=== PATIENT | male | born 1965 | race Caucasian/White ===

== ENCOUNTER 2022-03-14 23:31 | Emergency (ER) | payer MEDICARE, SELFPAY ==
--- NOTE | ~2022-03-14 | XR_ITS ---
EXAMINATION: XR chest 2V DATE: 03/15/2022 00:21 INDICATION: Shortness of breath. TECHNIQUE: Frontal and lateral views of the chest were obtained. COMPARISON: Chest 2 views 06/09/2016 FINDINGS: There is mild atelectasis at left lung base. No pleural effusion or pneumothorax. The heart size is normal. IMPRESSION: 1. Mild atelectasis at left lung base. Reviewed, dictated and finalized at location A.
[2022-03-14 23:39] VITALS: BP 155/109; PULSE 102; RESP 22; TEMP 36.8; O2SAT 92
[2022-03-15] VITALS (12 sets, daily range): BP systolic 100–162; BP diastolic 66–101; PULSE 84–104; RESP 18–28; O2SAT 91–99
[2022-03-15 00:35] LABS: Basophils Percent Auto 0.6 % (0.2-1.2); Eosinophils Absolute Auto 0.3 K/mm3 (0-0.3); Eosinophils Percent Auto 4.5 % (0-4.4); Hematocrit 46.8 % (42.0-52.0); Hemoglobin 15.7 g/dL (14.0-18.0); Immature Granulocyte Absolute 0.04 K/mm3 (0.00-0.031); Immature Granulocyte Percent A 0.6 % (0-0.5); Lymphocytes Absolute Auto 1.07 K/mm3 (0.9-3.2); Lymphocytes Percent Auto 15.9 % (18.3-44.2); Mean Corpuscular HGB Conc 33.5 g/dl (32-36); Mean Corpuscular Hemoglobin 31.5 pg (26-34); Mean Platelet Volume 8.6 fl (7.4-10.4); Monocytes Absolute Auto 0.6 K/mm3 (0.1-0.6); Monocytes Percent Auto 8.5 % (2.6-8.5); Neutrophils Absolute Auto 4.7 K/mm3 (1.3-6.7); Neutrophils Percent Auto 69.9 % (45.5-73.1); Platelet Count Result 392 k/mm3 (150-375); Red Blood Count 4.98 M/mm3 (4.6-6.20); Red Cell Distribution Width 13.1 % (11.5-14.5); White Blood Count 6.7 K/mm3 (4.5-10.0)
[2022-03-15 00:42] LABS: Alanine Aminotransferase 28 U/L (6-50); Albumin Level 4.6 g/dL (3.5-5.1); Alkaline Phosphatase 106 U/L (38-126); Anion Gap 15 mmol/L (8-16); Aspartate Amino Transferase 41 U/L (17-59); Bilirubin,Total 0.4 mg/dL (0.2-1.3); Blood Urea Nitrogen 18 mg/dL (9-20); Calcium 9.1 mg/dL (8.4-10.2); Carbon Dioxide 26 mmol/L (22-30); Chloride 98 mmol/L (98-107); Estimated CRCL calculation 65 ml/min; Estimated Glomerular Filt Rate > 60; Glucose 116 mg/dL (65-110); Potassium 4.2 mmol/L (3.4-5.0); Sodium 139 mmol/L (137-145)
--- NOTE | 2022-03-15 01:02 | ECG_ITS ---
Measurements Intervals [place] Rate: 89 P: 74 WV: 160 QRS: 50 QRSD: 92 T: 61 QT: 325 QTc: 397 Interpretive Statements SINUS RHYTHM POSSIBLE LEFT ATRIAL ENLARGEMENT BORDERLINE ECG NO PREVIOUS ECG AVAILABLE FOR COMPARISON Electronically Signed On 03-15-2022 8:30:21 CDT by Mariano Munoz D.O.
--- NOTE | 2022-03-15 01:20 | ED.SOB ---
HPI - SOB/Dyspnea General Chief Complaint: Shortness of Breath/Dyspnea <Lake Gong APRN - Last Filed: 03/15/22 01:36> Stated Complaint: chest pressure, SOB x2 months <Lake Gong APRN - Last Filed: 03/15/22 01:36> Time Seen by Provider: 03/15/22 01:05 <Lake Gong APRN - Last Filed: 03/15/22 01:36> History of Present Illness HPI Narrative: 56-year-old male history of throat cancer and asthma presents to the emergency room for multiple complaints. Patient states 2 months ago he was nauseated and threw up multiple times, noticed that he had blood in his vomit. States the hematemesis resolved in 3 days. He believes the blood was present due to throat strictures from the history of chemo and radiation therapy. States for the last 6 weeks he has been experiencing shortness of breath, and that his rescue inhaler helps occasionally. States he attempted to contact his primary care physician but they were unable to see him. Patient also complains of right arm numbness and tingling for the last 2 months that is more noticeable when he raises his arm in the air. Patient also states that he has been constipated. <Lake Gong APRN - Last Filed: 03/15/22 01:36> Related Data Home Medications: Home Medications Medication Instructions Recorded Confirmed albuterol 90 mcg/actuation aerosol mcg inhalation 03/15/22 inhaler levothyroxine 100 mcg tablet mcg 03/15/22 <Lake Gong APRN - Last Filed: 03/15/22 01:36> Allergies/Adverse Reactions: Allergies Allergy/AdvReac Type Severity Reaction Status Date / Time No Known Allergies Allergy Verified 03/15/22 01:13 <Lake Gong APRN - Last Filed: 03/15/22 01:36> Review of Systems Review of Systems: CONSTITUTIONAL: Denies fever, chills, or sweats. EYES: Denies visual changes, redness, or discharge. ENT: Denies rhinorrhea, congestion, sore throat, or otalgia. CARDIOVASCULAR: Denies chest pain, palpitations, or edema. RESPIRATORY: Reports shortness of breath, and wheezing GASTROINTESTINAL: Reports constipation GENITOURINARY: Denies dysuria or hematuria. SKIN: Denies rash or itching. MUSCULOSKELETAL: Denies back pain, joint pain, or myalgia. NEUROLOGIC: Reports paresthesias in right arm PSYCHIATRIC: Denies anxiety or depression. <Lake Gong APRN - Last Filed: 03/15/22 01:36> Exam Narrative: GENERAL: Well-appearing, well-nourished, no physical limitations, and in no acute distress. HEAD: Normocephalic, atraumatic. EYES: Conjunctivae normal, PERRLA and EOMI. ENT: External nose normal, Nares clear, no rhinorrhea or epistaxis. Mucous membranes moist. Oropharynx without tonsillar hypertrophy exudate or other lesions. External ears normal, bilateral TMs normal bilaterally NECK: Supple. No adenopathy or masses. CHEST: Clear to auscultation. No respiratory distress. No wheezes rales or rhonchi. HEART: Regular rate and rhythm. No murmur heard. Normal peripheral pulses. ABDOMEN: Soft, nontender, nondistended, normal active bowel sounds. EXTREMITIES: Normal range of motion. No edema. No clubbing or cyanosis SKIN: Warm, dry, no rash. No noted wounds NEURO: No focal deficits. Alert and oriented x3. MAEW. CN's II-XI intact bilaterally, normal gait PSYCH: Cooperative. Normal mood and affect. <Lake Gong APRN - Last Filed: 03/15/22 01:36> Course Course Emergency Course: Patient is completed neb treatment. Oxygenating well and lungs are clear. Discharge home with supportive therapy. <Parrish Villafuerte MD - Last Filed: 03/15/22 04:25> Vital Signs Vital signs: Vital Signs Temperature 98.3 F 03/14/22 23:39 Pulse Rate 102 H 03/14/22 23:39 Respiratory Rate 22 H 03/14/22 23:39 Blood Pressure 155/109 H 03/14/22 23:39 Pulse Oximetry 92 03/14/22 23:39 Oxygen Delivery Room Air 03/14/22 23:39 Temperature 98.3 F 03/14/22 23:39 Pulse Rate 99 03/15/22 03:49 Respiratory Rate 23 H
[2022-03-15] MEDS: SODIUM CHLORIDE 0.9% IV 1,000 ML 999 ML IV CONT (01:35)
[2022-03-15] MEDS: ALBUTEROL SULFATE NEB 2.5 MG/3 ML INH INHALATION (01:50)
[2022-03-15] MEDS: IPRATROPIUM BR 0.02% INH SOLN 0.5 MG/2.5 ML VIAL INHALATION (01:50)
[2022-03-15 01:58] LABS: Lipase 90 U/L (23-300)
[2022-03-15 02:10] LABS: Troponin I < 0.012 ng/mL (0.000-0.034)
[2022-03-15 02:26] LABS: SARS-CoV-2 RNA PCR Negative
[2022-03-15] MEDS: methylPREDNISolone SOD SUCC 125 MG VIAL IV PUSH (02:29)
[2022-03-15] MEDS: MAGNESIUM SULF 2 GM/WATER 50ML 2 GM/50 ML BAG IVPB (02:42)
--- NOTE | 2022-03-15 02:54 | PC.NURSE ---
Respiratory at bedside
[2022-03-15] MEDS: ALBUTEROL SULFATE NEB 2.5 MG/3 ML INH 10 MG INHALATION (02:56)
--- NOTE | 2022-03-15 04:30 | PC.NURSE ---
Pt able to ambulate with steady gait with EDP Christo
== END 2022-03-15 04:41 | disposition home or self-care (01) ==
PROVIDERS: Emergency Medicine; Emergency Provider Nurse Practitioner Family; PCP Family Medicine
DX: J45.901 Unspecified asthma with (acute) exacerbation (principal); R94.6 Abnormal results of thyroid function studies; Z20.822 Contact with and (suspected) exposure to COVID-19; Z85.818 Personal history of malignant neoplasm of other sites of lip, oral cavity, and pharynx; R94.31 Abnormal electrocardiogram [ECG] [EKG]; Z92.21 Personal history of antineoplastic chemotherapy; Z92.3 Personal history of irradiation
CPT/HCPCS: 36415; 71046; 80053; 83690; 84443; 84484; 85025; 93005; 94640; 96361; 96365; 96375; 99285; C9803; J2930; J3475; J7030; U0003; U0005

== ENCOUNTER 2023-04-21 06:09 | Emergency (ER) | payer MEDICARE, SELFPAY ==
[2023-04-21] VITALS (19 sets, daily range): BP systolic 112–143; BP diastolic 68–95; PULSE 74–82; RESP 13–27; TEMP 37.1; O2SAT 94–99
--- NOTE | ~2023-04-21 | XR_ITS ---
Clinical Indication: Chest pain AP and lateral views of the chest: Comparison: 03/15/2022 Findings: The lungs are clear, without evidence of focal consolidation or pleural effusion. Cardiome diastinal silhouette is within normal limits. Bones and soft tissues are unremarkable. Impression: Normal chest. Reviewed, dictated and finalized at location . Impression: Normal chest.
--- NOTE | ~2023-04-21 | CT_ITS ---
EXAMINATION: CTA chest abdomen pelvis DATE: 04/21/2023 08:41 INDICATION: Chest and epigastric pain TECHNIQUE: Computed tomographic angiography (CTA) of the chest, abdomen, and pelvis was performed wit h 100 mL Omnipque-350 intravenous contrast. Maximum intensity projection 3D-reconstructions of the ao rta and other arteries were constructed by the technologist on a separate workstation. The dose-lengt h product (DLP) was 431.65 mGy-cm. Automated exposure control and iterative reconstruction technique were employed. COMPARISON: 07/10/2009 FINDINGS: CHEST CTA: No aneurysm or dissection of the thoracic aorta. No pathologically enlarged thoracic lymph nodes are identified. The heart size is normal. A 3 mm nodule of the right upper lobe is stable. There is also a stable 5 mm nodule of the right lower lobe. Mild dependent atelectasis is noted. There are changes of left partial pneumonectomy. There is a small amount of mucus plugging in the left lower lobe. No p leural effusion or pneumothorax. There is mild thoracic spondylosis. ABDOMEN AND PELVIS CTA: No aneurysm or dissection of the abdominal aorta. The celiac axis, superior mesenteric artery, and in ferior mesenteric artery are normal at their origins. There are two left and one right renal arteries . Pelvic vasculature is unremarkable. The liver, spleen, pancreas, gallbladder, and adrenal glands ar e normal. The kidneys are unremarkable. No pathologically enlarged abdominal or pelvic lymph nodes ar e identified. No free intraperitoneal gas or evidence of bowel obstruction. There is trace pelvic asc ites of unclear etiology. IMPRESSION: 1. No aneurysm or dissection of the aorta. Reviewed, dictated and finalized at location L.
--- NOTE | 2023-04-21 06:19 | ECG_ITS ---
Measurements Intervals [place] Rate: 80 P: 72 [place]: 172 QRS: 65 QRSD: 102 T: 74 QT: 363 QTc: 419 Interpretive Statements SINUS RHYTHM NORMAL ECG COMPARED TO ECG 03/15/2022 01:02:29 NO SIGNIFICANT CHANGES Electronically Signed On 04-21-2023 9:03:00 CDT by Lake Mayo M.D.
[2023-04-21] MEDS: ASPIRIN 81 MG CHEWABLE TABLET 324 MG PO (06:24)
[2023-04-21 06:33] LABS: Basophils Absolute Auto 0.1 K/mm3 (0.0-0.1); Basophils Percent Auto 0.8 % (0.2-1.2); Eosinophils Absolute Auto 0.4 K/mm3 (0-0.3); Eosinophils Percent Auto 6.6 % (0-4.4); Hematocrit 44.5 % (42.0-52.0); Hemoglobin 15.3 g/dL (14.0-18.0); Immature Granulocyte Absolute 0.01 K/mm3 (0.00-0.031); Immature Granulocyte Percent A 0.2 % (0-0.5); Lymphocytes Absolute Auto 1.49 K/mm3 (0.9-3.2); Lymphocytes Percent Auto 25.2 % (18.3-44.2); Mean Corpuscular HGB Conc 34.4 g/dl (32-36); Mean Corpuscular Hemoglobin 32.3 pg (26-34); Mean Corpuscular Volume 93.9 fl (80-100); Mean Platelet Volume 8.7 fl (7.4-10.4); Monocytes Absolute Auto 0.8 K/mm3 (0.1-0.6); Monocytes Percent Auto 13.9 % (2.6-8.5); Neutrophils Absolute Auto 3.2 K/mm3 (1.3-6.7); Neutrophils Percent Auto 53.3 % (45.5-73.1); Platelet Count Result 300 k/mm3 (150-375); Red Blood Count 4.74 M/mm3 (4.6-6.20); Red Cell Distribution Width 12.6 % (11.5-14.5); White Blood Count 5.9 K/mm3 (4.5-10.0)
[2023-04-21 06:44] LABS: Alanine Aminotransferase 27 U/L (6-50); Albumin Level 4.5 g/dL (3.5-5.1); Alkaline Phosphatase 84 U/L (38-126); Anion Gap 7 mmol/L (8-16); Aspartate Amino Transferase 32 U/L (17-59); Bilirubin,Total 0.6 mg/dL (0.2-1.3); Blood Urea Nitrogen 16 mg/dL (9-20); Calcium 9.6 mg/dL (8.4-10.2); Carbon Dioxide 27 mmol/L (22-30); Chloride 105 mmol/L (98-107); Estimated CRCL calculation 53 ml/min; Estimated Glomerular Filt Rate 57; Glucose 131 mg/dL (65-110); Lipase 252 U/L (23-300); Potassium 4.1 mmol/L (3.4-5.0); Sodium 139 mmol/L (137-145)
[2023-04-21 07:07] LABS: Troponin I < 0.012 ng/mL (0.000-0.034)
[2023-04-21 07:12] LABS: Prothrombin Time 13.4 Seconds (11.1-14.7)
[2023-04-21 07:13] LABS: Partial Thromboplastin Time 35.2 SECONDS (22.3-36.8)
--- NOTE | 2023-04-21 07:24 | ED.CHESTPAIN ---
HPI - Chest Pain General Chief Complaint: Chest Pain Stated Complaint: back pain Time Seen by Provider: 04/21/23 07:14 History of Present Illness HPI narrative: Patient is a 58-year-old male who presents to the emergency department this morning complaining of a chest pain that been present since midnight. Patient states that he sat in the bathtub and the warm water and it seemed to help his pain, however, once he got out the pain persisted and he finally decided to come to the emergency department for further evaluation. Patient admits that the chest pain does radiate to his back both upper and lower. He admits to mild epigastric pain associated with nausea, denies any vomiting. 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 He is currently denying any bowel or bladder incontinence, any difficulty walking, any focal weakness, any fevers or chills. He denies any history of IV drug use. Patient also denies any shortness of breath, dysuria, hematuria, constipation, diarrhea, melena, hematochezia, headaches, dizziness, numbness and or tingling. There are no other modifying, alleviating, or precipitating factors at this time. Related Data Home Medications Medication Instructions Recorded Confirmed albuterol 90 mcg/actuation aerosol mcg inhalation 03/15/22 inhaler levothyroxine 100 mcg tablet mcg 03/15/22 Allergies Allergy/AdvReac Type Severity Reaction Status Date / Time No Known Allergies Allergy Verified 03/15/22 01:13 Review of Systems Review of Systems: All systems are reviewed and are negative unless stated otherwise in the HPI. PMFSH Comments Past medical history significant for squamous cell throat cancer many years ago which is currently in remission, surgical history significant for a lung biopsy, patient denies smoking tobacco or ever smoking, states that he used to smoke marijuana but he quit. Exam Narrative: Constitutional: Alert, awake, afebrile, in no acute distress. Eyes: PERRL, no double vision, no visual changes. HEENT: No ear pain, no rhinorrhea, no post nasal drip, oropharynx clear. Neck: Trachea midline, no meningeal signs, no JVD, no lymphadenopathy. Cardiovascular: Regular rate and rhythm, no murmurs, rubs or gallops, no peripheral edema. Respiratory: Clear to auscultation bilaterally, no tachypnea, no wheezing, no rhonchi, no rubs, no respiratory distress. Abdomen: Soft, nontender, nondistended, no rebound, no guarding, no peritoneal signs. Musculoskeletal: No joint swelling, warmth or weakness, no clubbing or cyanosis, no deformity or swelling, normal muscle tone. Back: No midline TTP over the C, T and L spine, no step-offs or deformities. Skin: No rashes or petechia, good skin turgor, no surrounding erythema, warmth, swelling, or any signs of infection. Psychiatric: Alert and oriented, normal behavior and judgment for situation. Neurological: Alert and oriented to person, place, and time. Follows all commands. Speech is clear and fluent. Cranial nerves II through XII grossly intact. Sensation is intact 5 out of 5 in bilateral upper and lower extremities. Motor strength is intact 5 out of 5 in the bilateral upper and lower extremities. Gait is intact with intact balance, no ataxia, no truncal ataxia. Course Vital Signs Vital signs: Vital Signs Temperature 98.8 F 04/21/23 06:13 Pulse Rate 80 04/21/23 06:13 Respiratory Rate 22 H 04/21/23 06:13 Blood Pressure 140/95 H 04/21/23 06:13 Pulse Oximetry 95 04/21/23 06:13 Oxygen Delivery Room Air 04/21/23 06:13 Temperature 98.8 F 04/21/23 06:13 Pulse Rate 75 04/21/23 09:45 Respiratory Rate 16 04/21/23 09:45 Blood Pressure 143/79 H 04/21/23 09:45 Pulse Oximetry 96 04/21/23 09:45 Oxygen Delivery Room Air 04/21/23 06:20 MDM - Chest Pain MDM Narrative Medical decision making narrative: The patient was evaluated by myself in the emergency department. History is obtai
[2023-04-21 09:57] LABS: Troponin I < 0.012 ng/mL (0.000-0.034)
== END 2023-04-21 09:54 | disposition home or self-care (01) ==
PROVIDERS: Emergency Medicine; Emergency Provider Emergency Medicine; PCP Family Medicine
DX: R07.89 Other chest pain (principal); Z85.818 Personal history of malignant neoplasm of other sites of lip, oral cavity, and pharynx
CPT/HCPCS: 36415; 71046; 71275; 74174; 80053; 83690; 84484; 85025; 85610; 85730; 93005; 99284; A9270; Q9967

== ENCOUNTER 2024-11-05 18:40 | Inpatient (IN) | payer MEDICARE, MEDICAID, SELFPAY ==
--- NOTE | ~2024-11-05 | XR_ITS ---
CHEST RADIOGRAPH, PA AND LATERAL CLINICAL HISTORY: sob . COMPARISON: 04/21/2023 TECHNIQUE: PA and lateral views of the chest. FINDINGS The cardiomediastinal silhouette is unremarkable. Redemonstration of mucous plugging within the left lung base, increased from prior. Increased opacification of the right mid to lower lung field with air bronchograms on lateral (otherw ise nondiagnostic) view, for which an early infiltrate is suspected. The remainder of the lungs are clear. IMPRESSION: Mucus plugging within the left lung base, unchanged. Early infiltrate suspected within the right mid to lower lung field, as detailed above. Reviewed, dictated and finalized at location A. IMPRESSION: Mucus plugging within the left lung base, unchanged. Early infiltrate suspected within the right mid to lower lung field, as detaile d above.
--- NOTE | ~2024-11-05 | CT_ITS ---
EXAMINATION: CTA chest PE protocol DATE: 11/05/2024 20:45 INDICATION: SOB, recent surgery, hemodynamic lability TECHNIQUE: Computed tomography angiography (CTA) of the chest was performed with 100 mL Omnipaque-350 intravenous contrast timed to evaluate the pulmonary arteries. Coronal maximum intensity projection 3D-reconstructions were created by the technologist. The dose-length product (DLP) was 243.26 mGy-cm. Automated exposure control and iterative reconstruction technique were employed. COMPARISON: X-ray chest, same date; CTA chest abdomen pelvis 04/21/2023. FINDINGS: Lung parenchyma and airways: Bilateral lower lobe and lingular tree-in-bud opacities with scattered a reas of centrilobular nodular groundglass and consolidative opacities considerable airway debris in t he left mainstem bronchus, extending into left lower lobe bronchi. Pleura: Unremarkable. Thoracic inlet, axillae and chest wall: Unremarkable. Thoracic aorta: No significant dilation. No dissection. Mediastinum: Enlarged mediastinal and bilateral hilar lymph nodes. Heart and pericardium: Normal. Coronary artery calcifications: Mild. Upper abdomen: No significant finding. Bones: No acute osseous finding. Pulmonary arteries: Study quality: Adequate. No pulmonary emboli detected. IMPRESSION: No CT evidence of acute pulmonary embolus. Pulmonary opacities most likely representing atypical infection. Recommend CT follow-up after the res olution of acute symptoms to ensure the scattered nodular opacities resolve. Left mainstem bronchus and lower lobe bronchial debris may represent mucous plugging or aspiration. Mediastinal and bilateral hilar lymphadenopathy. Reviewed, dictated and finalized at location K. IMPRESSION: No CT evidence of acute pulmonary embolus. Pulmonary opacities most likely representing atypical infection. Recommend CT f ollow-up after the resolution of acute symptoms to ensure the scattered nodular opacities resolve. Left mainstem bronchus and lower lobe bronchial debris may represent mucous plu gging or aspiration. Mediastinal and bilateral hilar lymphadenopathy.
--- NOTE | ~2024-11-05 | XR_ITS ---
MODIFIED ESOPHAGRAM HISTORY: Dysphagia. TECHNIQUE: Modified barium esophagram was performed by speech pathologist under fluoroscopic guidanc e. This was recorded on tape. The exam was reviewed on 11/06/2024 16:26 CDT. The DAP for this proce dure was 0.4 Gycm2. Fluoroscopy time is 0.7 minutes. FINDINGS: Lateral projection of the cervical spine demonstrates multiple surgical clips, consistent with prior intervention. A small caliber wire is also noted. Copious amounts of aspiration and penetration was visualized. IMPRESSION: 1: Copious amounts of penetration and aspiration. 2: Please refer to speech pathologist report for additional detail. Reviewed, dictated and finalized at location A.
[2024-11-05 18:43] VITALS: BP 92/64; PULSE 103; RESP 20; TEMP 36.9; O2SAT 92
--- OUTSIDE RECORDS SUMMARY | 2024-11-05 18:46 | XMS_ITS | Clinical Summary ---
Author Organization [facility] Address [address] [place] [address] Phone Care Team Providers Care Manager Of Pharmacy Name Role Phone Bud Pete MD Primary Care Provider [phone] Allergies No known active allergies Medications levothyroxine (SYNTHROID) 100 MCG Tablet TK 1 T PO Q DAY 3 6 Active Albuterol (PROVENTIL IN) take 90 Inhalers by inhalation 4 times daily. 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 Aspiration into airway 07/20/2016 Left-sided back pain 07/20/2016 Multiple lung nodules 07/20/2016 Resolved Problems Problem Noted Date Diagnosed Date Resolved Date Severe sepsis 05/05/2024 05/31/2024 Upper GI bleeding 07/20/2016 04/24/2024 Family History Medical History Relation Name Comments Cancer Father lung Tuberculosis Father Breast Cancer Sister Cancer Sister Relation Name Status Comments Father Mother Sister Alive Social History Tobacco Use Types Packs/Day Years Used Date Smoking Tobacco: Never Smokeless Tobacco: Never Tobacco Cessation:Counseling Given: Not Answered Alcohol Use Standard Drinks/Week Comments No 0 (1 standard drink = 0.6 oz pur e alcohol) [facility] Utilities Answer Date Recorded In the past 12 months has th e electric, gas, oil, or water company threatened to shut off services in your home? No 05/05/2024 Social Connection and Isolat ion Panel [NHANES] Answer Date Recorded In a typical week, how many times do you talk on the phone with family, friends, or neighbors? More than three times a week 05/05/2024 How often do you get togethe r with friends or relatives? More than three times a week 05/05/2024 How often do you attend chur ch or church services? Never 05/05/2024 Do you belong to any clubs o r organizations such as alevism groups, unions, fraternal or athletic groups, or school groups? No 05/05/2024 How often do you attend meet ings of the clubs or organizations you belong to? Never 05/05/2024 Are you , , di vorced, , never , or living with a partner? 05/05/2024 AUDIT-C Answer Date Recorded Q1: How often do you have a drink containing alcohol? Never 05/05/2024 Q2: How many drinks containi ng alcohol do you have on a typical day when you are drinking? Patient does not drink Q3: How often do you have si x or more drinks on one occasion? Never 05/05/2024 Overall Financial Resource Strain (CARDIA) Answe r Date Recorded How hard is it for you to pa y for the very basics like food, housing, medical care, and heating? Not hard at all 05/05/2024 [facility] [place] [facility] Occupat ional Health - Occupational Stress Questionnaire Answer Date Recorded Do you feel stress - tense, restless, nervous, or anxious, or unable to sleep at night because your mind is troubled all the time - these days? Only a little 05/05/2024 Exercise Vital Sign Answer Date Recorde d On average, how many days pe r week do you engage in moderate to strenuous exercise (like a brisk walk)? 7 days 05/05/2024 On average, how many minutes do you engage in exercise at this level? 30 min 05/05/2024 Hunger Vital Sign Answer Date Recorded Within the past 12 months, y ou worried that your food would run out before you got the money to buy more. Never true 05/05/20 24 Within the past 12 months, t he food you bought just didn't last and you didn't have money to get more. Never true 05/05/2024 PRAPARE - Transportation Answer Date Re corded In the past 12 months, has l ack of transportation kept you from medical appointments or from getting medications? No 04/11 In the past 12 months, has l ack of transportation kept you from meetings, work, or from getting things needed for daily living? No 05/05/2024 Housing Stability Vital Sign Answer Jethro e Recorded In the last 12 months, was t here a time when you were not able to pay the mortgage or rent on time? No 05/05/2024 In the past 12 months, how m any times have you moved where you were living? 0 05/05/2024 At any time in the past 12 m [facility], were you homeless or living in a longterm (including now)? No 05/05/2024 Sex and Gender Information Value Date Recorded Sex Assigned at Male 05/04/2024 11:42 PM CDT Legal Sex Male 7:18 PM CDT Gender Identity Male 05/04/2024 11:42 PM CDT Sexual Orientation Not on file Last Filed Vital Signs Vital Sign Reading Time Taken Comments Blood Pressure 123/88 08/01/2024 1:48 PM ACID ETCH OPERATOR Pulse 92 08/01/2024 1:48 PM ACID ETCH OPERATOR Temperature 36.7 C (98.1 F) 08/01/2024 1:48 PM ACID ETCH OPERATOR Respiratory Rate 16 08/01/2024 1:48 PM ACID ETCH OPERATOR Oxygen Saturation 95% 08/01/2024 1:48 PM ACID ETCH OPERATOR Inhaled Oxygen Concentration - - Weight 70.6 kg (155 lb 11.2 oz) 08/01/2024 1:48 PM ACID ETCH OPERATOR Height 180.3 cm (5' 11) 08/01/2024 1:48 PM ACID ETCH OPERATOR Body Mass Index 21.72 08/01/2024 1:48 PM ACID ETCH OPERATOR Plan of Treatment Health Maintenance Due Date Last Done Comments Hepatitis C Virus (HCV) Screening 1967 TdaP Immunization 1967 SARS-COV-2 Immunization (#1) 1972 Hepatitis B Immunization (1 of 3 - 19+ 3-dose series) 1986 Pneumococcal Immunization (5 0+ years) (1 of 2 - PCV) 1986 Zoster Immunization (1 of 2) 1986 Cologuard 2017 Immunochemical Fecal Occult Blood 2017 PSA Discussion 2022 Colonoscopy 08/08/2022 08/08/2017 Colorectal Cancer Screening 08/08/2022 Influenza Immunization (#1) 2024 Respiratory Syncytial Virus (RSV) Immunization (Adult) (1 - 1-dose 75+ series) 2042 08/08/2017 Meningococcal Immunization (ACWY) Aged Out No longer eligible based on patient's age to complete this topic Rotavirus Immunization Aged Out No lo nger eligible based on patient's age to complete this topic Insurance MEDICAID [place] MEDICARE C [employer] Advance Directives * Full Code (Latest Code Status on File) Date Activated Date Inactivated Comments 05/05/2024 1:16 AM CPR-Full [place] tment: FULL ARREST: Attempt Resuscitation/CPR wit intubation and mechanical ventilation. PRE-ARREST: Use entire range of life support measures to stabilize the patient. Care Teams Manager Of Pharmacy Relationship Specialty Start Date End Date Bud Pete MD [address] [place] [address] [address] [place] [address] PCP - General Family Medicine 07/15/16
--- OUTSIDE RECORDS SUMMARY | 2024-11-05 18:46 | XMS_ITS | Clinical Summary ---
Author Organization [facility] Address [address] [place] [address] Phone Care Team Providers Care Refractory Grinder Operator Name Role Phone Unavailable Primary Care Provider Unavailabl e Allergies No known active allergies Medications oxyCODONE (ROXICODONE) 5 mg/5 mL Oral solution Take 5 mg by mouth every 4 hours as needed. Active Albuterol, Refill, 90 mcg/Actuation Inhalation Aero Take by inhalation. Active ondansetron (ZOFRAN ODT) [address] 1 Tab inside cheek every 6 hours as needed for Nausea. Please take 1/2 tablet every 6 hours as needed for nausea 28 Tab 0 03/18/2011 Active oxyCODONE (ROXICODONE) 5 mg/5 mL Oral solution Take 10 mL by mouth every 3 hours as needed. 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 Gender Identity Not on file Sexual Orientation Not on file Last Filed Vital Signs Vital Sign Reading Time Taken Comments Blood Pressure 121/79 03/18/2011 7:59 AM CDT Pulse 63 03/18/2011 7:59 AM CDT Temperature 36.7 C (98 F) 03/18/2011 7:59 AM CDT Respiratory Rate 12 03/18/2011 7:59 AM CDT Oxygen Saturation 97% 03/18/2011 7:59 AM CDT Inhaled Oxygen Concentration - - Weight 87.5 kg (193 lb) 03/16/2011 5:12 PM CDT Height 180.3 cm (5' 11) 03/16/2011 5:12 PM CDT Body Mass Index 26.92 03/16/2011 5:12 PM CDT Plan of Treatment Health Maintenance Due Date Last Done Comments DTAP/TDAP/TD VACCINES (1 - Tdap) 1986 HEPATITIS B VACCINES (1 of 3 - 19+ 3-dose series) 03/11 COLORECTAL SCREENING 2012 Colorectal Cancer Screening 2012 FIT-DNA Q 3 years 2012 FIT/FOBT Q 1 year 2012 Flex Sig/CT Colonography Q 5 years 2012 ZOSTER VACCINE (1 of 2) 2017 INFLUENZA VACCINE (#1) 2024 Advance Directives For more information, please contact: [phone] * Full Code (Latest Code Status on File) Date Activated Date Inactivated Comments 03/16/2011 5:05 PM 03/18/2011 1:40 PM * Full Code Date Activated Date Inactivated Comments 03/16/2011 1:39 PM 03/16/2011 5:05 PM
--- OUTSIDE RECORDS SUMMARY | 2024-11-05 18:47 | XMS_ITS | Clinical Summary ---
Author Organization [facility] Address [address] [place] [address] Care Team Providers Care Scrap Drop Operator Name Role Phone Bud Pete MD Primary Care Provider [phone] Source Comments [facility],non-owned Affiliates and Associated Physician Practices is amultiple site organization consisting of ambulatory clinics and hospital sitesin [place], [place]. This disclosure is being madepursuant to the Care Everywhere program and may not contain all information available regarding this patient. Last updated 18.[facility] Allergies No known active allergies Medications * Be aware that medications may not be up to date on this document. Alwaysverify current medications with the patient. albuterol HFA (Proventil HFA) 108 (90 Base) MCG/ACT inhaler Inhale 90 Inhalers by mouth 4 times daily Active levothyroxine (Synthroid) 100 MCG tablet Take 1 (one) tablet by mouth once daily Active losartan (Cozaar) 25 MG tablet Take 1 (one) tablet by mouth once daily Active ibuprofen (Motrin) 600 MG tablet Take 1 (one) tablet by mouth every 6 hours as needed for Pain 30 tablet 4 Active Additional Information Patient not taking.Reason: Other, Reported on 10/30/2024 acetaminophen (Tylenol) 325 MG tablet 2 (two) tablets by Enteral Tube route every 6 hours Maximum allowable Acetaminophen amount = 4 Grams (4000 mg) / 24 hours. 30 tablet 4 Active Additional Information Patient not taking.Reason: Other, Reported on 10/30/2024 cyclobenzaprin e (Flexeril) 10 MG tablet 1 (one) tablet by Enteral Tube route 3 times daily 30 tablet 4 Active Additional Information Patient not taking.Reported on 10/30/2024 oxyCODONE, immediate release, (Roxicodone) 5 MG tabletIndicati ons:Hypopharyn geal cancer (HCC) 1 (one) tablet by Enteral Tube route every 4 hours as needed 12 tablet 4 Active Additional Information Patient not taking.Reported on 10/30/2024 polyethylene glycol 3350 (Miralax) 17 g packet 17 (seventeen) g by Enteral Tube route once daily as needed for Constipation 30 packet 4 Active Additional Information Patient not taking.Reported on 10/30/2024 fluconazole (Diflucan) 150 MG tablet Take 1 (one) tablet by mouth once daily 20 tablet 5 Active Additional Information Patient not taking.Reported on 10/30/2024 Active Problems Problem Noted Date Diagnosed Date Hypothyroidism 07/07/2024 Hypertension 07/07/2024 GERD (gastroesophageal reflux disease) 4 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 from 06/05/2024:Stage I(cT1, cN0, cM0) - Signed by Kenji Zapata MD on 06/05/2024 Encounters Date Type Department Care Team Description 10/30/2024 1:45 PM CDT Office Visit [facility] - ENT [address] [place] [phone] Deonte Haney MD Pharyngeal dysphagia (Primary Dx); Hypopharyngeal cancer (HCC); History of oropharyngeal cancer; Dysphagia, unspecified type; Oropharyngeal dysphagia 10/30/2024 Travel 10/02/2024 Telephone [facility] - ENT [address] [place] [phone] Karen Moe, cfo Issue (To start diflucan) 09/28/2024 2:15 PM CDT Office Visit [facility] - ENT [address] [place] [phone] Akin Herbert MD Hypopharyngeal cancer (Primary Dx) 09/28/2024 12:43 PM CDT - 09/28/2024 11:59 PM CDT Hospital Encounter [facility] [address] [place] [address] Akin Herbert MD Discharge Disposition: Home or Self Care 09/28/2024 12:43 PM CDT - 09/28/2024 11:59 PM CDT Hospital Encounter [facility] [address] [place] [address] Akin Herbert MD Discharge Disposition: Home or Self Care 09/28/2024 Travel 08/13/2024 2:30 PM EATING DISORDER SPECIALIST Office Visit [facility] - ENT [address] [place] [phone] Akin Herbert MD Weckbach, Michelle P, PEDIATRIC NURSE History of oropharyngeal cancer (Primary Dx); Hypopharyngeal mass 08/13/2024 2:30 PM EATING DISORDER SPECIALIST - 08/13/2024 11:59 PM EATING DISORDER SPECIALIST Hospital Encounter [facility] [address] [place] [address] Akin Herbert MD Discharge Disposition: Home or Self Care 08/13/2024 Travel 08/07/2024 Telephone [facility] - [facility]NT [address] [place] [phone] Akin Herbert MD Question from Last 3 Months Social History Tobacco Use Types Packs/Day Years Used Date Smoking Tobacco: Never Smokeless Tobacco: Never Tobacco Cessation:Counseling Given: Not Answered Alcohol Use Standard Drinks/Week Comments Not Currently 0 (1 standard drink = 0.6 oz pur e alcohol) AUDIT-C Answer Date Recorded Q1: How often do you have a drink containing alcohol? Never 06/26/2024 Q2: How many drinks containi ng alcohol do you have on a typical day when you are drinking? Patient does not drink Q3: How often do you have si x or more drinks on one occasion? Never 06/26/2024 Overall Financial Resource Strain (CARDIA) Answe r Date Recorded How hard is it for you to pa y for the very basics like food, housing, medical care, and heating? Somewhat hard 06/26/2024 [facility] Occupat ional [facility] - Occupational Stress Questionnaire Answer Date Recorded Do you feel stress - tense, restless, nervous, or anxious, or unable to sleep at night because your mind is troubled all the time - these days? Only a little 06/26/2024 Hunger Vital Sign Answer Date Recorded Within the past 12 months, y ou worried that your food would run out before you got the money to buy more. Never true 06/26/20 24 Within the past 12 months, t he food you bought just didn't last and you didn't have money to get more. Never true 06/26/2024 PRAPARE - Transportation Answer Date Re corded In the past 12 months, has l ack of transportation kept you from medical appointments or from getting medications? No 06/10 In the past 12 months, has l ack of transportation kept you from meetings, work, or from getting things needed for daily living? No 06/26/2024 Housing Stability Vital Sign Answer Jethro e Recorded In the last 12 months, was t here a time when you were not able to pay the mortgage or rent on time? No 06/26/2024 In the past 12 months, how m any times have you moved where you were living? 1 06/26/2024 At any time in the past 12 m onths, were you homeless or living in a nursing home (including now)? No 06/26/2024 Sex and Gender Information Value Date Recorded Sex Assigned at Not on file Legal Sex Male 6:06 AM EATING DISORDER SPECIALIST Gender Identity Not on file Sexual Orientation Not on file Last Filed Vital Signs Vital Sign Reading Time Taken Comments Blood Pressure 126/87 10/30/2024 1:06 PM CDT Pulse 83 10/30/2024 1:06 PM CDT Temperature 36.6 C (97.9 F) 07/10/2024 11:20 AM EATING DISORDER SPECIALIST Respiratory Rate 18 07/10/2024 10:19 AM EATING DISORDER SPECIALIST Oxygen Saturation 92% 07/10/2024 4:20 AM EATING DISORDER SPECIALIST Inhaled Oxygen Concentration 21% 07/09/2024 8 :55 PM EATING DISORDER SPECIALIST Weight 66.2 kg (146 lb) 10/30/2024 1:06 PM CDT Height 180.3 cm (5' 11) 10/30/2024 1:06 PM CDT Body Mass Index 20.36 10/30/2024 1:06 PM CDT Plan of Treatment Upcoming Encounters Date Type Department Care Team (Late st Contact Info) Description 12/10/2024 1:45 PM CDT Office Visit [facility] - ENT [address] [place] [phone] Vannessa Le, PEDIATRIC NURSE [address] [place] [address] [place] [phone] 12/10/2024 2:00 PM CDT Appointment [facility] [address] [place] [address] Deonte Haney MD [address] [place] [address] [place] [address] 12/18/2024 9:30 AM CDT Office Visit [facility] - ENT [address] [place] [phone] Deonte Haney MD [address] [place], [place] [address] [address] 01/04/2025 2:45 PM CDT Office Visit [facility] - ENT [address] [place] [phone] Akin Herbert MD [address] [place] [phone] Health Maintenance Due Date Last Done Comments COLON MONITORING 1967 COLONOSCOPY - COLON CA SCREENING 1967 CT COLONOGRAPHY - COLON CA SCREENING 1967 FIT - COLON CA SCREENING 1967 FLEX SIG - COLON CA SCREENING 1967 LIPID TESTING 1967 HIV SCREENING 1982 HEPATITIS C SCREENING 03/19/1985 DTAP/TDAP/TD VACCINES (1 - Tdap) 1986 HEPATITIS B VACCINE (1 of 3 - 19+ 3-dose series) 1986 PNEUMOCOCCAL VACCINE 50+ (1 of 2 - PCV) 1986 ZOSTER VACCINE (1 of 2) 2017 COVID-19 VACCINE (1 - 2023-2 5 season) 2024 DEPRESSION SCREENING 07/11/2024 MEDICARE AWV CALENDAR YEAR 2024 INFLUENZA VACCINE (Season Ended) 2025 COLOGUARD (AGES 45-75) - COL ON CA SCREENING 10/25/2026 10/26/2023 Colorectal Cancer Screening 10/25/2026 HIB VACCINE Aged Out No longer eligi ble based on patient's age to complete this topic HPV VACCINE Aged Out No longer eligi ble based on patient's age to complete this topic MENINGOCOCCAL (Group B) VACC INE SHARED DECISION-MAKING Aged Out No longer eligibl e based on patient's age to complete this topic MENINGOCOCCAL GROUPS A/C/Y/W VACCINE Aged Out No longer eligible b ased on patient's age to complete this topic Procedures Procedure Name Priority Date/Time Associated Diagnosis Comments VT LARYNGOSCOPY,FLEX FIBER,DIAGNOSTIC Routine 10/30/2024 2:44 PM CDT 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 Pharyngeal dysphagia VT LARYNGOSCOPY,FLEX FIBER,DIAGNOSTIC Routine 09/29/2024 4:35 PM CDT Hypopharyngeal cancer CT NECK SOFT TISSUE W CONT Routine 09/28/2024 1:06 PM CDT Hypopharyngeal cancer CT CHEST W CONTRAST Routine 09/28/2024 1 :05 PM CDT Hypopharyngeal cancer CREATININE - POCT INTERFACED Routine 09/28/2024 12:48 PM CDT from Last 3 Months Results * VT LARYNGOSCOPY,FLEX FIBER,DIAGNOSTIC (10/30/2024 2:44 PM CDT) Kenji Leon MD - 10/30/2024 2:44 PM CDT Kenji Zapata MD 10/30/2024 3:11 PM Procedure Note Endoscopy Type: Laryngoscopy without stroboscopy [address] Endoscope: Flexible 4mm Scope Anesthesia: Lidocaine 2% and Neosynephrine 1/2% (nasal) Procedure Details: The patient was sitting upright in a chair with the head in a slightly anterior sniffing position. The topical anesthesia was administered and then adequate time was allowed for an anesthetic effect. The endoscope was passed thru the nasal cavity with the tongue retracted anteriorly. The tip of the endoscope was positioned in the oropharynx which allowed a complete view of the base of tongue, vallecula, pyriform recesses, epiglottis, bilateral true and false vocal folds, the interarytenoid and post cricoid region, and the immediate subglottis. Findings: Flap well healed in the left hypopharynx. The flap is growing hair and there is significant mucus and debris in the left greater than right piriforms. Vocal cords mobile. The camera was then passed through the right piriform into the esophagus. Condition: Stable. Patient tolerated procedure well. Complications: None EBL: None Dr. Haney was present for the entirety of the procedure. us Deonte Haney MD PROCEDURE/MINOR SURGICAL ORD ERABLES Final Result * VT LARYNGOSCOPY,FLEX FIBER,DIAGNOSTIC (09/29/2024 4:35 PM CDT) Narrative Akin Herbert MD - 09/29/2024 4:35 PM CDT Akin Herbert MD 09/29/2024 4:36 PM Procedure Note Anesthesia: Lidocaine 2% and Josue-Synephrine 1/2% Endoscopy Type: Flexible Qiaje-Rjajdypqtyxbqf-Kfcgvodxpjxy Procedure Details: Informed consent was obtained. The patient was placed in the sitting position. After topical anesthesia and decongestion, the 4 mm laryngoscope was passed. The nasal cavities, nasopharynx, oropharynx, hypopharynx, and larynx were all examined. Vocal cords were examined during respiration and phonation. Findings: -flap well healed in the left hypopharynx. No lesions or masses seen - Vocal cords mobile - At the medial edge of the flap along the partially resected epiglottis there is through where sections drain into the laryngeal inlet without apparent sensation and then aspiration. Disposition: The patient tolerated procedure well. Complications: None EBL: none us Akin Herbert MD PROCEDURE/MINOR SURGICAL ORDERAB LES Final Result * CT Neck Soft Tissue W Cont (09/28/2024 1:06 PM CDT) Anatomical Region Laterality Modality Head Computed Tomogra phy 09/28/2024 8:27 PM CDT Impressions 09/29/2024 3:54 PM CDT IMPRESSION: 1. Extensive postoperative changes of left pharyngectomy with reconstruction, left neck dissection and tracheostomy as detailed above. 2. No cervical lymphadenopathy by size criteria. No enhancing lesions are identified to suggest recurrence. 3. Incompletely imaged tree-in-bud opacities in the superior segment of the right lower lobe of the lung. Please refer to the report of a concurrent CT of the chest for further details. > Interpreting Provider: Trish Rodriguez MD on 09/29/2024 3:54 PM Narrative 09/29/2024 3:54 PM CDT PROCEDURE: CT NECK SOFT TISSUE W CONT, DATE/TIME OF EXAM: 09/28/2024 1:07 PM, LOCATION [facility] INDICATION: C13.9: Hypopharyngeal cancer (HCC) ADDITIONAL CLINICAL INFORMATION: Ordering Provider Reason For Exam: Technologist Note: Additional: TECHNIQUE: CT of the neck was performed following the uneventful administration of intravenous contrast according to standard protocol. Contrast: IOPAMIDOL 76 % IV SOLN:75 mL COMPARISON: CT of the neck soft tissue with contrast dated 05/27/2024 from outside hospital. FINDINGS: There are extensive postoperative changes of left pharyngectomy with reconstruction, left neck dissection and tracheostomy. There is mild asymmetric enlargement of the left vallecula, likely postoperative changes. There is diffuse fat stranding and soft tissue thickening along the left side of the neck, likely postsurgical changes. 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 Multiple surgical clips are present on the left side of the neck. The submandibular glands are atrophic or surgically removed. No enhancing lesions are identified. Multiple small subcentimeter lymph nodes are noted in both sides of the neck with no evidence of cervical lymphadenopathy. The cervical internal carotid arteries and the right internal jugular vein appear normal. Fascial planes are preserved and the deep spaces of the neck appear normal. The nasopharynx, oropharynx, hypopharynx and larynx appear normal. The visualized airway is patent. The visualized portions of the posterior fossa and brain appear normal. The cervical spine appears normal. The visualized orbits and paranasal sinuses appear normal. The thyroid gland is normal. Incompletely imaged tree-in-bud opacities in the superior segment of the right lower lobe of the lung. Please refer to the report of a concurrent chest CT for further details. Procedure Note Trish Rodriguez MD - 09/29/2024 PROCEDURE: CT NECK SOFT TISSUE W CONT, DATE/TIME OF EXAM: :07 PM, LOCATION [facility] INDICATION: C13.9: Hypopharyngeal cancer (HCC) ADDITIONAL CLINICAL INFORMATION: Ordering Provider Reason For Exam: Technologist Note: Additional: TECHNIQUE: CT of the neck was performed following the uneventful administration of intravenous contrast according to standard protocol. Contrast: IOPAMIDOL 76 % IV SOLN:75 mL COMPARISON: CT of the neck soft tissue with contrast dated 05/27/2024from outside hospital. FINDINGS: There are extensive postoperative changes of left pharyngectomy with reconstruction, left neck dissection and tracheostomy. There is mild asymmetric enlargement of the left vallecula, likely postoperativechanges. There is diffuse fat stranding and soft tissue thickening along the left side of the neck, likely postsurgical changes. There is severe stenosisof the left internal jugular vein which is likely related to the neck dissection and thickening of the surrounding soft tissue. Multiplesurgical clips are present on the left side of the neck. The submandibular glands are atrophic or surgically removed. No enhancing lesions are identified. Multiple small subcentimeter lymph nodes are noted in both sides of the neck with no evidence of cervical lymphadenopathy. The cervicalinternal carotid arteries and the right internal jugular vein appear normal.Fascial planes are preserved and the deep spaces of the neck appear normal. The nasopharynx, oropharynx, hypopharynx and larynx appear normal. The visualized airway is patent. The visualized portions of the posterior fossa and brain appear normal.The cervical spine appears normal. The visualized orbits and paranasalsinuses appear normal. The thyroid gland is normal. Incompletely imaged tree-in-bud opacities in the superior segment of the right lower lobe of the lung. Please refer to the report of a concurrent chest CT for further details. IMPRESSION: 1. Extensive postoperative changes of left pharyngectomy with reconstruction, left neck dissection and tracheostomy as detailed above. 2. No cervical lymphadenopathy by size criteria. No enhancing lesionsare identified to suggest recurrence. 3. Incompletely imaged tree-in-bud opacities in the superior segment ofthe right lower lobe of the lung. Please refer to the report of a concurrentCT of the chest for further details. > Interpreting Provider: Trish Rodriguez MD on 09/29/2024 3:54 PM us Akin Herbert MD CT ORDERABLES Final Result * CT Chest W Contrast (09/28/2024 1:05 PM CDT) Anatomical Region Laterality Modality Chest Computed Tomogra phy 09/28/2024 2:13 PM CDT Impressions 09/28/2024 2:24 PM CDT IMPRESSION: 1. Progressive left lower lobe tree-in-bud nodularity and right lower lobe patchy groundglass with debris in the left lower lobe bronchial tree, favoring ongoing aspiration. Given the history of head and neck malignancy, continued imaging follow-up recommended. 2. Unchanged 5 mm right lower lobe pulmonary nodule. > Interpreting Provider: Marck Perez MD on 09/28/2024 2:24 PM Narrative 09/28/2024 2:24 PM CDT PROCEDURE: CT CHEST W CONTRAST DATE/TIME OF EXAM: 09/28/2024 1:06 PM CLINICAL INFORMATION: None relevant/not provided if blank. Indication: C13.9: Hypopharyngeal cancer (HCC) Additional History: COMPARISON: 05/17/2024. TECHNIQUE: CT of the chest was performed following intravenous contrast utilizing standard protocol. CT dose reduction technique was used, including Automated Exposure Control. CONTRAST: IOPAMIDOL 76 % IV SOLN:75 mL FINDINGS: Central tracheobronchial tree: There is mucus plugging and debris in the left lower lobe bronchial tree.. Lungs: There is progressive patchy groundglass in the right lower lobe for reference seen on series 4 image 44. Unchanged slightly worsened tree-in-bud nodularity in the left lower lobe likely aspiration. Unchanged 5 mm right lower lobe nodule on series 4 image 99. There are changes of left lower lobe wedge resection. Pleura: No significant pleural effusion. No pneumothorax. Heart: Heart is not enlarged. No significant pericardial effusion. There are coronary artery calcifications. Thoracic aorta is normal in caliber with calcifications. Shannon/mediastinum: No abnormally enlarged hilar or mediastinal lymph node. Bones: No significant osseous changes. Upper abdomen: Gastrostomy tube is present in the stomach. Procedure Note Marck Perez MD - 09/28/2024 PROCEDURE: CT CHEST W CONTRAST DATE/TIME OF EXAM: 09/28/2024 1:06 PM CLINICAL INFORMATION: None relevant/not provided if blank. Indication: C13.9: Hypopharyngeal cancer (HCC) Additional History: COMPARISON: 05/17/2024. TECHNIQUE: CT of the chest was performed following intravenous contrast utilizing standard protocol. CT dose reduction technique was used, including Automated ExposureControl. CONTRAST: IOPAMIDOL 76 % IV SOLN:75 mL FINDINGS: Central tracheobronchial tree: There is mucus plugging and debris in the left lower lobe bronchial tree.. Lungs: There is progressive patchy groundglass in the right lower lobe for reference seen on series 4 image 44. Unchanged slightly worsened tree-in-bud nodularity in the left lowerlobe likely aspiration. Unchanged 5 mm right lower lobe nodule on series 4 image 99. There are changes of left lower lobe wedge resection. Pleura: No significant pleural effusion. No pneumothorax. Heart: Heart is not enlarged. No significant pericardial effusion. There are coronary artery calcifications. Thoracic aorta is normal in caliber with calcifications. Shannon/mediastinum: No abnormally enlarged hilar or mediastinal lymphnode. Bones: No significant osseous changes. Upper abdomen: Gastrostomy tube is present in the stomach. IMPRESSION: 1. Progressive left lower lobe tree-in-bud nodularity and right lowerlobe patchy groundglass with debris in the left lower lobe bronchial tree, favoring ongoing aspiration. Given the history of head and neckmalignancy, continued imaging follow-up recommended. 2. Unchanged 5 mm right lower lobe pulmonary nodule. > Interpreting Provider: Marck Perez MD on 09/28/2024 2:24 PM Akin Herbert MD CT ORDERABLES Final Result * (ABNORMAL) CREATININE - POCT INTERFACED (09/28/2024 12:48 PM CDT) Creatinine POCT 1.00 0.30 - 1.30 mg/dL 09/28/2024 12:53 PM CDT [facility] eGFR 88(L) >=90 mL/min/1.7 3 m2 09/28/2024 12:53 PM CDT [facility] Blood BLOOD SPECIMEN / Unknown 09/28/2024 12:48 PM CDT 09/28/2024 12:53 PM CDT us Akin Herbert MD LAB - POINT OF CARE ORDERABLES F inal Result [facility] [address] [place] [address], [facility] [phone] from Last [address] [facility] MEDICAID - [place] Advance Directives * Full Code (Latest Code Status on File) Date Activated Date Inactivated Comments 06/26/2024 5:01 PM 07/10/2024 5:41 PM * Full Code Date Activated Date Inactivated Comments 06/26/2024 5:00 PM 06/26/2024 5:01 PM Care Teams Scrap Drop Operator Relationship Specialty Start Date End Date Bud Pete MD [address] [place], [place] [phone] PCP - General Family Medicine 04/24/24
--- OUTSIDE RECORDS SUMMARY | 2024-11-05 18:47 | XMS_ITS ---
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 Past Treatment and Therapy Plans No past plan information found. Lifetime Dose Tracking * Chemical Lifetime Dose Automatic Entry Manual Entr y Dose Length Product 354.8 mGy-cm 354.8 mGy-cm 0 mGy-cm
--- OUTSIDE RECORDS SUMMARY | 2024-11-05 18:47 | XMS_ITS | Data Portability ---
Author Organization [facility] Address [address] [place] [address] Care Team Providers Care Senior Staff Accountant Name Role Phone BUD SERRANO Primary Care Provider Assessment Encounter Date Assessment Date Assessment LastModified by Organization Details LastModified Time 10/13/2023 10/13/2023 Pt is stable. [email or web address] Not available 10/18/2023 10:47:30 04/10/2024 04/10/2024 Workup will proceed as delineated below. Pt states that his present symptoms are the same as when his CA was first diagnosed in 2009. [email or web address] Not available 04/11/2024 13:28:23 05/28/2024 05/28/2024 Pt is stable and improved since recent hospitalizatio n. He has an upcoming bx at [facility] on May 31. [email or web address] Not available 05/29/2024 07:37:49 07/24/2024 07/24/2024 Pt was instructed to stop losartan for the present given his wt loss and now hypotensive readings. [email or web address] Not available 07/27/2024 07:30:02 10/23/2024 10/23/2024 Pt is stable and has no acute issues. [email or web address] Not available 10/24/2024 10:03:11 Plan of Treatment Reminders Order Date Submit Date Provider Last Modified By Organization Details Last Modified Time Details Appointments ANY 15 2024 09:30A Jim Serrano MD Not available Not available Not available Lab noninvas boaz colorect al cancer DNA + occult blood screenin g, QL, stool 2023 024 [facility] (Cologuard Orders Only), [address], [address], [place], [address], 11/02/2023 19:47:[address] referral 2023 024 NAKIA Tolliver, [address], [place], [address], 04/24/2024 13:18:43 Procedures None recorded . Surgeries None recorded . Imaging CT, head + neck, w/wo contrast 2023 024 [email or web address] [facility]) Scheduling, [address] [place], [address], 04/19/2024 18:13:07 Medication Orders levothyr oxine 100 mcg tablet 2024 025 [facility][id number], [address], [place], [id number], 10/23/2024 11:55:04 benzonat ate 200 mg capsule 2023 024 [id number], [address], [place], [id number], 05/28/2024 11:53:26 codeine 10 mg-guaif enesin 100 mg/5 mL oral liquid 2023 [facility]24 [facility], [address], [place], [id number], 05/28/2024 11:53:25 benzonat ate 100 mg capsule 2023 024 [id number], [address], [place], [id number], 04/10/2024 15:47:49 codeine 10 mg-guaif enesin 100 mg/5 mL oral liquid 2023 024 [facility] #[id number], [address], [place], [id number], 05/28/2024 11:52:32 Medrol (Arsenio) 4 mg tablets in a dose pack 2023 024 [facility] #76156, [address], [place], [id number], 05/28/2024 11:52:37 albutero l sulfate HFA 90 mcg/actu ation aerosol inhaler 2023 024 [facility] #58954, [address], [place], [id number], 10/23/2024 11:19:31 Patient TargetsNo targets recorded. Patient Instructions Encounter Date Encounter Id Patient Instructions Last Modified By Organization Details Last Modified Time 10/13/2023 [id number] shortness of breath: care instructions [email or web address] Not available 10/13/2023 14:22:37 advance care planning: care instructions [email or web address] Not available 10/13/2023 14:05:23 preventing falls : care instructions [email or web address] Not available 10/13/2023 14:05:23 Quitting Tobacco : Care Instructions [email or web address] Not available 10/13/2023 14:05:23 Medicare [facility] s Preventive Checklist [email or web address] Not available 10/13/2023 14:05:23 eating healthy foods: care instructions [email or web address] Not available 10/13/2023 14:05:23 04/10/2024 [id number] learning about swallowing problems [email or web address] Not available 04/10/2024 16:26:03 cough: care instructions [email or web address] Not available 04/10/2024 16:27:22 05/28/2024 [id number] high blood pressure: care instructions [email or web address] Not available 05/28/2024 12:43:55 learning about high blood pressure [email or web address] Not available 05/28/2024 12:43:55 Reason for Referral Referring Physician: Bud cole, Family Medicine, Encounter Date: 04/10/2024 Results Created Date Observation Date Name Description Value Unit Range Abnormal Flag Note LastModifiedBy Organization Detail LastModifiedTime 10/26/19 24 10/26/2023 COLOG UARD cologuard result reportable Negati ve negati ve normal NEGAT BOAZ TEST RESUL T. A negat boaz Colog uard resul t indic ates a low likel ihood that a color ectal cance r (CRC) or advan carmen adeno ma (tyra omato us polyp s with more advan carmen pre-m align ant featu res) is prese nt. The chanc e that a perso n with a negat boaz Colog uard test has a color ectal cance r is less than 1 in 1500 (nega tive predi ctive value >99.9 %) or has an advan carmen adeno ma is less than 5.3% (nega tive predi ctive value 94.7% ). These data are based on a prosp ectiv e cross -sect ional study of ,00 0 [place]ual [place] risk for color ectal cance r who were scree bryson with both Colog uard and colon oscop y. (Johnnie Curry et al, N Engl J Med 2014; 370(1 4):12 86-12 97) The junie l value (refe rence range ) for this assay is negat boaz. COLOG UARD RE-SC REENI NG RECOM MENDA TION: Perio dic color ectal cance r scree michelle is an impor tant part of preve ntive healt hcare for asymp tomat ic indiv [place]ual s [place] risk for color ectal cance r. Follo wing a negat boaz Colog uard resul t, the Ameri can Cance r Socie ty and U.S. Multi -Soci ety Task Force scree michelle guide lines recom mend a Colog uard re-sc reeni ng inter alcira of 3 years . Refer ences : Ameri can Cance r Socie ty Guide line for Color ectal Cance r Scree michelle: https ://dane w.can cer.o rg/ca ncer/ colon -rect al-ca ncer/ detec tion- diagn osis- stagi ng/ac s-rec ommen datio ns.ht ml.; Grayson HAY, Danya SOTO, Cristiano WilsonK, Color ectal Cance r Scree michelle: Recom menda tions for Physi cians and Patie nts from the U.S. Multi -Soci ety Task Force on Color ectal Cance r Scree Whitley martinez y 2017; 112:1 016-1 030. TEST DESCR IPTIO N: [place] site algor ithmi c amari sis of stool DNA-b iomar kers with hemog lobin immun oassa y. Quant itati ve value s of indiv idual bioma rkers are not repor table and are not assoc iated with indiv idual bioma rker resul t refer ence range s. Colog uard is inten ded for color ectal cance r scree michelle of adult s of eithe r sex, 45 years or older , who are at [facility] for color ectal cance r (CRC) . Colog uard has been appro rain for use by the U.S. FDA. The perfo rmanc e of Colog uard was estab lishe d in a cross secti onal study of [facility] adult s aged 50-84 . Colog uard perfo rmanc e in patie nts ages 45 to 49 years was estim ated by sub-g roup amari sis of near- age group s. Colon oscop ies perfo rmed for a posit boaz resul t may find as the most clini christi signi ficcleo t lesio n: color ectal cance r [4.0% ], advan carmen adeno ma (incl uding sessi le fozia delaney polyp s great er than or equal to 1cm diame ter) [20%] or non- advan carmen adeno ma [31%] ; or no color ectal neopl charmaine [45%] . These estim ates are deriv ed from a prosp ectiv e cross -sect ional scree michelle study of 10,00 0 indiv idual s at [facility] risk for color ectal cance r who were scree bryson with both Colog uard and colon oscop y. (Johnnie Caldera. et al, N Engl J Med 2014; 370(1 4):12 86-12 97.) Colog uard may produ ce a false negat boaz or false posit boaz resul t (no color ectal cance r or preca ncero us polyp prese nt at colon oscop y follo w up). A negat boaz Colog uard test resul t does not guara ntee the absen ce of CRC or advan carmen adeno ma (pre- cance r). The curre nt Colog uard scree michelle inter alcira is every 3 years . (Amer ican Cance r Socie ty and U.S. Multi -Soci ety Task Force ). Colog uard perfo rmanc e data in a 10,00 0 patie nt pivot al study using colon oscop y as the refer ence metho d can [facility]es [facility] locat ion: www.e xactl abs.c om/re sulvalentin . Addit ional descr iptio n of the Colog uard test proce ss, warni ngs and preca ution s can be found at www.c keshawn orantesd.c om. Not Available [employer] (Cologuard Orders Only) [address], [place], [address], 11/02/2023 19:47:46 05/05/2005/07/2024 Bacte dwaine ident ified in Sputu m by Cultu re bacteria identified in lower respiratory specimen by aerobe culture Heavy Probab le Usual Jacquelyn CULTU RE RESUL TS Heavy Proba ble Usual Jacquelyn 05/06 11:57 PM CDT [facility] Not Available Not Available 10/08/2024 09:02:12 05/05/2005/05/2024 Micro scopi c obser vatio n [Iden tifie r] in Speci men by Gram stain microscopic observation [identifier] in specimen by gram stain Heavy Segmen delaney Neutro phils Seen GRAM STAIN Heavy Segme nted Neutr ophil s Seen 05/05 10:32 PM CDT [facility] Not Available Not Available 10/08/2024 09:02:11 05/05/2005/05/2024 Micro scopi c obser vatio n [Iden tifie r] in Speci men by Gram stain microscopic observation [identifier] in specimen by gram stain Few Squamo us Epithe lial cells per low power field GRAM STAIN Few Squam ous Epith elial cells per low power field 05/05 10:32 PM CDT [facility] Not Available Not Available 10/08/2024 09:02:11 05/05/2005/05/2024 Micro scopi c obser vatio n [Iden tifie r] in Speci men by Gram stain microscopic observation [identifier] in specimen by gram stain Rare Yeast seen GRAM STAIN Rare Yeast seen 05/05 10:32 PM CDT [facility] Not Available Not Available 10/08/2024 09:02:11 05/05/2005/05/2024 Micro scopi c obser vatio n [Iden tifie r] in Speci men by Gram stain microscopic observation [identifier] in specimen by gram stain Rare Gram Positi ve Cocci in Chains GRAM STAIN Rare Gram Posit boaz Cocci in Chain s 05/05 10:32 PM CDT [facility] Not Available Not Available 10/08/2024 09:02:11 05/05/2005/05/2024 Micro scopi c obser vatio n [Iden tifie r] in Speci men by Gram stain microscopic observation [identifier] in specimen by gram stain Rare Gram Positi ve Bacill i GRAM STAIN Rare Gram Posit boaz Bacil li 05/05 10:32 PM CDT [facility] Not Available Not Available 10/08/2024 09:02:11 05/05/20 24 05/05/2024 Micro scopi c obser vatio n [Iden tifie r] in Speci men by Gram stain microscopic observation [identifier] in specimen by gram stain Rare Gram Positi ve Cocci in Cluste rs GRAM STAIN Rare Gram Posit boaz Cocci in Clust ers 05/05 10:32 PM CDT [facility] Not Available Not Available 10/08/2024 09:02:11 05/05/20 24 05/05/2024 Legio rupa sp Ag [Pres ence] in Urine legionella sp Ag [presence] in urine Negati ve text: negati ve LEGIO RUPA URINE AG Negat boaz Negat boaz 05/05 9:17 PM CDT [facility] Not Available Not Available 10/08/2024 09:02:11 05/05/20 24 05/05/2024 Legio rupa sp Ag [Pres ence] in Urine interpretati on and review of laboratory results Normal Not Available Not Available 09/10 09:02:11 05/05/20 24 05/05/2024 Thyro tropi n [Unit s/vol ume] in Serum or Plasm a thyrotropin [units/volum e] in serum or plasma 0.303 text: 0.300 - 5.000 mIU/L TSH 0.303 0.300 - 5.000 mIU/L 05/05 6:04 AM CDT [facility] Not Available Not Available 10/08/2024 09:02:11 05/05/2005/05/2024 Thyro tropi n [Unit s/vol ume] in Serum or Plasm a interpretati on and review of laboratory results Normal Not Available Not Available 09/10 09:02:11 05/05/2005/05/2024 Methi cilli n resis tant Staph yloco ccus aureu s (MRSA ) DNA [Pres ence] in Speci men by [facility] with probe detec tion methicillin resistant staphylococc us aureus (MRSA) DNA [presence] in specimen by [facility] with probe detection Negati ve text: negati ve, invali d MRSA PCR RESUL T Negat boaz Negat boaz, Inval id 05/05 4:03 AM CDT [facility] Not Available Not Available 10/08/2024 09:02:11 05/05/20 24 05/05/2024 Methi cilli n resis tant Staph yloco ccus aureu s (MRSA ) DNA [Pres ence] in Speci men by [facility] with probe detec tion interpretati on and review of laboratory results Normal Not Available Not Available 09/10 09:02:11 05/05/20 24 05/05/2024 Lacta te [Mole s/vol ume] in Serum or Plasm a lactate [moles/volum e] in serum or plasma 1.7 mmol/ L low: 0.7mmo l/Lhig h: 2mmol/ L LACTI C ACID 1.7 0.7 - 2.0 mmol/ L 05/05 12:22 AM CDT [facility] Not Available Not Available 10/08/2024 09:02:11 05/05/2005/05/2024 Lacta te [Mole s/vol ume] in Serum or Plasm a interpretati on and review of laboratory results Normal Not Available Not Available 09/10 09:02:11 05/05/2005/10/2024 Bacte dwaine ident ified in Blood by Cultu re bacteria identified in blood by culture NO GROWTH WITHIN 5 DAYS, FINAL RESULT CULTU RE RESUL TS NO GROWT H WITHI N 5 DAYS, FINAL RESUL T 05/10 1:00 AM CDT [facility] Not Available Not Available 10/08/2024 09:02:11 05/05/20 24 05/05/2024 Influ nicky virus A and B and SARS- CoV-2 (COVI D-19) and Respi rator y syncy tial virus RNA panel - Respi rator y syste m speci men by [facility] with probe detec tion influenza virus A RNA [presence] in nasopharynx by [facility] with probe detection Negati ve text: negati ve, error FLU A Negat boaz Negat boaz, Error 05/05 12:45 AM CDT [facility] Not Available Not Available 10/08/2024 09:02:11 05/05/20 24 05/05/2024 Influ nicky virus A and B and SARS- CoV-2 (COVI D-19) and Respi rator y syncy tial virus RNA panel - Respi rator y syste m speci men by [facility] with probe detec tion influenza virus B RNA [presence] in nasopharynx by [facility] with probe detection Negati ve text: negati ve FLU B Negat boaz Negat boaz 05/05 12:45 AM CDT [facility] Not Available Not Available 10/08/2024 09:02:11 05/05/20 24 05/05/2024 Influ nicky virus A and B and SARS- CoV-2 (COVI D-19) and Respi rator y syncy tial virus RNA panel - Respi rator y syste m speci men by [facility] with probe detec tion respiratory syncytial virus RNA [presence] in respiratory system specimen by [facility] with probe detection Negati ve text: negati ve RESP SYNC VIRUS Negat boaz Negat boaz 05/05 12:45 AM CDT [facility] Not Available Not Available 10/08/2024 09:02:11 05/05/20 24 05/05/2024 Influ nicky virus A and B and SARS- CoV-2 (COVI D-19) and Respi rator y syncy tial virus RNA panel - Respi rator y syste m speci men by [facility] with probe detec tion sars-cov-2 (covid-19) N gene [presence] in specimen by [facility] with probe detection NOT DETECT ED text: (refer ence range for this test IS not detect ed) SARSC OV2 NOT DETEC DELANEY (Refe rence Range for this test is Not Detec delaney) 05/05 12:45 AM CDT [facility] Not Available Not Available 10/08/2024 09:02:11 05/05/20 24 05/05/2024 Influ nicky virus A and B and SARS- CoV-2 (COVI D-19) and Respi rator y syncy tial virus RNA panel - Respi rator y syste m speci men by [facility] with probe detec tion Unknown Analyte This test has not been FDA cleare d or approv ed; the test has been author ized by FDA under an Emerge ncy Use Author izdao n (EUA) for use by labora tories certif ied under the CLIA that meet the requir ements to perfor m modera te, high or waived comple xity tests. Author ronnie Fact Sheets about this test for provid ers and patien ts are availa ble at: https: //www. fda.go v/medi curtis-de vices/ emerge ncy-si tuatio ns-med ical-d evices /emerg ency-u se-aut horiza tions This test has not been FDA clear ed or appro rain; the test has been autho rized by FDA under an Emerg ency Use Autho rizat ion (EUA) for use by labor atori es certi fied under the CLIA that meet the requi remen ts to perfo rm moder ate, high or waive d compl exity tests . Autho rized Fact Sheet s about this test for provi ders and patie nts are avail able at: https ://ww w.fda .gov/ medic al-de vices /lolly gency -situ ation s-med ical- devic es/em ergen cy-us e-aut horiz ation s Not Available Not Available 10/08/2024 09:02:11 05/05/2005/05/2024 Influ nicky virus A and B and SARS- CoV-2 (COVI D-19) and Respi rator y syncy tial virus RNA panel - Respi rator y syste m speci men by [facility] with probe detec tion interpretati on and review of laboratory results Normal Not Available Not Available 09/10 09:02:11 05/05/20 24 05/05/2024 Compr ehens boaz metab olic 2000 panel - Serum or Plasm a sodium [moles/volum e] in serum or plasma 135 mmol/ L low: 136mmo l/Lhig h: 145mmo l/L low SODIU M 135 (L) 136 - 145 mmol/ L 05/05 12:27 AM CDT [facility] Not Available Not Available 10/08/2024 09:02:11 05/05/2005/05/2024 Compr ehens boaz metab olic 1999 panel - Serum or Plasm a potassium [moles/volum e] in serum or plasma 4.6 mmol/ L low: 3.5mmo l/Lhig h: 5.1mmo l/L POTAS SIUM 4.6 3.5 - 5.1 mmol/ L 05/05 12:27 AM CDT [facility] Not Available Not Available 10/08/2024 09:02:11 05/05/2005/05/2024 Compr ehens boaz metab olic 1999 panel - Serum or Plasm a chloride [moles/volum e] in serum or plasma 104 mmol/ L low: 98mmol /Lhigh : 107mmo l/L CHLOR STALIN 104 98 - 107 mmol/ L 05/05 12:27 AM CDT [facility] Not Available Not Available 10/08/2024 09:02:11 05/05/2005/05/2024 Compr ehens boaz metab olic 1999 panel - Serum or Plasm a carbon dioxide, total [moles/volum e] in serum or plasma 23 mmol/ L low: 22mmol /Lhigh : 30mmol /L CO2, VENOU S 23 22 - 30 mmol/ L 05/05 12:27 AM CDT [facility] Not Available Not Available 10/08/2024 09:02:11 05/05/2005/05/2024 Compr ehens boaz metab olic 1999 panel - Serum or Plasm a anion gap in serum or plasma by calculation 12.6 mmol/ L high: 18mmol /L ANION GAP 12.6 <18.0 mmol/ L 05/05 12:27 AM CDT [facility] Not Available Not Available 10/08/2024 09:02:11 05/05/20 24 05/05/2024 Compr ehens boaz metab olic 1999 panel - Serum or Plasm a glucose [mass/volume ] in serum or plasma 142 mg/dL low: 70mg/d Lhigh: 99mg/d L high GLUCO SE 142 (H) 70 - 99 mg/dL 10/26 /2024 12:27 AM CDT [facility] Not Available Not Available 10/08/2024 09:02:11 05/05/2005/05/2024 Compr [employer] boaz metab olic 2000 panel - Serum or Plasm a urea nitrogen [mass/volume ] in serum or plasma 19 mg/dL low: 8mg/dL high: 26mg/d L BUN 19 8 - 26 mg/dL 05/05 12:27 AM CDT [facility] Not Available Not Available 10/08/2024 09:02:11 05/05/2005/05/2024 Compr [employer] boaz metab olic 2000 panel - Serum or Plasm a creatinine [mass/volume ] in serum or plasma 1.69 mg/dL low: 0.7mg/ dLhigh : 1.3mg/ dL high CREAT ININE , BLOOD 1.69 (H) 0.70 - 1.30 mg/dL 05/05 12:27 AM CDT [facility] Not Available Not Available 10/08/2024 09:02:11 05/05/2005/05/2024 Compr [employer] boaz metab olic 2000 panel - Serum or Plasm a urea nitrogen/cre atinine [mass ratio] in serum or plasma 11 text: 12 - 20 ratio low BUN/C REATI NINE RATIO 11 (L) 12 - 20 ratio 05/05 12:27 AM CDT [facility] Not Available Not Available 10/08/2024 09:02:11 05/05/20 24 05/05/2024 Compr [employer] boaz metab olic 2000 panel - Serum or Plasm a protein [mass/volume ] in serum or plasma 7.1 g/dL low: 6.3g/d Lhigh: 8.2g/d L TOTAL PROTE IN 7.1 6.3 - 8.2 g/dL 05/05 12:27 AM CDT [facility] Not Available Not Available 10/08/2024 09:02:11 05/05/20 24 05/05/2024 Compr [employer] [facility] 1999 panel - Serum or Plasm a albumin [mass/volume ] in serum or plasma 3.7 g/dL low: 3.5g/d Lhigh: 5g/dL ALBUM IN 3.7 3.5 - 5.0 g/dL 05/05 12:27 AM CDT [facility] Not Available Not Available 10/08/2024 09:02:11 05/05/2005/05/2024 [facility] [employer] boaz [employer] [facility] 1999 panel - Serum or Plasm a albumin/glob ulin [mass ratio] in serum or plasma 1.1 low: 1high: 2.2 A/G RATIO 1.1 1.0 - 2.2 05/05 12:27 AM CDT [facility] Not Available Not Available 10/08/2024 09:02:11 05/05/2005/05/2024 [facility] [employer] [facility] 1999 panel - Serum or Plasm a calcium [mass/volume ] in serum or plasma 9.4 mg/dL low: 8.7mg/ dLhigh : 10.5mg /dL CALCI UM 9.4 8.7 - 10.5 mg/dL 05/05 12:27 AM CDT [facility] Not Available Not Available 10/08/2024 09:02:11 05/05/2005/05/2024 [facility] [employer] [facility] 1999 panel - Serum or Plasm a bilirubin.to shad [mass/volume ] in serum or plasma 0.9 mg/dL low: 0.2mg/ dLhigh : 1.2mg/ dL T BILI 0.9 0.2 - 1.2 mg/dL 05/05 12:27 AM CDT [facility] Not Available Not Available 10/08/2024 09:02:11 05/05/20 24 05/05/2024 [facility] [employer] boaz [employer] olic 2000 panel - Serum or Plasm a aspartate aminotransfe rase [enzymatic activity/vol ume] in serum or plasma 17 U/L low: 5U/Lhi gh: 34U/L SGOT (AST) 17 5 - 34 U/L 05/05 12:27 AM CDT [facility] Not Available Not Available 10/08/2024 09:02:11 05/05/20 24 05/05/2024 Compr [employer] bo[employer] olic 2000 panel - Serum or Plasm a alanine aminotransfe rase [enzymatic activity/vol ume] in serum or plasma 13 U/L low: 0U/Lhi gh: 55U/L SGPT (ALT) 13 0 - 55 U/L 05/05 12:27 AM CDT [facility] Not Available Not Available 10/08/2024 09:02:11 05/05/2005/05/2024 Compr [employer] boaz [employer] olic 2000 panel - Serum or Plasm a alkaline phosphatase [enzymatic activity/vol ume] in serum or plasma 70 U/L low: 40U/Lh igh: 150U/L ALKAL INE PHOSP HATAS E 70 40 - 150 U/L 05/05 12:27 AM CDT [facility] Not Available Not Available 10/08/2024 09:02:11 05/05/2005/05/2024 Compr [employer] boaz [employer] 2000 panel - Serum or Plasm a glomerular filtration rate [volume rate/area] in serum, plasma or blood by creatinine-b ased formula (MDRD)/1.73 sq M among non black population 47 low: 60 low GFR, ESTIM ATED 47 (L) >=60 05/05 12:27 AM CDT [facility] [employer] [facility] LAB Not Available Not Available 10/08/2024 09:02:11 05/05/2005/05/2024 Compr [employer] boaz metab olic 2000 panel - Serum or Plasm a glomerular filtration rate [volume rate/area] in serum, plasma or blood by creatinine-b ased formula (MDRD)/1.73 sq M among black population 51 low: 60 low GFR, EST. AFRIC AN 51 (L) >=60 05/05 12:27 AM CDT [facility] [facility] Not Available Not Available 10/08/2024 09:02:11 05/05/2005/05/2024 Compr ehens boaz metab olic 2000 panel - Serum or Plasm a glomerular filtration rate [volume rate/area] in serum, plasma or blood by creatinine-b ased formula (MDRD)/1.73 sq M among non black population 42 low: 60 low GFR, EST. NONAF RICAN 42 (L) >=60 05/05 12:27 AM CDT [facility] Not Available Not Available 10/08/2024 09:02:11 05/05/2005/05/2024 Compr ehens boaz metab olic 2000 panel - Serum or Plasm a interpretati on and review of laboratory results Abnorm al Not Available Not Available 09:02:11 05/07/2005/07/2024 CBC W Auto Diffe renti al panel - Blood leukocytes [#/volume] in blood by automated count 6.47 text: 4.00 - 12.00 10(3)/ mcL WBC 6.47 4.00 - 12.00 10(3) /mcL 05/07 5:21 AM CDT [facility] Not Available Not Available 10/08/2024 09:02:12 05/07/20 24 05/07/2024 CBC W Auto Diffe renti al panel - Blood erythrocytes [#/volume] in blood by automated count 4.51 text: 4.40 - 5.80 10(6)/ mcL RBC 4.51 4.40 - 5.80 10(6) /mcL 05/07 5:21 AM CDT [facility] [facility] [employer] [facility] Not Available Not Available 10/08/2024 09:02:12 05/07/2005/07/2024 CBC W Auto Diffe renti al panel - Blood hemoglobin [mass/volume ] in blood 14 g/dL low: 13g/dL high: 16.5g/ dL HEMOG LOBIN (HGB) 14.0 13.0 - 16.5 g/dL 05/07 5:21 AM CDT [facility] Not Available Not Available 10/08/2024 09:02:12 05/07/20 24 05/07/2024 CBC W Auto Diffe renti al panel - Blood hematocrit [volume fraction] of blood by automated count 40.9 % low: 38%hig h: 50% HEMAT OCRIT (HCT) 40.9 38.0 - 50.0 % 05/07 5:21 AM CDT [facility] Siddiqui [facility] Not Available Not Available 10/08/2024 09:02:12 05/07/2005/07/2024 CBC W Auto Diffe renti al panel - Blood MCV [entitic mean volume] in red blood cells by automated count 90.7 fL low: 82fLhi gh: 96fL MCV 90.7 82.0 - 96.0 fL 05/07 5:21 AM CDT [facility] MORRISSEY [facility] Not Available Not Available 10/08/2024 09:02:12 05/07/2005/07/2024 CBC W Auto Diffe renti al panel - Blood MCH [entitic mass] by automated count 31 pg low: 26pghi gh: 32pg MCH 31.0 26.0 - 32.0 pg 05/07 5:21 AM [facility] Not Available Not Available 10/08/2024 09:02:12 05/07/20 24 05/07/2024 CBC W Auto Diffe renti al panel - Blood MCHC [entitic mass/volume] in red blood cells by automated count 34.2 g/dL low: 31g/dL high: 36g/dL MCHC 34.2 31.0 - 36.0 g/dL 05/07 5:21 AM CDT [facility]I [facility] Not Available Not Available 10/08/2024 09:02:12 05/07/20 24 05/07/2024 CBC W Auto Diffe renti al panel - Blood platelets [#/volume] in blood 379 text: 140 - 440 10(3)/ mcL PLATE LET COUNT 379 140 - 440 10(3) /mcL 05/07 5:21 AM CDT [facility] Not Available Not Available 10/08/2024 09:02:12 05/07/20 24 05/07/2024 CBC W Auto Diffe renti al panel - Blood erythrocyte [distwidth] in red blood cells by automated count 12.2 % low: 11.8%h igh: 15.5% RDW 12.2 11.8 - 15.5 % 05/07 5:21 AM CDT [facility] Not Available Not Available 10/08/2024 09:02:12 05/07/20 24 05/07/2024 CBC W Auto Diffe renti al panel - Blood platelet [entitic mean volume] in blood by automated count 8.7 fL low: 8fLhig h: 12.6fL MPV 8.7 8.0 - 12.6 fL 05/07 5:21 AM CDT [facility] Not Available Not Available 10/08/2024 09:02:12 05/07/20 24 05/07/2024 CBC W Auto Diffe renti al panel - Blood neutrophils/ leukocytes in blood by automated count 50.9 % low: 40%hig h: 68% NEUTR OPHIL S 50.9 40.0 - 68.0 % 05/07 5:21 AM CDT [facility] Not Available Not Available 10/08/2024 09:02:12 05/07/20 24 05/07/2024 CBC W Auto Diffe renti al panel - Blood lymphocytes/ leukocytes in blood by automated count 34 % low: 19%hig h: 49% LYMPH OCYTE S 34.0 19.0 - 49.0 % 05/07 5:21 AM CDT [facility] Not Available Not Available 10/08/2024 09:02:12 05/07/20 24 05/07/2024 CBC W Auto Diffe renti al panel - Blood monocytes/le ukocytes in blood by automated count 7.1 % low: 3%high : 13% MONOC YTES 7.1 3.0 - 13.0 % 05/07 5:21 AM [facility] Not Available Not Available 10/08/2024 09:02:12 05/07/20 24 05/07/2024 CBC W Auto Diffe renti al panel - Blood eosinophils/ leukocytes in blood by automated count 7.1 % low: 0%high : 8% EOSIN OPHIL S 7.1 0.0 - 8.0 % 05/07 5:21 AM CD[facility] Not Available Not Available 10/08/2024 09:02:12 05/07/20 24 05/07/2024 CBC W Auto Diffe renti al panel - Blood basophils/le ukocytes in blood by automated count 0.9 % low: 0%high : 1% BASOP HILS 0.9 0.0 - 1.0 % 05/07 5:21 AM CDT [facility] Not Available Not Available 10/08/2024 09:02:12 05/07/20 24 05/07/2024 CBC W Auto Diffe renti al panel - Blood neutrophils [#/volume] in blood by automated count 3.29 text: 1.40 - 5.30 10(3)/ mcL ABSOL APACHE NEUTR OPHIL S 3.29 1.40 - 5.30 10(3) /mcL 05/07 5:21 AM CDT [facility] Not Available Not Available 10/08/2024 09:02:12 05/07/20 24 05/07/2024 CBC W Auto Diffe renti al panel - Blood lymphocytes [#/volume] in blood by automated count 2.2 text: 0.90 - 3.30 10(3)/ mcL ABSOL APACHE LYMPH OCYTE S 2.20 0.90 - 3.30 10(3) /mcL 05/07 5:21 AM CDT [facility] Not Available Not Available 10/08/2024 09:02:12 05/07/20 24 05/07/2024 CBC W Auto Diffe renti al panel - Blood monocytes [#/volume] in blood by automated count 0.46 text: 0.10 - 0.90 10(3)/ mcL ABSOL APACHE MONOC YTES 0.46 0.10 - 0.90 10(3) /mcL 05/07 5:21 AM CDT [facility] Not Available Not Available 10/08/2024 09:02:12 05/07/20 24 05/07/2024 CBC W Auto Diffe renti al panel - Blood eosinophils [#/volume] in blood by automated count 0.46 text: 0.00 - 0.50 10(3)/ mcL ABSOL APACHE EOSIN OPHIL 0.46 0.00 - 0.50 10(3) /mcL 05/07 5:21 AM CDT [facility] Not Available Not Available 10/08/2024 09:02:12 05/07/20 24 05/07/2024 CBC W Auto Diffe renti al panel - Blood basophils [#/volume] in blood by automated count 0.06 text: 0.00 - 0.10 10(3)/ mcL ABSOL APACHE BASOP HILS 0.06 0.00 - 0.10 10(3) /mcL 05/07 5:21 AM CDT [facility] Not Available Not Available 10/08/2024 09:02:12 05/07/20 24 05/07/2024 CBC W Auto Diffe renti al panel - Blood nucleated erythrocytes /leukocytes [ratio] in blood 0 NRBC PER 100 WBC 0 05/07 5:21 AM CDT [facility] Not Available Not Available 10/08/2024 09:02:12 05/17/20 24 05/17/2024 Basic metab olic 1999 panel - Serum or Plasm a sodium [moles/volum e] in serum or plasma 140 mmol/ L low: 136mmo l/Lhig h: 145mmo l/L SODIU M 140 136 - 145 mmol/ L 05/17 2:45 PM 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 [facility] Not Available Not Available 10/08/2024 09:02:12 05/17/20 24 05/17/2024 Basic metab olic 1999 panel - Serum or Plasm a potassium [moles/volum e] in serum or plasma 4 mmol/ L low: 3.5mmo l/Lhig h: 5.1mmo l/L POTAS SIUM 4.0 3.5 - 5.1 mmol/ L 05/17 2:45 PM 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 [facility] [employer] [facility] R LAB Not Available Not Available 10/08/2024 09:02:12 05/17/20 24 05/17/2024 Basic metab olic 1999 panel - Serum or Plasm a chloride [moles/volum e] in serum or plasma 106 mmol/ L low: 98mmol /Lhigh : 107mmo l/L CHLOR STALIN 106 98 - 107 mmol/ L 05/17 2:45 PM 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 [facility] Not Available Not Available 10/08/2024 09:02:12 05/17/20 24 05/17/2024 Basic metab olic 1999 panel - Serum or Plasm a carbon dioxide, total [moles/volum e] in serum or plasma 26 mmol/ L low: 22mmol /Lhigh : 30mmol /L CO2, VENOU S 26 22 - 30 mmol/ L 05/17 2:45 PM 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 [facility] LAB Not Available Not Available 10/08/2024 09:02:12 05/17/20 24 05/17/2024 Basic metab olic 1999 panel - Serum or Plasm a anion gap in serum or plasma by calculation 12 mmol/ L high: 18mmol /L ANION GAP 12.0 <18.0 mmol/ L 05/17 2:45 PM 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 [facility] Not Available Not Available 10/08/2024 09:02:12 05/17/20 24 05/17/2024 Basic metab olic 1999 panel - Serum or Plasm a glucose [mass/volume ] in serum or plasma 104 mg/dL low: 70mg/d Lhigh: 99mg/d L high GLUCO SE 104 (H) 70 - 99 mg/dL 05/17 2:45 PM 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 [facility] Not Available Not Available 10/08/2024 09:02:12 05/17/20 24 05/17/2024 Basic metab olic 1999 panel - Serum or Plasm a urea nitrogen [mass/volume ] in serum or plasma 8 mg/dL low: 8mg/dL high: 26mg/d L BUN 8 8 - 26 mg/dL 05/17 2:45 PM 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 [facility] [employer] LAB Not Available Not Available 10/08/2024 09:02:12 05/17/20 24 05/17/2024 Basic metab olic 1999 panel - Serum or Plasm a creatinine [mass/volume ] in serum or plasma 1.27 mg/dL low: 0.7mg/ dLhigh : 1.3mg/ dL CREAT ININE , BLOOD 1.27 0.70 - 1.30 mg/dL 05/17 2:45 PM 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 [facility] [employer] [facility] Not Available Not Available 10/08/2024 09:02:12 05/17/20 24 05/17/2024 Basic metab olic 1999 panel - Serum or Plasm a urea nitrogen/cre atinine [mass ratio] in serum or plasma 6 text: 12 - 20 ratio low BUN/C REATI NINE RATIO 6 (L) 12 - 20 ratio 05/17 2:45 PM 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 [facility] [employer] [facility] [facility] LAB Not Available Not Available 10/08/2024 09:02:12 05/17/20 24 05/17/2024 Basic metab olic 1999 panel - Serum or Plasm a calcium [mass/volume ] in serum or plasma 9 mg/dL low: 8.7mg/ dLhigh : 10.5mg /dL CALCI UM 9.0 8.7 - 10.5 mg/dL 05/17 2:45 PM 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 [facility] [employer] CENTE R LAB Not Available Not Available 10/08/2024 09:02:12 05/17/20 24 05/17/2024 Basic metab olic 2000 panel - Serum or Plasm a glomerular filtration rate [volume rate/area] in serum, plasma or blood by creatinine-b ased formula (MDRD)/1.73 sq M among non black population low: 60 GFR, ESTIM ATED >60 >=60 05/17 2:45 PM 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 [facility] Not Available Not Available 10/08/2024 09:02:12 05/17/20 24 05/17/2024 Basic metab olic 2000 panel - Serum or Plasm a glomerular filtration rate [volume rate/area] in serum, plasma or blood by creatinine-b ased formula (MDRD)/1.73 sq M among black population low: 60 GFR, EST. AFRIC AN >60 >=60 05/17 2:45 PM 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 [facility] Not Available Not Available 10/08/2024 09:02:12 05/17/20 24 05/17/2024 Basic metab olic 2000 panel - Serum or Plasm a glomerular filtration rate [volume rate/area] in serum, plasma or blood by creatinine-b ased formula (MDRD)/1.73 sq M among non black population 58 low: 60 low GFR, EST. NONAF RICAN 58 (L) >=60 05/17 2:45 PM 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 [facility] Not Available Not Available 10/08/2024 09:02:12 05/17/20 24 05/17/2024 Basic metab olic 2000 panel - Serum or Plasm a interpretati on and review of laboratory results Abnorm al Not Available Not Available 09:02:12 06/26/20 24 06/27/2024 Phosp hate [Mass /volu me] in Serum or Plasm a phosphate [mass/volume ] in serum or plasma 3.2 mg/dL low: 2.8mg/ dLhigh : 5.1mg/ dL Phosp horus 3.2 2.8 - 5.1 mg/dL 06/26 11:00 PM [facility] Not Available Not Available 10/08/2024 09:02:29 06/26/20 24 06/27/2024 Phosp hate [Mass /volu me] in Serum or Plasm a interpretati on and review of laboratory results Normal Not Available Not Available 09/10 09:02:29 06/26/20 24 06/27/2024 Magne sium [Mass /volu me] in Serum or Plasm a magnesium [mass/volume ] in serum or plasma 1.9 mg/dL low: 1.6mg/ dLhigh : 2.6mg/ dL Magne sium 1.9 1.6 - 2.6 mg/dL 06/26 11:00 PM 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 [employer] [facility] Not Available Not Available 10/08/2024 09:02:29 06/26/20 24 06/27/2024 Magne sium [Mass /volu me] in Serum or Plasm a interpretati on and review of laboratory results Normal Not Available Not Available 09/10 09:02:29 06/26/20 24 06/26/2024 CBC W Auto Diffe renti al panel - Blood leukocytes [#/volume] in blood by automated count 12.4 text: 4.0 - 10.7 x10e9/ L high WBC 12.4 (H) 4.0 - 10.7 x10E9 /L 06/26 10:39 PM [facility] Not Available Not Available 10/08/2024 09:02:29 06/26/20 24 06/26/2024 CBC W Auto Diffe renti al panel - Blood erythrocytes [#/volume] in blood by automated count 3.79 text: 4.30 - 5.80 x10e12 /L low RBC Count 3.79 (L) 4.30 - 5.80 x10E1 2/L 06/26 10:39 PM 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 [employer] [facility] Not Available Not Available 10/08/2024 09:02:29 06/26/20 24 06/26/2024 CBC W Auto Diffe renti al panel - Blood hemoglobin [mass/volume ] in blood 11.9 g/dL low: 13.3g/ dLhigh : 17.5g/ dL low Hemog lobin 11.9 (L) 13.3 - 17.5 g/dL 06/26 10:39 PM 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 [employer] [facility] Not Available Not Available 10/08/2024 09:02:29 06/26/20 24 06/26/2024 CBC W Auto Diffe renti al panel - Blood hematocrit [volume fraction] of blood by automated count 33.9 % low: 38.7%h igh: 51.1% low Hemat ocrit 33.9 (L) 38.7 - 51.1 % 06/26 10:39 PM [facility] Not Available Not Available 10/08/2024 09:02:29 06/26/20 24 06/26/2024 CBC W Auto Diffe renti al panel - Blood MCV [entitic mean volume] in red blood cells by automated count 89.4 fL low: 80fLhi gh: 98fL MCV 89.4 80.0 - 98.0 fL 06/26 10:39 PM [facility] Not [facility] Not Available 10/08/2024 09:02:29 06/26/20 24 06/26/2024 CBC W Auto Diffe renti al panel - Blood MCH [entitic mass] by automated count 31.4 pg low: 26.7pg high: 33.6pg MCH 31.4 26.7 - 33.6 pg 06/26 10:39 PM [facility] Not Available Not Available 10/08/2024 09:02:29 06/26/20 24 06/26/2024 CBC W Auto Diffe renti al panel - Blood MCHC [entitic mass/volume] in red blood cells by automated count 35.1 g/dL low: 31.7g/ dLhigh : 36.3g/ dL MCHC 35.1 31.7 - 36.3 g/dL 06/26 10:39 PM [facility] Not Available Not Available 10/08/2024 09:02:29 06/26/20 24 06/26/2024 CBC W Auto Diffe renti al panel - Blood erythrocyte [distwidth] in red blood cells by automated count 12.5 % low: 11.3%h igh: 14.8% RDW-C V 12.5 11.3 - 14.8 % 06/26 10:39 PM [facility] Not Available Not Available 10/08/2024 09:02:29 06/26/20 24 06/26/2024 CBC W Auto Diffe renti al panel - Blood platelets [#/volume] in blood by automated count 270 text: 150 - 420 x10e9/ L Plate let Count 270 150 - 420 x10E9 /L 06/26 10:39 PM 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 [facility] Not Available Not Available 10/08/2024 09:02:29 06/26/20 24 06/26/2024 CBC W Auto Diffe renti al panel - Blood platelet [entitic mean volume] in blood by automated count 8.5 fL low: 7.8fLh igh: 11.4fL MPV 8.5 7.8 - 11.4 fL 06/26 10:39 PM 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 [facility] Not Available Not Available 10/08/2024 09:02:29 06/26/20 24 06/26/2024 CBC W Auto Diffe renti al panel - Blood neutrophils/ leukocytes in blood by automated count 86.8 % low: 41%hig h: 74% high Neutr ophil % 86.8 (H) 41.0 - 74.0 % 06/26 10:39 PM 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 [facility] Not Available Not Available 10/08/2024 09:02:29 06/26/20 24 06/26/2024 CBC W Auto Diffe renti al panel - Blood lymphocytes/ leukocytes in blood by automated count 6.4 % low: 17%hig h: 47% low Lymph ocyte % 6.4 (L) 17.0 - 47.0 % 06/26 10:39 PM 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 [facility] Not Available Not Available 10/08/2024 09:02:29 06/26/20 24 06/26/2024 CBC W Auto Diffe renti al panel - Blood monocytes/le ukocytes in blood by automated count 6 % low: 3%high : 11% Monoc yte % 6.0 3.0 - 11.0 % 06/26 10:39 PM 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 [facility] Not Available Not Available 10/08/2024 09:02:29 06/26/20 24 06/26/2024 CBC W Auto Diffe renti al panel - Blood eosinophils/ leukocytes in blood by automated count 0 % low: 0%high : 7% Eosin ophil % 0.0 0.0 - 7.0 % 06/26 10:39 PM 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 [facility] Not Available Not Available 10/08/2024 09:02:29 06/26/20 24 06/26/2024 CBC W Auto Diffe renti al panel - Blood basophils/le ukocytes in blood by automated count 0.2 % low: 0%high : 1.6% Basop hil % 0.2 0.0 - 1.6 % 06/26 10:39 PM 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 [facility] Not Available Not Available 10/08/2024 09:02:29 06/26/20 24 06/26/2024 CBC W Auto Diffe renti al panel - Blood immature granulocytes /leukocytes in blood by automated count 0.6 % low: 0%high : 1% Immat ure Granu locyt es % 0.6 0.0 - 1.0 % 06/26 10:39 PM 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 [facility] Not Available Not Available 10/08/2024 09:02:29 06/26/20 24 06/26/2024 CBC W Auto Diffe renti al panel - Blood neutrophils [#/volume] in blood by automated count 10.79 text: 1.60 - 7.50 x10e9/ L high Neutr ophil Absol citizen [place] 10.79 (H) 1.60 - 7.50 x10E9 /L 06/26 10:39 PM 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 [facility] Not Available Not Available 10/08/2024 09:02:29 06/26/20 24 06/26/2024 CBC W Auto Diffe renti al panel - Blood lymphocytes [#/volume] in blood by automated count 0.8 text: 1.00 - 4.40 x10e9/ L low Lymph ocyte Absol citizen [place] 0.80 (L) 1.00 - 4.40 x10E9 /L 06/26 10:39 PM 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 [facility] Not Available Not Available 10/08/2024 09:02:29 06/26/20 24 06/26/2024 CBC W Auto Diffe renti al panel - Blood monocytes [#/volume] in blood by automated count 0.74 text: 0.15 - 1.00 x10e9/ L Monoc yte Absol citizen [place] 0.74 0.15 - 1.00 x10E9 /L 06/26 10:39 PM 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 [facility] Not Available Not Available 10/08/2024 09:02:29 06/26/20 24 06/26/2024 CBC W Auto Diffe renti al panel - Blood eosinophils [#/volume] in blood 0 text: 0.00 - 0.60 x10e9/ L Eosin ophil Absol citizen [place] 0.00 0.00 - 0.60 x10E9 /L 06/26 10:39 PM 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 [facility] Not Available Not Available 10/08/2024 09:02:29 06/26/20 24 06/26/2024 CBC W Auto Diffe renti al panel - Blood basophils [#/volume] in blood by automated count 0.02 text: 0.00 - 0.13 x10e9/ L Basop hil Absol citizen [place] 0.02 0.00 - 0.13 x10E9 /L 06/26 10:39 PM [facility] Not Available Not Available 10/08/2024 09:02:29 06/26/20 24 06/26/2024 CBC W Auto Diffe renti al panel - Blood interpretati on and review of laboratory results Abnorm al Not Available Not Available 09:02:29 06/26/20 24 06/27/2024 Basic metab olic 2000 panel - Serum or Plasm a urea nitrogen [mass/volume ] in serum or plasma 10 mg/dL low: 7mg/dL high: 26mg/d L BUN 10 7 - 26 mg/dL 06/26 11:00 PM [facility] Not Available Not Available 10/08/2024 09:02:28 06/26/20 24 06/27/2024 Basic metab olic 2000 panel - Serum or Plasm a creatinine [mass/volume ] in serum or plasma 1.02 mg/dL low: 0.71mg /dLhig h: 1.16mg /dL Creat inine 1.02 0.71 - 1.16 mg/dL 06/26 11:00 PM 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 [facility] Not Available Not Available 10/08/2024 09:02:28 06/26/20 24 06/27/2024 Basic metab olic 1999 panel - Serum or Plasm a sodium [moles/volum e] in serum or plasma 134 mmol/ L low: 136mmo l/Lhig h: 145mmo l/L low Sodiu m 134 (L) 136 - 145 mmol/ L 06/26 11:00 PM [facility] Not Available Not Available 10/08/2024 09:02:28 06/26/20 24 06/27/2024 Basic metab olic 2000 panel - Serum or Plasm a potassium [moles/volum e] in serum or plasma 4.4 mmol/ L low: 3.5mmo l/Lhig h: 4.5mmo l/L Potas sium 4.4 3.5 - 4.5 mmol/ L 06/26 11:00 PM [facility] Not Available Not Available 10/08/2024 09:02:28 06/26/20 24 06/27/2024 Basic metab olic 2000 panel - Serum or Plasm a chloride [moles/volum e] in serum or plasma 104 mmol/ L low: 98mmol /Lhigh : 107mmo l/L Chlor stalin 104 98 - 107 mmol/ L 06/26 11:00 PM [facility] Not Available Not Available 10/08/2024 09:02:28 06/26/20 24 06/27/2024 Basic metab olic 1999 panel - Serum or Plasm a carbon dioxide, total [moles/volum e] in serum or plasma 22 mmol/ L low: 22mmol /Lhigh : 29mmol /L CO2 22 22 - 29 mmol/ L 06/26 11:00 PM [facility] Not Available Not Available 10/08/2024 09:02:28 06/26/20 24 06/27/2024 Basic metab olic 2000 panel - Serum or Plasm a glucose [mass/volume ] in serum or plasma 141 mg/dL low: 70mg/d Lhigh: 99mg/d L high Gluco se 141 (H) 70 - 99 mg/dL 06/26 11:00 PM 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 [facility] Not Available Not Available 10/08/2024 09:02:28 06/26/20 24 06/27/2024 Basic metab olic 2000 panel - Serum or Plasm a calcium [moles/volum e] in serum or plasma 8.7 mg/dL low: 8.4mg/ dLhigh : 10.2mg /dL Calci um 8.7 8.4 - 10.2 mg/dL 06/26 11:00 PM 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 [facility] Not Available Not Available 10/08/2024 09:02:28 06/26/20 24 06/27/2024 Basic metab olic 2000 panel - Serum or Plasm a anion gap 8 low: 6high: 16 Anion Gap 8 6 - 16 06/26 11:00 PM 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 [facility] Not Available Not Available 10/08/2024 09:02:28 06/26/20 24 06/27/2024 Basic metab olic 2000 panel - Serum or Plasm a urea nitrogen/cre atinine [mass ratio] in serum or plasma 10 low: 7high: 23 BUN/C reati nine Ratio 10 7 - 23 06/26 11:00 PM 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 [facility] Not Available Not Available 10/08/2024 09:02:28 06/26/20 24 06/27/2024 Basic metab olic 2000 panel - Serum or Plasm a osmolality calculated 279 text: 275 - 295 mOsm/k g Osmol ality Calcu lated 279 275 - 295 mOsm/ kg 06/26 11:00 PM 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 [facility] Not Available Not Available 10/08/2024 09:02:28 06/26/20 24 06/27/2024 Basic metab olic 2000 panel - Serum or Plasm a glomerular filtration rate [volume rate/area] in serum, plasma or blood by creatinine-b ased formula (CKD-epi 2020)/1.73 sq M 86 text: >=90 mL/min /1.73 m2 low eGFR by CKD-E PI 86 (L) >=90 mL/mi n/1.7 3 m2 06/26 11:00 PM 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 [facility] Not Available Not Available 10/08/2024 09:02:28 06/26/20 24 06/27/2024 Basic metab olic 2000 panel - Serum or Plasm a interpretati on and review of laboratory results Abnorm al Not Available Not Available 09:02:28 06/26/20 24 06/26/2024 Gluco se [Mass /volu me] in Arter ial blood glucose [mass/volume ] in capillary blood by glucometer 147 mg/dL low: 70mg/d Lhigh: 99mg/d L high Gluco se WB/PO C 147 (H) 70 - 99 mg/dL 06/26 5:53 PM 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 [facility] Not Available Not Available 10/08/2024 09:02:28 06/26/20 24 06/26/2024 Gluco se [Mass /volu me] in Arter ial blood specimen source identified Cap Finger stick Speci men Type Cap Finge rstic k 06/26 5:53 PM 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 [facility] Not Available Not Available 10/08/2024 09:02:28 06/26/20 24 06/26/2024 Gluco se [Mass /volu me] in Arter ial blood interpretati on and review of laboratory results Abnorm al Not Available Not Available 09:02:28 06/26/20 24 06/26/2024 Gas and Carbo n monox stalin panel - Arter ial blood pH of arterial blood 7.38 pH low: 7.35pH high: 7.45pH pH Arter ial 7.38 7.35 - 7.45 pH 06/26 11:00 AM [facility] Not Available Not Available 08/22/2024 13:38:58 06/26/20 24 06/26/2024 Gas and Carbo n monox stalin panel - Arter ial blood oxygen [partial pressure] in arterial blood 159 text: 80 - 100 mmHg high pO2 Arter ial 159 (H) 80 - 100 mmHg 06/26 11:00 AM 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 [facility] Not Available Not Available 08/22/2024 13:38:58 06/26/20 24 06/26/2024 Gas and Carbo n monox stalin panel - Arter ial blood carbon dioxide [partial pressure] in arterial blood 42 text: 35 - 45 mmHg pCO2 Arter ial 42 35 - 45 mmHg 06/26 11:00 AM [facility] Not Available Not Available 08/22/2024 13:38:58 06/26/20 24 06/26/2024 Gas and Carbo n monox stalin panel - Arter ial blood bicarbonate [moles/volum e] in arterial blood 24.8 mmol/ L low: 20mmol /Lhigh : 30mmol /L HCO3 Arter ial 24.8 20.0 - 30.0 mmol/ L 06/26 11:00 AM [facility] [employer] [facility] Not Available Not Available 08/22/2024 13:38:58 06/26/20 24 06/26/2024 Gas and Carbo n monox stalin panel - Arter ial blood base excess standard in arterial blood by calculation -0.4 mmol/ L low: -2mmol /Lhigh : 2mmol/ L BE Arter ial -0.4 -2.0 - 2.0 mmol/ L 06/26 11:00 AM [facility] [employer] [facility] Not Available Not Available 08/22/2024 13:38:58 06/26/20 24 06/26/2024 Gas and Carbo n monox stalin panel - Arter ial blood fractional oxyhemoglobi n in arterial blood 96.6 % Oxyhe moglo bin Arter ial 96.6 % 06/26 11:00 AM [facility] [employer] [facility] Not Available Not Available 08/22/2024 13:38:58 06/26/20 24 06/26/2024 Gas and Carbo n monox stalin panel - Arter ial blood deoxyhemoglo bin [mass/volume ] in blood 1 % Dexoy hemog lobin (HHB) % 1.0 % 06/26 11:00 AM [facility] [employer] [facility] Not Available Not Available 08/22/2024 13:38:58 06/26/20 24 06/26/2024 Gas and Carbo n monox stalin panel - Arter ial blood methemoglobi n/hemoglobin .total in blood 1.2 % low: 0%high : 2% Methe moglo bin 1.2 0.0 - 2.0 % 06/26 11:00 AM 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 [facility] Not Available Not Available 08/22/2024 13:38:58 06/26/20 24 06/26/2024 Gas and Carbo n monox stalin panel - Arter ial blood carboxyhemog lobin/hemogl obin.total in blood 1.1 % low: 0%high : 2% Carbo xyhem oglob in 1.1 0.0 - 2.0 % 06/26 11:00 AM [facility] Not Available Not Available 08/22/2024 13:38:58 06/26/20 24 06/26/2024 Gas and Carbo n monox stalin panel - Arter ial blood oxygen content in arterial blood 18.1 mL/dL text: interp ret within clinic al contex t O2 Aurelio nt Arter ial 18.1 Inter pret withi n clini curtis aurelio xt ml/dL 06/26 11:00 AM [facility] Not Available Not Available 08/22/2024 13:38:58 06/26/20 24 06/26/2024 Gas and Carbo n monox stalin panel - Arter ial blood hemoglobin [mass/volume ] in blood by oximetry 13.1 g/dL low: 12g/dL high: 17.6g/ dL Hemog lobin by COOX 13.1 12.0 - 17.6 g/dL 06/26 11:00 AM [facility] Not Available Not Available 08/22/2024 13:38:58 06/26/20 24 06/26/2024 Gas and Carbo n monox stalin panel - Arter ial blood oxygen saturation in arterial blood 99 % low: 90%hig h: 100% O2 Satur ation Arter ial 99 90 - 100 % 06/26 11:00 AM [facility] Not Available Not Available 08/22/2024 13:38:58 06/26/20 24 06/26/2024 Gas and Carbo n monox stalin panel - Arter ial blood sodium [moles/volum e] in serum or plasma 134 mmol/ L low: 135mmo l/Lhig h: 145mmo l/L low Sodiu m Whole Blood 134 (L) 135 - 145 mmol/ L 06/26 11:00 AM [facility] [employer] [facility] Not Available Not Available 08/22/2024 13:38:58 06/26/20 24 06/26/2024 Gas and Carbo n monox stalin panel - Arter ial blood potassium [moles/volum e] in serum or plasma 4.6 mmol/ L low: 3.5mmo l/Lhig h: 5.5mmo l/L Potas sium Whole Blood 4.6 3.5 - 5.5 mmol/ L 06/26 11:00 AM [facility] [employer] [facility] Not Available Not Available 08/22/2024 13:38:58 06/26/20 24 06/26/2024 Gas and Carbo n monox stalin panel - Arter ial blood chloride [moles/volum e] in serum or plasma 102 mmol/ L low: 78mmol /Lhigh : 107mmo l/L Chlor stalin WB 102 78 - 107 mmol/ L 06/26 11:00 AM [facility] [employer] [facility] Not Available Not Available 08/22/2024 13:38:58 06/26/20 24 06/26/2024 Gas and Carbo n monox stalin panel - Arter ial blood calcium.ioni zed [moles/volum e] in blood 1.12 mmol/ L Calci um Ioniz ed 1.12 mmol/ L 06/26 11:00 AM [facility] [employer] [facility] Not Available Not Available 08/22/2024 13:38:58 06/26/20 24 06/26/2024 Gas and Carbo n monox stalin panel - Arter ial blood calcium.ioni zed [moles/volum e] adjusted to pH 7.4 in blood 1.11 mmol/ L low: 1.19mm ol/Lhi gh: 1.34mm ol/L low Ioniz ed Calci um pH Adjus delaney 1.11 (L) 1.19 - 1.34 mmol/ L 06/26 11:00 AM [facility] [employer] [facility] Not Available Not Available 08/22/2024 13:38:58 06/26/20 24 06/26/2024 Gas and Carbo n monox stalin panel - Arter ial blood anion gap in blood 7 mmol/ L low: 6mmol/ Lhigh: 16mmol /L Anion Gap (AG) Arter ial 7 6 - 16 mmol/ L 06/26 11:00 AM 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 [facility] Not Available Not Available 08/22/2024 13:38:58 06/26/20 24 06/26/2024 Gas and Carbo n monox stalin panel - Arter ial blood glucose [mass/volume ] in blood 166 mg/dL low: 70mg/d Lhigh: 99mg/d L high Gluco se WB 166 (H) 70 - 99 mg/dL 06/26 11:00 AM 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 [facility] Not Available Not Available 08/22/2024 13:38:58 06/26/20 24 06/26/2024 Gas and Carbo n monox stalin panel - Arter ial blood lactate [moles/volum e] in blood 1.7 mmol/ L high: 2mmol/ L Lacti c Acid Whole Blood 1.7 <=2.0 mmol/ L 06/26 11:00 AM 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 [facility] Not Available Not Available 08/22/2024 13:38:58 06/26/20 24 06/26/2024 Gas and Carbo n monox stalin panel - Arter ial blood interpretati on and review of laboratory results Abnorm al Not Available Not Available 13:38:58 06/26/20 24 06/29/2024 Tissu e Patho logy biops y repor t pathology report.secti on heading Surgic al Pathol ogy Report Case: [id number] Author izing Provid er: Akin Herbert MD [facility] delaney: 2023 09:26 AM Orderi ng Locati on: [facility] Receiv ed: 2023 11:09 AM Pathol ogist: Alexis Man MD Specim ens: A) - Pharyn x, Left pharyn gectom y stitch superi or B) - Margin , Left epiglo ttis margin , ink true margin C) - Aryten oid, left aryten oid ink at true margin D) - Bone, left hyoid E) - Neck, Left Neck Dissec tion Case Repor t Surgi curtis Patho logy Repor t Case: [id number] Autho rona arita Provi jodie: Akin Herbert, Colle cted: 06/26 09:26 AM Order ing Locat ion: [facility] Recei rain: 06/26 11:09 AM Patho logis t: Beltran Scott MD Speci mens: A) - Phary nx, Left phary ngect denny stitc h super ior B) - Varinder n, Left epigl ottis varinder n, ink true varinder n C) - Aryte noid, left aryte noid ink at true varinder n D) - Bone, left hyoid E) - Neck, Left Neck Disse ction 06/29 9:08 AM 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 [facility] Not Available Not Available 08/22/2024 13:38:58 06/26/20 24 06/29/2024 Tissu e Patho logy biops y repor t pathology report final diagnosis narrative Left pharyn gectom y, resect ion (A): - 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), modera tely differ entiat ed, 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; pT2 - All margin s negati ve; neares t is 3 mm to deep/i nferio r Left epiglo ttis margin , excisi on (B): - Negati ve for carcin emma and dyspla saúl Left aryten oid, excisi on (C): - Squamo us cell carcin emma, infilt rating submuc osal tissue - True margin is negati ve, 4 mm to tumor Left hyoid bone, excisi on (D): - Negati ve for carcin emma Left neck, levels IIA, III, and IV, dissec tion (E): - No eviden ce of malign kristina in twelve lymph nodes (0/12) Final Diagn osis Left phary ngect denny, resec tion (A): - 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), moder ately diffe renti ated, HPV-i ndepe ndent ; pT2 - All varinder ns negat boaz; neare st is 3 mm to deep/ infer ior Left epigl ottis varinder n, excis ion (B): - Negat boaz for carci noma and dyspl charmaine Left aryte noid, excis ion (C): - Squam ous cell carci noma, infil trati ng submu cosal tissu e - True varinder n is negat boaz, 4 mm to tumor Left hyoid bone, excis ion (D): - Negat boaz for carci noma Left neck, level s IIA, III, and IV, disse ction (E): - No evide nce of oplo crockett in twelv e lymph nodes (012 ) 06/29 9:08 AM 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 [facility] Elect flory rosa by Beltran Scott MD on 06/29 at 9:08 AM Not Available Not Available 08/22/2024 13:38:58 06/26/20 24 06/29/2024 Tissu e Patho logy biops y repor t pathology report microscopic observation narrative other stain Micros copic examin ation substa ntiate s the final diagno sis. (E) for the neck dissec tion, the specim en was submit delaney entire ly. Micro scopi c Descr iptio n and Comme nt Micro scopi c exami natio n subst antia yaron the final diagn osis. (E) for the neck disse ction , the speci men was submi tted entir almas. 06/29 9:08 AM 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 [facility] Not Available Not Available 08/22/2024 13:38:58 06/26/20 24 06/29/2024 Tissu e Patho logy biops y repor t pathology report relevant history narrative The patien t is a 59 year old male with p16 negati ve squamo us cell carcin emma. Clini curtis Histo ry The patie nt is a 59 year old male with p16 negat boaz squam ous cell carci noma. 06/29 9:08 AM 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 [facility] Not Available Not Available 08/22/2024 13:38:58 06/26/20 24 06/29/2024 Tissu e Patho logy biops y repor t pathology consult note A) left pharyn gectom y, stitch superi or is a 3.6 x 3.4 x 0.8 cm mucosa l tissue fragme nt with a 2.2 x 1.5 cm ulcera delaney area in the center of it. The closes t margin to the ulcera delaney area 0.5 cm (super ior margin ). See diagra m. One perpen dicula r sectio n from superi or margin is submit delaney for frozen evalua tion. False margin s inked yellow . FS A1, left pharyn gectom y: -Varinder n free of carcin emma by Fay Macdonald MD B) left epiglo ttis margin , ink true margin is a 2.0 x 0.5 x 0.5 cm pink-t an tissue , entire ly submit delaney as FS B1. FS B1, left epiglo ttis margin , biopsy : -Negat boaz for defini tive carcin emma by Fay Macdonald MD C) left aryten oid, ink at true margin is a 1.1 x 0.8 x 0.3 cm pink-t an soft tissue , entire ly submit delaney as FS C1. FS C1, left aryten oid margin , biopsy : -Negat boaz for carcin emma by Fay Macdonald MD Intra opera tive Consu ltati on A) left phary ngect denny, stitc h super ior is a 3.6 x 3.4 x 0.8 cm mucos al tissu e fragm ent with a 2.2 x 1.5 cm ulcer ated area in the cente r of it. The close st varinder n to the ulcer ated area 0.5 cm (supe rior varinder n). See diagr am. One perpe ndicu lar secti on from super ior varinder n is submi tted for froze n evalu ation . False varinder ns inked yello w. FS A1, left phary ngect denny: -Jennie in free of carci noma by Fay Macdonald MD B) left epigl ottis varinder n, ink true varinder n is a 2.0 x 0.5 x 0.5 cm pink- rojas tissu e, entir almas submi tted as FS B1. FS B1, left epigl ottis varinder n, biops y: -Nega tive for defin itive carci noma by Fay Macdonald MD C) left aryte noid, ink at true varinder n is a 1.1 x 0.8 x 0.3 cm pink- rojas soft tissu e, entir almas submi tted as FS C1. FS C1, left aryte noid varinder n, biops y: -Nega tive for carci noma by Fay Macdonald MD 06/29 9:08 AM 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 [facility] Not Available Not Available 08/22/2024 13:38:58 06/26/20 24 06/29/2024 Tissu e Patho logy biops y repor t pathology report gross observation narrative The requis ition and specim en(s) are identi fied with the patien t's name Jeovanny Doran and el barrera in formal in from intrao perati ve consul tation , specim en A, is previo usly inked, sectio bryson and sample d consis tent with the intrao perati ve note. The specim en is furthe r inked as follow s: Superi or-duane e, left-o range, right- red, inferi or-gre en, deep-b lack, false margin s-yell ow. The mucosa surrou nding the ulcera delaney area is rojas-pi nk to rojas-wh ite and edemat ous. Furthe r sectio michelle shows a 2.2 x 1.5 x 0.8 cm irregu lar rojas-wh ite firm lesion underl evan the ulcera delaney area that extend s to within 0.1 cm of the left false epiglo ttis margin , within 0.2 cm of the deep margin , 0.5 cm to the superi or and right and inferi or margin s. A repres entati ve perpen dicula r sectio n of the superi or margin is submit delaney for frozen sectio n evalua tion. The specim en is entire ly submit delaney as follow s: A1-fro jere sectio n remnan t of FS A1 A2-A3- remain ing superi or margin , perpen dicula r A4-A8- lesion to deep, false epiglo ttic and right margin from superi or to inferi or A9-inf erior margin , perpen dicula r Receiv ed in formal in from intrao perati ve consul tation , specim en B, is previo usly inked and sample d consis tent with the intrao perati ve note. The frozen sectio n remnan t of FS B1 is respec tively submit delaney in casset te B1. Receiv ed in formal in from intrao perati ve consul tation , specim en C, is previo usly inked and sample d consis tent with the intrao perati ve note. The frozen sectio n remnan t of FS C1 is respec tively submit delaney in casset te C1. Receiv ed in formal in, specim en D are three portio ns of bony tissue , 0.5-2. 0 cm, 2.0 x 0.6 x 0.6 cm in aggreg ate. The larges t fragme nt shows adhere nt cauter ized soft tissue . Sectio michelle shows rojas-wh ite cortic al bone withou t gross lesion . The larger fragme nt is serial ly sectio bryson and the fragme nts are entire ly submit delaney in casset te D1 follow ing decalc ificat ion. Receiv ed in formal in, specim en E is a 5.0 x 4.5 x 1.2 cm portio n of fibroa dipose and soft tissue . There are four lymph nodes, 0.3-1. [address] dimens ion. The cut surfac es are rojas-pi nk to pink-r ed and smooth . A majori ty of the tissue is pink-r ed striat ed fibrom uscula r tissue and yellow lobula delaney adipos e. The specim en is entire ly submit delaney as follow s: E1-thr ee lymph nodes, entire E2-sin gle node, serial ly sectio bryson E3-glendy tral fibrom uscula r tissue and adipos e E4-E7- remain ing fibrom uscula r tissue and adipos e IKD Gross Descr iptio n The requi sitio n and speci men(s ) are ident ified with the patie nt's name Carmine Doran and recei rain in forma hi from intra opera tive consu ltati on, speci men A, is previ ously inked , secti oned and sampl ed consi stent with the intra opera tive note. The speci men is furth er inked as follo ws: Super ior-b lue, left- orang e, right -red, infer ior-g reen, deep- black , false varinder ns-ye llow. The mucos a surro undin g the ulcer ated area is rojas-p ink to rojas-w luanne and edema tous. Furth er secti oning shows a 2.2 x 1.5 x 0.8 cm irreg ular rojas-w luanne firm lesio n under lying the ulcer ated area that exten ds to withi n 0.1 cm of the left false epigl ottis varinder n, withi n 0.2 cm of the deep varinder n, 0.5 cm to the super ior and right and infer ior varinder ns. A repre senta tive perpe ndicu lar secti on of the super ior varinder n is submi tted for froze n secti on evalu ation . The speci men is entir almas submi tted as follo ws: A1-fr ozen secti on remna nt of FS A1 A2-A3 -yulissa ining super ior varinder n, perpe ndicu lar A4-A8 -lesi on to deep, false epigl ottic and right varinder n from super ior to infer ior A9-in ferio r varinder n, perpe ndicu lar Recei rain in forma hi from intra opera tive consu ltati on, speci men B, is previ ously inked and sampl ed consi stent with the intra opera tive note. The froze n secti on remna nt of FS B1 is respe ctive ly submi tted in casse tte B1. Recei rain in forma hi from intra opera tive consu ltati on, speci men C, is previ ously inked and sampl ed consi stent with the intra opera tive note. The froze n secti on remna nt of FS C1 is respe ctive ly submi tted in casse tte C1. Recei rain in forma hi, speci men D are three porti ons of bony tissu e, 0.5-2 .0 cm, 2.0 x 0.6 x 0.6 cm in aggre gate. The large st fragm ent shows adher ent caute rized soft tissu e. Secti oning shows rojas-w luanne corti curtis bone witho ut gross lesio n. The large r fragm ent is seria lly secti oned and the fragm ents are entir almas submi tted in casse tte D1 follo wing decal cific ation . Recei rain in forma hi, speci men E is a 5.0 x 4.5 x 1.2 cm porti on of fibro adipo se and soft tissu e. There are four lymph nodes , 0.3-1 .5 cm in great est dimen sharon. The cut surfa liudmila are rojas-p ink to pink- red and mayo h. A major ity of the tissu e is pink- red stria delaney fibro muscu lar tissu e and yello w lobul ated adipo se. The speci men is entir almas submi tted as follo ws: E1-th ree lymph nodes , entir e E2-si ngle node, seria lly secti oned E3-ce ntral fibro muscu lar tissu e and adipo se E4-E7 -yulissa ining fibro muscu lar tissu e and adipo se IKD 06/29 9:08 AM 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 [facility] Not Available Not Available 08/22/2024 13:38:58 06/26/20 24 06/29/2024 Tissu e Patho logy biops y repor t pathologist location at [facility] Patho logis t Locat ion at Signo ut Norma Pagan 06/29 9:08 AM 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 [facility] Not Available Not Available 08/22/2024 13:38:58 06/26/20 24 06/29/2024 Tissu e Patho logy biops y repor t service comment The perfor robina charac terist ics of all immuno histoc hemica l and indire ct immuno fluore scence stains (if any) cited in this report were determ ined by the Histop atholo gy Labora [facility]ormono of [facility] annemarie. Some of these tests were develo ped by our own labora tory and have not been cleare d or approv ed by the [place] Food and Drug Admini strati on. The FDA does not requir e this test to go throug h premar ket FDA review . These tests are used for clinic al purpos es. They should not be regard ed as invest igatio nal or for resear ch. This labora tory is certif ied under the Clinic al Labora tormono Improv ement Amendm ents (CLIA) as qualif ied to perfor m high comple xity clinic al labora tormono testin g. This case has been person ally review ed and interp reted by the attend ing (teach ing) pathol ogist. Discl aimer The perfo rmanc e meliza cteri stics of all immun ohist ochem ical and indir ect immun ofluo resce nce stain s (if any) cited in this repor t were deter mined by the Histo patho logy Labor atory of [facility] rsity . Some of these tests were devel oped by our own labor atory and have not been clear ed or appro rain by the [place] Food and Drug Admin istra tion. The FDA does not requi re this test to go throu gh mahnaz rket FDA revie w. These tests are used for clini curtis purpo ses. They shoul d not be regar ded as inves tigat ional or for resea rch. This labor atory is certi fied under the Clini curtis Labor atory Impro vemen t Amend ments (CLIA ) as quali fied to perfo rm high compl exity clini curtis labor atory testi ng. This case has been perso geoff revie wed and inter prete d by the ivania bennett ([facility] cheryl) patho logis t. 06/29 9:08 AM 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 [facility] Not Available Not Available 08/22/2024 13:38:58 06/26/20 24 06/29/2024 Tissu e Patho logy biops y repor t pathology synoptic report PHARYN X (OROPH ARYNX, HYPOPH ARYNX, NASOPH ARYNX) PHARYN X (OROPH ARYNX, HYPOPH ARYNX, NASOPH ARYNX) - All Specim ens 8th Editio n - Protoc ol posted : 023 SPECIM EN Proced ure: Neck (lymph node) dissec tion: levels 2A, 3, 4 Proced ure: left pharyn gectom y TUMOR Tumor Focali ty: Unifoc al Tumor Site: Oropha rynx Tumor Subsit e: Pharyn geal wall (poste rior) Tumor Latera lity: Left Tumor Size: [facility] (Centi meters ): 2.2 cm Histol ogic Type: Oropha ryngea l squamo us cell carcin emma, 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 (oroph arynx only) Squamo us Cell Carcin emma Subtyp es: Squamo us cell carcin emma, conven tional (kerat inizin g) Histol ogic Grade: G2, modera tely differ entiat ed Lympha tic and / or Vascul ar Invasi on: Presen t Perine ural Invasi on: Not identi fied MARGIN S Margin Status for Invasi ve Tumor: All margin s negati ve for invasi ve tumor Distan ce from Invasi ve Tumor to Closes t Margin : 3 mm Closes t Margin (s) to Invasi ve Tumor: deep/i nferio r Margin Status for Noninv asive Tumor (High- grade Dyspla saúl): All margin s negati ve for high grade dyspla saúl / in situ diseas e Distan ce from Noninv asive Tumor to Closes t Margin : 4 mm Closes t Margin (s) to Noninv asive Tumor: superi or REGION AL LYMPH NODES Region al Lymph Node Status : : All region al lymph nodes negati ve for tumor Number of Lymph Nodes Examin ed: 12 pTNM CLASSI FICATI ON (AJCC 8th Editio n) Report ing of pT, pN, and (when applic able) pM catego marya is based on inform ation availa ble to the pathol ogist at the time the report is issued . As per the AJCC (Chapt er 1, 8th Ed.) it is the managi ng physic rosa s respon sibili ty to establ giacomo the final pathol ogic stage based upon all pertin ent inform ation, includ ing but potent ially not limite d to this pathol ogy report . pT Catego ry: pT2 pN Catego ry: pN0 ADDITI ONAL FINDIN GS Additi onal Findin gs: Nonker atiniz ing dyspla saúl, severe (carci noma in situ) SPECIA L STUDIE S Ancill malina Studie s Perfor med: p16 IHC as a Surrog ate for Transc riptio geoff Active High-R isk HPV: Negati ve (less than 50% diffus e and modera te-to- strong nuclea r and cytopl asmic staini ng) Synop tic Repor t PHARY NX (OROP HARYN X, HYPOP HARYN X, NASOP HARYN X) PHARY NX (OROP HARYN X, HYPOP HARYN X, NASOP HARYN X) - All Speci mens 8th Editi on - Ayala col poste d: 2022 SPECI MEN Proce dure: Neck (lymp h node) disse ction : level s 2A, 3, 4 Proce dure: left phary ngect denny TUMOR Tumor Focal ity: Unifo curtis Tumor Site: Oroph arynx Tumor Subsi te: Phary ngeal wall (post erior ) Tumor Later ality : Left Tumor Size: Great est Dimen sharon (Cent imete rs): 2.2 cm Histo logic Type: Oroph aryng eal squam ous cell carci noma, HPV-i ndepe ndent (orop haryn x only) Squam ous Cell Carci noma Subty pes: Squam ous cell carci noma, conve ntion al (posrha tiniz ing) Histo logic Grade : G2, moder ately diffe renti ated Lymph atic and / or Vascu lar Invas ion: Prese nt Perin eural Invas ion: Not ident ified VARINDER NS Varinder n Statu s for Invas boaz Tumor : All varinder ns negat boaz for invas boaz tumor Dista nce from Invas boaz Tumor to Close st Varinder n: [address] Varinder n(s) to Invas boaz Tumor : deep/ infer ior Varinder n Statu s for Nonin vasiv e Tumor (High -grad e Dyspl charmaine) : All varinder ns negat boaz for high grade dyspl charmaine / in situ disea se Dista nce from Nonin vasiv e Tumor to Close st Varinder n: [address] Varinder n(s) to Nonin vasiv e Tumor : super ior REGIO NAL LYMPH NODES Regio nal Lymph Node Statu s: : All regio nal lymph nodes negat boaz for tumor Numbe r of Lymph Nodes Exami bryson: 12 pTNM CLASS IFICA TION (AJCC 8th Editi on) Repor ting of pT, pN, and (when appli cable ) pM categ ories is based on infor matio n avail able to the patho logis t at the time the repor t is issue d. As per the AJCC (Chap ter 1, 8th Ed.) it is the manag ing physi sunny s respo nsibi lity to estab amrit the final patho logic stage based upon all perti nent infor matio n, inclu ding but lamin ramesh y not limit ed to this patho logy repor t. pT Categ ory: pT2 pN Categ ory: pN0 ADDIT IONAL FINDI NGS Addit ional Findi ngs: Nonke ratin izing dyspl charmaine, sever e (carc inoma in situ) SPECI AL STUDI ES Ancil elda Studi es Perfo rmed: p16 IHC as a Surro gate for Trans cript ional ly Activ e High- Risk HPV: Negat boaz (less than 50% diffu se and moder ate-t o-str kamilla nucle ar and cytop lasmi c stain ing) 06/29 9:08 AM 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 [facility] Not Available Not Available 08/22/2024 13:38:58 06/26/20 24 06/29/2024 Tissu e Patho logy biops y repor t embedded images Embed ded Image s 06/29 9:08 AM [facility] Not Available Not Available 08/22/2024 13:38:58 06/26/20 24 06/26/2024 Gas and Carbo n monox stalin panel - Arter ial blood pH of arterial blood 7.39 pH low: 7.35pH high: 7.45pH pH Arter ial 7.39 7.35 - 7.45 pH 06/26 8:09 AM [facility] Not Available Not Available 10/08/2024 09:02:28 06/26/20 24 06/26/2024 Gas and Carbo n monox stalin panel - Arter ial blood oxygen [partial pressure] in arterial blood 155 text: 80 - 100 mmHg high pO2 Arter ial 155 (H) 80 - 100 mmHg 06/26 8:09 AM [facility] Not Available Not Available 10/08/2024 09:02:28 06/26/20 24 06/26/2024 Gas and Carbo n monox stailn panel - Arter ial blood carbon dioxide [partial pressure] in arterial blood 47 text: 35 - 45 mmHg high pCO2 Arter ial 47 (H) 35 - 45 mmHg 06/26 8:09 AM [facility] Not Available Not Available 10/08/2024 09:02:28 06/26/20 24 06/26/2024 Gas and Carbo n monox stalin panel - Arter ial blood bicarbonate [moles/volum e] in arterial blood 28.5 mmol/ L low: 20mmol /Lhigh : 30mmol /L HCO3 Arter ial 28.5 20.0 - 30.0 mmol/ L 06/26 8:09 AM [facility] Not Available Not Available 10/08/2024 09:02:28 06/26/20 24 06/26/2024 Gas and Carbo n monox stalin panel - Arter ial blood base excess standard in arterial blood by calculation 2.8 mmol/ L low: -2mmol /Lhigh : 2mmol/ L high BE Arter ial 2.8 (H) -2.0 - 2.0 mmol/ L 06/26 8:09 AM [facility] Not Available Not Available 10/08/2024 09:02:28 06/26/20 24 06/26/2024 Gas and Carbo n monox stalin panel - Arter ial blood fractional oxyhemoglobi n in arterial blood 96.9 % Oxyhe moglo bin Arter ial 96.9 % 06/26 8:09 AM [facility] Not Available Not Available 10/08/2024 09:02:28 06/26/20 24 06/26/2024 Gas and Carbo n monox stalin panel - Arter ial blood deoxyhemoglo bin [mass/volume ] in blood 1 % Dexoy hemog lobin (HHB) % 1.0 % 06/26 8:09 AM [facility] Not Available Not Available 10/08/2024 09:02:28 06/26/20 24 06/26/2024 Gas and Carbo n monox stalin panel - Arter ial blood methemoglobi n/hemoglobin .total in blood 1 % low: 0%high : 2% Methe moglo bin 1.0 0.0 - 2.0 % 06/26 8:09 AM [facility] Not Available Not Available 10/08/2024 09:02:28 06/26/20 24 06/26/2024 Gas and Carbo n monox stalin panel - Arter ial blood carboxyhemog lobin/hemogl obin.total in blood 1 % low: 0%high : 2% Carbo xyhem oglob in 1.0 0.0 - 2.0 % 06/26 8:09 AM [facility] Not Available Not Available 10/08/2024 09:02:28 06/26/20 24 06/26/2024 Gas and Carbo n monox stalin panel - Arter ial blood oxygen content in arterial blood 18.8 mL/dL text: interp ret within clinic al contex t O2 Aurelio nt Arter ial 18.8 Inter pret withi n clini curtis aurelio xt ml/dL 06/26 8:09 AM 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 [facility] Not Available Not Available 10/08/2024 09:02:28 06/26/20 24 06/26/2024 Gas and Carbo n monox stalin panel - Arter ial blood hemoglobin [mass/volume ] in blood by oximetry 13.6 g/dL low: 12g/dL high: 17.6g/ dL Hemog lobin by COOX 13.6 12.0 - 17.6 g/dL 06/26 8:09 AM [facility] Not Available Not Available 10/08/2024 09:02:28 06/26/20 24 06/26/2024 Gas and Carbo n monox stalin panel - Arter ial blood oxygen saturation in arterial blood 99 % low: 90%hig h: 100% O2 Satur ation Arter ial 99 90 - 100 % 06/26 8:09 AM [facility] Not Available Not Available 10/08/2024 09:02:28 06/26/20 24 06/26/2024 Gas and Carbo n monox stalin panel - Arter ial blood sodium [moles/volum e] in serum or plasma 133 mmol/ L low: 135mmo l/Lhig h: 145mmo l/L low Sodiu m Whole Blood 133 (L) 135 - 145 mmol/ L 06/26 8:09 AM [facility] Not Available Not Available 10/08/2024 09:02:28 06/26/20 24 06/26/2024 Gas and Carbo n monox stalin panel - Arter ial blood potassium [moles/volum e] in serum or plasma 4.2 mmol/ L low: 3.5mmo l/Lhig h: 5.5mmo l/L Potas sium Whole Blood 4.2 3.5 - 5.5 mmol/ L 06/26 8:09 AM [facility] Not Available Not Available 10/08/2024 09:02:28 06/26/20 24 06/26/2024 Gas and Carbo n monox stalin panel - Arter ial blood chloride [moles/volum e] in serum or plasma 103 mmol/ L low: 78mmol /Lhigh : 107mmo l/L Chlor stalin WB 103 78 - 107 mmol/ L 06/26 8:09 AM [facility] Not Available Not Available 10/08/2024 09:02:28 06/26/20 24 06/26/2024 Gas and Carbo n monox stalin panel - Arter ial blood calcium.ioni zed [moles/volum e] in blood 1.22 mmol/ L Calci um Ioniz ed 1.22 mmol/ L 06/26 8:09 AM [facility] Not Available Not Available 10/08/2024 09:02:28 06/26/20 24 06/26/2024 Gas and Carbo n monox stalin panel - Arter ial blood calcium.ioni zed [moles/volum e] adjusted to pH 7.4 in blood 1.22 mmol/ L low: 1.19mm ol/Lhi gh: 1.34mm ol/L Ioniz ed Calci um pH Adjus delaney 1.22 1.19 - 1.34 mmol/ L 06/26 8:09 AM [facility] [employer] [facility] Not Available Not Available 10/08/2024 09:02:28 06/26/20 24 06/26/2024 Gas and Carbo n monox stalin panel - Arter ial blood anion gap in blood by calculation 2 mmol/ L low: 6mmol/ Lhigh: 16mmol /L low Anion Gap (AG) Arter ial 2 (L) 6 - 16 mmol/ L 06/26 8:09 AM [facility] [employer] [facility] Not Available Not Available 10/08/2024 09:02:28 06/26/20 24 06/26/2024 Gas and Carbo n monox stalin panel - Arter ial blood glucose [mass/volume ] in blood 123 mg/dL low: 70mg/d Lhigh: 99mg/d L high Gluco se WB 123 (H) 70 - 99 mg/dL 06/26 8:09 AM [facility] Not Available Not Available 10/08/2024 09:02:28 06/26/20 24 06/26/2024 Gas and Carbo n monox stalin panel - Arter ial blood lactate [moles/volum e] in blood 1.5 mmol/ L high: 2mmol/ L Lacti c Acid Whole Blood 1.5 <=2.0 mmol/ L 06/26 8:09 AM [facility] Not Available Not Available 10/08/2024 09:02:28 06/26/20 24 06/26/2024 Gas and Carbo n monox stalin panel - Arter ial blood interpretati on and review of laboratory results Abnorm al Not Available Not Available 09:02:28 06/26/20 24 06/26/2024 ABO and Rh group [Type ] in Blood ABO and Rh group [type] in blood A POS ABO Rh A POS 06/26 7:59 AM [facility] LAB Not Available Not Available 08/22/2024 13:38:58 06/26/20 24 06/26/2024 Blood type and Indir ect antib domenic scree n panel - Blood blood group antibody screen [presence] in serum or plasma NEG Antib domenic Scree n NEG 06/26 7:19 AM [facility] B[facility] LAB Not Available Not Available 10/08/2024 09:02:28 06/26/20 24 06/26/2024 Blood type and Indir ect antib domenic scree n panel - Blood ABO and Rh group [type] in blood A POS ABO Rh A POS 06/26 7:19 AM [facility] B[facility] LAB Not Available Not Available 10/08/2024 09:02:28 06/27/20 24 06/28/2024 Phosp hate [Mass /volu me] in Serum or Plasm a phosphate [mass/volume ] in serum or plasma 2.5 mg/dL low: 2.8mg/ dLhigh : 5.1mg/ dL low Phosp horus 2.5 (L) 2.8 - 5.1 mg/dL 06/27 11:09 PM [facility] Not Available Not Available 10/08/2024 09:02:30 06/27/20 24 06/28/2024 Phosp hate [Mass /volu me] in Serum or Plasm a interpretati on and review of laboratory results Abnorm al Not Available Not Available 09:02:30 06/27/20 24 06/28/2024 Magne sium [Mass /volu me] in Serum or Plasm a magnesium [mass/volume ] in serum or plasma 2 mg/dL low: 1.6mg/ dLhigh : 2.6mg/ dL Magne sium 2.0 1.6 - 2.6 mg/dL 06/27 11:09 PM 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 [facility] Not Available Not Available 10/08/2024 09:02:30 06/27/20 24 06/28/2024 Magne sium [Mass /volu me] in Serum or Plasm a interpretati on and review of laboratory results Normal Not Available Not Available 09/10 09:02:30 06/27/20 24 06/27/2024 CBC W Auto Diffe renti al panel - Blood leukocytes [#/volume] in blood by automated count 8.7 text: 4.0 - 10.7 x10e9/ L WBC 8.7 4.0 - 10.7 x10E9 /L 06/27 10:47 PM 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 Not Available Not Available 10/08/2024 09:02:29 06/27/20 24 06/27/2024 CBC W Auto Diffe renti al panel - Blood erythrocytes [#/volume] in blood by automated count 3.77 text: 4.30 - 5.80 x10e12 /L low RBC Count 3.77 (L) 4.30 - 5.80 x10E1 2/L 06/27 10:47 PM 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 [facility] Not Available Not Available 10/08/2024 09:02:29 06/27/20 24 06/27/2024 CBC W Auto Diffe renti al panel - Blood hemoglobin [mass/volume ] in blood 11.7 g/dL low: 13.3g/ dLhigh : 17.5g/ dL low Hemog lobin 11.7 (L) 13.3 - 17.5 g/dL 06/27 10:47 PM 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 [facility] Not Available Not Available 10/08/2024 09:02:29 06/27/20 24 06/27/2024 CBC W Auto Diffe renti al panel - Blood hematocrit [volume fraction] of blood by automated count 33.8 % low: 38.7%h igh: 51.1% low Hemat ocrit 33.8 (L) 38.7 - 51.1 % 06/27 10:47 PM 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 [facility] Not Available Not Available 10/08/2024 09:02:29 06/27/20 24 06/27/2024 CBC W Auto Diffe renti al panel - Blood MCV [entitic mean volume] in red blood cells by automated count 89.7 fL low: 80fLhi gh: 98fL MCV 89.7 80.0 - 98.0 fL 06/27 10:47 PM 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 [facility] Not Available Not Available 10/08/2024 09:02:29 06/27/20 24 06/27/2024 CBC W Auto Diffe rodneyti al panel - Blood MCH [entitic mass] by automated count 31 pg low: 26.7pg high: 33.6pg MCH 31.0 26.7 - 33.6 pg 06/27 10:47 PM 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 [facility] [employer] [facility] Not Available Not Available 10/08/2024 09:02:29 06/27/20 24 06/27/2024 CBC W Auto Diffe rodneyti al panel - Blood MCHC [entitic mass/volume] in red blood cells by automated count 34.6 g/dL low: 31.7g/ dLhigh : 36.3g/ dL MCHC 34.6 31.7 - 36.3 g/dL 06/27 10:47 PM 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 [facility] Not Available Not Available 10/08/2024 09:02:29 06/27/20 24 06/27/2024 CBC W Auto Diffe renti al panel - Blood erythrocyte [distwidth] in red blood cells by automated count 12.7 % low: 11.3%h igh: 14.8% RDW-C V 12.7 11.3 - 14.8 % 06/27 10:47 PM 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 [facility] Not Available Not Available 10/08/2024 09:02:29 06/27/20 24 06/27/2024 CBC W Auto Diffe renti al panel - Blood platelets [#/volume] in blood by automated count 267 text: 150 - 420 x10e9/ L Plate let Count 267 150 - 420 x10E9 /L 06/27 10:47 PM 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 [facility] Not Available Not Available 10/08/2024 09:02:29 06/27/20 24 06/27/2024 CBC W Auto Diffe renti al panel - Blood platelet [entitic mean volume] in blood by automated count 8.8 fL low: 7.8fLh igh: 11.4fL MPV 8.8 7.8 - 11.4 fL 06/27 10:47 PM 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 [facility] Not Available Not Available 10/08/2024 09:02:29 06/27/20 24 06/27/2024 CBC W Auto Diffe renti al panel - Blood neutrophils/ leukocytes in blood by automated count 66.7 % low: 41%hig h: 74% Neutr ophil % 66.7 41.0 - 74.0 % 06/27 10:47 PM 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 [facility] Not Available Not Available 10/08/2024 09:02:29 06/27/20 24 06/27/2024 CBC W Auto Diffe renti al panel - Blood lymphocytes/ leukocytes in blood by automated count 19.4 % low: 17%hig h: 47% Lymph ocyte % 19.4 17.0 - 47.0 % 06/27 10:47 PM 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 [facility] Not Available Not Available 10/08/2024 09:02:29 06/27/20 24 06/27/2024 CBC W Auto Diffe renti al panel - Blood monocytes/le ukocytes in blood by automated count 8.5 % low: 3%high : 11% Monoc yte % 8.5 3.0 - 11.0 % 06/27 10:47 PM 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 [facility] Not Available Not Available 10/08/2024 09:02:29 06/27/20 24 06/27/2024 CBC W Auto Diffe renti al panel - Blood eosinophils/ leukocytes in blood by automated count 4.6 % low: 0%high : 7% Eosin ophil % 4.6 0.0 - 7.0 % 06/27 10:47 PM 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 [facility] Not Available Not Available 10/08/2024 09:02:29 06/27/20 24 06/27/2024 CBC W Auto Diffe renti al panel - Blood basophils/le ukocytes in blood by automated count 0.2 % low: 0%high : 1.6% Basop hil % 0.2 0.0 - 1.6 % 06/27 10:47 PM 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 [facility] Not Available Not Available 10/08/2024 09:02:29 06/27/20 24 06/27/2024 CBC W Auto Diffe renti al panel - Blood immature granulocytes /leukocytes in blood by automated count 0.6 % low: 0%high : 1% Immat ure Granu locyt es % 0.6 0.0 - 1.0 % 06/27 10:47 PM 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 [facility] Not Available Not Available 10/08/2024 09:02:29 06/27/20 24 06/27/2024 CBC W Auto Diffe renti al panel - Blood neutrophils [#/volume] in blood by automated count 5.81 text: 1.60 - 7.50 x10e9/ L Neutr ophil Absol [place] 5.81 1.60 - 7.50 x10E9 /L 06/27 10:47 PM 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 [facility] Not Available Not Available 10/08/2024 09:02:29 06/27/20 24 06/27/2024 CBC W Auto Diffe renti al panel - Blood lymphocytes [#/volume] in blood by automated count 1.69 text: 1.00 - 4.40 x10e9/ L Lymph ocyte Absol [place] 1.69 1.00 - 4.40 x10E9 /L 06/27 10:47 PM 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 [facility] Not Available Not Available 10/08/2024 09:02:29 06/27/20 24 06/27/2024 CBC W Auto Diffe renti al panel - Blood monocytes [#/volume] in blood by automated count 0.74 text: 0.15 - 1.00 x10e9/ L Monoc yte Absol [place] 0.74 0.15 - 1.00 x10E9 /L 06/27 10:47 PM 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 [facility] Not Available Not Available 10/08/2024 09:02:29 06/27/20 24 06/27/2024 CBC W Auto Diffe renti al panel - Blood eosinophils [#/volume] in blood 0.4 text: 0.00 - 0.60 x10e9/ L Eosin ophil Absol [place] 0.40 0.00 - 0.60 x10E9 /L 06/27 10:47 PM 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 [facility] Not Available Not Available 10/08/2024 09:02:29 06/27/20 24 06/27/2024 CBC W Auto Diffe renti al panel - Blood basophils [#/volume] in blood by automated count 0.02 text: 0.00 - 0.13 x10e9/ L Basop hil Absol [place] 0.02 0.00 - 0.13 x10E9 /L 06/27 10:47 PM 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 [facility] Not Available Not Available 10/08/2024 09:02:29 06/27/20 24 06/27/2024 CBC W Auto Diffe renti al panel - Blood interpretati on and review of laboratory results Abnorm al Not Available Not Available 09:02:29 06/27/20 24 06/28/2024 Basic metab olic 1999 panel - Serum or Plasm a urea nitrogen [mass/volume ] in serum or plasma 11 mg/dL low: 7mg/dL high: 26mg/d L BUN 11 7 - 26 mg/dL 06/27 11:09 PM [facility] Not Available Not Available 10/08/2024 09:02:29 06/27/20 24 06/28/2024 Basic metab olic 2000 panel - Serum or Plasm a creatinine [mass/volume ] in serum or plasma 0.99 mg/dL low: 0.71mg /dLhig h: 1.16mg /dL Creat inine 0.99 0.71 - 1.16 mg/dL 06/27 11:09 PM 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 [facility] Not Available Not Available 10/08/2024 09:02:29 06/27/20 24 06/28/2024 Basic metab olic 2000 panel - Serum or Plasm a sodium [moles/volum e] in serum or plasma 132 mmol/ L low: 136mmo l/Lhig h: 145mmo l/L low Sodiu m 132 (L) 136 - 145 mmol/ L 06/27 11:09 PM [facility] Not Available Not Available 10/08/2024 09:02:29 06/27/20 24 06/28/2024 Basic metab olic 1999 panel - Serum or Plasm a potassium [moles/volum e] in serum or plasma 3.8 mmol/ L low: 3.5mmo l/Lhig h: 4.5mmo l/L Potas sium 3.8 3.5 - 4.5 mmol/ L 06/27 11:09 PM [facility] Not Available Not Available 10/08/2024 09:02:29 06/27/20 24 06/28/2024 Basic metab olic 2000 panel - Serum or Plasm a chloride [moles/volum e] in serum or plasma 100 mmol/ L low: 98mmol /Lhigh : 107mmo l/L Chlor stalin 100 98 - 107 mmol/ L 06/27 11:09 PM [facility] Not Available Not Available 10/08/2024 09:02:29 06/27/20 24 06/28/2024 Basic metab olic 1999 panel - Serum or Plasm a carbon dioxide, total [moles/volum e] in serum or plasma 27 mmol/ L low: 22mmol /Lhigh : 29mmol /L CO2 27 22 - 29 mmol/ L 06/27 11:09 PM [facility] Not Available Not Available 10/08/2024 09:02:29 06/27/20 24 06/28/2024 Basic metab olic 2000 panel - Serum or Plasm a glucose [mass/volume ] in serum or plasma 94 mg/dL low: 70mg/d Lhigh: 99mg/d L Gluco se 94 70 - 99 mg/dL 06/27 11:09 PM 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 [facility] Not Available Not Available 10/08/2024 09:02:29 06/27/20 24 06/28/2024 Basic metab olic 2000 panel - Serum or Plasm a calcium [moles/volum e] in serum or plasma 8.1 mg/dL low: 8.4mg/ dLhigh : 10.2mg /dL low Calci um 8.1 (L) 8.4 - 10.2 mg/dL 06/27 11:09 PM 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 [facility] Not Available Not Available 10/08/2024 09:02:29 06/27/20 24 06/28/2024 Basic metab olic 1999 panel - Serum or Plasm a anion gap 5 low: 6high: 16 low Anion Gap 5 (L) 6 - 16 06/27 11:09 PM 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 [facility] Not Available Not Available 10/08/2024 09:02:29 06/27/20 24 06/28/2024 Basic metab olic 2000 panel - Serum or Plasm a urea nitrogen/cre atinine [mass ratio] in serum or plasma 11 low: 7high: 23 BUN/C reati nine Ratio 11 7 - 23 06/27 11:09 PM 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 [facility] Not Available Not Available 10/08/2024 09:02:29 06/27/20 24 06/28/2024 Basic metab olic 2000 panel - Serum or Plasm a osmolality calculated 273 text: 275 - 295 mOsm/k g low Osmol ality Calcu lated 273 (L) 275 - 295 mOsm/ kg 06/27 11:09 PM 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 [facility] Not Available Not Available 10/08/2024 09:02:29 06/27/20 24 06/28/2024 Basic metab olic 2000 panel - Serum or Plasm a glomerular filtration rate [volume rate/area] in serum, plasma or blood by creatinine-b ased formula (CKD-epi 2020)/1.73 sq M 89 text: >=90 mL/min /1.73 m2 low eGFR by CKD-E PI 89 (L) >=90 mL/mi n/1.7 3 m2 06/27 11:09 PM 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 [facility] Not Available Not Available 10/08/2024 09:02:29 06/27/20 24 06/28/2024 Basic metab olic 2000 panel - Serum or Plasm a interpretati on and review of laboratory results Abnorm al Not Available Not Available 09:02:29 06/27/20 24 06/28/2024 Gluco se [Mass /volu me] in Arter ial blood glucose [mass/volume ] in capillary blood by glucometer 132 mg/dL low: 70mg/d Lhigh: 99mg/d L high Gluco se WB/PO C 132 (H) 70 - 99 mg/dL 06/28 12:21 AM 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 [facility] Not Available Not Available 10/08/2024 09:02:29 06/27/20 24 06/28/2024 Gluco se [Mass /volu me] in Arter ial blood specimen source identified Cap Finger stick Speci men Type Cap Finge rstic k 06/28 12:21 AM 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 [facility] Not Available Not Available 10/08/2024 09:02:29 06/27/20 24 06/28/2024 Gluco se [Mass /volu me] in Arter ial blood interpretati on and review of laboratory results Abnorm al Not Available Not Available 09:02:29 06/27/20 24 06/27/2024 Gluco se [Mass /volu me] in Arter ial blood glucose [mass/volume ] in capillary blood by glucometer 104 mg/dL low: 70mg/d Lhigh: 99mg/d L high Gluco se WB/PO C 104 (H) 70 - 99 mg/dL 06/27 4:59 PM 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 [facility] Not Available Not Available 10/08/2024 09:02:29 06/27/20 24 06/27/2024 Gluco se [Mass /volu me] in Arter ial blood specimen source identified Cap Finger stick Speci men Type Cap Finge rstic k 06/27 4:59 PM 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 [facility] Not Available Not Available 10/08/2024 09:02:29 06/27/20 24 06/27/2024 Gluco se [Mass /volu me] in Arter ial blood interpretati on and review of laboratory results Abnorm al Not Available Not Available 09:02:29 06/27/20 24 06/27/2024 Gluco se [Mass /volu me] in Arter ial blood glucose [mass/volume ] in capillary blood by glucometer 98 mg/dL low: 70mg/d Lhigh: 99mg/d L Gluco se WB/PO C 98 70 - 99 mg/dL 06/27 5:21 PM 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 [facility] Not Available Not Available 10/08/2024 09:02:29 06/27/20 24 06/27/2024 Gluco se [Mass /volu me] in Arter ial blood specimen source identified Cap Finger stick Speci men Type Cap Finge rstic k 06/27 5:21 PM 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 [facility] Not Available Not Available 10/08/2024 09:02:29 06/27/20 24 06/27/2024 Gluco se [Mass /volu me] in Arter ial blood glucose [mass/volume ] in capillary blood by glucometer 109 mg/dL low: 70mg/d Lhigh: 99mg/d L high Gluco se WB/PO C 109 (H) 70 - 99 mg/dL 06/27 11:32 AM 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 [facility] Not Available Not Available 10/08/2024 09:02:29 06/27/20 24 06/27/2024 Gluco se [Mass /volu me] in Arter ial blood specimen source identified Arteri al Speci men Type Arter ial 06/27 11:32 AM 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 [facility] Not Available Not Available 10/08/2024 09:02:29 06/27/20 24 06/27/2024 Gluco se [Mass /volu me] in Arter ial blood interpretati on and review of laboratory results Abnorm al Not Available Not Available 09:02:29 06/27/20 24 06/27/2024 Gluco se [Mass /volu me] in Arter ial blood glucose [mass/volume ] in capillary blood by glucometer 121 mg/dL low: 70mg/d Lhigh: 99mg/d L high Gluco se WB/PO C 121 (H) 70 - 99 mg/dL 06/27 6:17 AM 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 [facility] Not Available Not Available 10/08/2024 09:02:29 06/27/20 24 06/27/2024 Gluco se [Mass /volu me] in Arter ial blood specimen source identified Arteri al Speci men Type Arter ial 06/27 6:17 AM 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 [facility] Not Available Not Available 10/08/2024 09:02:29 06/27/20 24 06/27/2024 Gluco se [Mass /volu me] in Arter ial blood interpretati on and review of laboratory results Abnorm al Not Available Not Available 09:02:29 06/28/20 24 06/28/2024 Phosp hate [Mass /volu me] in Serum or Plasm a phosphate [mass/volume ] in serum or plasma 2.2 mg/dL low: 2.8mg/ dLhigh : 5.1mg/ dL low Phosp horus 2.2 (L) 2.8 - 5.1 mg/dL 06/28 10:20 PM 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 [facility] Not Available Not Available 10/08/2024 09:02:30 06/28/20 24 06/28/2024 Phosp hate [Mass /volu me] in Serum or Plasm a interpretati on and review of laboratory results Abnorm al Not Available Not Available 09:02:30 06/28/20 24 06/28/2024 Magne sium [Mass /volu me] in Serum or Plasm a magnesium [mass/volume ] in serum or plasma 2.1 mg/dL low: 1.6mg/ dLhigh : 2.6mg/ dL Magne sium 2.1 1.6 - 2.6 mg/dL 06/28 10:20 PM 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 [facility] Not Available Not Available 10/08/2024 09:02:30 06/28/20 24 06/28/2024 Magne sium [Mass /volu me] in Serum or Plasm a interpretati on and review of laboratory results Normal Not Available Not Available 09/10 09:02:30 06/28/20 24 06/28/2024 CBC W Auto Diffe renti al panel - Blood leukocytes [#/volume] in blood by automated count 10.7 text: 4.0 - 10.7 x10e9/ L WBC 10.7 4.0 - 10.7 x10E9 /L 06/28 9:51 PM 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 [facility] Not Available Not Available 10/08/2024 09:02:30 06/28/20 24 06/28/2024 CBC W Auto Diffe renti al panel - Blood erythrocytes [#/volume] in blood by automated count 4.01 text: 4.30 - 5.80 x10e12 /L low RBC Count 4.01 (L) 4.30 - 5.80 x10E1 2/L 06/28 9:51 PM 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 [facility] Not Available Not Available 10/08/2024 09:02:30 06/28/20 24 06/28/2024 CBC W Auto Diffe renti al panel - Blood hemoglobin [mass/volume ] in blood 12.6 g/dL low: 13.3g/ dLhigh : 17.5g/ dL low Hemog lobin 12.6 (L) 13.3 - 17.5 g/dL 06/28 9:51 PM 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 [facility] Not Available Not Available 10/08/2024 09:02:30 06/28/20 24 06/28/2024 CBC W Auto Diffe renti al panel - Blood hematocrit [volume fraction] of blood by automated count 36.1 % low: 38.7%h igh: 51.1% low Hemat ocrit 36.1 (L) 38.7 - 51.1 % 06/28 9:51 PM 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 [facility] [facility] Not Available Not Available 10/08/2024 09:02:30 06/28/20 24 06/28/2024 CBC W Auto Diffe renti al panel - Blood MCV [entitic mean volume] in red blood cells by automated count 90 fL low: 80fLhi gh: 98fL MCV 90.0 80.0 - 98.0 fL 06/28 9:51 PM 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 [facility] Not Available Not Available 10/08/2024 09:02:30 06/28/20 24 06/28/2024 CBC W Auto Diffe renti al panel - Blood MCH [entitic mass] by automated count 31.4 pg low: 26.7pg high: 33.6pg MCH 31.4 26.7 - 33.6 pg 06/28 9:51 PM 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 [facility] Not Available Not Available 10/08/2024 09:02:30 06/28/20 24 06/28/2024 CBC W Auto Diffe renti al panel - Blood MCHC [entitic mass/volume] in red blood cells by automated count 34.9 g/dL low: 31.7g/ dLhigh : 36.3g/ dL MCHC 34.9 31.7 - 36.3 g/dL 06/28 9:51 PM 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 [facility] Not Available Not Available 10/08/2024 09:02:30 06/28/20 24 06/28/2024 CBC W Auto Diffe renti al panel - Blood erythrocyte [distwidth] in red blood cells by automated count 12.7 % low: 11.3%h igh: 14.8% RDW-C V 12.7 11.3 - 14.8 % 06/28 9:51 PM 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 [facility] Not Available Not Available 10/08/2024 09:02:30 06/28/20 24 06/28/2024 CBC W Auto Diffe renti al panel - Blood platelets [#/volume] in blood by automated count 287 text: 150 - 420 x10e9/ L Plate let Count 287 150 - 420 x10E9 /L 06/28 9:51 PM 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 [facility] Not Available Not Available 10/08/2024 09:02:30 06/28/20 24 06/28/2024 CBC W Auto Diffe renti al panel - Blood platelet [entitic mean volume] in blood by automated count 8.8 fL low: 7.8fLh igh: 11.4fL MPV 8.8 7.8 - 11.4 fL 06/28 9:51 PM 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 [facility] Not Available Not Available 10/08/2024 09:02:30 06/28/20 24 06/28/2024 CBC W Auto Diffe renti al panel - Blood neutrophils/ leukocytes in blood by automated count 77.4 % low: 41%hig h: 74% high Neutr ophil % 77.4 (H) 41.0 - 74.0 % 06/28 9:51 PM 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 [facility] Not Available Not Available 10/08/2024 09:02:30 06/28/20 24 06/28/2024 CBC W Auto Diffe renti al panel - Blood lymphocytes/ leukocytes in blood by automated count 10.8 % low: 17%hig h: 47% low Lymph ocyte % 10.8 (L) 17.0 - 47.0 % 06/28 9:51 PM 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 [facility] Not Available Not Available 10/08/2024 09:02:30 06/28/20 24 06/28/2024 CBC W Auto Diffe renti al panel - Blood monocytes/le ukocytes in blood by automated count 6.3 % low: 3%high : 11% Monoc yte % 6.3 3.0 - 11.0 % 06/28 9:51 PM 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 [facility] Not Available Not Available 10/08/2024 09:02:30 06/28/20 24 06/28/2024 CBC W Auto Diffe renti al panel - Blood eosinophils/ leukocytes in blood by automated count 4.8 % low: 0%high : 7% Eosin ophil % 4.8 0.0 - 7.0 % 06/28 9:51 PM 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 [facility] Not Available Not Available 10/08/2024 09:02:30 06/28/20 24 06/28/2024 CBC W Auto Diffe renti al panel - Blood basophils/le ukocytes in blood by automated count 0.3 % low: 0%high : 1.6% Basop hil % 0.3 0.0 - 1.6 % 06/28 9:51 PM 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 [facility] Not Available Not Available 10/08/2024 09:02:30 06/28/20 24 06/28/2024 CBC W Auto Diffe renti al panel - Blood immature granulocytes /leukocytes in blood by automated count 0.4 % low: 0%high : 1% Immat ure Granu locyt es % 0.4 0.0 - 1.0 % 06/28 9:51 PM 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 [facility] Not Available Not Available 10/08/2024 09:02:30 06/28/20 24 06/28/2024 CBC W Auto Diffe renti al panel - Blood neutrophils [#/volume] in blood by automated count 8.31 text: 1.60 - 7.50 x10e9/ L high Neutr ophil Absol [place] 8.31 (H) 1.60 - 7.50 x10E9 /L 06/28 9:51 PM 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 [facility] Not Available Not Available 10/08/2024 09:02:30 06/28/20 24 06/28/2024 CBC W Auto Diffe renti al panel - Blood lymphocytes [#/volume] in blood by automated count 1.16 text: 1.00 - 4.40 x10e9/ L Lymph ocyte Absol [place] 1.16 1.00 - 4.40 x10E9 /L 06/28 9:51 PM 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 [facility] Not Available Not Available 10/08/2024 09:02:30 06/28/20 24 06/28/2024 CBC W Auto Diffe renti al panel - Blood monocytes [#/volume] in blood by automated count 0.67 text: 0.15 - 1.00 x10e9/ L Monoc yte Absol citizen [place] 0.67 0.15 - 1.00 x10E9 /L 06/28 9:51 PM 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 [facility] Not Available Not Available 10/08/2024 09:02:30 06/28/20 24 06/28/2024 CBC W Auto Diffe renti al panel - Blood eosinophils [#/volume] in blood 0.51 text: 0.00 - 0.60 x10e9/ L Eosin ophil Absol [place] 0.51 0.00 - 0.60 x10E9 /L 06/28 9:51 PM 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 [facility] Not Available Not Available 10/08/2024 09:02:30 06/28/20 24 06/28/2024 CBC W Auto Diffe renti al panel - Blood basophils [#/volume] in blood by automated count 0.03 text: 0.00 - 0.13 x10e9/ L Basop hil Absol [place] 0.03 0.00 - 0.13 x10E9 /L 06/28 9:51 PM 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 [facility] Not Available Not Available 10/08/2024 09:02:30 06/28/20 24 06/28/2024 CBC W Auto Diffe renti al panel - Blood interpretati on and review of laboratory results Abnorm al Not Available Not Available 09:02:30 06/28/20 24 06/28/2024 Basic metab olic 2000 panel - Serum or Plasm a urea nitrogen [mass/volume ] in serum or plasma 16 mg/dL low: 7mg/dL high: 26mg/d L BUN 16 7 - 26 mg/dL 06/28 10:20 PM 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 [facility] Not Available Not Available 10/08/2024 09:02:30 06/28/20 24 06/28/2024 Basic metab olic 2000 panel - Serum or Plasm a creatinine [mass/volume ] in serum or plasma 1.08 mg/dL low: 0.71mg /dLhig h: 1.16mg /dL Creat inine 1.08 0.71 - 1.16 mg/dL 06/28 10:20 PM 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 [facility] Not Available Not Available 10/08/2024 09:02:30 06/28/20 24 06/28/2024 Basic metab olic 2000 panel - Serum or Plasm a sodium [moles/volum e] in serum or plasma 137 mmol/ L low: 136mmo l/Lhig h: 145mmo l/L Sodiu m 137 136 - 145 mmol/ L 06/28 10:20 PM 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 [facility] Not Available Not Available 10/08/2024 09:02:30 06/28/20 24 06/28/2024 Basic metab olic 1999 panel - Serum or Plasm a potassium [moles/volum e] in serum or plasma 4.1 mmol/ L low: 3.5mmo l/Lhig h: 4.5mmo l/L Potas sium 4.1 3.5 - 4.5 mmol/ L 06/28 10:20 PM 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 [facility] Not Available Not Available 10/08/2024 09:02:30 06/28/20 24 06/28/2024 Basic metab olic 1999 panel - Serum or Plasm a chloride [moles/volum e] in serum or plasma 104 mmol/ L low: 98mmol /Lhigh : 107mmo l/L Chlor stalin 104 98 - 107 mmol/ L 06/28 10:20 PM 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 [facility] Not Available Not Available 10/08/2024 09:02:30 06/28/20 24 06/28/2024 Basic metab olic 1999 panel - Serum or Plasm a carbon dioxide, total [moles/volum e] in serum or plasma 27 mmol/ L low: 22mmol /Lhigh : 29mmol /L CO2 27 22 - 29 mmol/ L 06/28 10:20 PM 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 [facility] Not Available Not Available 10/08/2024 09:02:30 06/28/20 24 06/28/2024 Basic metab olic 2000 panel - Serum or Plasm a glucose [mass/volume ] in serum or plasma 103 mg/dL low: 70mg/d Lhigh: 99mg/d L high Gluco se 103 (H) 70 - 99 mg/dL 06/28 10:20 PM 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 [facility] Not Available Not Available 10/08/2024 09:02:30 06/28/20 24 06/28/2024 Basic metab olic 2000 panel - Serum or Plasm a calcium [moles/volum e] in serum or plasma 8.5 mg/dL low: 8.4mg/ dLhigh : 10.2mg /dL Calci um 8.5 8.4 - 10.2 mg/dL 06/28 10:20 PM 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 [facility] Not Available Not Available 10/08/2024 09:02:30 06/28/20 24 06/28/2024 Basic metab olic 2000 panel - Serum or Plasm a anion gap 6 low: 6high: 16 Anion Gap 6 6 - 16 06/28 10:20 PM 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 [facility] Not Available Not Available 10/08/2024 09:02:30 06/28/20 24 06/28/2024 Basic metab olic 2000 panel - Serum or Plasm a urea nitrogen/cre atinine [mass ratio] in serum or plasma 15 low: 7high: 23 BUN/C reati nine Ratio 15 7 - 23 06/28 10:20 PM 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 [facility] Not Available Not Available 10/08/2024 09:02:30 06/28/20 24 06/28/2024 Basic metab olic 2000 panel - Serum or Plasm a osmolality calculated 285 text: 275 - 295 mOsm/k g Osmol danny Whiteu lated 285 275 - 295 mOsm/ kg 06/28 10:20 PM 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 [facility] Not Available Not Available 10/08/2024 09:02:30 06/28/20 24 06/28/2024 Basic metab olic 2000 panel - Serum or Plasm a glomerular filtration rate [volume rate/area] in serum, plasma or blood by creatinine-b ased formula (CKD-epi 2020)/1.73 sq M 80 text: >=90 mL/min /1.73 m2 low eGFR by CKD-E PI 80 (L) >=90 mL/mi n/1.7 3 m2 06/28 10:20 PM 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 Not Available 10/08/2024 09:02:30 06/28/20 24 06/28/2024 Basic metab olic 2000 panel - Serum or Plasm a interpretati on and review of laboratory results Abnorm al Not Available Not Available 09:02:30 06/28/20 24 06/28/2024 Gluco se [Mass /volu me] in Arter ial blood glucose [mass/volume ] in capillary blood by glucometer 95 mg/dL low: 70mg/d Lhigh: 99mg/d L Gluco se WB/PO C 95 70 - 99 mg/dL 06/28 4:52 PM 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 [facility] Not Available Not Available 10/08/2024 09:02:30 06/28/20 24 06/28/2024 Gluco se [Mass /volu me] in Arter ial blood specimen source identified Cap Finger stick Speci men Type Cap Finge rstic k 06/28 4:52 PM 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 [facility] Not Available Not Available 10/08/2024 09:02:30 06/28/20 24 06/28/2024 Gluco se [Mass /volu me] in Arter ial blood glucose [mass/volume ] in capillary blood by glucometer 102 mg/dL low: 70mg/d Lhigh: 99mg/d L high Gluco se WB/PO C 102 (H) 70 - 99 mg/dL 06/28 11:25 AM 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 [facility] Not Available Not Available 10/08/2024 09:02:30 06/28/20 24 06/28/2024 Gluco se [Mass /volu me] in Arter ial blood specimen source identified Cap Finger stick Speci men Type Cap Finge rstic k 06/28 11:25 AM 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 [facility] Not Available Not Available 10/08/2024 09:02:30 06/28/20 24 06/28/2024 Gluco se [Mass /volu me] in Arter ial blood interpretati on and review of laboratory results Abnorm al Not Available Not Available 09:02:30 06/28/20 24 06/28/2024 Gluco se [Mass /volu me] in Arter ial blood glucose [mass/volume ] in capillary blood by glucometer 107 mg/dL low: 70mg/d Lhigh: 99mg/d L high Gluco se WB/PO C 107 (H) 70 - 99 mg/dL 06/28 5:33 AM 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 [facility] Not Available Not Available 10/08/2024 09:02:30 06/28/20 24 06/28/2024 Gluco se [Mass /volu me] in Arter ial blood specimen source identified Cap Finger stick Speci men Type Cap Finge rstic k 06/28 5:33 AM 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 [facility] Not Available Not Available 10/08/2024 09:02:30 06/28/20 24 06/28/2024 Gluco se [Mass /volu me] in Arter ial blood interpretati on and review of laboratory results Abnorm al Not Available Not Available 09:02:30 06/28/20 24 06/28/2024 Gluco se [Mass /volu me] in Arter ial blood glucose [mass/volume ] in capillary blood by glucometer 100 mg/dL low: 70mg/d Lhigh: 99mg/d L high Gluco se WB/PO C 100 (H) 70 - 99 mg/dL 06/28 12:27 AM 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 [employer] Not Available Not Available 10/08/2024 09:02:30 06/28/20 24 06/28/2024 Gluco se [Mass /volu me] in Arter ial blood specimen source identified Cap Finger stick Speci men Type Cap Gibrane rstic k 06/28 12:27 AM 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 [facility] Not Available Not Available 10/08/2024 09:02:30 06/28/20 24 06/28/2024 Gluco se [Mass /volu me] in Arter ial blood interpretati on and review of laboratory results Abnorm al Not Available Not Available 09:02:30 06/29/20 24 06/29/2024 Phosp hate [Mass /volu me] in Serum or Plasm a phosphate [mass/volume ] in serum or plasma 2.7 mg/dL low: 2.8mg/ dLhigh : 5.1mg/ dL low Phosp horus 2.7 (L) 2.8 - 5.1 mg/dL 06/29 10:25 PM 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 [facility] Not Available Not Available 10/08/2024 09:02:32 06/29/20 24 06/29/2024 Phosp hate [Mass /volu me] in Serum or Plasm a interpretati on and review of laboratory results Abnorm al Not Available Not Available 09:02:32 12/20/20 24 06/29/2024 Magne sium [Mass /volu me] in Serum or Plasm a magnesium [mass/volume ] in serum or plasma 2.3 mg/dL low: 1.6mg/ dLhigh : 2.6mg/ dL Magne sium 2.3 1.6 - 2.6 mg/dL 06/29 10:25 PM 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 [facility] Not Available Not Available 10/08/2024 09:02:31 06/29/20 24 06/29/2024 Magne sium [Mass /volu me] in Serum or Plasm a interpretati on and review of laboratory results Normal Not Available Not Available 09/10 09:02:31 06/29/20 24 06/29/2024 Basic metab olic 2000 panel - Serum or Plasm a urea nitrogen [mass/volume ] in serum or plasma 17 mg/dL low: 7mg/dL high: 26mg/d L BUN 17 7 - 26 mg/dL 06/29 10:25 PM 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 [facility] Not Available Not Available 10/08/2024 09:02:31 06/29/20 24 06/29/2024 Basic metab olic 2000 panel - Serum or Plasm a creatinine [mass/volume ] in serum or plasma 1.13 mg/dL low: 0.71mg /dLhig h: 1.16mg /dL Creat inine 1.13 0.71 - 1.16 mg/dL 06/29 10:25 PM 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 [facility] Not Available Not Available 10/08/2024 09:02:31 06/29/20 24 06/29/2024 Basic metab olic 2000 panel - Serum or Plasm a sodium [moles/volum e] in serum or plasma 141 mmol/ L low: 136mmo l/Lhig h: 145mmo l/L Sodiu m 141 136 - 145 mmol/ L 06/29 10:25 PM 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 [facility] Not Available Not Available 10/08/2024 09:02:31 06/29/20 24 06/29/2024 Basic metab olic 2000 panel - Serum or Plasm a potassium [moles/volum e] in serum or plasma 3.8 mmol/ L low: 3.5mmo l/Lhig h: 4.5mmo l/L Potas sium 3.8 3.5 - 4.5 mmol/ L 06/29 10:25 PM 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 [facility] Not Available Not Available 10/08/2024 09:02:31 06/29/20 24 06/29/2024 Basic metab olic 2000 panel - Serum or Plasm a chloride [moles/volum e] in serum or plasma 108 mmol/ L low: 98mmol /Lhigh : 107mmo l/L high Chlor stalin 108 (H) 98 - 107 mmol/ L 06/29 10:25 PM 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 [facility] Not Available Not Available 10/08/2024 09:02:31 06/29/20 24 06/29/2024 Basic metab olic 1999 panel - Serum or Plasm a carbon dioxide, total [moles/volum e] in serum or plasma 26 mmol/ L low: 22mmol /Lhigh : 29mmol /L CO2 26 22 - 29 mmol/ L 06/29 10:25 PM 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 [facility] Not Available Not Available 10/08/2024 09:02:31 06/29/20 24 06/29/2024 Basic metab olic 1999 panel - Serum or Plasm a glucose [mass/volume ] in serum or plasma 103 mg/dL low: 70mg/d Lhigh: 99mg/d L high Gluco se 103 (H) 70 - 99 mg/dL 06/29 10:25 PM [facility] Not Available Not Available 10/08/2024 09:02:31 06/29/20 24 06/29/2024 Basic metab olic 2000 panel - Serum or Plasm a calcium [moles/volum e] in serum or plasma 8.3 mg/dL low: 8.4mg/ dLhigh : 10.2mg /dL low Calci um 8.3 (L) 8.4 - 10.2 mg/dL 06/29 10:25 PM 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 [facility] Not Available Not Available 10/08/2024 09:02:31 06/29/20 24 06/29/2024 Basic metab olic 2000 panel - Serum or Plasm a anion gap 7 low: 6high: 16 Anion Gap 7 6 - 16 06/29 10:25 PM 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 [facility] Not Available Not Available 10/08/2024 09:02:31 06/29/20 24 06/29/2024 Basic metab olic 2000 panel - Serum or Plasm a urea nitrogen/cre atinine [mass ratio] in serum or plasma 15 low: 7high: 23 BUN/C reati nine Ratio 15 7 - 23 06/29 10:25 PM 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 [facility] Not Available Not Available 10/08/2024 09:02:31 06/29/20 24 06/29/2024 Basic metab olic 2000 panel - Serum or Plasm a osmolality calculated 294 text: 275 - 295 mOsm/k g Osmol ality Calcu lated 294 275 - 295 mOsm/ kg 06/29 10:25 PM 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 [facility] Not Available Not Available 10/08/2024 09:02:31 06/29/20 24 06/29/2024 Basic metab olic 2000 panel - Serum or Plasm a glomerular filtration rate [volume rate/area] in serum, plasma or blood by creatinine-b ased formula (CKD-epi 2020)/1.73 sq M 76 text: >=90 mL/min /1.73 m2 low eGFR by CKD-E PI 76 (L) >=90 mL/mi n/1.7 3 m2 06/29 10:25 PM 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 [facility] Not Available Not Available 10/08/2024 09:02:31 06/29/20 24 06/29/2024 Basic metab olic 2000 panel - Serum or Plasm a interpretati on and review of laboratory results Abnorm al Not Available Not Available 09:02:31 06/29/20 24 06/29/2024 CBC W Auto Diffe renti al panel - Blood leukocytes [#/volume] in blood by automated count 10 text: 4.0 - 10.7 x10e9/ L WBC 10.0 4.0 - 10.7 x10E9 /L 06/29 10:01 PM 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 [facility] Not Available Not Available 10/08/2024 09:02:31 06/29/20 24 06/29/2024 CBC W Auto Diffe vignesh al panel - Blood erythrocytes [#/volume] in blood by automated count 3.67 text: 4.30 - 5.80 x10e12 /L low RBC Count 3.67 (L) 4.30 - 5.80 x10E1 2/L 06/29 10:01 PM [facility] Not Available Not Available 10/08/2024 09:02:31 06/29/20 24 06/29/2024 CBC W Auto Diffe vignesh al panel - Blood hemoglobin [mass/volume ] in blood 11.4 g/dL low: 13.3g/ dLhigh : 17.5g/ dL low Hemog lobin 11.4 (L) 13.3 - 17.5 g/dL 06/29 10:01 PM [facility] Not Available Not Available 10/08/2024 09:02:31 06/29/20 24 06/29/2024 CBC W Auto Diffe vignesh al panel - Blood hematocrit [volume fraction] of blood by automated count 32.9 % low: 38.7%h igh: 51.1% low Hemat ocrit 32.9 (L) 38.7 - 51.1 % 06/29 10:01 PM [facility] Not Available Not Available 10/08/2024 09:02:31 06/29/20 24 06/29/2024 CBC W Auto Diffe vignesh al panel - Blood MCV [entitic mean volume] in red blood cells by automated count 89.6 fL low: 80fLhi gh: 98fL MCV 89.6 80.0 - 98.0 fL 06/29 10:01 PM [facility] Not Available Not Available 10/08/2024 09:02:31 06/29/20 24 06/29/2024 CBC W Auto Diffe renti al panel - Blood MCH [entitic mass] by automated count 31.1 pg low: 26.7pg high: 33.6pg MCH 31.1 26.7 - 33.6 pg 06/29 10:01 PM 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 [facility] Not Available Not Available 10/08/2024 09:02:31 06/29/20 24 06/29/2024 CBC W Auto Diffe renti al panel - Blood MCHC [entitic mass/volume] in red blood cells by automated count 34.7 g/dL low: 31.7g/ dLhigh : 36.3g/ dL MCHC 34.7 31.7 - 36.3 g/dL 06/29 10:01 PM [facility] Not Available Not Available 10/08/2024 09:02:31 06/29/20 24 06/29/2024 CBC W Auto Diffe renti al panel - Blood erythrocyte [distwidth] in red blood cells by automated count 13.2 % low: 11.3%h igh: 14.8% RDW-C V 13.2 11.3 - 14.8 % 06/29 10:01 PM [facility] Not Available 10/08/2024 09:02:31 06/29/20 24 06/29/2024 CBC W Auto Diffe renti al panel - Blood platelets [#/volume] in blood by automated count 284 text: 150 - 420 x10e9/ L Plate let Count 284 150 - 420 x10E9 /L 06/29 10:01 PM [facility] Not Available 10/08/2024 09:02:31 06/29/20 24 06/29/2024 CBC W Auto Diffe renti al panel - Blood platelet [entitic mean volume] in blood by automated count 8.7 fL low: 7.8fLh igh: 11.4fL MPV 8.7 7.8 - 11.4 fL 06/29 10:01 PM [facility] Not Available Not Available 10/08/2024 09:02:31 06/29/20 24 06/29/2024 CBC W Auto Diffe renti al panel - Blood neutrophils/ leukocytes in blood by automated count 73.9 % low: 41%hig h: 74% Neutr ophil % 73.9 41.0 - 74.0 % 06/29 10:01 PM 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 [facility] Not Available Not Available 10/08/2024 09:02:31 06/29/20 24 06/29/2024 CBC W Auto Diffe renti al panel - Blood lymphocytes/ leukocytes in blood by automated count 12.3 % low: 17%hig h: 47% low Lymph ocyte % 12.3 (L) 17.0 - 47.0 % 06/29 10:01 PM 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 [facility] Not Available Not Available 10/08/2024 09:02:31 06/29/20 24 06/29/2024 CBC W Auto Diffe renti al panel - Blood monocytes/le ukocytes in blood by automated count 6.6 % low: 3%high : 11% Monoc yte % 6.6 3.0 - 11.0 % 06/29 10:01 PM 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 Not Available Not Available 10/08/2024 09:02:31 06/29/20 24 06/29/2024 CBC W Auto Diffe renti al panel - Blood eosinophils/ leukocytes in blood by automated count 6.3 % low: 0%high : 7% Eosin ophil % 6.3 0.0 - 7.0 % 06/29 10:01 PM 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 [facility] Not Available Not Available 10/08/2024 09:02:31 06/29/20 24 06/29/2024 CBC W Auto Diffe renti al panel - Blood basophils/le ukocytes in blood by automated count 0.5 % low: 0%high : 1.6% Basop hil % 0.5 0.0 - 1.6 % 06/29 10:01 PM 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 [facility] Not Available Not Available 10/08/2024 09:02:31 06/29/20 24 06/29/2024 CBC W Auto Diffe renti al panel - Blood immature granulocytes /leukocytes in blood by automated count 0.4 % low: 0%high : 1% Immat ure Granu locyt es % 0.4 0.0 - 1.0 % 06/29 10:01 PM 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 [facility] Not Available Not Available 10/08/2024 09:02:31 06/29/20 24 06/29/2024 CBC W Auto Diffe renti al panel - Blood neutrophils [#/volume] in blood by automated count 7.4 text: 1.60 - 7.50 x10e9/ L Neutr ophil Absol citizen [place] 7.40 1.60 - 7.50 x10E9 /L 06/29 10:01 PM 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 [facility] Not Available Not Available 10/08/2024 09:02:31 06/29/20 24 06/29/2024 CBC W Auto Diffe renti al panel - Blood lymphocytes [#/volume] in blood by automated count 1.23 text: 1.00 - 4.40 x10e9/ L Lymph ocyte Absol [place] 1.23 1.00 - 4.40 x10E9 /L 06/29 10:01 PM [facility] [employer] [facility] Not Available Not Available 10/08/2024 09:02:31 06/29/20 24 06/29/2024 CBC W Auto Diffe renti al panel - Blood monocytes [#/volume] in blood by automated count 0.66 text: 0.15 - 1.00 x10e9/ L Monoc yte Absol citizen [place] 0.66 0.15 - 1.00 x10E9 /L 06/29 10:01 PM [facility] Not Available Not Available 10/08/2024 09:02:31 06/29/20 24 06/29/2024 CBC W Auto Diffe renti al panel - Blood eosinophils [#/volume] in blood 0.63 text: 0.00 - 0.60 x10e9/ L high Eosin ophil Absol citizen [place] 0.63 (H) 0.00 - 0.60 x10E9 /L 06/29 10:01 PM 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 [facility] Not Available Not Available 10/08/2024 09:02:31 06/29/20 24 06/29/2024 CBC W Auto Diffe renti al panel - Blood basophils [#/volume] in blood by automated count 0.05 text: 0.00 - 0.13 x10e9/ L Basop hil Absol citizen [place] 0.05 0.00 - 0.13 x10E9 /L 06/29 10:01 PM 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 [facility] Not Available Not Available 10/08/2024 09:02:31 06/29/20 24 06/29/2024 CBC W Auto Diffe renti al panel - Blood interpretati on and review of laboratory results Abnorm al Not Available Not Available 09:02:31 06/29/20 24 06/29/2024 Gluco se [Mass /volu me] in Arter ial blood glucose [mass/volume ] in capillary blood by glucometer 103 mg/dL low: 70mg/d Lhigh: 99mg/d L high Gluco se WB/PO C 103 (H) 70 - 99 mg/dL 06/29 6:13 PM 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 [facility] Not Available Not Available 10/08/2024 09:02:31 06/29/20 24 06/29/2024 Gluco se [Mass /volu me] in Arter ial blood specimen source identified Cap Finger stick Speci men Type Cap Finge rstic k 06/29 6:13 PM 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 [facility] Not Available Not Available 10/08/2024 09:02:31 06/29/20 24 06/29/2024 Gluco se [Mass /volu me] in Arter ial blood interpretati on and review of laboratory results Abnorm al Not Available Not Available 09:02:31 06/29/20 24 06/29/2024 Gluco se [Mass /volu me] in Arter ial blood glucose [mass/volume ] in capillary blood by glucometer 124 mg/dL low: 70mg/d Lhigh: 99mg/d L high Gluco se WB/PO C 124 (H) 70 - 99 mg/dL 06/29 12:56 PM 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 [facility] Not Available Not Available 10/08/2024 09:02:31 06/29/20 24 06/29/2024 Gluco se [Mass /volu me] in Arter ial blood specimen source identified Cap Finger stick Speci men Type Cap Finge rstic k 06/29 12:56 PM 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 [facility] Not Available Not Available 10/08/2024 09:02:31 06/29/20 24 06/29/2024 Gluco se [Mass /volu me] in Arter ial blood interpretati on and review of laboratory results Abnorm al Not Available Not Available 09:02:31 06/29/20 24 06/29/2024 Gluco se [Mass /volu me] in Arter ial blood glucose [mass/volume ] in capillary blood by glucometer 111 mg/dL low: 70mg/d Lhigh: 99mg/d L high Gluco se WB/PO C 111 (H) 70 - 99 mg/dL 06/29 6:31 AM 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 [facility] Not Available Not Available 10/08/2024 09:02:31 06/29/20 24 06/29/2024 Gluco se [Mass /volu me] in Arter ial blood specimen source identified Cap Finger stick Speci men Type Cap Finge rstic k 06/29 6:31 AM 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 [facility] Not Available Not Available 10/08/2024 09:02:31 06/29/20 24 06/29/2024 Gluco se [Mass /volu me] in Arter ial blood interpretati on and review of laboratory results Abnorm al Not Available Not Available 09:02:31 06/29/20 24 06/29/2024 Gluco se [Mass /volu me] in Arter ial blood glucose [mass/volume ] in capillary blood by glucometer 94 mg/dL low: 70mg/d Lhigh: 99mg/d L Gluco se WB/PO C 94 70 - 99 mg/dL 06/29 6:31 AM 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 [facility] Not Available Not Available 10/08/2024 09:02:31 06/29/20 24 06/29/2024 Gluco se [Mass /volu me] in Arter ial blood specimen source identified Cap Finger stick Speci men Type Cap Finge rstic k 06/29 6:31 AM 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 [facility] Not Available Not Available 10/08/2024 09:02:31 06/30/20 24 06/30/2024 Gluco se [Mass /volu me] in Arter ial blood glucose [mass/volume ] in capillary blood by glucometer 122 mg/dL low: 70mg/d Lhigh: 99mg/d L high Gluco se WB/PO C 122 (H) 70 - 99 mg/dL 06/30 6:51 PM 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 [facility] Not Available Not Available 10/08/2024 09:02:32 06/30/20 24 06/30/2024 Gluco se [Mass /volu me] in Arter ial blood specimen source identified Cap Finger stick Speci men Type Cap Finge rstic k 06/30 6:51 PM 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 [facility] Not Available Not Available 10/08/2024 09:02:32 06/30/20 24 06/30/2024 Gluco se [Mass /volu me] in Arter ial blood interpretati on and review of laboratory results Abnorm al Not Available Not Available 09:02:32 06/30/20 24 06/30/2024 Gluco se [Mass /volu me] in Arter ial blood glucose [mass/volume ] in capillary blood by glucometer 128 mg/dL low: 70mg/d Lhigh: 99mg/d L high Gluco se WB/PO C 128 (H) 70 - 99 mg/dL 06/30 6:51 PM 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 [facility] Not Available Not Available 10/08/2024 09:02:32 06/30/20 24 06/30/2024 Gluco se [Mass /volu me] in Arter ial blood specimen source identified Cap Finger stick Speci men Type Cap Finge rstic k 06/30 6:51 PM 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 [facility] Not Available Not Available 10/08/2024 09:02:32 06/30/20 24 06/30/2024 Gluco se [Mass /volu me] in Arter ial blood interpretati on and review of laboratory results Abnorm al Not Available Not Available 09:02:32 06/30/20 24 06/30/2024 Gluco se [Mass /volu me] in Arter ial blood glucose [mass/volume ] in capillary blood by glucometer 105 mg/dL low: 70mg/d Lhigh: 99mg/d L high Gluco se WB/PO C 105 (H) 70 - 99 mg/dL 06/30 8:48 AM 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 [facility] Not Available Not Available 10/08/2024 09:02:32 06/30/20 24 06/30/2024 Gluco se [Mass /volu me] in Arter ial blood specimen source identified Cap Finger stick Speci men Type Cap Finge rstic k 06/30 8:48 AM 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 [facility] Not Available Not Available 10/08/2024 09:02:32 06/30/20 24 06/30/2024 Gluco se [Mass /volu me] in Arter ial blood interpretati on and review of laboratory results Abnorm al Not Available Not Available 09:02:32 06/30/20 24 06/30/2024 Gluco se [Mass /volu me] in Arter ial blood glucose [mass/volume ] in capillary blood by glucometer 100 mg/dL low: 70mg/d Lhigh: 99mg/d L high Gluco se WB/PO C 100 (H) 70 - 99 mg/dL 06/30 12:59 AM 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 [facility] Not Available Not Available 10/08/2024 09:02:32 06/30/20 24 06/30/2024 Gluco se [Mass /volu me] in Arter ial blood specimen source identified Venous Speci men Type Venou s 06/30 12:59 AM 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 [facility] Not Available Not Available 10/08/2024 09:02:32 06/30/20 24 06/30/2024 Gluco se [Mass /volu me] in Arter ial blood interpretati on and review of laboratory results Abnorm al Not Available Not Available 09:02:32 06/30/20 24 06/30/2024 Gluco se [Mass /volu me] in Arter ial blood glucose [mass/volume ] in capillary blood by glucometer 108 mg/dL low: 70mg/d Lhigh: 99mg/d L high Gluco se WB/PO C 108 (H) 70 - 99 mg/dL 06/30 12:18 AM 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 [facility] Not Available Not Available 10/08/2024 09:02:32 06/30/20 24 06/30/2024 Gluco se [Mass /volu me] in Arter ial blood specimen source identified Cap Finger stick Speci men Type Cap Gibrane rstic k 06/30 12:18 AM 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 [facility] Not Available Not Available 10/08/2024 09:02:32 06/30/20 24 06/30/2024 Gluco se [Mass /volu me] in Arter ial blood interpretati on and review of laboratory results Abnorm al Not Available Not Available 09:02:32 07/01/20 24 07/01/2024 Gluco se [Mass /volu me] in Arter ial blood glucose [mass/volume ] in capillary blood by glucometer 129 mg/dL low: 70mg/d Lhigh: 99mg/d L high Gluco se WB/PO C 129 (H) 70 - 99 mg/dL 07/01 5:21 PM 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 [facility] Not Available Not Available 10/08/2024 09:02:33 07/01/20 24 07/01/2024 Gluco se [Mass /volu me] in Arter ial blood specimen source identified Cap Finger stick Speci men Type Cap Gibrane rstic k 07/01 5:21 PM 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 [facility] Not Available Not Available 10/08/2024 09:02:33 07/01/20 24 07/01/2024 Gluco se [Mass /volu me] in Arter ial blood interpretati on and review of laboratory results Abnorm al Not Available Not Available 09:02:33 07/01/20 24 07/01/2024 Gluco se [Mass /volu me] in Arter ial blood glucose [mass/volume ] in capillary blood by glucometer 117 mg/dL low: 70mg/d Lhigh: 99mg/d L high Gluco se WB/PO C 117 (H) 70 - 99 mg/dL 07/01 1:07 PM 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 [facility] Not Available Not Available 10/08/2024 09:02:33 07/01/20 24 07/01/2024 Gluco se [Mass /volu me] in Arter ial blood specimen source identified Cap Finger stick Speci men Type Cap Anaid rstic k 07/01 1:07 PM 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 [facility] Not Available Not Available 10/08/2024 09:02:33 07/01/20 24 07/01/2024 Gluco se [Mass /volu me] in Arter ial blood interpretati on and review of laboratory results Abnorm al Not Available Not Available 09:02:33 07/01/20 24 07/01/2024 Gluco se [Mass /volu me] in Arter ial blood glucose [mass/volume ] in capillary blood by glucometer 125 mg/dL low: 70mg/d Lhigh: 99mg/d L high Gluco se WB/PO C 125 (H) 70 - 99 mg/dL 07/01 12:34 PM 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 [facility] Not Available Not Available 10/08/2024 09:02:33 07/01/20 24 07/01/2024 Gluco se [Mass /volu me] in Arter ial blood specimen source identified Cap Finger stick Speci men Type Cap Gibrane rstic k 07/01 12:34 PM 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 [facility] Not Available Not Available 10/08/2024 09:02:33 07/01/20 24 07/01/2024 Gluco se [Mass /volu me] in Arter ial blood interpretati on and review of laboratory results Abnorm al Not Available Not Available 09:02:33 07/01/20 24 07/01/2024 Gluco se [Mass /volu me] in Arter ial blood glucose [mass/volume ] in capillary blood by glucometer 84 mg/dL low: 70mg/d Lhigh: 99mg/d L Gluco se WB/PO C 84 70 - 99 mg/dL 07/01 6:23 AM 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 [facility] Not Available Not Available 10/08/2024 09:02:33 07/01/20 24 07/01/2024 Gluco se [Mass /volu me] in Arter ial blood specimen source identified Cap Finger stick Speci men Type Cap Finge rstic k 07/01 6:23 AM 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 [facility] Not Available Not Available 10/08/2024 09:02:33 07/01/20 24 07/01/2024 Gluco se [Mass /volu me] in Arter ial blood glucose [mass/volume ] in capillary blood by glucometer 82 mg/dL low: 70mg/d Lhigh: 99mg/d L Gluco se WB/PO C 82 70 - 99 mg/dL 07/01 12:26 AM [facility] Not Available Not Available 10/08/2024 09:02:33 07/01/20 24 07/01/2024 Gluco se [Mass /volu me] in Arter ial blood specimen source identified Cap Finger stick Speci men Type Cap Finge rstic k 07/01 12:26 AM [facility] Not Available Not Available 10/08/2024 09:02:33 07/01/20 24 07/01/2024 Phosp hate [Mass /volu me] in Serum or Plasm a phosphate [mass/volume ] in serum or plasma 2.7 mg/dL low: 2.8mg/ dLhigh : 5.1mg/ dL low Phosp horus 2.7 (L) 2.8 - 5.1 mg/dL 07/01 12:04 AM [facility] Not Available Not Available 10/08/2024 09:02:32 07/01/20 24 07/01/2024 Phosp hate [Mass /volu me] in Serum or Plasm a interpretati on and review of laboratory results Abnorm al Not Available Not Available 09:02:32 07/01/20 24 07/01/2024 Magne sium [Mass /volu me] in Serum or Plasm a magnesium [mass/volume ] in serum or plasma 2.3 mg/dL low: 1.6mg/ dLhigh : 2.6mg/ dL Magne sium 2.3 1.6 - 2.6 mg/dL 07/01 12:04 AM [facility] Not Available Not Available 10/08/2024 09:02:32 07/01/20 24 07/01/2024 Magne sium [Mass /volu me] in Serum or Plasm a interpretati on and review of laboratory results Normal Not Available Not Available 09/10 09:02:32 07/01/20 24 07/01/2024 CBC W Auto Diffe renti al panel - Blood leukocytes [#/volume] in blood by automated count 7.7 text: 4.0 - 10.7 x10e9/ L WBC 7.7 4.0 - 10.7 x10E9 /L 06/30 11:44 PM [facility] Not Available Not Available 10/08/2024 09:02:32 07/01/20 24 07/01/2024 CBC W Auto Diffe renti al panel - Blood erythrocytes [#/volume] in blood by automated count 3.73 text: 4.30 - 5.80 x10e12 /L low RBC Count 3.73 (L) 4.30 - 5.80 x10E1 2/L 06/30 11:44 PM [facility] Not Available Not Available 10/08/2024 09:02:32 07/01/20 24 07/01/2024 CBC W Auto Diffe renti al panel - Blood hemoglobin [mass/volume ] in blood 11.6 g/dL low: 13.3g/ dLhigh : 17.5g/ dL low Hemog lobin 11.6 (L) 13.3 - 17.5 g/dL 06/30 11:44 PM [facility] Not Available Not Available 10/08/2024 09:02:32 07/01/20 24 07/01/2024 CBC W Auto Diffe renti al panel - Blood hematocrit [volume fraction] of blood by automated count 33.4 % low: 38.7%h igh: 51.1% low Hemat ocrit 33.4 (L) 38.7 - 51.1 % 06/30 11:44 PM [facility] Not Available Not Available 10/08/2024 09:02:32 12/22/07/01/2024 CBC W Auto Diffe renti al panel - Blood MCV [entitic mean volume] in red blood cells by automated count 89.5 fL low: 80fLhi gh: 98fL MCV 89.5 80.0 - 98.0 fL 06/30 11:44 PM 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 [facility] Not Available Not Available 10/08/2024 09:02:32 07/01/20 24 07/01/2024 CBC W Auto Diffe renti al panel - Blood MCH [entitic mass] by automated count 31.1 pg low: 26.7pg high: 33.6pg MCH 31.1 26.7 - 33.6 pg 06/30 11:44 PM 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 [facility] Not Available Not Available 10/08/2024 09:02:32 07/01/20 24 07/01/2024 CBC W Auto Diffe renti al panel - Blood MCHC [entitic mass/volume] in red blood cells by automated count 34.7 g/dL low: 31.7g/ dLhigh : 36.3g/ dL MCHC 34.7 31.7 - 36.3 g/dL 06/30 11:44 PM 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 [facility] Not Available Not Available 10/08/2024 09:02:32 07/01/20 24 07/01/2024 CBC W Auto Diffe rodneyti al panel - Blood erythrocyte [distwidth] in red blood cells by automated count 13.2 % low: 11.3%h igh: 14.8% RDW-C V 13.2 11.3 - 14.8 % 06/30 11:44 PM 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 [facility] Not Available Not Available 10/08/2024 09:02:32 07/01/20 24 07/01/2024 CBC W Auto Diffe renti al panel - Blood platelets [#/volume] in blood by automated count 321 text: 150 - 420 x10e9/ L Plate let Count 321 150 - 420 x10E9 /L 06/30 11:44 PM 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 [facility] Not Available Not Available 10/08/2024 09:02:32 07/01/20 24 07/01/2024 CBC W Auto Diffe renti al panel - Blood platelet [entitic mean volume] in blood by automated count 8.7 fL low: 7.8fLh igh: 11.4fL MPV 8.7 7.8 - 11.4 fL 06/30 11:44 PM 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 [facility] Not Available Not Available 10/08/2024 09:02:32 07/01/20 24 07/01/2024 CBC W Auto Diffe renti al panel - Blood neutrophils/ leukocytes in blood by automated count 62 % low: 41%hig h: 74% Neutr ophil % 62.0 41.0 - 74.0 % 06/30 11:44 PM 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 [facility] Not Available Not Available 10/08/2024 09:02:32 07/01/20 24 07/01/2024 CBC W Auto Diffe renti al panel - Blood lymphocytes/ leukocytes in blood by automated count 16.1 % low: 17%hig h: 47% low Lymph ocyte % 16.1 (L) 17.0 - 47.0 % 06/30 11:44 PM 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 [facility] Not Available Not Available 10/08/2024 09:02:32 07/01/20 24 07/01/2024 CBC W Auto Diffe renti al panel - Blood monocytes/le ukocytes in blood by automated count 9.7 % low: 3%high : 11% Monoc yte % 9.7 3.0 - 11.0 % 06/30 11:44 PM 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 [facility] Not Available Not Available 10/08/2024 09:02:32 07/01/20 24 07/01/2024 CBC W Auto Diffe renti al panel - Blood eosinophils/ leukocytes in blood by automated count 11.1 % low: 0%high : 7% high Eosin ophil % 11.1 (H) 0.0 - 7.0 % 06/30 11:44 PM 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 [facility] Not Available Not Available 10/08/2024 09:02:32 07/01/20 24 07/01/2024 CBC W Auto Diffe renti al panel - Blood basophils/le ukocytes in blood by automated count 0.6 % low: 0%high : 1.6% Basop hil % 0.6 0.0 - 1.6 % 06/30 11:44 PM 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 [facility] Not Available Not Available 10/08/2024 09:02:32 07/01/20 24 07/01/2024 CBC W Auto Diffe renti al panel - Blood immature granulocytes /leukocytes in blood by automated count 0.5 % low: 0%high : 1% Immat ure Granu locyt es % 0.5 0.0 - 1.0 % 06/30 11:44 PM 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 [facility] Not Available Not Available 10/08/2024 09:02:32 07/01/20 24 07/01/2024 CBC W Auto Diffe renti al panel - Blood neutrophils [#/volume] in blood by automated count 4.79 text: 1.60 - 7.50 x10e9/ L Neutr ophil Absol citizen [place] 4.79 1.60 - 7.50 x10E9 /L 06/30 11:44 PM 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 [facility] Not Available Not Available 10/08/2024 09:02:32 07/01/20 24 07/01/2024 CBC W Auto Diffe renti al panel - Blood lymphocytes [#/volume] in blood by automated count 1.25 text: 1.00 - 4.40 x10e9/ L Lymph ocyte Absol citizen [place] 1.25 1.00 - 4.40 x10E9 /L 06/30 11:44 PM 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 [facility] Not Available Not Available 10/08/2024 09:02:32 07/01/20 24 07/01/2024 CBC W Auto Diffe renti al panel - Blood monocytes [#/volume] in blood by automated count 0.75 text: 0.15 - 1.00 x10e9/ L Monoc yte Absol citizen [place] 0.75 0.15 - 1.00 x10E9 /L 06/30 11:44 PM 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 [facility] Not Available Not Available 10/08/2024 09:02:32 07/01/20 24 07/01/2024 CBC W Auto Diffe renti al panel - Blood eosinophils [#/volume] in blood 0.86 text: 0.00 - 0.60 x10e9/ L high Eosin ophil Absol citizen [place] 0.86 (H) 0.00 - 0.60 x10E9 /L 06/30 11:44 PM 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 [facility] Not Available Not Available 10/08/2024 09:02:32 07/01/20 24 07/01/2024 CBC W Auto Diffe vignesh chiu panel - Blood basophils [#/volume] in blood by automated count 0.05 text: 0.00 - 0.13 x10e9/ L Basop hil Absol citizen [place] 0.05 0.00 - 0.13 x10E9 /L 06/30 11:44 PM [facility] Not Available Not Available 10/08/2024 09:02:32 07/01/20 24 07/01/2024 CBC W Auto Diffe vignesh chiu panel - Blood interpretati on and review of laboratory results Abnorm al Not Available Not Available 09:02:32 07/01/20 24 07/01/2024 Basic metab olic 2000 panel - Serum or Plasm a urea nitrogen [mass/volume ] in serum or plasma 19 mg/dL low: 7mg/dL high: 26mg/d L BUN 19 7 - 26 mg/dL 07/01 12:04 AM [facility] Not Available Not Available 10/08/2024 09:02:32 07/01/20 24 07/01/2024 Basic metab olic 2000 panel - Serum or Plasm a creatinine [mass/volume ] in serum or plasma 1 mg/dL low: 0.71mg /dLhig h: 1.16mg /dL Creat inine 1.00 0.71 - 1.16 mg/dL 07/01 12:04 AM [facility] Not Available Not Available 10/08/2024 09:02:32 07/01/20 24 07/01/2024 Basic metab olic 2000 panel - Serum or Plasm a sodium [moles/volum e] in serum or plasma 140 mmol/ L low: 136mmo l/Lhig h: 145mmo l/L Sodiu m 140 136 - 145 mmol/ L 07/01 12:04 AM [facility] Not Available Not Available 10/08/2024 09:02:32 07/01/20 24 07/01/2024 Basic metab olic 1999 panel - Serum or Plasm a potassium [moles/volum e] in serum or plasma 4 mmol/ L low: 3.5mmo l/Lhig h: 4.5mmo l/L Potas sium 4.0 3.5 - 4.5 mmol/ L 07/01 12:04 AM [facility] Not Available Not Available 10/08/2024 09:02:32 07/01/20 24 07/01/2024 Basic metab olic 1999 panel - Serum or Plasm a chloride [moles/volum e] in serum or plasma 108 mmol/ L low: 98mmol /Lhigh : 107mmo l/L high Chlor stalin 108 (H) 98 - 107 mmol/ L 07/01 12:04 AM [facility] Not Available Not Available 10/08/2024 09:02:32 07/01/20 24 07/01/2024 Basic metab olic 1999 panel - Serum or Plasm a carbon dioxide, total [moles/volum e] in serum or plasma 28 mmol/ L low: 22mmol /Lhigh : 29mmol /L CO2 28 22 - 29 mmol/ L 07/01 12:04 AM [facility] Not Available Not Available 10/08/2024 09:02:32 07/01/20 24 07/01/2024 Basic metab olic 1999 panel - Serum or Plasm a glucose [mass/volume ] in serum or plasma 95 mg/dL low: 70mg/d Lhigh: 99mg/d L Gluco se 95 70 - 99 mg/dL 07/01 12:04 AM [facility] Not Available Not Available 10/08/2024 09:02:32 07/01/20 24 07/01/2024 Basic metab olic 2000 panel - Serum or Plasm a calcium [moles/volum e] in serum or plasma 8.5 mg/dL low: 8.4mg/ dLhigh : 10.2mg /dL Calci um 8.5 8.4 - 10.2 mg/dL 07/01 12:04 AM [employer] SALES [employer] [facility] Not Available Not Available 10/08/2024 09:02:32 07/01/20 24 07/01/2024 Basic metab olic 2000 panel - Serum or Plasm a anion gap 4 low: 6high: 16 low Anion Gap 4 (L) 6 - 16 07/01 12:04 AM [employer]SP[employer] SALES CONS[employer] [facility] Not Available Not Available 10/08/2024 09:02:32 07/01/20 24 07/01/2024 Basic metab olic 2000 panel - Serum or Plasm a urea nitrogen/cre atinine [mass ratio] in serum or plasma 19 low: 7high: 23 BUN/C reati nine Ratio 19 7 - 23 07/01 12:04 AM [employer] SALES [employer] [facility] Not Available Not Available 10/08/2024 09:02:32 07/01/20 24 07/01/2024 Basic metab olic 2000 panel - Serum or Plasm a osmolality calculated 292 text: 275 - 295 mOsm/k g Osmol ality Calcu lated 292 275 - 295 mOsm/ kg 07/01 12:04 AM TRANSP[employer] SALES CONSULTANT [facility] Not Available Not Available 10/08/2024 09:02:32 07/01/20 24 07/01/2024 Basic metab olic 2000 panel - Serum or Plasm a glomerular filtration rate [volume rate/area] in serum, plasma or blood by creatinine-b ased formula (CKD-epi 2020)/1.73 sq M 88 text: >=90 mL/min /1.73 m2 low eGFR by CKD-E PI 88 (L) >=90 mL/mi n/1.7 3 m2 07/01 12:04 AM [employer]SP[employer]ATION SALES CONS[employer] [facility] Not Available Not Available 10/08/2024 09:02:32 07/01/20 24 07/01/2024 Basic metab olic 2000 panel - Serum or Plasm a interpretati on and review of laboratory results Abnorm al Not Available Not Available 09:02:32 07/02/20 24 07/02/2024 Phosp hate [Mass /volu me] in Serum or Plasm a phosphate [mass/volume ] in serum or plasma 4.7 mg/dL low: 2.8mg/ dLhigh : 5.1mg/ dL Phosp horus 4.7 2.8 - 5.1 mg/dL 07/02 10:56 PM [employer]SPORTATION SALES CONSULTANT [facility] Not Available Not Available 10/08/2024 09:02:34 07/02/20 24 07/02/2024 Phosp hate [Mass /volu me] in Serum or Plasm a interpretati on and review of laboratory results Normal Not Available Not Available 09/10 09:02:34 07/02/20 24 07/02/2024 Magne sium [Mass /volu me] in Serum or Plasm a magnesium [mass/volume ] in serum or plasma 2.2 mg/dL low: 1.6mg/ dLhigh : 2.6mg/ dL Magne sium 2.2 1.6 - 2.6 mg/dL 07/02 10:56 PM [employer]SP[employer] SALES [employer]ANT [facility] Not Available Not Available 10/08/2024 09:02:34 07/02/20 24 07/02/2024 Magne sium [Mass /volu me] in Serum or Plasm a interpretati on and review of laboratory results Normal Not Available Not Available 09/10 09:02:34 07/02/20 24 07/02/2024 CBC W Auto Diffe renti al panel - Blood leukocytes [#/volume] in blood by automated count 11 text: 4.0 - 10.7 x10e9/ L high WBC 11.0 (H) 4.0 - 10.7 x10E9 /L 07/02 10:38 PM [employer] SALES [employer]ANT [facility] [employer] [facility] Not Available Not Available 10/08/2024 09:02:34 07/02/20 24 07/02/2024 CBC W Auto Diffe renti al panel - Blood erythrocytes [#/volume] in blood by automated count 3.8 text: 4.30 - 5.80 x10e12 /L low RBC Count 3.80 (L) 4.30 - 5.80 x10E1 2/L 07/02 10:38 PM [facility] Not Available 10/08/2024 09:02:34 07/02/20 24 07/02/2024 CBC W Auto Diffe renti al panel - Blood hemoglobin [mass/volume ] in blood 11.7 g/dL low: 13.3g/ dLhigh : 17.5g/ dL low Hemog lobin 11.7 (L) 13.3 - 17.5 g/dL 07/02 10:38 PM [facility] Not Available 10/08/2024 09:02:34 07/02/20 24 07/02/2024 CBC W Auto Diffe rodneyti al panel - Blood hematocrit [volume fraction] of blood by automated count 34.3 % low: 38.7%h igh: 51.1% low Hemat ocrit 34.3 (L) 38.7 - 51.1 % 07/02 10:38 PM [facility] Not Available 10/08/2024 09:02:34 07/02/20 24 07/02/2024 CBC W Auto Diffe rodneyti al panel - Blood MCV [entitic mean volume] in red blood cells by automated count 90.3 fL low: 80fLhi gh: 98fL MCV 90.3 80.0 - 98.0 fL 07/02 10:38 PM [facility] Not Available 10/08/2024 09:02:34 07/02/20 24 07/02/2024 CBC W Auto Diffe rodneyti al panel - Blood MCH [entitic mass] by automated count 30.8 pg low: 26.7pg high: 33.6pg MCH 30.8 26.7 - 33.6 pg 07/02 10:38 PM [facility] Not [facility] Not Available 10/08/2024 09:02:34 07/02/20 24 07/02/2024 CBC W Auto Diffe renti al panel - Blood MCHC [entitic mass/volume] in red blood cells by automated count 34.1 g/dL low: 31.7g/ dLhigh : 36.3g/ dL MCHC 34.1 31.7 - 36.3 g/dL 07/02 10:38 PM [employer]SP[employer]ATION SALES CONSULTANT [facility] Not Available Not Available 10/08/2024 09:02:34 07/02/20 24 07/02/2024 CBC W Auto Diffe renti al panel - Blood erythrocyte [distwidth] in red blood cells by automated count 13.3 % low: 11.3%h igh: 14.8% RDW-C V 13.3 11.3 - 14.8 % 07/02 10:38 PM [facility] Not Available Not Available 10/08/2024 09:02:34 07/02/20 24 07/02/2024 CBC W Auto Diffe renti al panel - Blood platelets [#/volume] in blood by automated count 361 text: 150 - 420 x10e9/ L Plate let Count 361 150 - 420 x10E9 /L 07/02 10:38 PM [facility] Not Available Not Available 10/08/2024 09:02:34 07/02/20 24 07/02/2024 CBC W Auto Diffe renti al panel - Blood platelet [entitic mean volume] in blood by automated count 8.6 fL low: 7.8fLh igh: 11.4fL MPV 8.6 7.8 - 11.4 fL 07/02 10:38 PM [facility] Not Available Not Available 10/08/2024 09:02:34 07/02/20 24 07/02/2024 CBC W Auto Diffe renti al panel - Blood neutrophils/ leukocytes in blood by automated count 78.7 % low: 41%hig h: 74% high Neutr ophil % 78.7 (H) 41.0 - 74.0 % 07/02 10:38 PM [facility] Not Available Not Available 10/08/2024 09:02:34 07/02/20 24 07/02/2024 CBC W Auto Diffe renti al panel - Blood lymphocytes/ leukocytes in blood by automated count 11.9 % low: 17%hig h: 47% low Lymph ocyte % 11.9 (L) 17.0 - 47.0 % 07/02 10:38 PM [facility] Not Available Not Available 10/08/2024 09:02:34 07/02/20 24 07/02/2024 CBC W Auto Diffe renti al panel - Blood monocytes/le ukocytes in blood by automated count 8.2 % low: 3%high : 11% Monoc yte % 8.2 3.0 - 11.0 % 07/02 10:38 PM [employer] SALES CONS[employer]ANT [facility] Not Available Not Available 10/08/2024 09:02:34 07/02/20 24 07/02/2024 CBC W Auto Diffe renti al panel - Blood eosinophils/ leukocytes in blood by automated count 0 % low: 0%high : 7% Eosin ophil % 0.0 0.0 - 7.0 % 07/02 10:38 PM [employer] SALES CONS[employer] [facility] Not Available Not Available 10/08/2024 09:02:34 07/02/20 24 07/02/2024 CBC W Auto Diffe renti al panel - Blood basophils/le ukocytes in blood by automated count 0.3 % low: 0%high : 1.6% Basop hil % 0.3 0.0 - 1.6 % 07/02 10:38 PM [facility] Not Available Not Available 10/08/2024 09:02:34 07/02/20 24 07/02/2024 CBC W Auto Diffe renti al panel - Blood immature granulocytes /leukocytes in blood by automated count 0.9 % low: 0%high : 1% Immat ure Granu locyt es % 0.9 0.0 - 1.0 % 07/02 10:38 PM [employer]SP[employer] SALES CONS[employer]ANT [facility] Not Available Not Available 10/08/2024 09:02:34 07/02/20 24 07/02/2024 CBC W Auto Diffe renti al panel - Blood neutrophils [#/volume] in blood by automated count 8.64 text: 1.60 - 7.50 x10e9/ L high Neutr ophil Absol citizen [place] 8.64 (H) 1.60 - 7.50 x10E9 /L 07/02 10:38 PM [employer]SP[employer] SALES CONS[employer] [facility] Not Available Not Available 10/08/2024 09:02:34 07/02/20 24 07/02/2024 CBC W Auto Diffe renti al panel - Blood lymphocytes [#/volume] in blood by automated count 1.31 text: 1.00 - 4.40 x10e9/ L Lymph ocyte Absol citizen [place] 1.31 1.00 - 4.40 x10E9 /L 07/02 10:38 PM [employer]SP[employer]ATION SALES CONSULTANT [facility] Not Available Not Available 10/08/2024 09:02:34 07/02/20 24 07/02/2024 CBC W Auto Diffe renti al panel - Blood monocytes [#/volume] in blood by automated count 0.9 text: 0.15 - 1.00 x10e9/ L Monoc yte Absol citizen [place] 0.90 0.15 - 1.00 x10E9 /L 07/02 10:38 PM [employer]SP[employer] SALES CONS[employer] [facility] Not Available Not Available 10/08/2024 09:02:34 07/02/20 24 07/02/2024 CBC W Auto Diffe renti al panel - Blood eosinophils [#/volume] in blood 0 text: 0.00 - 0.60 x10e9/ L Eosin ophil Absol citizen [place] 0.00 0.00 - 0.60 x10E9 /L 07/02 10:38 PM [employer]SP[employer]ATION SALES CONSULTANT [facility] Not Available Not Available 10/08/2024 09:02:34 07/02/20 24 07/02/2024 CBC W Auto Diffe renti al panel - Blood basophils [#/volume] in blood by automated count 0.03 text: 0.00 - 0.13 x10e9/ L Basop hil Absol citizen [place] 0.03 0.00 - 0.13 x10E9 /L 07/02 10:38 PM [employer]SP[employer] SALES CONS[employer]ANT [facility] Not Available Not Available 10/08/2024 09:02:34 07/02/20 24 07/02/2024 CBC W Auto Diffe renti al panel - Blood interpretati on and review of laboratory results Abnorm al Not Available Not Available 09:02:34 07/02/20 24 07/02/2024 Basic metab olic 2000 panel - Serum or Plasm a urea nitrogen [mass/volume ] in serum or plasma 25 mg/dL low: 7mg/dL high: 26mg/d L BUN 25 7 - 26 mg/dL 07/02 10:56 PM TRANSP[employer]ATION SALES CONSULTANT [facility] Not Available Not Available 10/08/2024 09:02:34 07/02/20 24 07/02/2024 Basic metab olic 1999 panel - Serum or Plasm a creatinine [mass/volume ] in serum or plasma 1.19 mg/dL low: 0.71mg /dLhig h: 1.16mg /dL high Creat inine 1.19 (H) 0.71 - 1.16 mg/dL 07/02 10:56 PM TRANSP[employer]ATION SALES CONSULTANT [facility] Not Available Not Available 10/08/2024 09:02:34 07/02/20 24 07/02/2024 Basic metab olic 1999 panel - Serum or Plasm a sodium [moles/volum e] in serum or plasma 135 mmol/ L low: 136mmo l/Lhig h: 145mmo l/L low Sodiu m 135 (L) 136 - 145 mmol/ L 07/02 10:56 PM TRANSPORTATION SALES CONSULTANT [facility] Not Available Not Available 10/08/2024 09:02:34 07/02/20 24 07/02/2024 Basic metab olic 1999 panel - Serum or Plasm a potassium [moles/volum e] in serum or plasma 4.9 mmol/ L low: 3.5mmo l/Lhig h: 4.5mmo l/L high Potas sium 4.9 (H) 3.5 - 4.5 mmol/ L 07/02 10:56 PM TRANSPORTATION SALES CONSULTANT [facility] Not Available Not Available 10/08/2024 09:02:34 07/02/20 24 07/02/2024 Basic metab olic 2000 panel - Serum or Plasm a chloride [moles/volum e] in serum or plasma 104 mmol/ L low: 98mmol /Lhigh : 107mmo l/L Chlor stalni 104 98 - 107 mmol/ L 07/02 10:56 PM TRANSP[employer]ATION SALES CONSULTANT [facility] Not Available Not Available 10/08/2024 09:02:34 1223/20 24 07/02/2024 Basic metab olic 1999 panel - Serum or Plasm a carbon dioxide, total [moles/volum e] in serum or plasma 22 mmol/ L low: 22mmol /Lhigh : 29mmol /L CO2 22 22 - 29 mmol/ L 07/02 10:56 PM TRANSPORTATION SALES CONSULTANT [facility] Not Available Not Available 10/08/2024 09:02:34 07/02/20 24 07/02/2024 Basic metab olic 1999 panel - Serum or Plasm a glucose [mass/volume ] in serum or plasma 105 mg/dL low: 70mg/d Lhigh: 99mg/d L high Gluco se 105 (H) 70 - 99 mg/dL 07/02 10:56 PM TRANSPORTATION SALES CONSULTANT [facility] Not Available Not Available 10/08/2024 09:02:34 07/02/20 24 07/02/2024 Basic metab olic 1999 panel - Serum or Plasm a calcium [moles/volum e] in serum or plasma 9.3 mg/dL low: 8.4mg/ dLhigh : 10.2mg /dL Calci um 9.3 8.4 - 10.2 mg/dL 07/02 10:56 PM TRANSPORTATION SALES CONSULTANT [facility] Not Available Not Available 10/08/2024 09:02:34 07/02/20 24 07/02/2024 Basic metab olic 2000 panel - Serum or Plasm a anion gap 9 low: 6high: 16 Anion Gap 9 6 - 16 07/02 10:56 PM [employer]SP[employer] SALES CONSULTANT [facility] Not Available Not Available 10/08/2024 09:02:34 07/02/20 24 07/02/2024 Basic metab olic 2000 panel - Serum or Plasm a urea nitrogen/cre atinine [mass ratio] in serum or plasma 21 low: 7high: 23 BUN/C reati nine Ratio 21 7 - 23 07/02 10:56 PM TRANSP[employer]ATION SALES CONSULTANT [facility] Not Available Not Available 10/08/2024 09:02:34 07/02/20 24 07/02/2024 Basic metab olic 2000 panel - Serum or Plasm a osmolality calculated 285 text: 275 - 295 mOsm/k g Osmol danny Whiteu lated 285 275 - 295 mOsm/ kg 07/02 10:56 PM [employer]SP[employer]ATION SALES CONSULTANT [facility] Not Available Not Available 10/08/2024 09:02:34 07/02/20 24 07/02/2024 Basic metab olic 2000 panel - Serum or Plasm a glomerular filtration rate [volume rate/area] in serum, plasma or blood by creatinine-b ased formula (CKD-epi 2020)/1.73 sq M 71 text: >=90 mL/min /1.73 m2 low eGFR by CKD-E PI 71 (L) >=90 mL/mi n/1.7 3 m2 07/02 10:56 PM TRANSP[employer]ATION SALES CONSULTANT [facility] Not Available Not Available 10/08/2024 09:02:34 07/02/20 24 07/02/2024 Basic metab olic 2000 panel - Serum or Plasm a interpretati on and review of laboratory results Abnorm al Not Available Not Available 09:02:34 07/02/20 24 07/02/2024 Gluco se [Mass /volu me] in Arter ial blood glucose [mass/volume ] in capillary blood by glucometer 106 mg/dL low: 70mg/d Lhigh: 99mg/d L high Gluco se WB/PO C 106 (H) 70 - 99 mg/dL 07/02 6:10 PM TRANSPORTATION SALES CONSULTANT [facility] Not Available Not Available 10/08/2024 09:02:34 07/02/20 24 07/02/2024 Gluco se [Mass /volu me] in Arter ial blood specimen source identified Cap Finger stick Speci men Type Cap Finge rstic k 07/02 6:10 PM TRANSPORTATION SALES CONSULTANT [facility] Not Available Not Available 10/08/2024 09:02:34 07/02/20 24 07/02/2024 Gluco se [Mass /volu me] in Arter ial blood interpretati on and review of laboratory results Abnorm al Not Available Not Available 09:02:34 07/02/20 24 07/02/2024 Gluco se [Mass /volu me] in Arter ial blood glucose [mass/volume ] in capillary blood by glucometer 120 mg/dL low: 70mg/d Lhigh: 99mg/d L high Gluco se WB/PO C 120 (H) 70 - 99 mg/dL 07/02 12:15 PM TRANSPORTATION SALES CONSULTANT [facility] [employer] [facility] Not Available Not Available 10/08/2024 09:02:34 07/02/20 24 07/02/2024 Gluco se [Mass /volu me] in Arter ial blood specimen source identified Cap Finger stick Speci men Type Cap Finge rstic k 07/02 12:15 PM [employer]SPORTATION SALES CONSULTANT [facility] [employer] [facility] Not Available Not Available 10/08/2024 09:02:34 07/02/20 24 07/02/2024 Gluco se [Mass /volu me] in Arter ial blood interpretati on and review of laboratory results Abnorm al Not Available Not Available 09:02:34 07/02/20 24 07/03/2024 Gluco se [Mass /volu me] in Arter ial blood glucose [mass/volume ] in capillary blood by glucometer 133 mg/dL low: 70mg/d Lhigh: 99mg/d L high Gluco se WB/PO C 133 (H) 70 - 99 mg/dL 07/03 9:49 AM [facility] [employer] [email or web address] Not Available Not Available 10/08/2024 09:02:34 07/02/20 24 07/03/2024 Gluco se [Mass /volu me] in Arter ial blood specimen source identified Cap Finger stick Speci men Type Cap Finge rstic k 07/03 9:49 AM [facility] [employer] [facility] Not Available Not Available 10/08/2024 09:02:34 07/02/20 24 07/03/2024 Gluco se [Mass /volu me] in Arter ial blood interpretati on and review of laboratory results Abnorm al Not Available Not Available 09:02:34 07/02/20 24 07/02/2024 Gluco se [Mass /volu me] in Arter ial blood glucose [mass/volume ] in capillary blood by glucometer 68 mg/dL low: 70mg/d Lhigh: 99mg/d L low Gluco se WB/PO C 68 (L) 70 - 99 mg/dL 07/02 1:33 PM [employer]SP[employer]ATION SALES CONSULTANT [facility] Not Available Not Available 10/08/2024 09:02:34 07/02/20 24 07/02/2024 Gluco se [Mass /volu me] in Arter ial blood specimen source identified Cap Finger stick Speci men Type Cap Finge rstic k 07/02 1:33 PM [employer]SP[employer] SALES CONSULTANT [facility] Not Available Not Available 10/08/2024 09:02:34 07/02/20 24 07/02/2024 Gluco se [Mass /volu me] in Arter ial blood interpretati on and review of laboratory results Abnorm al Not Available Not Available 09:02:34 07/02/20 24 07/02/2024 Blood type and Indir ect antib domenic scree n panel - Blood blood group antibody screen [presence] in serum or plasma NEG Antib domenic Scree n NEG 07/02 6:49 AM [facility] Not Available Not Available 08/22/2024 13:38:58 07/02/20 24 07/02/2024 Blood type and Indir ect antib domenic scree n panel - Blood ABO and Rh group [type] in blood A POS ABO Rh A POS 07/02 6:49 AM [facility] Not Available Not Available 08/22/2024 13:38:58 07/02/20 24 07/02/2024 Gluco se [Mass /volu me] in Arter ial blood glucose [mass/volume ] in capillary blood by glucometer 82 mg/dL low: 70mg/d Lhigh: 99mg/d L Gluco se WB/PO C 82 70 - 99 mg/dL 07/02 1:33 PM TRANSPORTATION SALES CONSULTANT [facility] Not Available Not Available 10/08/2024 09:02:33 07/02/20 24 07/02/2024 Gluco se [Mass /volu me] in Arter ial blood specimen source identified Cap Finger stick Speci men Type Cap Finge rstic k 07/02 1:33 PM [employer]SP[employer]ATION SALES CONSULTANT [facility] Not Available Not Available 10/08/2024 09:02:33 07/02/20 24 07/02/2024 Phosp hate [Mass /volu me] in Serum or Plasm a phosphate [mass/volume ] in serum or plasma 3.3 mg/dL low: 2.8mg/ dLhigh : 5.1mg/ dL Phosp horus 3.3 2.8 - 5.1 mg/dL 07/02 12:19 AM [facility] Not Available Not Available 10/08/2024 09:02:33 07/02/20 24 07/02/2024 Phosp hate [Mass /volu me] in Serum or Plasm a interpretati on and review of laboratory results Normal Not Available Not Available 09/10 09:02:33 07/02/20 24 07/02/2024 Magne sium [Mass /volu me] in Serum or Plasm a magnesium [mass/volume ] in serum or plasma 2.2 mg/dL low: 1.6mg/ dLhigh : 2.6mg/ dL Magne sium 2.2 1.6 - 2.6 mg/dL 07/02 12:19 AM [facility] [employer] [facility] Not Available Not Available 10/08/2024 09:02:33 07/02/20 24 07/02/2024 Magne sium [Mass /volu me] in Serum or Plasm a interpretati on and review of laboratory results Normal Not Available Not Available 09/10 09:02:33 07/02/20 24 07/02/2024 CBC W Auto Diffe renti al panel - Blood leukocytes [#/volume] in blood by automated count 8.6 text: 4.0 - 10.7 x10e9/ L WBC 8.6 4.0 - 10.7 x10E9 /L 07/01 11:53 PM [employer]SP[employer] SALES CONS[employer] [facility] [employer] [facility] Not Available Not Available 10/08/2024 09:02:33 07/02/20 24 07/02/2024 CBC W Auto Diffe renti al panel - Blood erythrocytes [#/volume] in blood by automated count 4.03 text: 4.30 - 5.80 x10e12 /L low RBC Count 4.03 (L) 4.30 - 5.80 x10E1 2/L 07/01 11:53 PM [facility] Available Not Available 10/08/2024 09:02:33 07/02/20 24 07/02/2024 CBC W Auto Diffe renti al panel - Blood hemoglobin [mass/volume ] in blood 12.5 g/dL low: 13.3g/ dLhigh : 17.5g/ dL low Hemog lobin 12.5 (L) 13.3 - 17.5 g/dL 07/01 11:53 PM [facility] Not Available Not Available 10/08/2024 09:02:33 07/02/20 24 07/02/2024 CBC W Auto Diffe rodneyti al panel - Blood hematocrit [volume fraction] of blood by automated count 36.3 % low: 38.7%h igh: 51.1% low Hemat ocrit 36.3 (L) 38.7 - 51.1 % 07/01 11:53 PM [facility] Not Available 10/08/2024 09:02:33 07/02/20 24 07/02/2024 CBC W Auto Diffe renti al panel - Blood MCV [entitic mean volume] in red blood cells by automated count 90.1 fL low: 80fLhi gh: 98fL MCV 90.1 80.0 - 98.0 fL 07/01 11:53 PM [facility] Not Available Not Available 10/08/2024 09:02:33 07/02/20 24 07/02/2024 CBC W Auto Diffe renti al panel - Blood MCH [entitic mass] by automated count 31 pg low: 26.7pg high: 33.6pg MCH 31.0 26.7 - 33.6 pg 07/01 11:53 [facility] Not Available 10/08/2024 09:02:33 07/02/20 24 07/02/2024 CBC W Auto Diffe renti al panel - Blood MCHC [entitic mass/volume] in red blood cells by automated count 34.4 g/dL low: 31.7g/ dLhigh : 36.3g/ dL MCHC 34.4 31.7 - 36.3 g/dL 07/01 11:53 PM [employer]SP[employer] SALES CONSULTANT [facility] Not Available Not Available 10/08/2024 09:02:33 07/02/20 24 07/02/2024 CBC W Auto Diffe renti al panel - Blood erythrocyte [distwidth] in red blood cells by automated count 13.1 % low: 11.3%h igh: 14.8% RDW-C V 13.1 11.3 - 14.8 % 07/01 11:53 PM [employer]SP[employer] SALES CONSULTANT [facility] Not Available Not Available 10/08/2024 09:02:33 07/02/20 24 07/02/2024 CBC W Auto Diffe renti al panel - Blood platelets [#/volume] in blood by automated count 372 text: 150 - 420 x10e9/ L Plate let Count 372 150 - 420 x10E9 /L 07/01 11:53 PM [facility] Not Available Not Available 10/08/2024 09:02:33 07/02/20 24 07/02/2024 CBC W Auto Diffe renti al panel - Blood platelet [entitic mean volume] in blood by automated count 8.6 fL low: 7.8fLh igh: 11.4fL MPV 8.6 7.8 - 11.4 fL 07/01 11:53 PM [facility] Not Available Not Available 10/08/2024 09:02:33 07/02/20 24 07/02/2024 CBC W Auto Diffe renti al panel - Blood neutrophils/ leukocytes in blood by automated count 64.8 % low: 41%hig h: 74% Neutr ophil % 64.8 41.0 - 74.0 % 07/01 11:53 PM [facility] Not Available Not Available 10/08/2024 09:02:33 07/02/20 24 07/02/2024 CBC W Auto Diffe renti al panel - Blood lymphocytes/ leukocytes in blood by automated count 17.2 % low: 17%hig h: 47% Lymph ocyte % 17.2 17.0 - 47.0 % 07/01 11:53 PM TRANSPORTATION SALES CONSULTANT [facility] Not Available Not Available 10/08/2024 09:02:33 07/02/20 24 07/02/2024 CBC W Auto Diffe renti al panel - Blood monocytes/le ukocytes in blood by automated count 8.3 % low: 3%high : 11% Monoc yte % 8.3 3.0 - 11.0 % 07/01 11:53 PM TRANSPORTATION SALES CONSULTANT [facility] Not Available Not Available 10/08/2024 09:02:33 07/02/20 24 07/02/2024 CBC W Auto Diffe renti al panel - Blood eosinophils/ leukocytes in blood by automated count 8.4 % low: 0%high : 7% high Eosin ophil % 8.4 (H) 0.0 - 7.0 % 07/01 11:53 PM TRANSPORTATION SALES CONSULTANT [facility] Not Available Not Available 10/08/2024 09:02:33 07/02/20 24 07/02/2024 CBC W Auto Diffe renti al panel - Blood basophils/le ukocytes in blood by automated count 0.5 % low: 0%high : 1.6% Basop hil % 0.5 0.0 - 1.6 % 07/01 11:53 PM TRANSPORTATION SALES CONSULTANT [facility] Not Available Not Available 10/08/2024 09:02:33 07/02/20 24 07/02/2024 CBC W Auto Diffe renti al panel - Blood immature granulocytes /leukocytes in blood by automated count 0.8 % low: 0%high : 1% Immat ure Granu locyt es % 0.8 0.0 - 1.0 % 07/01 11:53 PM TRANSPORTATION SALES CONSULTANT [facility] Not Available Not Available 10/08/2024 09:02:33 07/02/20 24 07/02/2024 CBC W Auto Diffe renti al panel - Blood neutrophils [#/volume] in blood by automated count 5.55 text: 1.60 - 7.50 x10e9/ L Neutr ophil Absol citizen [place] 5.55 1.60 - 7.50 x10E9 /L 07/01 11:53 PM TRANSPORTATION SALES CONSULTANT [facility] Not Available Not Available 10/08/2024 09:02:33 07/02/20 24 07/02/2024 CBC W Auto Diffe renti al panel - Blood lymphocytes [#/volume] in blood by automated count 1.47 text: 1.00 - 4.40 x10e9/ L Lymph ocyte Absol citizen [place] 1.47 1.00 - 4.40 x10E9 /L 07/01 11:53 PM TRANSPORTATION SALES CONSULTANT [facility] Not Available Not Available 10/08/2024 09:02:33 07/02/20 24 07/02/2024 CBC W Auto Diffe renti al panel - Blood monocytes [#/volume] in blood by automated count 0.71 text: 0.15 - 1.00 x10e9/ L Monoc yte Absol citizen [place] 0.71 0.15 - 1.00 x10E9 /L 07/01 11:53 PM TRANSPORTATION SALES CONSULTANT [facility] Not Available Not Available 10/08/2024 09:02:33 07/02/20 24 07/02/2024 CBC W Auto Diffe renti al panel - Blood eosinophils [#/volume] in blood 0.72 text: 0.00 - 0.60 x10e9/ L high Eosin ophil Absol citizen [place] 0.72 (H) 0.00 - 0.60 x10E9 /L 07/01 11:53 PM TRANSP[employer]ATION SALES CONSULTANT [facility] Not Available Not Available 10/08/2024 09:02:33 07/02/20 24 07/02/2024 CBC W Auto Diffe renti al panel - Blood basophils [#/volume] in blood by automated count 0.04 text: 0.00 - 0.13 x10e9/ L Basop hil Absol [place] 0.04 0.00 - 0.13 x10E9 /L 07/01 11:53 PM [employer] [facility] Not Available Not Available 10/08/2024 09:02:33 07/02/20 24 07/02/2024 CBC W Auto Diffe renti al panel - Blood interpretati on and review of laboratory results Abnorm al Not Available Not Available 09:02:33 07/02/20 24 07/02/2024 Basic metab olic 1999 panel - Serum or Plasm a urea nitrogen [mass/volume ] in serum or plasma 21 mg/dL low: 7mg/dL high: 26mg/d L BUN 21 7 - 26 mg/dL 07/02 12:19 AM [employer] [facility] Not Available Not Available 10/08/2024 09:02:33 07/02/20 24 07/02/2024 Basic metab olic 1999 panel - Serum or Plasm a creatinine [mass/volume ] in serum or plasma 1 mg/dL low: 0.71mg /dLhig h: 1.16mg /dL Creat inine 1.00 0.71 - 1.16 mg/dL 07/02 12:19 AM [facility] Not Available Not Available 10/08/2024 09:02:33 07/02/20 24 07/02/2024 Basic metab olic 1999 panel - Serum or Plasm a sodium [moles/volum e] in serum or plasma 141 mmol/ L low: 136mmo l/Lhig h: 145mmo l/L Sodiu m 141 136 - 145 mmol/ L 07/02 12:19 AM [facility] Not Available Not Available 10/08/2024 09:02:33 07/02/20 24 07/02/2024 Basic metab olic 1999 panel - Serum or Plasm a potassium [moles/volum e] in serum or plasma 4.4 mmol/ L low: 3.5mmo l/Lhig h: 4.5mmo l/L Potas sium 4.4 3.5 - 4.5 mmol/ L 07/02 12:19 AM [employer] [facility] Not Available Not Available 10/08/2024 09:02:33 07/02/20 24 07/02/2024 Basic metab olic 1999 panel - Serum or Plasm a chloride [moles/volum e] in serum or plasma 106 mmol/ L low: 98mmol /Lhigh : 107mmo l/L Chlor stalin 106 98 - 107 mmol/ L 07/02 12:19 AM TRANSPORTATION SALES CONSULTANT [facility] Not Available Not Available 10/08/2024 09:02:33 07/02/20 24 07/02/2024 Basic metab olic 1999 panel - Serum or Plasm a carbon dioxide, total [moles/volum e] in serum or plasma 27 mmol/ L low: 22mmol /Lhigh : 29mmol /L CO2 27 22 - 29 mmol/ L 07/02 12:19 AM [facility] Not Available Not Available 10/08/2024 09:02:33 07/02/20 24 07/02/2024 Basic metab olic 1999 panel - Serum or Plasm a glucose [mass/volume ] in serum or plasma 105 mg/dL low: 70mg/d Lhigh: 99mg/d L high Gluco se 105 (H) 70 - 99 mg/dL 07/02 12:19 AM [facility] Not Available Not Available 10/08/2024 09:02:33 07/02/20 24 07/02/2024 Basic metab olic 1999 panel - Serum or Plasm a calcium [moles/volum e] in serum or plasma 8.9 mg/dL low: 8.4mg/ dLhigh : 10.2mg /dL Calci um 8.9 8.4 - 10.2 mg/dL 07/02 12:19 AM [facility] Not Available Not Available 10/08/2024 09:02:33 07/02/20 24 07/02/2024 Basic metab olic 1999 panel - Serum or Plasm a anion gap 8 low: 6high: 16 Anion Gap 8 6 - 16 07/02 12:19 AM [facility] Not Available Not Available 10/08/2024 09:02:33 07/02/20 24 07/02/2024 Basic metab olic 1999 panel - Serum or Plasm a urea nitrogen/cre atinine [mass ratio] in serum or plasma 21 low: 7high: 23 BUN/C reati nine Ratio 21 7 - 23 07/02 12:19 AM [facility] Not Available Not Available 10/08/2024 09:02:33 07/02/20 24 07/02/2024 Basic metab olic 2000 panel - Serum or Plasm a osmolality calculated 295 text: 275 - 295 mOsm/k g Osmol danny Tai lated 295 275 - 295 mOsm/ kg 07/02 12:19 AM TRANSPORTATION SALES CONSULTANT [facility] Not Available Not Available 10/08/2024 09:02:33 07/02/20 24 07/02/2024 Basic metab olic 2000 panel - Serum or Plasm a glomerular filtration rate [volume rate/area] in serum, plasma or blood by creatinine-b ased formula (CKD-epi 2020)/1.73 sq M 88 text: >=90 mL/min /1.73 m2 low eGFR by CKD-E PI 88 (L) >=90 mL/mi n/1.7 3 m2 07/02 12:19 AM [employer]SP[employer]ATION SALES CONSULTANT [email or web address] Not Available Not Available 10/08/2024 09:02:33 07/02/20 24 07/02/2024 Basic metab olic 2000 panel - Serum or Plasm a interpretati on and review of laboratory results Abnorm al Not Available Not Available 09:02:33 07/03/20 24 07/03/2024 Gluco se [Mass /volu me] in Arter ial blood glucose [mass/volume ] in capillary blood by glucometer 105 mg/dL low: 70mg/d Lhigh: 99mg/d L high Gluco se WB/PO C 105 (H) 70 - 99 mg/dL 07/03 6:43 PM [employer]SPORTATION SALES CONSULTANT [facility] Not Available Not Available 10/08/2024 09:02:35 07/03/20 24 07/03/2024 Gluco se [Mass /volu me] in Arter ial blood specimen source identified Cap Finger stick Speci men Type Cap Finge rstic k 07/03 6:43 PM [employer]SPORTATION SALES CONSULTANT [facility] Not Available Not Available 10/08/2024 09:02:35 07/03/20 24 07/03/2024 Gluco se [Mass /volu me] in Arter ial blood interpretati on and review of laboratory results Abnorm al Not Available Not Available 09:02:35 07/03/20 24 07/03/2024 Gluco se [Mass /volu me] in Arter ial blood glucose [mass/volume ] in capillary blood by glucometer 97 mg/dL low: 70mg/d Lhigh: 99mg/d L Gluco se WB/PO C 97 70 - 99 mg/dL 07/03 12:08 PM TRANSPORTATION SALES CONSULTANT [facility] Not Available Not Available 10/08/2024 09:02:35 07/03/20 24 07/03/2024 Gluco se [Mass /volu me] in Arter ial blood specimen source identified Cap Finger stick Speci men Type Cap Finge rstic k 07/03 12:08 PM [employer]SPORTATION SALES CONSULTANT [facility] Not Available Not Available 10/08/2024 09:02:35 07/03/20 24 07/03/2024 Gluco se [Mass /volu me] in Arter ial blood glucose [mass/volume ] in capillary blood by glucometer 103 mg/dL low: 70mg/d Lhigh: 99mg/d L high Gluco se WB/PO C 103 (H) 70 - 99 mg/dL 07/03 11:23 AM TRANSPORTATION SALES CONSULTANT [facility] Not Available Not Available 10/08/2024 09:02:34 07/03/20 24 07/03/2024 Gluco se [Mass /volu me] in Arter ial blood specimen source identified Arteri al Speci men Type Arter ial 07/03 11:23 AM [employer]SPORTATION SALES CONSULTANT [facility] Not Available Not Available 10/08/2024 09:02:34 07/03/20 24 07/03/2024 Gluco se [Mass /volu me] in Arter ial blood interpretati on and review of laboratory results Abnorm al Not Available Not Available 09:02:34 07/03/20 24 07/03/2024 Gluco se [Mass /volu me] in Arter ial blood glucose [mass/volume ] in capillary blood by glucometer 121 mg/dL low: 70mg/d Lhigh: 99mg/d L high Gluco se WB/PO C 121 (H) 70 - 99 mg/dL 07/03 1:15 AM [employer]SPORTATION SALES CONSULTANT [facility] Not Available Not Available 10/08/2024 09:02:34 07/03/20 24 07/03/2024 Gluco se [Mass /volu me] in Arter ial blood specimen source identified Arteri al Speci men Type Arter ial 07/03 1:15 AM [employer]SPORTATION SALES CONSULTANT [facility] Not Available Not Available 10/08/2024 09:02:34 07/03/20 24 07/03/2024 Gluco se [Mass /volu me] in Arter ial blood interpretati on and review of laboratory results Abnorm al Not Available Not Available 09:02:34 07/04/20 24 07/04/2024 Gluco se [Mass /volu me] in Arter ial blood glucose [mass/volume ] in capillary blood by glucometer 113 mg/dL low: 70mg/d Lhigh: 99mg/d L high Gluco se WB/PO C 113 (H) 70 - 99 mg/dL 07/04 5:50 PM TRANSPORTATION SALES CONSULTANT [facility] Not Available Not Available 10/08/2024 09:02:36 07/04/20 24 07/04/2024 Gluco se [Mass /volu me] in Arter ial blood specimen source identified Cap Finger stick Speci men Type Cap Finge rstic k 07/04 5:50 PM TRANSPORTATION SALES CONSULTANT [facility] Not Available Not Available 10/08/2024 09:02:36 07/04/20 24 07/04/2024 Gluco se [Mass /volu me] in Arter ial blood interpretati on and review of laboratory results Abnorm al Not Available Not Available 09:02:36 07/04/20 24 07/04/2024 Gluco se [Mass /volu me] in Arter ial blood glucose [mass/volume ] in capillary blood by glucometer 109 mg/dL low: 70mg/d Lhigh: 99mg/d L high Gluco se WB/PO C 109 (H) 70 - 99 mg/dL 07/04 12:40 PM TRANSPORTATION SALES CONSULTANT [facility] Not Available Not Available 10/08/2024 09:02:36 07/04/20 24 07/04/2024 Gluco se [Mass /volu me] in Arter ial blood specimen source identified Cap Finger stick Speci men Type Cap Finge rstic k 07/04 12:40 PM TRANSPORTATION SALES CONSULTANT [facility] Not Available Not Available 10/08/2024 09:02:36 07/04/20 24 07/04/2024 Gluco se [Mass /volu me] in Arter ial blood interpretati on and review of laboratory results Abnorm al Not Available Not Available 09:02:36 07/04/20 24 07/04/2024 Gluco se [Mass /volu me] in Arter ial blood glucose [mass/volume ] in capillary blood by glucometer 104 mg/dL low: 70mg/d Lhigh: 99mg/d L high Gluco se WB/PO C 104 (H) 70 - 99 mg/dL 07/04 7:31 AM TRANSPORTATION SALES CONSULTANT [facility] Not Available Not Available 10/08/2024 09:02:35 07/04/20 24 07/04/2024 Gluco se [Mass /volu me] in Arter ial blood specimen source identified Cap Finger stick Speci men Type Cap Finge rstic k 07/04 7:31 AM TRANSPORTATION SALES CONSULTANT [facility] Not Available Not Available 10/08/2024 09:02:35 07/04/20 24 07/04/2024 Gluco se [Mass /volu me] in Arter ial blood interpretati on and review of laboratory results Abnorm al Not Available Not Available 09:02:35 07/04/20 24 07/04/2024 Gluco se [Mass /volu me] in Arter ial blood glucose [mass/volume ] in capillary blood by glucometer 103 mg/dL low: 70mg/d Lhigh: 99mg/d L high Gluco se WB/PO C 103 (H) 70 - 99 mg/dL 07/04 7:31 AM TRANSPORTATION SALES CONSULTANT [facility] Not Available Not Available 10/08/2024 09:02:35 07/04/20 24 07/04/2024 Gluco se [Mass /volu me] in Arter ial blood specimen source identified Cap Finger stick Speci men Type Cap Finge rstic k 07/04 7:31 AM TRANSPORTATION SALES CONSULTANT [facility] Not Available Not Available 10/08/2024 09:02:35 07/04/20 24 07/04/2024 Gluco se [Mass /volu me] in Arter ial blood interpretati on and review of laboratory results Abnorm al Not Available Not Available 09:02:35 07/04/20 24 07/04/2024 Phosp hate [Mass /volu me] in Serum or Plasm a phosphate [mass/volume ] in serum or plasma 3.8 mg/dL low: 2.8mg/ dLhigh : 5.1mg/ dL Phosp horus 3.8 2.8 - 5.1 mg/dL 07/04 12:14 AM TRANSPORTATION SALES CONSULTANT [facility] Not Available Not Available 10/08/2024 09:02:35 07/04/20 24 07/04/2024 Phosp hate [Mass /volu me] in Serum or Plasm a interpretati on and review of laboratory results Normal Not Available Not Available 09/10 09:02:35 07/04/20 24 07/04/2024 Magne sium [Mass /volu me] in Serum or Plasm a magnesium [mass/volume ] in serum or plasma 2.4 mg/dL low: 1.6mg/ dLhigh : 2.6mg/ dL Magne sium 2.4 1.6 - 2.6 mg/dL 07/04 12:14 AM TRANSPORTATION SALES CONSULTANT [facility] Not Available Not Available 10/08/2024 09:02:35 07/04/20 24 07/04/2024 Magne sium [Mass /volu me] in Serum or Plasm a interpretati on and review of laboratory results Normal Not Available Not Available 09/10 09:02:35 07/04/20 24 07/04/2024 CBC W Auto Diffe vignesh al panel - Blood leukocytes [#/volume] in blood by automated count 9.4 text: 4.0 - 10.7 x10e9/ L WBC 9.4 4.0 - 10.7 x10E9 /L 07/04 12:12 AM [employer]SPORTATION SALES CONSULTANT [facility] Not Available Not Available 10/08/2024 09:02:35 07/04/20 24 07/04/2024 CBC W Auto Diffe vignesh al panel - Blood erythrocytes [#/volume] in blood by automated count 3.54 text: 4.30 - 5.80 x10e12 /L low RBC Count 3.54 (L) 4.30 - 5.80 x10E1 2/L 07/04 12:12 [facility] Not Available 10/08/2024 09:02:35 07/04/20 24 07/04/2024 CBC W Auto Diffe vignesh al panel - Blood hemoglobin [mass/volume ] in blood 10.9 g/dL low: 13.3g/ dLhigh : 17.5g/ dL low Hemog lobin 10.9 (L) 13.3 - 17.5 g/dL 07/04 12:12 [facility] Not Available 10/08/2024 09:02:35 07/04/20 24 07/04/2024 CBC W Auto Diffe vignesh al panel - Blood hematocrit [volume fraction] of blood by automated count 33.1 % low: 38.7%h igh: 51.1% low Hemat ocrit 33.1 (L) 38.7 - 51.1 % 07/04 12:12 [facility] Not [facility] Not Available 10/08/2024 09:02:35 07/04/20 24 07/04/2024 CBC W Auto Diffe vignesh al panel - Blood MCV [entitic mean volume] in red blood cells by automated count 93.5 fL low: 80fLhi gh: 98fL MCV 93.5 80.0 - 98.0 fL 07/04 12:12 [facility] Not Available 10/08/2024 09:02:35 07/04/20 24 07/04/2024 CBC W Auto Diffe vignesh al panel - Blood MCH [entitic mass] by automated count 30.8 pg low: 26.7pg high: 33.6pg MCH 30.8 26.7 - 33.6 pg 07/04 12:12 AM TRANSPORTATION SALES CONSULTANT [facility] Not Available Not Available 10/08/2024 09:02:35 07/04/20 24 07/04/2024 CBC W Auto Diffe renti al panel - Blood MCHC [entitic mass/volume] in red blood cells by automated count 32.9 g/dL low: 31.7g/ dLhigh : 36.3g/ dL MCHC 32.9 31.7 - 36.3 g/dL 07/04 12:12 AM [facility] Not Available Not Available 10/08/2024 09:02:35 07/04/20 24 07/04/2024 CBC W Auto Diffe renti al panel - Blood erythrocyte [distwidth] in red blood cells by automated count 13.5 % low: 11.3%h igh: 14.8% RDW-C V 13.5 11.3 - 14.8 % 07/04 12:12 AM [facility] Not Available Not Available 10/08/2024 09:02:35 07/04/20 24 07/04/2024 CBC W Auto Diffe renti al panel - Blood platelets [#/volume] in blood by automated count 365 text: 150 - 420 x10e9/ L Plate let Count 365 150 - 420 x10E9 /L 07/04 12:12 AM [facility] Not Available Not Available 10/08/2024 09:02:35 07/04/20 24 07/04/2024 CBC W Auto Diffe renti al panel - Blood platelet [entitic mean volume] in blood by automated count 8.4 fL low: 7.8fLh igh: 11.4fL MPV 8.4 7.8 - 11.4 fL 07/04 12:12 AM [facility] Not Available Not Available 10/08/2024 09:02:35 07/04/20 24 07/04/2024 CBC W Auto Diffe renti al panel - Blood neutrophils/ leukocytes in blood by automated count 59 % low: 41%hig h: 74% Neutr ophil % 59.0 41.0 - 74.0 % 07/04 12:12 AM [facility] Not Available Not Available 10/08/2024 09:02:35 07/04/20 24 07/04/2024 CBC W Auto Diffe renti al panel - Blood lymphocytes/ leukocytes in blood by automated count 21 % low: 17%hig h: 47% Lymph ocyte % 21.0 17.0 - 47.0 % 07/04 12:12 AM TRANSPORTATION SALES CONSULTANT [facility] Not Available Not Available 10/08/2024 09:02:35 07/04/20 24 07/04/2024 CBC W Auto Diffe renti al panel - Blood monocytes/le ukocytes in blood by automated count 10.2 % low: 3%high : 11% Monoc yte % 10.2 3.0 - 11.0 % 07/04 12:12 AM TRANSPORTATION SALES CONSULTANT [facility] Not Available Not Available 10/08/2024 09:02:35 07/04/20 24 07/04/2024 CBC W Auto Diffe renti al panel - Blood eosinophils/ leukocytes in blood by automated count 7.2 % low: 0%high : 7% high Eosin ophil % 7.2 (H) 0.0 - 7.0 % 07/04 12:12 AM TRANSPORTATION SALES CONSULTANT [facility] Not Available Not Available 10/08/2024 09:02:35 07/04/20 24 07/04/2024 CBC W Auto Diffe renti al panel - Blood basophils/le ukocytes in blood by automated count 0.7 % low: 0%high : 1.6% Basop hil % 0.7 0.0 - 1.6 % 07/04 12:12 AM TRANSPORTATION SALES CONSULTANT [facility] Not Available Not Available 10/08/2024 09:02:35 07/04/20 24 07/04/2024 CBC W Auto Diffe renti al panel - Blood immature granulocytes /leukocytes in blood by automated count 1.9 % low: 0%high : 1% high Immat ure Granu locyt es % 1.9 (H) 0.0 - 1.0 % 07/04 12:12 AM TRANSPORTATION SALES CONSULTANT [facility] Not Available Not Available 10/08/2024 09:02:35 07/04/20 24 07/04/2024 CBC W Auto Diffe renti al panel - Blood neutrophils [#/volume] in blood by automated count 5.52 text: 1.60 - 7.50 x10e9/ L Neutr ophil Absol [place] 5.52 1.60 - 7.50 x10E9 /L 07/04 12:12 AM TRANSPORTATION SALES CONSULTANT [facility] Not Available Not Available 10/08/2024 09:02:35 07/04/20 24 07/04/2024 CBC W Auto Diffe renti al panel - Blood lymphocytes [#/volume] in blood by automated count 1.97 text: 1.00 - 4.40 x10e9/ L Lymph ocyte Absol [place] 1.97 1.00 - 4.40 x10E9 /L 07/04 12:12 AM TRANSPORTATION SALES CONSULTANT [facility] Not Available Not Available 10/08/2024 09:02:35 07/04/20 24 07/04/2024 CBC W Auto Diffe renti al panel - Blood monocytes [#/volume] in blood by automated count 0.96 text: 0.15 - 1.00 x10e9/ L Monoc yte Absol [place] 0.96 0.15 - 1.00 x10E9 /L 07/04 12:12 AM TRANSPORTATION SALES CONSULTANT [facility] Not Available Not Available 10/08/2024 09:02:35 07/04/20 24 07/04/2024 CBC W Auto Diffe renti al panel - Blood eosinophils [#/volume] in blood 0.67 text: 0.00 - 0.60 x10e9/ L high Eosin ophil Absol [place] 0.67 (H) 0.00 - 0.60 x10E9 /L 07/04 12:12 AM TRANSPORTATION SALES CONSULTANT [facility] Not Available Not Available 10/08/2024 09:02:35 07/04/20 24 07/04/2024 CBC W Auto Diffe renti al panel - Blood basophils [#/volume] in blood by automated count 0.07 text: 0.00 - 0.13 x10e9/ L Basop hil Absol [place] 0.07 0.00 - 0.13 x10E9 /L 07/04 12:12 AM [facility] Not Available Not Available 10/08/2024 09:02:35 07/04/20 24 07/04/2024 CBC W Auto Diffe rennicky al panel - Blood interpretati on and review of laboratory results Abnorm al Not Available Not Available 09:02:35 07/04/20 24 07/04/2024 Basic metab olic 1999 panel - Serum or Plasm a urea nitrogen [mass/volume ] in serum or plasma 31 mg/dL low: 7mg/dL high: 26mg/d L high BUN 31 (H) 7 - 26 mg/dL 07/04 12:14 AM [facility] Not Available Not Available 10/08/2024 09:02:35 07/04/20 24 07/04/2024 Basic metab olic 1999 panel - Serum or Plasm a creatinine [mass/volume ] in serum or plasma 1.61 mg/dL low: 0.71mg /dLhig h: 1.16mg /dL high Creat inine 1.61 (H) 0.71 - 1.16 mg/dL 07/04 12:14 AM [facility] Not Available Not Available 10/08/2024 09:02:35 07/04/20 24 07/04/2024 Basic metab olic 1999 panel - Serum or Plasm a sodium [moles/volum e] in serum or plasma 138 mmol/ L low: 136mmo l/Lhig h: 145mmo l/L Sodiu m 138 136 - 145 mmol/ L 07/04 12:14 AM [facility] Not Available Not Available 10/08/2024 09:02:35 07/04/20 24 07/04/2024 Basic metab olic 1999 panel - Serum or Plasm a potassium [moles/volum e] in serum or plasma 4.6 mmol/ L low: 3.5mmo l/Lhig h: 4.5mmo l/L high Potas sium 4.6 (H) 3.5 - 4.5 mmol/ L 07/04 12:14 AM [facility] Not Available Not Available 10/08/2024 09:02:35 07/04/20 24 07/04/2024 Basic metab olic 2000 panel - Serum or Plasm a chloride [moles/volum e] in serum or plasma 105 mmol/ L low: 98mmol /Lhigh : 107mmo l/L Chlor stalin 105 98 - 107 mmol/ L 07/04 12:14 AM 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 [facility] Not Available Not Available 10/08/2024 09:02:35 07/04/20 24 07/04/2024 Basic metab olic 1999 panel - Serum or Plasm a carbon dioxide, total [moles/volum e] in serum or plasma 27 mmol/ L low: 22mmol /Lhigh : 29mmol /L CO2 27 22 - 29 mmol/ L 07/04 12:14 AM TRANSPORTATION SALES CONSULTANT [facility] Not Available Not Available 10/08/2024 09:02:35 07/04/20 24 07/04/2024 Basic metab olic 2000 panel - Serum or Plasm a glucose [mass/volume ] in serum or plasma 91 mg/dL low: 70mg/d Lhigh: 99mg/d L Gluco se 91 70 - 99 mg/dL 07/04 12:14 AM TRANSPORTATION SALES CONSULTANT [facility] Not Available Not Available 10/08/2024 09:02:35 07/04/20 24 07/04/2024 Basic metab olic 2000 panel - Serum or Plasm a calcium [moles/volum e] in serum or plasma 9 mg/dL low: 8.4mg/ dLhigh : 10.2mg /dL Calci um 9.0 8.4 - 10.2 mg/dL 07/04 12:14 AM TRANSPORTATION SALES CONSULTANT [facility] Not Available Not Available 10/08/2024 09:02:35 07/04/20 24 07/04/2024 Basic metab olic 2000 panel - Serum or Plasm a anion gap 6 low: 6high: 16 Anion Gap 6 6 - 16 07/04 12:14 AM TRANSPORTATION SALES CONSULTANT [facility] Not Available Not Available 10/08/2024 09:02:35 07/04/20 24 07/04/2024 Basic metab olic 2000 panel - Serum or Plasm a urea nitrogen/cre atinine [mass ratio] in serum or plasma 19 low: 7high: 23 BUN/C reati nine Ratio 19 7 - 23 07/04 12:14 AM TRANSPORTATION SALES CONSULTANT [facility] Not Available Not Available 10/08/2024 09:02:35 07/04/20 24 07/04/2024 Basic metab olic 2000 panel - Serum or Plasm a osmolality calculated 292 text: 275 - 295 mOsm/k g Osmol ality Calcu lated 292 275 - 295 mOsm/ kg 07/04 12:14 AM TRANSPORTATION SALES CONSULTANT [facility] Not Available Not Available 10/08/2024 09:02:35 07/04/20 24 07/04/2024 Basic metab olic 2000 panel - Serum or Plasm a glomerular filtration rate [volume rate/area] in serum, plasma or blood by creatinine-b ased formula (CKD-epi 2020)/1.73 sq M 50 text: >=90 mL/min /1.73 m2 low eGFR by CKD-E PI 50 (L) >=90 mL/mi n/1.7 3 m2 07/04 12:14 AM TRANSPORTATION SALES CONSULTANT [facility] Not Available Not Available 10/08/2024 09:02:35 07/04/20 24 07/04/2024 Basic metab olic 2000 panel - Serum or Plasm a interpretati on and review of laboratory results Abnorm al Not Available Not Available 09:02:35 07/05/20 24 07/06/2024 Gluco se [Mass /volu me] in Arter ial blood glucose [mass/volume ] in capillary blood by glucometer 149 mg/dL low: 70mg/d Lhigh: 99mg/d L high Gluco se WB/PO C 149 (H) 70 - 99 mg/dL 07/06 8:33 AM [facility] Not Available Not Available 10/08/2024 09:02:36 07/05/20 24 07/06/2024 Gluco se [Mass /volu me] in Arter ial blood specimen source identified Cap Finger stick Speci men Type Cap Finge rstic k 07/06 8:33 AM TRANSPORTATION SALES CONSULTANT [facility] Not Available Not Available 10/08/2024 09:02:36 07/05/20 24 07/06/2024 Gluco se [Mass /volu me] in Arter ial blood interpretati on and review of laboratory results Abnorm al Not Available Not Available 09:02:36 07/05/20 24 07/05/2024 Gluco se [Mass /volu me] in Arter ial blood glucose [mass/volume ] in capillary blood by glucometer 122 mg/dL low: 70mg/d Lhigh: 99mg/d L high Gluco se WB/PO C 122 (H) 70 - 99 mg/dL 07/05 12:14 PM TRANSPORTATION SALES CONSULTANT [facility] Not Available Not Available 10/08/2024 09:02:36 07/05/20 24 07/05/2024 Gluco se [Mass /volu me] in Arter ial blood specimen source identified Cap Finger stick Speci men Type Cap Finge rstic k 07/05 12:14 PM TRANSPORTATION SALES CONSULTANT [facility] Not Available Not Available 10/08/2024 09:02:36 07/05/20 24 07/05/2024 Gluco se [Mass /volu me] in Arter ial blood interpretati on and review of laboratory results Abnorm al Not Available Not Available 09:02:36 07/05/20 24 07/05/2024 Gluco se [Mass /volu me] in Arter ial blood glucose [mass/volume ] in capillary blood by glucometer 130 mg/dL low: 70mg/d Lhigh: 99mg/d L high Gluco se WB/PO C 130 (H) 70 - 99 mg/dL 07/05 8:07 AM TRANSPORTATION SALES CONSULTANT [facility] Not Available Not Available 10/08/2024 09:02:36 07/05/20 24 07/05/2024 Gluco se [Mass /volu me] in Arter ial blood specimen source identified Arteri al Speci men Type Arter ial 07/05 8:07 AM TRANSPORTATION SALES CONSULTANT [facility] Not Available Not Available 10/08/2024 09:02:36 07/05/20 24 07/05/2024 Gluco se [Mass /volu me] in Arter ial blood interpretati on and review of laboratory results Abnorm al Not Available Not Available 09:02:36 07/05/20 24 07/05/2024 Gluco se [Mass /volu me] in Arter ial blood glucose [mass/volume ] in capillary blood by glucometer 104 mg/dL low: 70mg/d Lhigh: 99mg/d L high Gluco se WB/PO C 104 (H) 70 - 99 mg/dL 07/05 12:20 AM TRANSPORTATION SALES CONSULTANT [facility] Not Available Not Available 10/08/2024 09:02:36 07/05/20 24 07/05/2024 Gluco se [Mass /volu me] in Arter ial blood specimen source identified Arteri al Speci men Type Arter ial 07/05 12:20 AM [employer]SP[employer]ATION SALES CONSULTANT [facility] Not Available Not Available 10/08/2024 09:02:36 07/05/20 24 07/05/2024 Gluco se [Mass /volu me] in Arter ial blood interpretati on and review of laboratory results Abnorm al Not Available Not Available 09:02:36 07/05/20 24 07/05/2024 Phosp hate [Mass /volu me] in Serum or Plasm a phosphate [mass/volume ] in serum or plasma 3.4 mg/dL low: 2.8mg/ dLhigh : 5.1mg/ dL Phosp horus 3.4 2.8 - 5.1 mg/dL 07/04 11:52 PM [employer] SALES [employer] [facility] Not Available Not Available 10/08/2024 09:02:36 07/05/20 24 07/05/2024 Phosp hate [Mass /volu me] in Serum or Plasm a interpretati on and review of laboratory results Normal Not Available Not Available 09/10 09:02:36 07/05/20 24 07/05/2024 Magne sium [Mass /volu me] in Serum or Plasm a magnesium [mass/volume ] in serum or plasma 2.3 mg/dL low: 1.6mg/ dLhigh : 2.6mg/ dL Magne sium 2.3 1.6 - 2.6 mg/dL 07/04 11:52 PM [employer]SPORTATION SALES CONSULTANT [facility] Not Available Not Available 10/08/2024 09:02:36 07/05/20 24 07/05/2024 Magne sium [Mass /volu me] in Serum or Plasm a interpretati on and review of laboratory results Normal Not Available Not Available 09/10 09:02:36 07/05/20 24 07/05/2024 CBC W Auto Diffe renti al panel - Blood leukocytes [#/volume] in blood by automated count 9.1 text: 4.0 - 10.7 x10e9/ L WBC 9.1 4.0 - 10.7 x10E9 /L 07/04 11:27 PM [employer] SALES [employer] [facility] Not Available Not Available 10/08/2024 09:02:36 07/05/20 24 07/05/2024 CBC W Auto Diffe renti al panel - Blood erythrocytes [#/volume] in blood by automated count 3.68 text: 4.30 - 5.80 x10e12 /L low RBC Count 3.68 (L) 4.30 - 5.80 x10E1 2/L 07/04 11:27 PM [employer] SALES CONS[employer]ANT [facility] Not Available Not Available 10/08/2024 09:02:36 07/05/20 24 07/05/2024 CBC W Auto Diffe renti al panel - Blood hemoglobin [mass/volume ] in blood 11.3 g/dL low: 13.3g/ dLhigh : 17.5g/ dL low Hemog lobin 11.3 (L) 13.3 - 17.5 g/dL 07/04 11:27 PM [employer] SALES [employer] [facility] Not Available Not Available 10/08/2024 09:02:36 07/05/20 24 07/05/2024 CBC W Auto Diffe renti al panel - Blood hematocrit [volume fraction] of blood by automated count 34.6 % low: 38.7%h igh: 51.1% low Hemat ocrit 34.6 (L) 38.7 - 51.1 % 07/04 11:27 PM TRANSPORTATION SALES CONSULTANT [facility] Not Available Not Available 10/08/2024 09:02:36 07/05/20 24 07/05/2024 CBC W Auto Diffe renti al panel - Blood MCV [entitic mean volume] in red blood cells by automated count 94 fL low: 80fLhi gh: 98fL MCV 94.0 80.0 - 98.0 fL 07/04 11:27 PM [facility] Not Available 10/08/2024 09:02:36 07/05/20 24 07/05/2024 CBC W Auto Diffe renti al panel - Blood MCH [entitic mass] by automated count 30.7 pg low: 26.7pg high: 33.6pg MCH 30.7 26.7 - 33.6 pg 07/04 11:27 PM [facility] Not Available Not Available 10/08/2024 09:02:36 07/05/20 24 07/05/2024 CBC W Auto Diffe renti al panel - Blood MCHC [entitic mass/volume] in red blood cells by automated count 32.7 g/dL low: 31.7g/ dLhigh : 36.3g/ dL MCHC 32.7 31.7 - 36.3 g/dL 07/04 11:27 PM [facility] Not Available Not Available 10/08/2024 09:02:36 07/05/20 24 07/05/2024 CBC W Auto Diffe renti al panel - Blood erythrocyte [distwidth] in red blood cells by automated count 13.6 % low: 11.3%h igh: 14.8% RDW-C V 13.6 11.3 - 14.8 % 07/04 11:27 PM [facility] Not Available Not Available 10/08/2024 09:02:36 07/05/20 24 07/05/2024 CBC W Auto Diffe renti al panel - Blood platelets [#/volume] in blood by automated count 378 text: 150 - 420 x10e9/ L Plate let Count 378 150 - 420 x10E9 /L 07/04 11:27 PM [facility] Not Available Not Available 10/08/2024 09:02:36 07/05/20 24 07/05/2024 CBC W Auto Diffe renti al panel - Blood platelet [entitic mean volume] in blood by automated count 8.4 fL low: 7.8fLh igh: 11.4fL MPV 8.4 7.8 - 11.4 fL 07/04 11:27 PM [employer]SP[employer] SALES CONSULTANT [facility] Not Available Not Available 10/08/2024 09:02:36 07/05/20 24 07/05/2024 CBC W Auto Diffe renti al panel - Blood neutrophils/ leukocytes in blood by automated count 64.5 % low: 41%hig h: 74% Neutr ophil % 64.5 41.0 - 74.0 % 07/04 11:27 PM [employer]SP[employer] SALES CONSULTANT [facility] Not Available Not Available 10/08/2024 09:02:36 07/05/20 24 07/05/2024 CBC W Auto Diffe renti al panel - Blood lymphocytes/ leukocytes in blood by automated count 15.9 % low: 17%hig h: 47% low Lymph ocyte % 15.9 (L) 17.0 - 47.0 % 07/04 11:27 PM [employer]SP[employer] SALES CONSULTANT [facility] Not Available Not Available 10/08/2024 09:02:36 07/05/20 24 07/05/2024 CBC W Auto Diffe renti al panel - Blood monocytes/le ukocytes in blood by automated count 10.3 % low: 3%high : 11% Monoc yte % 10.3 3.0 - 11.0 % 07/04 11:27 PM [employer]SP[employer]ATION SALES CONSULTANT [facility] Not Available Not Available 10/08/2024 09:02:36 07/05/20 24 07/05/2024 CBC W Auto Diffe renti al panel - Blood eosinophils/ leukocytes in blood by automated count 7.4 % low: 0%high : 7% high Eosin ophil % 7.4 (H) 0.0 - 7.0 % 07/04 11:27 PM [employer]SP[employer] SALES CONSULTANT [facility] Not Available Not Available 10/08/2024 09:02:36 07/05/20 24 07/05/2024 CBC W Auto Diffe renti al panel - Blood basophils/le ukocytes in blood by automated count 0.6 % low: 0%high : 1.6% Basop hil % 0.6 0.0 - 1.6 % 07/04 11:27 PM [employer]SP[employer] SALES CONSULTANT [facility] Not Available Not Available 10/08/2024 09:02:36 07/05/20 24 07/05/2024 CBC W Auto Diffe renti al panel - Blood immature granulocytes /leukocytes in blood by automated count 1.3 % low: 0%high : 1% high Immat ure Granu locyt es % 1.3 (H) 0.0 - 1.0 % 07/04 11:27 PM [employer]SP[employer] SALES CONSULTANT [facility] Not Available Not Available 10/08/2024 09:02:36 07/05/20 24 07/05/2024 CBC W Auto Diffe renti al panel - Blood neutrophils [#/volume] in blood by automated count 5.85 text: 1.60 - 7.50 x10e9/ L Neutr ophil Absol citizen [place] 5.85 1.60 - 7.50 x10E9 /L 07/04 11:27 PM [employer]SP[employer] SALES CONS[employer]ANT [facility] Not Available Not Available 10/08/2024 09:02:36 07/05/20 24 07/05/2024 CBC W Auto Diffe renti al panel - Blood lymphocytes [#/volume] in blood by automated count 1.44 text: 1.00 - 4.40 x10e9/ L Lymph ocyte Absol citizen [place] 1.44 1.00 - 4.40 x10E9 /L 07/04 11:27 PM [employer]SP[employer] SALES CONS[employer] [facility] Not Available Not Available 10/08/2024 09:02:36 07/05/20 24 07/05/2024 CBC W Auto Diffe renti al panel - Blood monocytes [#/volume] in blood by automated count 0.93 text: 0.15 - 1.00 x10e9/ L Monoc yte Absol citizen [place] 0.93 0.15 - 1.00 x10E9 /L 07/04 11:27 PM [employer]SP[employer] SALES CONSULTANT [facility] Not Available Not Available 10/08/2024 09:02:36 07/05/20 24 07/05/2024 CBC W Auto Diffe renti al panel - Blood eosinophils [#/volume] in blood 0.67 text: 0.00 - 0.60 x10e9/ L high Eosin ophil Absol citizen [place] 0.67 (H) 0.00 - 0.60 x10E9 /L 07/04 11:27 PM [employer]SP[employer] SALES CONSULTANT [facility] Not Available Not Available 10/08/2024 09:02:36 07/05/20 24 07/05/2024 CBC W Auto Diffe renti al panel - Blood basophils [#/volume] in blood by automated count 0.05 text: 0.00 - 0.13 x10e9/ L Basop hil Absol citizen [place] 0.05 0.00 - 0.13 x10E9 /L 07/04 11:27 PM [employer]SP[employer] SALES CONS[employer] [facility] Not Available Not Available 10/08/2024 09:02:36 07/05/20 24 07/05/2024 CBC W Auto Diffe renti al panel - Blood interpretati on and review of laboratory results Abnorm al Not Available Not Available 09:02:36 07/05/20 24 07/05/2024 Basic metab olic 2000 panel - Serum or Plasm a urea nitrogen [mass/volume ] in serum or plasma 37 mg/dL low: 7mg/dL high: 26mg/d L high BUN 37 (H) 7 - 26 mg/dL 07/04 11:52 PM [employer]SP[employer] SALES CONSULTANT [facility] Not Available Not Available 10/08/2024 09:02:36 07/05/20 24 07/05/2024 Basic metab olic 2000 panel - Serum or Plasm a creatinine [mass/volume ] in serum or plasma 1.41 mg/dL low: 0.71mg /dLhig h: 1.16mg /dL high Creat inine 1.41 (H) 0.71 - 1.16 mg/dL 07/04 11:52 PM [employer]SP[employer] SALES CONSULTANT [facility] Not Available Not Available 10/08/2024 09:02:36 07/05/20 24 07/05/2024 Basic metab olic 2000 panel - Serum or Plasm a sodium [moles/volum e] in serum or plasma 138 mmol/ L low: 136mmo l/Lhig h: 145mmo l/L Sodiu m 138 136 - 145 mmol/ L 07/04 11:52 PM [employer]SP[employer] SALES CONSULTANT [facility] Not Available Not Available 10/08/2024 09:02:36 07/05/20 24 07/05/2024 Basic metab olic 1999 panel - Serum or Plasm a potassium [moles/volum e] in serum or plasma 4.5 mmol/ L low: 3.5mmo l/Lhig h: 4.5mmo l/L Potas sium 4.5 3.5 - 4.5 mmol/ L 07/04 11:52 PM [employer]SP[employer]ATION SALES CONSULTANT [facility] Not Available Not Available 10/08/2024 09:02:36 07/05/20 24 07/05/2024 Basic metab olic 1999 panel - Serum or Plasm a chloride [moles/volum e] in serum or plasma 106 mmol/ L low: 98mmol /Lhigh : 107mmo l/L Chlor stalin 106 98 - 107 mmol/ L 07/04 11:52 PM [employer]SP[employer] SALES CONSULTANT [facility] Not Available Not Available 10/08/2024 09:02:36 07/05/20 24 07/05/2024 Basic metab olic 1999 panel - Serum or Plasm a carbon dioxide, total [moles/volum e] in serum or plasma 27 mmol/ L low: 22mmol /Lhigh : 29mmol /L CO2 27 22 - 29 mmol/ L 07/04 11:52 PM [employer]SP[employer] SALES CONSULTANT [facility] Not Available Not Available 10/08/2024 09:02:36 07/05/20 24 07/05/2024 Basic metab olic 1999 panel - Serum or Plasm a glucose [mass/volume ] in serum or plasma 90 mg/dL low: 70mg/d Lhigh: 99mg/d L Gluco se 90 70 - 99 mg/dL 07/04 11:52 PM [employer]SP[employer]ATION SALES CONSULTANT [facility] Not Available Not Available 10/08/2024 09:02:36 07/05/20 24 07/05/2024 Basic metab olic 2000 panel - Serum or Plasm a calcium [moles/volum e] in serum or plasma 9 mg/dL low: 8.4mg/ dLhigh : 10.2mg /dL Calci um 9.0 8.4 - 10.2 mg/dL 07/04 11:52 PM TRANSPORTATION SALES CONSULTANT [facility] Not Available Not Available 10/08/2024 09:02:36 07/05/20 24 07/05/2024 Basic metab olic 2000 panel - Serum or Plasm a anion gap 5 low: 6high: 16 low Anion Gap 5 (L) 6 - 16 07/04 11:52 PM TRANSPORTATION SALES CONSULTANT [facility] Not Available Not Available 10/08/2024 09:02:36 07/05/20 24 07/05/2024 Basic metab olic 2000 panel - Serum or Plasm a urea nitrogen/cre atinine [mass ratio] in serum or plasma 26 low: 7high: 23 high BUN/C reati nine Ratio 26 (H) 7 - 23 07/04 11:52 PM TRANSPORTATION SALES CONSULTANT [facility] Not Available Not Available 10/08/2024 09:02:36 07/05/20 24 07/05/2024 Basic metab olic 1999 panel - Serum or Plasm a osmolality calculated 294 text: 275 - 295 mOsm/k g Osmol danny Tai lated 294 275 - 295 mOsm/ kg 07/04 11:52 PM TRANSPORTATION SALES CONSULTANT [facility] Not Available Not Available 10/08/2024 09:02:36 07/05/20 24 07/05/2024 Basic metab olic 2000 panel - Serum or Plasm a glomerular filtration rate [volume rate/area] in serum, plasma or blood by creatinine-b ased formula (CKD-epi 2020)/1.73 sq M 58 text: >=90 mL/min /1.73 m2 low eGFR by CKD-E PI 58 (L) >=90 mL/mi n/1.7 3 m2 07/04 11:52 PM TRANSPORTATION SALES CONSULTANT [facility] Not Available Not Available 10/08/2024 09:02:36 07/05/20 24 07/05/2024 Basic metab olic 2000 panel - Serum or Plasm a interpretati on and review of laboratory results Abnorm al Not Available Not Available 09:02:36 07/06/20 24 07/06/2024 Phosp hate [Mass /volu me] in Serum or Plasm a phosphate [mass/volume ] in serum or plasma 3.2 mg/dL low: 2.8mg/ dLhigh : 5.1mg/ dL Phosp horus 3.2 2.8 - 5.1 mg/dL 07/06 10:31 PM TRANSPORTATION SALES CONSULTANT [facility] Not Available Not Available 10/08/2024 09:02:38 07/06/20 24 07/06/2024 Phosp hate [Mass /volu me] in Serum or Plasm a interpretati on and review of laboratory results Normal Not Available Not Available 09/10 09:02:38 07/06/20 24 07/06/2024 Magne sium [Mass /volu me] in Serum or Plasm a magnesium [mass/volume ] in serum or plasma 2.2 mg/dL low: 1.6mg/ dLhigh : 2.6mg/ dL Magne sium 2.2 1.6 - 2.6 mg/dL 07/06 10:31 PM TRANSPORTATION SALES CONSULTANT [facility] Not Available Not Available 10/08/2024 09:02:38 07/06/20 24 07/06/2024 Magne sium [Mass /volu me] in Serum or Plasm a interpretati on and review of laboratory results Normal Not Available Not Available 09/10 09:02:38 07/06/20 24 07/06/2024 CBC W Auto Diffe renti al panel - Blood leukocytes [#/volume] in blood by automated count 11.3 text: 4.0 - 10.7 x10e9/ L high WBC 11.3 (H) 4.0 - 10.7 x10E9 /L 07/06 10:11 PM [employer]SPORTATION SALES CONS[employer]ANT [facility] Not Available Not Available 10/08/2024 09:02:38 07/06/20 24 07/06/2024 CBC W Auto Diffe renti al panel - Blood erythrocytes [#/volume] in blood by automated count 3.76 text: 4.30 - 5.80 x10e12 /L low RBC Count 3.76 (L) 4.30 - 5.80 x10E1 2/L 07/06 10:11 PM [facility] Not Available Not Available 10/08/2024 09:02:38 07/06/20 24 07/06/2024 CBC W Auto Diffe renti al panel - Blood hemoglobin [mass/volume ] in blood 11.8 g/dL low: 13.3g/ dLhigh : 17.5g/ dL low Hemog lobin 11.8 (L) 13.3 - 17.5 g/dL 07/06 10:11 PM [facility] Not Available Not Available 10/08/2024 09:02:38 07/06/20 24 07/06/2024 CBC W Auto Diffe renti al panel - Blood hematocrit [volume fraction] of blood by automated count 34.7 % low: 38.7%h igh: 51.1% low Hemat ocrit 34.7 (L) 38.7 - 51.1 % 07/06 10:11 PM [facility] Not Available Not Available 10/08/2024 09:02:38 07/06/20 24 07/06/2024 CBC W Auto Diffe renti al panel - Blood MCV [entitic mean volume] in red blood cells by automated count 92.3 fL low: 80fLhi gh: 98fL MCV 92.3 80.0 - 98.0 fL 07/06 10:11 PM [facility] Not Available Not Available 10/08/2024 09:02:38 07/06/20 24 07/06/2024 CBC W Auto Diffe renti al panel - Blood MCH [entitic mass] by automated count 31.4 pg low: 26.7pg high: 33.6pg MCH 31.4 26.7 - 33.6 pg 07/06 10:11 PM [facility] Not Available Not Available 10/08/2024 09:02:38 07/06/20 24 07/06/2024 CBC W Auto Diffe rennicky al panel - Blood MCHC [entitic mass/volume] in red blood cells by automated count 34 g/dL low: 31.7g/ dLhigh : 36.3g/ dL MCHC 34.0 31.7 - 36.3 g/dL 07/06 10:11 PM [facility] Not Available Not Available 10/08/2024 09:02:38 07/06/20 24 07/06/2024 CBC W Auto Diffe renti al panel - Blood erythrocyte [distwidth] in red blood cells by automated count 13.8 % low: 11.3%h igh: 14.8% RDW-C V 13.8 11.3 - 14.8 % 07/06 10:11 PM [facility] Not Available Not Available 10/08/2024 09:02:38 07/06/20 24 07/06/2024 CBC W Auto Diffe renti al panel - Blood platelets [#/volume] in blood by automated count 362 text: 150 - 420 x10e9/ L Plate let Count 362 150 - 420 x10E9 /L 07/06 10:11 PM [facility] Not Available Not Available 10/08/2024 09:02:38 07/06/20 24 07/06/2024 CBC W Auto Diffe renti al panel - Blood platelet [entitic mean volume] in blood by automated count 8.5 fL low: 7.8fLh igh: 11.4fL MPV 8.5 7.8 - 11.4 fL 07/06 10:11 PM [facility] Not Available Not Available 10/08/2024 09:02:38 07/06/20 24 07/06/2024 CBC W Auto Diffe renti al panel - Blood neutrophils/ leukocytes in blood by automated count 75.4 % low: 41%hig h: 74% high Neutr ophil % 75.4 (H) 41.0 - 74.0 % 07/06 10:11 PM [facility] Not Available Not Available 10/08/2024 09:02:38 07/06/20 24 07/06/2024 CBC W Auto Diffe renti al panel - Blood lymphocytes/ leukocytes in blood by automated count 9.2 % low: 17%hig h: 47% low Lymph ocyte % 9.2 (L) 17.0 - 47.0 % 07/06 10:11 PM TRANSPORTATION SALES CONSULTANT [facility] Not Available Not Available 10/08/2024 09:02:38 07/06/20 24 07/06/2024 CBC W Auto Diffe renti al panel - Blood monocytes/le ukocytes in blood by automated count 6.7 % low: 3%high : 11% Monoc yte % 6.7 3.0 - 11.0 % 07/06 10:11 PM TRANSPORTATION SALES CONSULTANT [facility] Not Available Not Available 10/08/2024 09:02:38 07/06/20 24 07/06/2024 CBC W Auto Diffe renti al panel - Blood eosinophils/ leukocytes in blood by automated count 7 % low: 0%high : 7% Eosin ophil % 7.0 0.0 - 7.0 % 07/06 10:11 PM TRANSPORTATION SALES CONSULTANT [facility] Not Available Not Available 10/08/2024 09:02:38 07/06/20 24 07/06/2024 CBC W Auto Diffe renti al panel - Blood basophils/le ukocytes in blood by automated count 0.6 % low: 0%high : 1.6% Basop hil % 0.6 0.0 - 1.6 % 07/06 10:11 PM TRANSPORTATION SALES CONSULTANT [facility] Not Available Not Available 10/08/2024 09:02:38 07/06/20 24 07/06/2024 CBC W Auto Diffe renti al panel - Blood immature granulocytes /leukocytes in blood by automated count 1.1 % low: 0%high : 1% high Immat ure Granu locyt es % 1.1 (H) 0.0 - 1.0 % 07/06 10:11 PM [employer]SPORTATION SALES CONSULTANT [facility] Not Available Not Available 10/08/2024 09:02:38 07/06/20 24 07/06/2024 CBC W Auto Diffe renti al panel - Blood neutrophils [#/volume] in blood by automated count 8.53 text: 1.60 - 7.50 x10e9/ L high Neutr ophil Absol citizen [place] 8.53 (H) 1.60 - 7.50 x10E9 /L 07/06 10:11 PM [employer]SPORTATION SALES CONSULTANT [facility] Not Available Not Available 10/08/2024 09:02:38 07/06/20 24 07/06/2024 CBC W Auto Diffe renti al panel - Blood lymphocytes [#/volume] in blood by automated count 1.04 text: 1.00 - 4.40 x10e9/ L Lymph ocyte Absol citizen [place] 1.04 1.00 - 4.40 x10E9 /L 07/06 10:11 PM [employer]SPORTATION SALES CONSULTANT [facility] Not Available Not Available 10/08/2024 09:02:38 07/06/20 24 07/06/2024 CBC W Auto Diffe renti al panel - Blood monocytes [#/volume] in blood by automated count 0.76 text: 0.15 - 1.00 x10e9/ L Monoc yte Absol citizen [place] 0.76 0.15 - 1.00 x10E9 /L 07/06 10:11 PM [facility] Not Available Not Available 10/08/2024 09:02:38 07/06/20 24 07/06/2024 CBC W Auto Diffe renti al panel - Blood eosinophils [#/volume] in blood 0.79 text: 0.00 - 0.60 x10e9/ L high Eosin ophil Absol citizen [place] 0.79 (H) 0.00 - 0.60 x10E9 /L 07/06 10:11 PM [facility] Not Available Not Available 10/08/2024 09:02:38 07/06/20 24 07/06/2024 CBC W Auto Diffe renti al panel - Blood basophils [#/volume] in blood by automated count 0.07 text: 0.00 - 0.13 x10e9/ L Basop hil Absol citizen [place] 0.07 0.00 - 0.13 x10E9 /L 07/06 10:11 PM [employer]SP[employer] SALES CONSULTANT [facility] Not Available Not Available 10/08/2024 09:02:38 07/06/20 24 07/06/2024 CBC W Auto Diffe renti al panel - Blood interpretati on and review of laboratory results Abnorm al Not Available Not Available 09:02:38 07/06/20 24 07/06/2024 Basic metab olic 1999 panel - Serum or Plasm a urea nitrogen [mass/volume ] in serum or plasma 32 mg/dL low: 7mg/dL high: 26mg/d L high BUN 32 (H) 7 - 26 mg/dL 07/06 10:31 PM [employer]SP[employer] SALES CONSULTANT [facility] Not Available Not Available 10/08/2024 09:02:37 07/06/20 24 07/06/2024 Basic metab olic 1999 panel - Serum or Plasm a creatinine [mass/volume ] in serum or plasma 1.06 mg/dL low: 0.71mg /dLhig h: 1.16mg /dL Creat inine 1.06 0.71 - 1.16 mg/dL 07/06 10:31 PM [employer]SP[employer]ATION SALES CONSULTANT [facility] Not Available Not Available 10/08/2024 09:02:37 07/06/20 24 07/06/2024 Basic metab olic 1999 panel - Serum or Plasm a sodium [moles/volum e] in serum or plasma 141 mmol/ L low: 136mmo l/Lhig h: 145mmo l/L Sodiu m 141 136 - 145 mmol/ L 07/06 10:31 PM [employer]SP[employer] SALES CONSULTANT [facility] Not Available Not Available 10/08/2024 09:02:37 07/06/20 24 07/06/2024 Basic metab olic 1999 panel - Serum or Plasm a potassium [moles/volum e] in serum or plasma 4.2 mmol/ L low: 3.5mmo l/Lhig h: 4.5mmo l/L Potas sium 4.2 3.5 - 4.5 mmol/ L 07/06 10:31 PM [employer]SP[employer] SALES CONSULTANT [facility] Not Available Not Available 10/08/2024 09:02:37 07/06/20 24 07/06/2024 Basic metab olic 1999 panel - Serum or Plasm a chloride [moles/volum e] in serum or plasma 105 mmol/ L low: 98mmol /Lhigh : 107mmo l/L Chlor stalin 105 98 - 107 mmol/ L 07/06 10:31 PM [employer]SP[employer] SALES CONSULTANT [facility] Not Available Not Available 10/08/2024 09:02:37 07/06/20 24 07/06/2024 Basic metab olic 1999 panel - Serum or Plasm a carbon dioxide, total [moles/volum e] in serum or plasma 28 mmol/ L low: 22mmol /Lhigh : 29mmol /L CO2 28 22 - 29 mmol/ L 07/06 10:31 PM [employer]SP[employer] SALES CONSULTANT [facility] Not Available Not Available 10/08/2024 09:02:37 07/06/20 24 07/06/2024 Basic metab olic 1999 panel - Serum or Plasm a glucose [mass/volume ] in serum or plasma 135 mg/dL low: 70mg/d Lhigh: 99mg/d L high Gluco se 135 (H) 70 - 99 mg/dL 07/06 10:31 PM [employer]SP[employer] SALES CONSULTANT [facility] Not Available Not Available 10/08/2024 09:02:37 07/06/20 24 07/06/2024 Basic metab olic 1999 panel - Serum or Plasm a calcium [moles/volum e] in serum or plasma 9.1 mg/dL low: 8.4mg/ dLhigh : 10.2mg /dL Calci um 9.1 8.4 - 10.2 mg/dL 07/06 10:31 PM [employer]SPORTATION SALES CONSULTANT [facility] Not Available Not Available 10/08/2024 09:02:37 07/06/20 24 07/06/2024 Basic metab olic 1999 panel - Serum or Plasm a anion gap 8 low: 6high: 16 Anion Gap 8 6 - 16 07/06 10:31 PM [employer]SP[employer] SALES CONS[employer] [facility] Not Available Not Available 10/08/2024 09:02:37 07/06/20 24 07/06/2024 Basic metab olic 2000 panel - Serum or Plasm a urea nitrogen/cre atinine [mass ratio] in serum or plasma 30 low: 7high: 23 high BUN/C reati nine Ratio 30 (H) 7 - 23 07/06 10:31 PM [employer]SP[employer] SALES CONSULTANT [facility] Not Available Not Available 10/08/2024 09:02:37 07/06/20 24 07/06/2024 Basic metab olic 2000 panel - Serum or Plasm a osmolality calculated 301 text: 275 - 295 mOsm/k g high Osmol danny Tai lated 301 (H) 275 - 295 mOsm/ kg 07/06 10:31 PM TRANSPORTATION SALES CONSULTANT [facility] Not Available Not Available 10/08/2024 09:02:37 07/06/20 24 07/06/2024 Basic metab olic 2000 panel - Serum or Plasm a glomerular filtration rate [volume rate/area] in serum, plasma or blood by creatinine-b ased formula (CKD-epi 2020)/1.73 sq M 82 text: >=90 mL/min /1.73 m2 low eGFR by CKD-E PI 82 (L) >=90 mL/mi n/1.7 3 m2 07/06 10:31 PM [facility] Not Available Not Available 10/08/2024 09:02:37 07/06/20 24 07/06/2024 Basic metab olic 2000 panel - Serum or Plasm a interpretati on and review of laboratory results Abnorm al Not Available Not Available 09:02:37 07/06/20 24 07/06/2024 Gluco se [Mass /volu me] in Arter ial blood glucose [mass/volume ] in capillary blood by glucometer 125 mg/dL low: 70mg/d Lhigh: 99mg/d L high Gluco se WB/PO C 125 (H) 70 - 99 mg/dL 07/06 7:47 PM [employer] [facility] Not Available Not Available 10/08/2024 09:02:37 07/06/20 24 07/06/2024 Gluco se [Mass /volu me] in Arter ial blood specimen source identified Cap Finger stick Speci men Type Cap Finge rstic k 07/06 7:47 PM [employer] [facility] Not Available Not Available 10/08/2024 09:02:37 07/06/20 24 07/06/2024 Gluco se [Mass /volu me] in Arter ial blood interpretati on and review of laboratory results Abnorm al Not Available Not Available 09:02:37 07/06/20 24 07/08/2024 Bacte dwaine ident ified in Speci men by Respi rator y cultu re microorganis m identified in specimen by culture Light normal oropha ryngea l jacquelyn Cultu re Light junie l oroph aryng eal jacquelyn AHSAN 07/08 8:30 AM [employer] [facility] Not Available Not Available 08/22/2024 13:38:58 07/06/20 24 07/08/2024 Bacte dwaine ident ified in Speci men by Respi rator y cultu re microscopic observation [identifier] in specimen by gram stain Heavy Polymo rphonu clear cells Gram Stain Heavy Polym orpho nucle ar cells 07/08 8:30 AM [employer] [facility] Not Available Not Available 08/22/2024 13:38:58 07/06/20 24 07/08/2024 Bacte dwaine ident ified in Speci men by Respi rator y cultu re microscopic observation [identifier] in specimen by gram stain Rare Yeast Gram Stain Rare Yeast 07/08 8:30 AM TRANSPORTATION SALES CONSULTANT [facility] Not Available Not Available 08/22/2024 13:38:58 07/06/20 24 07/08/2024 Bacte dwaine ident ified in Speci men by Respi rator y cultu re microscopic observation [identifier] in specimen by gram stain Rare Gram-p ositiv e bacill i Gram Stain Rare Gram- posit boaz bacil li 07/08 8:30 AM TRANSPORTATION SALES CONSULTANT [facility] Not Available Not Available 08/22/2024 13:38:58 07/06/20 24 07/08/2024 Bacte dwaine ident ified in Speci men by Respi rator y cultu re microscopic observation [identifier] in specimen by gram stain Light Gram-p ositiv e cocci Gram Stain Light Gram- posit boaz cocci 07/08 8:30 AM TRANSPORTATION SALES CONSULTANT [facility] Not Available Not Available 08/22/2024 13:38:58 07/06/20 24 07/08/2024 Bacte dwaine ident ified in Speci men by Respi rator y cultu re microscopic observation [identifier] in specimen by gram stain Rare Gram-n egativ e diploc occi Gram Stain Rare Gram- negat boaz diplo cocci 07/08 8:30 AM TRANSPORTATION SALES CONSULTANT [facility] Not Available Not Available 08/22/2024 13:38:58 07/06/20 24 07/08/2024 Bacte dwaine ident ified in Speci men by Respi rator y cultu re microscopic observation [identifier] in specimen by gram stain Rare Gram-n egativ e coccob acilli Gram Stain Rare Gram- negat boaz cocco bacil li 07/08 8:30 AM TRANSPORTATION SALES CONSULTANT [facility] Not Available Not Available 08/22/2024 13:38:58 07/06/20 24 07/08/2024 Bacte dwaine ident ified in Speci men by Respi rator y cultu re microscopic observation [identifier] in specimen by gram stain Rare Gram-n egativ e bacill i Gram Stain Rare Gram- negat boaz bacil li 07/08 8:30 AM TRANSPORTATION SALES CONSULTANT [facility] Not Available Not Available 08/22/2024 13:38:58 07/06/20 24 07/06/2024 Gluco se [Mass /volu me] in Arter ial blood glucose [mass/volume ] in capillary blood by glucometer 124 mg/dL low: 70mg/d Lhigh: 99mg/d L high Gluco se WB/PO C 124 (H) 70 - 99 mg/dL 07/06 1:57 PM TRANSPORTATION SALES CONSULTANT [facility] Not Available Not Available 10/08/2024 09:02:37 07/06/20 24 07/06/2024 Gluco se [Mass /volu me] in Arter ial blood specimen source identified Cap Finger stick Speci men Type Cap Finge rstic k 07/06 1:57 PM TRANSPORTATION SALES CONSULTANT [facility] Not Available Not Available 10/08/2024 09:02:37 07/06/20 24 07/06/2024 Gluco se [Mass /volu me] in Arter ial blood interpretati on and review of laboratory results Abnorm al Not Available Not Available 09:02:37 07/06/20 24 07/06/2024 Gluco se [Mass /volu me] in Arter ial blood glucose [mass/volume ] in capillary blood by glucometer 126 mg/dL low: 70mg/d Lhigh: 99mg/d L high Gluco se WB/PO C 126 (H) 70 - 99 mg/dL 07/06 8:33 AM TRANSPORTATION SALES CONSULTANT [facility] Not Available Not Available 10/08/2024 09:02:37 07/06/20 24 07/06/2024 Gluco se [Mass /volu me] in Arter ial blood specimen source identified Arteri al Speci men Type Arter ial 07/06 8:33 AM TRANSPORTATION SALES CONSULTANT [facility] Not Available Not Available 10/08/2024 09:02:37 07/06/20 24 07/06/2024 Gluco se [Mass /volu me] in Arter ial blood interpretati on and review of laboratory results Abnorm al Not Available Not Available 09:02:37 07/06/20 24 07/06/2024 Gluco se [Mass /volu me] in Arter ial blood glucose [mass/volume ] in capillary blood by glucometer 92 mg/dL low: 70mg/d Lhigh: 99mg/d L Gluco se WB/PO C 92 70 - 99 mg/dL 07/05 11:48 PM TRANSPORTATION SALES CONSULTANT [facility] Not Available Not Available 10/08/2024 09:02:37 07/06/20 24 07/06/2024 Gluco se [Mass /volu me] in Arter ial blood specimen source identified Arteri al Speci men Type Arter ial 07/05 11:48 PM TRANSPORTATION SALES CONSULTANT [facility] Not Available Not Available 10/08/2024 09:02:37 07/06/20 24 07/06/2024 Phosp hate [Mass /volu me] in Serum or Plasm a phosphate [mass/volume ] in serum or plasma 3.1 mg/dL low: 2.8mg/ dLhigh : 5.1mg/ dL Phosp horus 3.1 2.8 - 5.1 mg/dL 07/05 11:39 PM TRANSPORTATION SALES CONSULTANT [facility] Not Available Not Available 10/08/2024 09:02:37 07/06/20 24 07/06/2024 Phosp hate [Mass /volu me] in Serum or Plasm a interpretati on and review of laboratory results Normal Not Available Not Available 09/10 09:02:37 07/06/20 24 07/06/2024 Magne sium [Mass /volu me] in Serum or Plasm a magnesium [mass/volume ] in serum or plasma 2.2 mg/dL low: 1.6mg/ dLhigh : 2.6mg/ dL Magne sium 2.2 1.6 - 2.6 mg/dL 07/05 11:39 PM TRANSPORTATION SALES CONSULTANT [facility] Not Available Not Available 10/08/2024 09:02:37 07/06/20 24 07/06/2024 Magne sium [Mass /volu me] in Serum or Plasm a interpretati on and review of laboratory results Normal Not Available Not Available 09/10 09:02:37 07/06/20 24 07/06/2024 CBC W Auto Diffe renti al panel - Blood leukocytes [#/volume] in blood by automated count 13.9 text: 4.0 - 10.7 x10e9/ L high WBC 13.9 (H) 4.0 - 10.7 x10E9 /L 07/05 11:20 PM TRANSPORTATION SALES CONSULTANT [facility] Not Available Not Available 10/08/2024 09:02:37 07/06/20 24 07/06/2024 CBC W Auto Diffe renti al panel - Blood erythrocytes [#/volume] in blood by automated count 4.04 text: 4.30 - 5.80 x10e12 /L low RBC Count 4.04 (L) 4.30 - 5.80 x10E1 2/L 07/05 11:20 PM TRANSPORTATION SALES CONSULTANT [facility] Not Available Not Available 10/08/2024 09:02:37 07/06/20 24 07/06/2024 CBC W Auto Diffe renti al panel - Blood hemoglobin [mass/volume ] in blood 12.4 g/dL low: 13.3g/ dLhigh : 17.5g/ dL low Hemog lobin 12.4 (L) 13.3 - 17.5 g/dL 07/05 11:20 PM TRANSPORTATION SALES CONSULTANT [facility] Not Available Not Available 10/08/2024 09:02:37 07/06/20 24 07/06/2024 CBC W Auto Diffe rodneyti al panel - Blood hematocrit [volume fraction] of blood by automated count 37.3 % low: 38.7%h igh: 51.1% low Hemat ocrit 37.3 (L) 38.7 - 51.1 % 07/05 11:20 PM [facility] Not Available Not Available 10/08/2024 09:02:37 07/06/20 24 07/06/2024 CBC W Auto Diffe rodneyti al panel - Blood MCV [entitic mean volume] in red blood cells by automated count 92.3 fL low: 80fLhi gh: 98fL MCV 92.3 80.0 - 98.0 fL 07/05 11:20 PM [facility] Not Available Not Available 10/08/2024 09:02:37 07/06/20 24 07/06/2024 CBC W Auto Diffe rodneyti al panel - Blood MCH [entitic mass] by automated count 30.7 pg low: 26.7pg high: 33.6pg MCH 30.7 26.7 - 33.6 pg 07/05 11:20 PM TRANSPORTATION SALES CONSULTANT [facility] Not Available Not Available 10/08/2024 09:02:37 07/06/20 24 07/06/2024 CBC W Auto Diffe vignesh al panel - Blood MCHC [entitic mass/volume] in red blood cells by automated count 33.2 g/dL low: 31.7g/ dLhigh : 36.3g/ dL MCHC 33.2 31.7 - 36.3 g/dL 07/05 11:20 PM TRANSPORTATION SALES CONSULTANT [facility] Not Available Not Available 10/08/2024 09:02:37 12/27/20 24 07/06/2024 CBC W Auto Diffe renti al panel - Blood erythrocyte [distwidth] in red blood cells by automated count 13.4 % low: 11.3%h igh: 14.8% RDW-C V 13.4 11.3 - 14.8 % 07/05 11:20 PM TRANSPORTATION SALES CONSULTANT [facility] Not Available Not Available 10/08/2024 09:02:37 07/06/20 24 07/06/2024 CBC W Auto Diffe renti al panel - Blood platelets [#/volume] in blood by automated count 386 text: 150 - 420 x10e9/ L Plate let Count 386 150 - 420 x10E9 /L 07/05 11:20 PM TRANSPORTATION SALES CONSULTANT [facility] Not Available Not Available 10/08/2024 09:02:37 07/06/20 24 07/06/2024 CBC W Auto Diffe renti al panel - Blood platelet [entitic mean volume] in blood by automated count 8.5 fL low: 7.8fLh igh: 11.4fL MPV 8.5 7.8 - 11.4 fL 07/05 11:20 PM TRANSPORTATION SALES CONSULTANT [facility] Not Available Not Available 10/08/2024 09:02:37 07/06/20 24 07/06/2024 CBC W Auto Diffe renti al panel - Blood neutrophils/ leukocytes in blood by automated count 75.3 % low: 41%hig h: 74% high Neutr ophil % 75.3 (H) 41.0 - 74.0 % 07/05 11:20 PM TRANSPORTATION SALES CONSULTANT [facility] Not Available Not Available 10/08/2024 09:02:37 07/06/20 24 07/06/2024 CBC W Auto Diffe renti al panel - Blood lymphocytes/ leukocytes in blood by automated count 11.4 % low: 17%hig h: 47% low Lymph ocyte % 11.4 (L) 17.0 - 47.0 % 07/05 11:20 PM TRANSPORTATION SALES CONSULTANT [facility] Not Available Not Available 10/08/2024 09:02:37 07/06/20 24 07/06/2024 CBC W Auto Diffe renti al panel - Blood monocytes/le ukocytes in blood by automated count 6.8 % low: 3%high : 11% Monoc yte % 6.8 3.0 - 11.0 % 07/05 11:20 PM TRANSPORTATION SALES CONSULTANT [facility] Not Available Not Available 10/08/2024 09:02:37 07/06/20 24 07/06/2024 CBC W Auto Diffe renti al panel - Blood eosinophils/ leukocytes in blood by automated count 5.3 % low: 0%high : 7% Eosin ophil % 5.3 0.0 - 7.0 % 07/05 11:20 PM TRANSPORTATION SALES CONSULTANT [facility] Not Available Not Available 10/08/2024 09:02:37 07/06/20 24 07/06/2024 CBC W Auto Diffe renti al panel - Blood basophils/le ukocytes in blood by automated count 0.3 % low: 0%high : 1.6% Basop hil % 0.3 0.0 - 1.6 % 07/05 11:20 PM TRANSPORTATION SALES CONSULTANT [facility] Not Available Not Available 10/08/2024 09:02:37 07/06/20 24 07/06/2024 CBC W Auto Diffe renti al panel - Blood immature granulocytes /leukocytes in blood by automated count 0.9 % low: 0%high : 1% Immat ure Granu locyt es % 0.9 0.0 - 1.0 % 07/05 11:20 PM TRANSPORTATION SALES CONSULTANT [facility] Not Available Not Available 10/08/2024 09:02:37 07/06/20 24 07/06/2024 CBC W Auto Diffe renti al panel - Blood neutrophils [#/volume] in blood by automated count 10.48 text: 1.60 - 7.50 x10e9/ L high Neutr ophil Absol [place] 10.48 (H) 1.60 - 7.50 x10E9 /L 07/05 11:20 PM TRANSPORTATION SALES CONSULTANT [facility] Not Available Not Available 10/08/2024 09:02:37 07/06/20 24 07/06/2024 CBC W Auto Diffe renti al panel - Blood lymphocytes [#/volume] in blood by automated count 1.58 text: 1.00 - 4.40 x10e9/ L Lymph ocyte Absol [place] 1.58 1.00 - 4.40 x10E9 /L 07/05 11:20 PM TRANSPORTATION SALES CONSULTANT [facility] Not Available Not Available 10/08/2024 09:02:37 07/06/20 24 07/06/2024 CBC W Auto Diffe renti al panel - Blood monocytes [#/volume] in blood by automated count 0.95 text: 0.15 - 1.00 x10e9/ L Monoc yte Absol [place] 0.95 0.15 - 1.00 x10E9 /L 07/05 11:20 PM TRANSPORTATION SALES CONSULTANT [facility] Not Available Not Available 10/08/2024 09:02:37 07/06/20 24 07/06/2024 CBC W Auto Diffe renti al panel - Blood eosinophils [#/volume] in blood 0.74 text: 0.00 - 0.60 x10e9/ L high Eosin ophil Absol [place] 0.74 (H) 0.00 - 0.60 x10E9 /L 07/05 11:20 PM TRANSPORTATION SALES CONSULTANT [facility] Not Available Not Available 10/08/2024 09:02:37 07/06/20 24 07/06/2024 CBC W Auto Diffe renti al panel - Blood basophils [#/volume] in blood by automated count 0.04 text: 0.00 - 0.13 x10e9/ L Basop hil Absol [place] 0.04 0.00 - 0.13 x10E9 /L 07/05 11:20 PM TRANSPORTATION SALES CONSULTANT [facility] Not Available Not Available 10/08/2024 09:02:37 07/06/20 24 07/06/2024 CBC W Auto Diffe renti al panel - Blood interpretati on and review of laboratory results Abnorm al Not Available Not Available 09:02:37 07/06/20 24 07/06/2024 Basic metab olic 2000 panel - Serum or Plasm a urea nitrogen [mass/volume ] in serum or plasma 32 mg/dL low: 7mg/dL high: 26mg/d L high BUN 32 (H) 7 - 26 mg/dL 07/05 11:39 PM [facility] Not Available Not Available 10/08/2024 09:02:37 07/06/20 24 07/06/2024 Basic metab olic 1999 panel - Serum or Plasm a creatinine [mass/volume ] in serum or plasma 1.06 mg/dL low: 0.71mg /dLhig h: 1.16mg /dL Creat inine 1.06 0.71 - 1.16 mg/dL 07/05 11:39 PM [facility] Not Available Not Available 10/08/2024 09:02:37 07/06/20 24 07/06/2024 Basic metab olic 1999 panel - Serum or Plasm a sodium [moles/volum e] in serum or plasma 142 mmol/ L low: 136mmo l/Lhig h: 145mmo l/L Sodiu m 142 136 - 145 mmol/ L 07/05 11:39 PM [facility] Not Available Not Available 10/08/2024 09:02:37 07/06/20 24 07/06/2024 Basic metab olic 1999 panel - Serum or Plasm a potassium [moles/volum e] in serum or plasma 4.4 mmol/ L low: 3.5mmo l/Lhig h: 4.5mmo l/L Potas sium 4.4 3.5 - 4.5 mmol/ L 07/05 11:39 PM [facility] Not Available Not Available 10/08/2024 09:02:37 07/06/20 24 07/06/2024 Basic metab olic 1999 panel - Serum or Plasm a chloride [moles/volum e] in serum or plasma 106 mmol/ L low: 98mmol /Lhigh : 107mmo l/L Chlor stalin 106 98 - 107 mmol/ L 07/05 11:39 PM TRANSPORTATION SALES CONSULTANT [facility] Not Available Not Available 10/08/2024 09:02:37 07/06/20 24 07/06/2024 Basic metab olic 2000 panel - Serum or Plasm a carbon dioxide, total [moles/volum e] in serum or plasma 29 mmol/ L low: 22mmol /Lhigh : 29mmol /L CO2 29 22 - 29 mmol/ L 07/05 11:39 PM TRANSPORTATION SALES CONSULTANT [facility] Not Available Not Available 10/08/2024 09:02:37 07/06/20 24 07/06/2024 Basic metab olic 1999 panel - Serum or Plasm a glucose [mass/volume ] in serum or plasma 94 mg/dL low: 70mg/d Lhigh: 99mg/d L Gluco se 94 70 - 99 mg/dL 07/05 11:39 PM TRANSPORTATION SALES CONSULTANT [facility] Not Available Not Available 10/08/2024 09:02:37 07/06/20 24 07/06/2024 Basic metab olic 1999 panel - Serum or Plasm a calcium [moles/volum e] in serum or plasma 9 mg/dL low: 8.4mg/ dLhigh : 10.2mg /dL Calci um 9.0 8.4 - 10.2 mg/dL 07/05 11:39 PM TRANSPORTATION SALES CONSULTANT [facility] Not Available Not Available 10/08/2024 09:02:37 07/06/20 24 07/06/2024 Basic metab olic 1999 panel - Serum or Plasm a anion gap 7 low: 6high: 16 Anion Gap 7 6 - 16 07/05 11:39 PM TRANSPORTATION SALES CONSULTANT [facility] Not Available Not Available 10/08/2024 09:02:37 07/06/20 24 07/06/2024 Basic metab olic 1999 panel - Serum or Plasm a urea nitrogen/cre atinine [mass ratio] in serum or plasma 30 low: 7high: 23 high BUN/C reati nine Ratio 30 (H) 7 - 23 07/05 11:39 PM TRANSPORTATION SALES CONSULTANT [facility] Not Available Not Available 10/08/2024 09:02:37 07/06/20 24 07/06/2024 Basic metab olic 2000 panel - Serum or Plasm a osmolality calculated 301 text: 275 - 295 mOsm/k g high Osmol ality Calcu lated 301 (H) 275 - 295 mOsm/ kg 07/05 11:39 PM [email or web address] Not Available Not Available 10/08/2024 09:02:37 07/06/20 24 07/06/2024 Basic metab olic 2000 panel - Serum or Plasm a glomerular filtration rate [volume rate/area] in serum, plasma or blood by creatinine-b ased formula (CKD-epi 2020)/1.73 sq M 82 text: >=90 mL/min /1.73 m2 low eGFR by CKD-E PI 82 (L) >=90 mL/mi n/1.7 3 m2 07/05 11:39 PM TRANSPORTATION SALES CONSULTANT [facility] Not Available Not Available 10/08/2024 09:02:37 07/06/20 24 07/06/2024 Basic metab olic 2000 panel - Serum or Plasm a interpretati on and review of laboratory results Abnorm al Not Available Not Available 09:02:37 07/07/20 24 07/07/2024 Gluco se [Mass /volu me] in Arter ial blood glucose [mass/volume ] in capillary blood by glucometer 126 mg/dL low: 70mg/d Lhigh: 99mg/d L high Gluco se WB/PO C 126 (H) 70 - 99 mg/dL 07/07 5:17 PM [facility] [email or web address] Not Available Not Available 10/08/2024 09:02:38 07/07/20 24 07/07/2024 Gluco se [Mass /volu me] in Arter ial blood specimen source identified Cap Finger stick Speci men Type Cap Finge rstic k 07/07 5:17 PM [facility] Not Available Not Available 10/08/2024 09:02:38 07/07/20 24 07/07/2024 Gluco se [Mass /volu me] in Arter ial blood interpretati on and review of laboratory results Abnorm al Not Available Not Available 09:02:38 07/07/20 24 07/07/2024 Gluco se [Mass /volu me] in Arter ial blood glucose [mass/volume ] in capillary blood by glucometer 91 mg/dL low: 70mg/d Lhigh: 99mg/d L Gluco se WB/PO C 91 70 - 99 mg/dL 07/07 3:58 PM TRANSPORTATION SALES CONSULTANT [facility] Not Available Not Available 10/08/2024 09:02:38 07/07/20 24 07/07/2024 Gluco se [Mass /volu me] in Arter ial blood specimen source identified Cap Finger stick Speci men Type Cap Finge rstic k 07/07 3:58 PM TRANSPORTATION SALES CONSULTANT [facility] Not Available Not Available 10/08/2024 09:02:38 07/07/20 24 07/07/2024 Gluco se [Mass /volu me] in Arter ial blood glucose [mass/volume ] in capillary blood by glucometer 103 mg/dL low: 70mg/d Lhigh: 99mg/d L high Gluco se WB/PO C 103 (H) 70 - 99 mg/dL 07/07 4:35 AM TRANSPORTATION SALES CONSULTANT [facility] Not Available Not Available 10/08/2024 09:02:38 07/07/20 24 07/07/2024 Gluco se [Mass /volu me] in Arter ial blood specimen source identified Cap Finger stick Speci men Type Cap Finge rstic k 07/07 4:35 AM TRANSPORTATION SALES CONSULTANT [facility] Not Available Not Available 10/08/2024 09:02:38 07/07/20 24 07/07/2024 Gluco se [Mass /volu me] in Arter ial blood interpretati on and review of laboratory results Abnorm al Not Available Not Available 09:02:38 07/07/20 24 07/07/2024 Gluco se [Mass /volu me] in Arter ial blood glucose [mass/volume ] in capillary blood by glucometer 100 mg/dL low: 70mg/d Lhigh: 99mg/d L high Gluco se WB/PO C 100 (H) 70 - 99 mg/dL 07/07 12:36 AM TRANSPORTATION SALES CONSULTANT [facility] Not Available Not Available 10/08/2024 09:02:38 07/07/20 24 07/07/2024 Gluco se [Mass /volu me] in Arter ial blood specimen source identified Cap Finger stick Speci men Type Cap Finge rstic k 07/07 12:36 AM TRANSPORTATION SALES CONSULTANT [facility] Not Available Not Available 10/08/2024 09:02:38 07/07/20 24 07/07/2024 Gluco se [Mass /volu me] in Arter ial blood interpretati on and review of laboratory results Abnorm al Not Available Not Available 09:02:38 07/08/20 24 07/08/2024 Gluco se [Mass /volu me] in Arter ial blood glucose [mass/volume ] in capillary blood by glucometer 126 mg/dL low: 70mg/d Lhigh: 99mg/d L high Gluco se WB/PO C 126 (H) 70 - 99 mg/dL 07/08 5:57 PM TRANSPORTATION SALES CONSULTANT [facility] Not Available Not Available 10/08/2024 09:02:39 07/08/20 24 07/08/2024 Gluco se [Mass /volu me] in Arter ial blood specimen source identified Cap Finger stick Speci men Type Cap Finge rstic k 07/08 5:57 PM TRANSPORTATION SALES CONSULTANT [facility] Not Available Not Available 10/08/2024 09:02:39 07/08/20 24 07/08/2024 Gluco se [Mass /volu me] in Arter ial blood interpretati on and review of laboratory results Abnorm al Not Available Not Available 09:02:39 07/08/20 24 07/08/2024 Methi cilli n resis tant Staph yloco ccus aureu s (MRSA ) DNA [Pres ence] in Speci men by [facility] with probe detec tion methicillin resistant staphylococc us aureus (MRSA) DNA [presence] in specimen by [facility] with probe detection Not detect ed text: not detect ed MRSA DNA by PCR Not detec delaney Not detec delaney 07/08 9:58 PM TRANSPORTATION SALES CONSULTANT [facility] Not Available Not Available 08/22/2024 13:38:58 07/08/20 24 07/08/2024 Methi cilli n resis tant Staph yloco ccus aureu s (MRSA ) DNA [Pres ence] in Speci men by [facility] with probe detec tion Unknown Analyte Methic illin- resist ant Staphy lococc us aureus (MRSA) DNA is not detect ed (presu med not coloni zed with MRSA). Methi cilli n-res istan t Staph yloco ccus aureu s (MRSA ) DNA is not detec delaney (pres umed not colon ized with MRSA) . Not Available Not Available 08/22/2024 13:38:58 07/08/20 24 07/08/2024 Methi cilli n resis tant Staph yloco ccus aureu s (MRSA ) DNA [Pres ence] in Speci men by [facility] with probe detec tion interpretati on and review of laboratory results Normal Not Available Not Available 08/11 13:38:58 07/08/20 24 07/08/2024 Gluco se [Mass /volu me] in Arter ial blood glucose [mass/volume ] in capillary blood by glucometer 138 mg/dL low: 70mg/d Lhigh: 99mg/d L high Gluco se WB/PO C 138 (H) 70 - 99 mg/dL 07/08 1:37 PM TRANSPORTATION SALES CONSULTANT [facility] Not Available Not Available 10/08/2024 09:02:39 07/08/20 24 07/08/2024 Gluco se [Mass /volu me] in Arter ial blood specimen source identified Cap Finger stick Speci men Type Cap Finge rstic k 07/08 1:37 PM TRANSPORTATION SALES CONSULTANT [facility] Not Available Not Available 10/08/2024 09:02:39 07/08/20 24 07/08/2024 Gluco se [Mass /volu me] in Arter ial blood interpretati on and review of laboratory results Abnorm al Not Available Not Available 09:02:39 07/08/20 24 07/08/2024 Basic metab olic 2000 panel - Serum or Plasm a urea nitrogen [mass/volume ] in serum or plasma 25 mg/dL low: 7mg/dL high: 26mg/d L BUN 25 7 - 26 mg/dL 07/08 7:49 AM TRANSPORTATION SALES CONSULTANT [facility] Not Available Not Available 10/08/2024 09:02:38 07/08/20 24 07/08/2024 Basic metab olic 1999 panel - Serum or Plasm a creatinine [mass/volume ] in serum or plasma 1.16 mg/dL low: 0.71mg /dLhig h: 1.16mg /dL Creat inine 1.16 0.71 - 1.16 mg/dL 07/08 7:49 AM TRANSPORTATION SALES CONSULTANT [facility] Not Available Not Available 10/08/2024 09:02:38 07/08/20 24 07/08/2024 Basic metab olic 1999 panel - Serum or Plasm a sodium [moles/volum e] in serum or plasma 140 mmol/ L low: 136mmo l/Lhig h: 145mmo l/L Sodiu m 140 136 - 145 mmol/ L 07/08 7:49 AM [facility] Not Available Not Available 10/08/2024 09:02:38 07/08/20 24 07/08/2024 Basic metab olic 1999 panel - Serum or Plasm a potassium [moles/volum e] in serum or plasma 4.6 mmol/ L low: 3.5mmo l/Lhig h: 4.5mmo l/L high Potas sium 4.6 (H) 3.5 - 4.5 mmol/ L 07/08 7:49 AM [facility] Not Available Not Available 10/08/2024 09:02:38 07/08/20 24 07/08/2024 Basic metab olic 1999 panel - Serum or Plasm a chloride [moles/volum e] in serum or plasma 106 mmol/ L low: 98mmol /Lhigh : 107mmo l/L Chlor stalin 106 98 - 107 mmol/ L 07/08 7:49 AM [employer] [facility] Not Available Not Available 10/08/2024 09:02:38 07/08/20 24 07/08/2024 Basic metab olic 2000 panel - Serum or Plasm a carbon dioxide, total [moles/volum e] in serum or plasma 26 mmol/ L low: 22mmol /Lhigh : 29mmol /L CO2 26 22 - 29 mmol/ L 07/08 7:49 AM [employer] [facility] Not Available Not Available 10/08/2024 09:02:38 07/08/20 24 07/08/2024 Basic metab olic 2000 panel - Serum or Plasm a glucose [mass/volume ] in serum or plasma 89 mg/dL low: 70mg/d Lhigh: 99mg/d L Gluco se 89 70 - 99 mg/dL 07/08 7:49 AM [employer] [facility] Not Available Not Available 10/08/2024 09:02:38 07/08/20 24 07/08/2024 Basic metab olic 1999 panel - Serum or Plasm a calcium [moles/volum e] in serum or plasma 9.4 mg/dL low: 8.4mg/ dLhigh : 10.2mg /dL Calci um 9.4 8.4 - 10.2 mg/dL 07/08 7:49 AM [employer] [facility] Not Available Not Available 10/08/2024 09:02:38 07/08/20 24 07/08/2024 Basic metab olic 1999 panel - Serum or Plasm a anion gap 8 low: 6high: 16 Anion Gap 8 6 - 16 07/08 7:49 AM [employer] SALES [employer] [facility] Not Available Not Available 10/08/2024 09:02:38 07/08/20 24 07/08/2024 Basic metab olic 2000 panel - Serum or Plasm a urea nitrogen/cre atinine [mass ratio] in serum or plasma 22 low: 7high: 23 BUN/C reati nine Ratio 22 7 - 23 07/08 7:49 AM [employer] SALES [employer] [facility] Not Available Not Available 10/08/2024 09:02:38 07/08/20 24 07/08/2024 Basic metab olic 1999 panel - Serum or Plasm a osmolality calculated 294 text: 275 - 295 mOsm/k g Osmol danny [place] lated 294 275 - 295 mOsm/ kg 07/08 7:49 AM [employer]SP[employer]ATION SALES CONSULTANT [facility] Not Available Not Available 10/08/2024 09:02:38 07/08/20 24 07/08/2024 Basic metab olic 2000 panel - Serum or Plasm a glomerular filtration rate [volume rate/area] in serum, plasma or blood by creatinine-b ased formula (CKD-epi 2020)/1.73 sq M 73 text: >=90 mL/min /1.73 m2 low eGFR by CKD-E PI 73 (L) >=90 mL/mi n/1.7 3 m2 07/08 7:49 AM [employer]SP[employer]ATION SALES CONSULTANT [facility] Not Available Not Available 10/08/2024 09:02:38 07/08/20 24 07/08/2024 Basic metab olic 2000 panel - Serum or Plasm a interpretati on and review of laboratory results Abnorm al Not Available Not Available 09:02:38 07/08/20 24 07/08/2024 CBC W Auto Diffe renti al panel - Blood leukocytes [#/volume] in blood by automated count 10.7 text: 4.0 - 10.7 x10e9/ L WBC 10.7 4.0 - 10.7 x10E9 /L 07/08 7:29 AM [employer]SP[employer] SALES CONS[employer] [facility] Not Available Not Available 08/22/2024 13:38:57 07/08/20 24 07/08/2024 CBC W Auto Diffe renti al panel - Blood erythrocytes [#/volume] in blood by automated count 3.84 text: 4.30 - 5.80 x10e12 /L low RBC Count 3.84 (L) 4.30 - 5.80 x10E1 2/L 07/08 7:29 AM [employer]SP[employer] SALES CONS[employer] [facility] Not Available Not Available 08/22/2024 13:38:57 07/08/20 24 07/08/2024 CBC W Auto Diffe renti al panel - Blood hemoglobin [mass/volume ] in blood 11.7 g/dL low: 13.3g/ dLhigh : 17.5g/ dL low Hemog lobin 11.7 (L) 13.3 - 17.5 g/dL 07/08 7:29 AM [facility] Not Available Not Available 08/22/2024 13:38:57 07/08/20 24 07/08/2024 CBC W Auto Diffe renti al panel - Blood hematocrit [volume fraction] of blood by automated count 35.4 % low: 38.7%h igh: 51.1% low Hemat ocrit 35.4 (L) 38.7 - 51.1 % 07/08 7:29 AM [facility] Not Available Not Available 08/22/2024 13:38:57 07/08/20 24 07/08/2024 CBC W Auto Diffe vignesh al panel - Blood MCV [entitic volume] by automated count 92.2 fL low: 80fLhi gh: 98fL MCV 92.2 80.0 - 98.0 fL 07/08 7:29 AM [facility] Not Available Not Available 08/22/2024 13:38:57 07/08/20 24 07/08/2024 CBC W Auto Diffe vignesh al panel - Blood MCH [entitic mass] by automated count 30.5 pg low: 26.7pg high: 33.6pg MCH 30.5 26.7 - 33.6 pg 07/08 7:29 AM [facility] Not Available Not Available 08/22/2024 13:38:57 07/08/20 24 07/08/2024 CBC W Auto Diffe vignesh al panel - Blood MCHC [mass/volume ] by automated count 33.1 g/dL low: 31.7g/ dLhigh : 36.3g/ dL MCHC 33.1 31.7 - 36.3 g/dL 07/08 7:29 AM [facility] Not Available Not Available 08/22/2024 13:38:57 07/08/20 24 07/08/2024 CBC W Auto Diffe vignesh al panel - Blood erythrocyte distribution width [ratio] by automated count 14.3 % low: 11.3%h igh: 14.8% RDW-C V 14.3 11.3 - 14.8 % 07/08 7:29 AM [facility] Not Available Not Available 08/22/2024 13:38:57 07/08/20 24 07/08/2024 CBC W Auto Diffe vignesh al panel - Blood platelets [#/volume] in blood by automated count 482 text: 150 - 420 x10e9/ L high Plate let Count 482 (H) 150 - 420 x10E9 /L 07/08 7:29 AM [facility] Not Available Not Available 08/22/2024 13:38:57 07/08/20 24 07/08/2024 CBC W Auto Diffe renti al panel - Blood platelet mean volume [entitic volume] in blood by automated count 8.6 fL low: 7.8fLh igh: 11.4fL MPV 8.6 7.8 - 11.4 fL 07/08 7:29 AM [facility] Not Available Not Available 08/22/2024 13:38:57 07/08/20 24 07/08/2024 CBC W Auto Diffe renti al panel - Blood neutrophils/ 100 leukocytes in blood by automated count 66.6 % low: 41%hig h: 74% Neutr ophil % 66.6 41.0 - 74.0 % 07/08 7:29 AM [facility] Not Available Not Available 08/22/2024 13:38:57 07/08/20 24 07/08/2024 CBC W Auto Diffe renti al panel - Blood lymphocytes/ 100 leukocytes in blood by automated count 16.9 % low: 17%hig h: 47% low Lymph ocyte % 16.9 (L) 17.0 - 47.0 % 07/08 7:29 AM [facility] Not Available Not Available 08/22/2024 13:38:57 07/08/20 24 07/08/2024 CBC W Auto Diffe renti al panel - Blood monocytes/10 0 leukocytes in blood by automated count 5.9 % low: 3%high : 11% Monoc yte % 5.9 3.0 - 11.0 % 07/08 7:29 AM [facility] Not Available Not Available 08/22/2024 13:38:57 07/08/20 24 07/08/2024 CBC W Auto Diffe renti al panel - Blood eosinophils/ 100 leukocytes in blood by automated count 8.4 % low: 0%high : 7% high Eosin ophil % 8.4 (H) 0.0 - 7.0 % 07/08 7:29 AM [employer]SP[employer] SALES CONSULTANT [facility] Not Available Not Available 08/22/2024 13:38:57 07/08/20 24 07/08/2024 CBC W Auto Diffe renti al panel - Blood basophils/10 0 leukocytes in blood by automated count 0.7 % low: 0%high : 1.6% Basop hil % 0.7 0.0 - 1.6 % 07/08 7:29 AM [employer]SP[employer]ATION SALES CONSULTANT [facility] Not Available Not Available 08/22/2024 13:38:57 07/08/20 24 07/08/2024 CBC W Auto Diffe renti al panel - Blood immature granulocytes /100 leukocytes in blood by automated count 1.5 % low: 0%high : 1% high Immat ure Granu locyt es % 1.5 (H) 0.0 - 1.0 % 07/08 7:29 AM [employer]SP[employer] SALES CONSULTANT [facility] Not Available Not Available 08/22/2024 13:38:57 07/08/20 24 07/08/2024 CBC W Auto Diffe renti al panel - Blood neutrophils [#/volume] in blood by automated count 7.1 text: 1.60 - 7.50 x10e9/ L Neutr ophil Absol [place] 7.10 1.60 - 7.50 x10E9 /L 07/08 7:29 AM [employer]SP[employer]ATION SALES CONSULTANT [facility] Not Available Not Available 08/22/2024 13:38:57 07/08/20 24 07/08/2024 CBC W Auto Diffe renti al panel - Blood lymphocytes [#/volume] in blood by automated count 1.8 text: 1.00 - 4.40 x10e9/ L Lymph ocyte Absol [place] 1.80 1.00 - 4.40 x10E9 /L 07/08 7:29 AM TRANSPORTATION SALES CONSULTANT [facility] Not Available Not Available 08/22/2024 13:38:57 07/08/20 24 07/08/2024 CBC W Auto Diffe renti al panel - Blood monocytes [#/volume] in blood by automated count 0.63 text: 0.15 - 1.00 x10e9/ L Monoc yte Absol [place] 0.63 0.15 - 1.00 x10E9 /L 07/08 7:29 AM TRANSP[employer]ATION SALES CONSULTANT [facility] Not Available Not Available 08/22/2024 13:38:57 07/08/20 24 07/08/2024 CBC W Auto Diffe renti al panel - Blood eosinophils [#/volume] in blood 0.9 text: 0.00 - 0.60 x10e9/ L high Eosin ophil Absol [place] 0.90 (H) 0.00 - 0.60 x10E9 /L 07/08 7:29 AM TRANSPORTATION SALES CONSULTANT [facility] Not Available Not Available 08/22/2024 13:38:57 07/08/20 24 07/08/2024 CBC W Auto Diffe renti al panel - Blood basophils [#/volume] in blood by automated count 0.08 text: 0.00 - 0.13 x10e9/ L Basop hil Absol [place] 0.08 0.00 - 0.13 x10E9 /L 07/08 7:29 AM [employer]SP[employer]ATION SALES CONSULTANT [facility] Not Available Not Available 08/22/2024 13:38:57 07/08/20 24 07/08/2024 CBC W Auto Diffe renti al panel - Blood interpretati on and review of laboratory results Abnorm al Not Available Not Available 13:38:57 07/08/20 24 07/08/2024 Phosp hate [Mass /volu me] in Serum or Plasm a phosphate [mass/volume ] in serum or plasma 3.1 mg/dL low: 2.8mg/ dLhigh : 5.1mg/ dL Phosp horus 3.1 2.8 - 5.1 mg/dL 07/08 7:49 AM [employer]SP[employer]ATION SALES CONSULTANT [facility] Not Available Not Available 08/22/2024 13:38:57 07/08/20 24 07/08/2024 Phosp hate [Mass /volu me] in Serum or Plasm a interpretati on and review of laboratory results Normal Not Available Not Available 08/11 13:38:57 07/08/20 24 07/08/2024 Magne sium [Mass /volu me] in Serum or Plasm a magnesium [mass/volume ] in serum or plasma 2.2 mg/dL low: 1.6mg/ dLhigh : 2.6mg/ dL Magne sium 2.2 1.6 - 2.6 mg/dL 07/08 7:49 AM TRANSPORTATION SALES CONSULTANT [facility] Not Available Not Available 08/22/2024 13:38:57 07/08/20 24 07/08/2024 Magne sium [Mass /volu me] in Serum or Plasm a interpretati on and review of laboratory results Normal Not Available Not Available 08/11 13:38:57 07/08/20 24 07/08/2024 Gluco se [Mass /volu me] in Arter ial blood glucose [mass/volume ] in capillary blood by glucometer 101 mg/dL low: 70mg/d Lhigh: 99mg/d L high Gluco se WB/PO C 101 (H) 70 - 99 mg/dL 07/08 5:38 AM [employer]SP[employer]ATION SALES CONSULT[employer] [facility] Not Available Not Available 10/08/2024 09:02:38 07/08/20 24 07/08/2024 Gluco se [Mass /volu me] in Arter ial blood specimen source identified Arteri al Speci men Type Arter ial 07/08 5:38 AM [employer]SP[employer] SALES CONSULTANT [facility] Not Available Not Available 10/08/2024 09:02:38 07/08/20 24 07/08/2024 Gluco se [Mass /volu me] in Arter ial blood interpretati on and review of laboratory results Abnorm al Not Available Not Available 09:02:38 07/08/20 24 07/08/2024 Gluco se [Mass /volu me] in Arter ial blood glucose [mass/volume ] in capillary blood by glucometer 98 mg/dL low: 70mg/d Lhigh: 99mg/d L Gluco se WB/PO C 98 70 - 99 mg/dL 07/08 9:15 PM [employer]SP[employer]ATION SALES CONSULT[employer] [facility] Not Available Not Available 10/08/2024 09:02:38 07/08/20 24 07/08/2024 Gluco se [Mass /volu me] in Arter ial blood specimen source identified Arteri al Speci men Type Arter ial 07/08 9:15 PM [employer]SPORTATION SALES CONSULTANT [facility] Not Available Not Available 10/08/2024 09:02:38 07/09/20 24 07/09/2024 Gluco se [Mass /volu me] in Arter ial blood glucose [mass/volume ] in capillary blood by glucometer 98 mg/dL low: 70mg/d Lhigh: 99mg/d L Gluco se WB/PO C 98 70 - 99 mg/dL 07/09 5:56 AM TRANSPORTATION SALES CONSULTANT [facility] Not Available Not Available 08/22/2024 13:38:58 07/09/20 24 07/09/2024 Gluco se [Mass /volu me] in Arter ial blood specimen source identified Cap Finger stick Speci men Type Cap Finge rstic k 07/09 5:56 AM [employer]SP[employer]ATION SALES CONSULTANT [facility] Not Available Not Available 08/22/2024 13:38:58 07/09/20 24 07/09/2024 CBC panel - Blood by Autom ated count leukocytes [#/volume] in blood by automated count 9.6 text: 4.0 - 10.7 x10e9/ L WBC 9.6 4.0 - 10.7 x10E9 /L 07/09 4:41 AM [employer]SPORTATION SALES CONSULTANT [facility] Not Available Not Available 10/08/2024 09:02:39 07/09/20 24 07/09/2024 CBC panel - Blood by Autom ated count erythrocytes [#/volume] in blood by automated count 3.73 text: 4.30 - 5.80 x10e12 /L low RBC Count 3.73 (L) 4.30 - 5.80 x10E1 2/L 07/09 4:41 AM [employer]SPORTATION SALES CONSULTANT [facility] Not Available Not Available 10/08/2024 09:02:39 07/09/20 24 07/09/2024 CBC panel - Blood by Autom ated count hemoglobin [mass/volume ] in blood 11.6 g/dL low: 13.3g/ dLhigh : 17.5g/ dL low Hemog lobin 11.6 (L) 13.3 - 17.5 g/dL 07/09 4:41 AM [facility] Not Available Not Available 10/08/2024 09:02:39 07/09/20 24 07/09/2024 CBC panel - Blood by Autom ated count hematocrit [volume fraction] of blood by automated count 34.7 % low: 38.7%h igh: 51.1% low Hemat ocrit 34.7 (L) 38.7 - 51.1 % 07/09 4:41 AM [facility] Not Available Not Available 10/08/2024 09:02:39 07/09/20 24 07/09/2024 CBC panel - Blood by Autom ated count MCV [entitic mean volume] in red blood cells by automated count 93 fL low: 80fLhi gh: 98fL MCV 93.0 80.0 - 98.0 fL 07/09 4:41 AM [facility] Not Available Not Available 10/08/2024 09:02:39 07/09/20 24 07/09/2024 CBC panel - Blood by Autom ated count MCH [entitic mass] by automated count 31.1 pg low: 26.7pg high: 33.6pg MCH 31.1 26.7 - 33.6 pg 07/09 4:41 AM [facility] Not Available Not Available 10/08/2024 09:02:39 07/09/20 24 07/09/2024 CBC panel - Blood by Autom ated count MCHC [entitic mass/volume] in red blood cells by automated count 33.4 g/dL low: 31.7g/ dLhigh : 36.3g/ dL MCHC 33.4 31.7 - 36.3 g/dL 07/09 4:41 AM [facility] Not Available Not Available 10/08/2024 09:02:39 07/09/20 24 07/09/2024 CBC panel - Blood by Autom ated count erythrocyte [distwidth] in red blood cells by automated count 14.2 % low: 11.3%h igh: 14.8% RDW-C V 14.2 11.3 - 14.8 % 07/09 4:41 AM [facility] Not Available Not Available 10/08/2024 09:02:39 07/09/20 24 07/09/2024 CBC panel - Blood by Autom ated count platelets [#/volume] in blood by automated count 429 text: 150 - 420 x10e9/ L high Plate let Count 429 (H) 150 - 420 x10E9 /L 07/09 4:41 AM [facility] Not Available Not Available 10/08/2024 09:02:39 07/09/20 24 07/09/2024 CBC panel - Blood by Autom ated count platelet [entitic mean volume] in blood by automated count 8.3 fL low: 7.8fLh igh: 11.4fL MPV 8.3 7.8 - 11.4 fL 07/09 4:41 AM [facility] Not Available Not Available 10/08/2024 09:02:39 07/09/20 24 07/09/2024 CBC panel - Blood by Autom ated count interpretati on and review of laboratory results Abnorm al Not Available Not Available 09:02:39 07/09/20 24 07/09/2024 Gluco se [Mass /volu me] in Arter ial blood glucose [mass/volume ] in capillary blood by glucometer 104 mg/dL low: 70mg/d Lhigh: 99mg/d L high Gluco se WB/PO C 104 (H) 70 - 99 mg/dL 07/08 11:28 PM [facility] Not Available Not Available 10/08/2024 09:02:39 07/09/20 24 07/09/2024 Gluco se [Mass /volu me] in Arter ial blood specimen source identified Cap Finger stick Speci men Type Cap Finge rstic k 07/08 11:28 PM [facility] Not Available Not Available 10/08/2024 09:02:39 07/09/20 24 07/09/2024 Gluco se [Mass /volu me] in Arter ial blood interpretati on and review of laboratory results Abnorm al Not Available Not Available 09:02:39 07/10/20 24 07/10/2024 CBC panel - Blood by Autom ated count leukocytes [#/volume] in blood by automated count 10 text: 4.0 - 10.7 x10e9/ L WBC 10.0 4.0 - 10.7 x10E9 /L 07/10 5:25 AM TRANSPORTATION SALES CONSULTANT [facility] Not Available Not Available 08/22/2024 13:38:57 07/10/20 24 07/10/2024 CBC panel - Blood by Autom ated count erythrocytes [#/volume] in blood by automated count 4.03 text: 4.30 - 5.80 x10e12 /L low RBC Count 4.03 (L) 4.30 - 5.80 x10E1 2/L 07/10 5:25 AM [employer]SPORTATION SALES CONSULTANT [facility] Not Available Not Available 08/22/2024 13:38:57 07/10/20 24 07/10/2024 CBC panel - Blood by Autom ated count hemoglobin [mass/volume ] in blood 12.4 g/dL low: 13.3g/ dLhigh : 17.5g/ dL low Hemog lobin 12.4 (L) 13.3 - 17.5 g/dL 07/10 5:25 AM TRANSPORTATION SALES CONSULTANT [facility] Not Available Not Available 08/22/2024 13:38:57 07/10/20 24 07/10/2024 CBC panel - Blood by Autom ated count hematocrit [volume fraction] of blood by automated count 37.4 % low: 38.7%h igh: 51.1% low Hemat ocrit 37.4 (L) 38.7 - 51.1 % 07/10 5:25 AM [facility] Not Available Not Available 08/22/2024 13:38:57 07/10/20 24 07/10/2024 CBC panel - Blood by Autom ated count MCV [entitic volume] by automated count 92.8 fL low: 80fLhi gh: 98fL MCV 92.8 80.0 - 98.0 fL 07/10 5:25 AM [facility] Not Available Not Available 08/22/2024 13:38:57 07/10/20 24 07/10/2024 CBC panel - Blood by Autom ated count MCH [entitic mass] by automated count 30.8 pg low: 26.7pg high: 33.6pg MCH 30.8 26.7 - 33.6 pg 07/10 5:25 AM [facility] Not Available Not Available 08/22/2024 13:38:57 07/10/20 24 07/10/2024 CBC panel - Blood by Autom ated count MCHC [mass/volume ] by automated count 33.2 g/dL low: 31.7g/ dLhigh : 36.3g/ dL MCHC 33.2 31.7 - 36.3 g/dL 07/10 5:25 AM [facility] Not Available Not Available 08/22/2024 13:38:57 07/10/20 24 07/10/2024 CBC panel - Blood by Autom ated count erythrocyte distribution width [ratio] by automated count 13.9 % low: 11.3%h igh: 14.8% RDW-C V 13.9 11.3 - 14.8 % 07/10 5:25 AM [facility] Not Available Not Available 08/22/2024 13:38:57 07/10/20 24 07/10/2024 CBC panel - Blood by Autom ated count platelets [#/volume] in blood by automated count 511 text: 150 - 420 x10e9/ L high Plate let Count 511 (H) 150 - 420 x10E9 /L 07/10 5:25 AM [facility] Not Available Not Available 08/22/2024 13:38:57 07/10/2007/10/2024 CBC panel - Blood by Autom ated count platelet mean volume [entitic volume] in blood by automated count 8.2 fL low: 7.8fLh igh: 11.4fL MPV 8.2 7.8 - 11.4 fL 07/10 5:25 AM [facility] Not Available Not Available 08/22/2024 13:38:57 07/10/20 24 07/10/2024 CBC panel - Blood by Autom ated count interpretati on and review of laboratory results Abnorm al Not Available Not Available 13:38:57 07/10/20 24 07/10/2024 Basic metab olic 1999 panel - Serum or Plasm a urea nitrogen [mass/volume ] in serum or plasma 29 mg/dL low: 7mg/dL high: 26mg/d L high BUN 29 (H) 7 - 26 mg/dL 07/10 5:44 AM [employer] SALES [employer] [facility] Not Available Not Available 08/22/2024 13:38:57 07/10/20 24 07/10/2024 Basic metab olic 1999 panel - Serum or Plasm a creatinine [mass/volume ] in serum or plasma 1.32 mg/dL low: 0.71mg /dLhig h: 1.16mg /dL high Creat inine 1.32 (H) 0.71 - 1.16 mg/dL 07/10 5:44 AM [employer]SP[employer] SALES CONS[employer] [facility] Not Available Not Available 08/22/2024 13:38:57 07/10/20 24 07/10/2024 Basic metab olic 1999 panel - Serum or Plasm a sodium [moles/volum e] in serum or plasma 140 mmol/ L low: 136mmo l/Lhig h: 145mmo l/L Sodiu m 140 136 - 145 mmol/ L 07/10 5:44 AM [employer] SALES CONS[employer] [facility] Not Available Not Available 08/22/2024 13:38:57 07/10/20 24 07/10/2024 Basic metab olic 1999 panel - Serum or Plasm a potassium [moles/volum e] in serum or plasma 4.5 mmol/ L low: 3.5mmo l/Lhig h: 4.5mmo l/L Potas sium 4.5 3.5 - 4.5 mmol/ L 07/10 5:44 AM [employer] SALES CONS[employer] [facility] Not Available Not Available 08/22/2024 13:38:57 07/10/20 24 07/10/2024 Basic metab olic 2000 panel - Serum or Plasm a chloride [moles/volum e] in serum or plasma 104 mmol/ L low: 98mmol /Lhigh : 107mmo l/L Chlor stalin 104 98 - 107 mmol/ L 07/10 5:44 AM [facility] Not Available Not Available 08/22/2024 13:38:57 07/10/20 24 07/10/2024 Basic metab olic 1999 panel - Serum or Plasm a carbon dioxide, total [moles/volum e] in serum or plasma 26 mmol/ L low: 22mmol /Lhigh : 29mmol /L CO2 26 22 - 29 mmol/ L 07/10 5:44 AM [employer] SALES CONS[employer] [facility] Not Available Not Available 08/22/2024 13:38:57 07/10/20 24 07/10/2024 Basic metab olic 1999 panel - Serum or Plasm a glucose [mass/volume ] in serum or plasma 74 mg/dL low: 70mg/d Lhigh: 99mg/d L Gluco se 74 70 - 99 mg/dL 07/10 5:44 AM [facility] Not Available Not Available 08/22/2024 13:38:57 07/10/20 24 07/10/2024 Basic metab olic 1999 panel - Serum or Plasm a calcium [moles/volum e] in serum or plasma 9.6 mg/dL low: 8.4mg/ dLhigh : 10.2mg /dL Calci um 9.6 8.4 - 10.2 mg/dL 07/10 5:44 AM [facility] Not Available Not Available 08/22/2024 13:38:57 07/10/20 24 07/10/2024 Basic metab olic 1999 panel - Serum or Plasm a anion gap 10 low: 6high: 16 Anion Gap 10 6 - 16 07/10 5:44 AM [facility] Not Available Not Available 08/22/2024 13:38:57 07/10/20 24 07/10/2024 Basic metab olic 1999 panel - Serum or Plasm a urea nitrogen/cre atinine [mass ratio] in serum or plasma 22 low: 7high: 23 BUN/C reati nine Ratio 22 7 - 23 07/10 5:44 AM [employer]SP[employer] SALES CONS[employer] [facility] Not Available Not Available 08/22/2024 13:38:57 07/10/20 24 07/10/2024 Basic metab olic 2000 panel - Serum or Plasm a osmolality calculated 294 text: 275 - 295 mOsm/k g Osmol danny Tai lated 294 275 - 295 mOsm/ kg 07/10 5:44 AM [employer]SP[employer] SALES CONS[employer] [facility] Not Available Not Available 08/22/2024 13:38:57 07/10/20 24 07/10/2024 Basic metab olic 2000 panel - Serum or Plasm a glomerular filtration rate/1.73 sq M.predicted [volume rate/area] in serum, plasma or blood by creatinine-b ased formula (CKD-epi 2020) 63 text: >=90 mL/min /1.73 m2 low eGFR by CKD-E PI 63 (L) >=90 mL/mi n/1.7 3 m2 07/10 5:44 AM [employer]SP[employer] SALES CONSULT[employer] [facility] Not Available Not Available 08/22/2024 13:38:57 07/10/20 24 07/10/2024 Basic metab olic 2000 panel - Serum or Plasm a interpretati on and review of laboratory results Abnorm al Not Available Not Available 13:38:57 07/19/19 25 07/19/2024 Creat inine [Mass /volu me] in Blood creatinine [mass/volume ] in blood 1.3 mg/dL low: 0.6mg/ dLhigh : 1.3mg/ dL CREAT ININE - POCT 1.3 0.6 - 1.3 mg/dL 07/19 10:05 AM [employer] [facility] Not Available Not Available 08/22/2024 13:38:53 07/19/19 25 07/19/2024 Creat inine [Mass /volu me] in Blood interpretati on and review of laboratory results Normal Not Available Not Available 08/11 13:38:53 09/29/19 25 09/28/2024 Creat inine [Mass /volu me] in Blood creatinine [mass/volume ] in blood 1 mg/dL low: 0.3mg/ dLhigh : 1.3mg/ dL Creat inine POCT 1.00 0.30 - 1.30 mg/dL 09/28 12:53 PM CDT [facility] Not Available Not Available 10/08/2024 09:01:45 09/29/1909/28/2024 Creat inine [Mass /volu me] in Blood glomerular filtration rate [volume rate/area] in serum, plasma or blood by creatinine-b ased formula (CKD-epi 2020)/1.73 sq M 88 text: >=90 mL/min /1.73 m2 low eGFR 88 (L) >=90 mL/mi n/1.7 3 m2 09/28 12:53 PM CDT [facility] Not Available Not Available 10/08/2024 09:01:45 09/29/1909/28/2024 Creat inine [Mass /volu me] in Blood interpretati on and review of laboratory results Abnorm al Not Available Not Available 09:01:45 Result Notes None recorded. 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, [place], [address], [facility] 6 00:16:11 Problem Notes None recorded. Procedures Surgical History Date Name Laterality Status Provider Name and Address Organization Details Recorded Time Laryngoscopy with biopsy completed Lydia Harden MA [facility] 06/01/2024 15:51:40 Imaging Results None recorded. Procedure Notes None recorded. Medical Equipment None Reported. Allergies No known drug allergies Medications Name Sig Start Date Stop Date Status Note LastModified by Organization Details LastModified Time amoxicill in 500 mg capsule Take 1 capsule 3 times a day by oral route for 10 days. 09/17 completed Not Available Not Available Not Available Carafate 100 mg/mL oral suspensio n 09/05 completed Not Available Not Available Not Available clindamyc in HCl 300 mg capsule active Not Available Not Available Not Available azithromy sasha 250 mg tablet 04/10 completed Not Available Not Available Not Available aspirin 325 mg tablet Take 1 tablet every day by oral route. 10/23 completed Pt. stopped taking. 10/23/24 Not Available Not Available Not Available fluconazo le 150 mg tablet TAKE 1 TABLET BY MOUTH ONCE DAILY 10/23 completed Not Available Not Available Not Available benzonata te 200 mg capsule TAKE 1 CAPSULE BY MOUTH THREE TIMES DAILY FOR 10 DAYS 05/28 completed Not Available Not Available Not Available hydrocodo ne 5 mg-acetam inophen 325 mg tablet active Not Available Not Available Not Available senna 8.6 mg tablet TAKE 1 TABLET BY MOUTH TWICE DAILY NEEDED FOR CONSTIPA TION 10/23 completed PRN Not Available Not Available Not Available ondansetr on HCl 8 mg tablet TAKE 1 TABLET BY MOUTH TWICE DAILY NEEDED 10/12 completed Not Available Not Available Not Available prednison e 20 mg tablet TAKE 3 TABLETS BY MOUTH DAILY FOR 5 DAYS 04/08 completed Not Available Not Available Not Available Debrox 6.5 % ear drops INSTILL 5 DROPS INTO AFFECTED EAR(S) BY OTIC ROUTE 2 TIMES PER DAY FOR 5 DAYS 08/21 completed Not Available Not Available Not Available omeprazol e 40 mg capsule,d elayed release 09/05 completed Not Available Not Available Not Available amoxicill in 500 mg tablet Take 1 tablet 3 times a day by oral route. 07/07 completed Not Available Not Available Not Available acetamino phen ER 650 mg tablet,ex tended release Take 1 tablet 3 times a day by oral route as needed. 10/12 completed Not Available Not Available Not Available levothyro xine 100 mcg tablet TAKE 1 TABLET BY MOUTH EVERY DAY 2024 active Not Available Not Available Not Avai lable baclofen 10 mg tablet Take 1 tablet 3 times a day by oral route as needed for 30 days. 10/23 completed PRN Not Available Not Available Not Available benzonata te 100 mg capsule TAKE 1 CAPSULE BY MOUTH THREE TIMES DAILY FOR 10 DAYS 04/10 completed Not Available Not Available Not Available doxycycli ne monohydra te 100 mg capsule Take 1 capsule twice a day by oral route for 10 days. 04/26 completed Not Available Not Available Not Available losartan 25 mg tablet TAKE 1 TABLET BY MOUTH EVERY DAY 10/23 completed Not Available Not Available Not Available gabapenti n 300 mg capsule 07/07 completed Not Available Not Available Not Available codeine 10 mg-guaife nesin 100 mg/5 mL oral liquid TAKE 10 ML BY MOUTH FOUR TIMES DAILY NEEDED 05/28 completed Not Available Not Available Not Available ibuprofen 600 mg tablet TAKE 1 TABLET BY MOUTH EVERY 6 HOURS NEEDED FOR PAIN 10/23 completed Not Available Not Available Not Available polyethyl suzy glycol 3350 17 gram/dose oral powder 09/05 completed Not Available Not Available Not Available oxycodone -acetamin ophen 7.5 mg-325 mg tablet active Not Available Not Available Not Available levofloxa sasha 750 mg tablet TAKE 1 TABLET BY MOUTH DAILY FOR 3 DAYS 05/24 completed Not Available Not Available Not Available methylpre dnisolone 4 mg tablets in a dose pack FOLLOW PACKAGE DIRECTIO NS 05/28 completed Not Available Not Available Not Available albuterol sulfate HFA 90 mcg/actua tion aerosol inhaler INHALE 1 PUFF FOUR TIMES DAILY NEEDED 10/23 completed PT. stopped taking 10/23/24 Not Available Not Available Not Available nortripty line 50 mg capsule 07/07 completed Not Available Not Available Not Available levothyro xine 112 mcg tablet TAKE 1 TABLET BY MOUTH EVERY DAY 07/27 completed Not Available Not Available Not Available amoxicill in 875 mg-potass ium clavulana te 125 mg tablet active Not Available Not Available Not Available oxycodone 5 mg tablet 09/05 completed Not Available Not Available Not Available duloxetin e 30 mg capsule,d elayed release 09/05 completed Not Available Not Available Not Available Lyrica 150 mg capsule TAKE ONE CAPSULE BY MOUTH TWICE DAILY 09/17 completed Not Available Not Available Not Available Vitals Date Recorded Body height Body mass index (BMI) Body weight Oxygen saturation Oxygen saturation in Arterial blood by Pulse oximetry Heart rate Respiratory rate Body temperature Provider Name and Address Organization Details Last Updated DateTime 4 180.34 cm 21.4 kg/m2 62289.3 8 g 98 % 98 % 85 /min 16 /min 97.3 [degF] Nabila Saenz MA [facility] 4 13:58:44 Date Recorded Body height Body mass index (BMI) Body weight Respiratory rate Body temperature Oxygen saturation Oxygen saturation in Arterial blood by Pulse oximetry Heart rate Provider Name and Address Organization Details Last Updated DateTime 4 180.34 cm 22.2 kg/m2 86296.9 4 g 16 /min 98.5 [degF] 94 % 94 % 87 /min Lydia Harden MA [facility] 4 15:49:41 Date Recorded Systolic blood pressure Diastolic blood pressure Provider Name and Address Organization Details Last Updated DateTime 04/10/2024 150 mm[Hg] 100 mm[Hg] Bud Serrano MD Attn: [address] [place], [address], [facility] 04/10/2024 16:31:57 Date Recorded Body height Body mass index (BMI) Body weight Respiratory rate Body temperature Oxygen saturation Oxygen saturation in Arterial blood by Pulse oximetry Heart rate Systolic blood pressure Diastolic blood pressure Provider Name and Address Organization Details Last Updated DateTime 4 180.34 cm 22.6 kg/m2 50698.7 1 g 16 /min 98.9 [degF] 94 % 94 % 78 /min 155 mm[Hg] 96 mm[Hg] Lydia Harden [facility] 4 11:55:16 Date Recorded Body height Body mass index (BMI) Body weight Oxygen saturation Oxygen saturation in Arterial blood by Pulse oximetry Heart rate Respiratory rate Body temperature Systolic blood pressure Diastolic blood pressure Provider Name and Address Organization Details Last Updated DateTime 5 180.34 cm 21.1 kg/m2 68845.9 g 99 % 99 % 96 /min 16 /min 96.5 [degF] 102 mm[Hg] 72 mm[Hg] Nabila Saenz MA [facility] 5 11:59:11 Date Recorded Body height Body mass index (BMI) Body weight Oxygen saturation Oxygen saturation in Arterial blood by Pulse oximetry Heart rate Respiratory rate Body temperature Systolic blood pressure Diastolic blood pressure Provider Name and Address Organization Details Last Updated DateTime 5 180.34 cm 20.6 kg/m2 72963.2 3 g 97 % 97 % 73 /min 16 /min 97.1 [degF] 116 mm[Hg] 81 mm[Hg] Nabila Saenz MA [facility] 5 11:24:19 Social History Question Answer Notes LastModified by Organizat ion Details LastModified Time Tobacco Smoking Status Never Smoker Not Available [facility] 05/13/2020 03:39:30 Do You Have An Advance Directive? Yes Information not available 09/17/2020 What Is Your Level Of Alcohol Consumption? None Information not available 09/17/2020 Are You Blind Or Do You Have Difficulty Seeing? Yes Information not available 09/17/2020 What Is Your Level Of Caffeine Consumption? Occasional Drinks Coffee Every Know And Then Information not available 10/13/2023 In The 14 Days Before Symptom Onset, Have You Had Close Contact With A [facility] [facility] [employer] COVID-19 While That Case Was Ill? No Information not available 09/17/2020 In The 14 Days Before Symptom Onset, Have You Had Close Contact With A Person Who Is Under Investigation For COVID-19 While That Person Was Ill? No Information not available 09/17/2020 Have You Been To An Area Known To Be High Risk For COVID-19? No Information not available 09/17/2020 Are You Currently Employed? No Information not available 09/17/2020 Are You Deaf Or Do You Have Serious Difficulty Hearing? No Information not available 09/17/2020 What Type Of Diet Are You Following? REGULAR Problems With Red Meat And Bread Information not available 09/17/2020 Are There Any Guns Present In Your Home? No Information not available 09/17/2020 In The Past 7 Days, How Many Days Did You Exercise? 0 Information not available 10/13/2023 On The Days When You Exercised, How Long Did You Exercise Each Day (in Minutes)? 0 Information not available 10/13/2023 How Intense Was Your Typical Exercise? Light (stretching Or Slow Walking) Information not available 10/13/2023 In The Past 7 Days, How Much Pain Have You Walker? A Lot Information not available 10/13/2023 In General, Would You Say You Health Is: Very Good Information not available 10/13/2023 How Would You Describe The Condition Of Your Mouth And Teeth- Including False Teeth Or Dentures? Poor Information not available 10/13/2023 Each Night, How Many Hours Of Sleep Do You Get? 2 Information not available 10/13/2023 Has Anyone Ever Told You That You Snore? No Information not available 10/13/2023 In The Past 7 Days, How Often Have You Walker Sleepy In The Daytime? Always Information not available 10/13/2023 On They Days When You Drank Alcohol, How Often Did You Have 4 Or More Drinks At A Time? Never Information not available 10/13/2023 # Alcohol Drinks Per Week 0 Information not available 10/13/2023 What Was The Date Of Your Most Recent Tobacco Screening? 07/24/2024 Information not available 07/24/2024 How Many Children Do You Have? 6 Information not available 08/18/2022 What Is Your Relationship Status? Information not available 09/17/2020 Do You Use Your Seat Belt Or Car Seat Routinely? Yes Information not available 09/17/2020 Are You Sexually Active? No Information not available 09/17/2020 Do You Have Smoke And Carbon Monoxide Detectors In Your Home? Yes Information not available 09/17/2020 Are You Passively Exposed To Smoke? Yes Information not available 09/17/2020 Do You Feel Stressed (tense, Restless, Nervous, Or Anxious, Or Unable To Sleep At Night)? [id number] Information not available 09/17/2020 Do You Use Any Illicit Or Recreational Drugs? No Information not available 09/17/2020 Do You Use Sunscreen Routinely? No Information not available 09/17/2020 Has Tobacco Cessation Counseling Been Provided? No Information not available 08/18/2022 On What Date Was Tobacco Cessation Counseling Provided? 07/24/2024 Information not available 07/24/2024 Do You Or Have You Ever Used Any Other Forms Of Tobacco Or Nicotine? No Information not available 08/18/2022 Sex: Male Functional Status Question Answer Note LastModified by Organizat ion Details LastModified Time Are you able to care for yourself? Yes Information not available 09/17/2020 What is your exercise level? Occasional Information not available 09/17/2020 Mental Status None recorded. Family History Relationship Description Onset Age of this Age Resolved Age Notes LastModified by Organization Details LastModified Time Father No current problems or disability [email or web address] Not available 03/12 16:06:58 Mother No current problems or disability [email or web address] Not available 03/12 16:06:58 Maternal Uncle 95 [email or web address] Not available 024 14:00:33 Notes:No new reported 08/18/22 , 04/26/23, 04/10/24, 05/28/24, 07/24/24, 10/23/24 Medical History Condition Response Cancer Y Asthma Y Liver Disease Y Thyroid Problems Y Past Encounters Encounter ID Performer Location Encounter Start Date Encounter Closed Date Diagnosis/Indication Diagnosis SNOMED-CT Code Diagnosis ICD10 Code Diagnosis Note [id number] Bud Serrano MD [place] [address] [place] [address] 05/27/2015 15:01:30 05/28/2015 11:54:02 Hypothyroidism 04507442 E03.9 Spasm 21545498 R25.2 Neuropathy 031724611 G62 .9 [id number] Bud Serrano MD [place] [address] [place] [address] 03/17/2016 15:04:13 03/18/2016 12:41:18 Acute bronchitis 25439913 J20.9 Hypothyroidism 93184194 E03.9 History of malignant neoplasm of tongue 735667513 Z85.409 [id number] Bud Serrano MD [place] [address] [place] [address] 07/07/2016 10:02:42 07/09/2016 09:43:52 History of malignant neoplasm of tongue 474230652 Z85.810 Hypothyroidism 84795907 E03.9 Chest wall pain 04374725 6 R07.89 [id number] Bud Serrano MD [place] [address] [place] [address] 1 07/16/2016 14:12:46 07/16/2016 17:42:03 Neuropathy 395731529 G62.9 History of malignant neoplasm of tongue 798354624 Z85.810 Pt has an appointmen t with oncologist Dr. Mccracken on 07-19-16 Injury of chest wall 659 20240 S29.9XXD [id number] Bud Serrano MD [place] [address] [place] [address] 1 09/15/2016 15:20:05 09/17/2016 09:56:20 Chronic pain 61419840 G89.29 Low back pain 374142666 M54.5 Pt c/o kidney pain--rece nt CT scan in 07-27 showed normal renal imaging [id number] Bud Serrano MD [place] [address] [place] [address] 1 11/22/2016 15:58:23 11/24/2016 12:03:21 Vascular disorder 32831696 I99.9 Pt describes episodes of vomiting blood, then blood per rectum, and blood in urine--all within close time period. EGD in the past was negative; colonoscop y 3 years ago showed polyps, CT abdomen/pe lvis was negative for kidney stones on 11-11-16. [id number] Bud Serrano MD [facility] [address] [place] [address] 09/05/2017 15:03:41 09/06/2017 09:40:01 Atypical chest pain 682050611 R07.89 Impacted cerumen 1972750 6 H61.22 [id number] MD [facility] [address] [facility] [place] [address] 08/21/2018 09:55:01 08/21/2018 16:39:33 Hypothyroidism 50287526 E03.9 History of malignant neoplasm of tongue 104996864 Z85.810 pt has been under Dr. Mccracken's care Neuropathy 676795144 G62 .9 pt is followed at a pain management clinic Cough 48292477 R05 Divorce problems 6651200 03 Z63.5 [id number] MD [place] [address] IM [address] [facility] [place] [address] 09/17/2020 08:46:52 09/22/2020 12:20:41 Hypothyroidism 94088750 E03.9 Under care of greenhouse staff 429976021 Z76.89 [id number] MD [place] [facility] [address] IM [address] [facility] [place] [address] 04/08/2022 15:50:39 04/12/2022 11:50:27 Hypothyroidism 77082984 E03.9 Screening for malignant neoplasm of prostate 738747427 Z12.5 Dyslipidemia 462436883 E 78.5 Screening for malignant neoplasm of colon 396869451 Z12.11 screening colonoscop y was done on 04-02-2011; to be repeated in ten years--a cologuard would be acceptable . [id number] MD [place] [facility] [address] IM [address] [facility] [place] [address] 07/13/2022 10:36:15 07/14/2022 14:13:50 Adult health examination 716228269 Z00.00 Hypothyroidism 86689684 E03.9 Screening for malignant neoplasm of prostate 566348198 Z12.5 Elevated blood-pressure reading without diagnosis of hypertension 410059076 R03.0 pt states that he had just drunk a [employer] [id number] MD [facility] 14 IM [address] [facility] [place] [address] 08/18/2022 14:32:01 08/23/2022 10:37:02 Chronic cough 67460173 R05.3 Feeling of lump in throat 960632970 F45.8 History of malignant neoplasm of tongue 795681489 Z85.810 pt has been under the care of an oncologist [id number] MD [place] [address] [facility] [place] [address] 04/26/2023 10:51:54 05/04/2023 13:21:38 Underweight 551209480 R63.6 Urinary symptoms 8691760 08 R39.9 Low back pain 954048572 M54.50 Hypothyroidism 70463634 E03.9 Fatigue 50495567 R53.83 Nausea and vomiting 1693 2000 R11.2 History of malignant neoplasm of tongue 851836622 Z85.810 pt has been under the care of an oncologist [id number] MD [place] [facility] [address] [facility] [place] [address] 10/13/2023 13:45:17 10/20/2023 13:45:37 Adult health examination 821951306 Z00.00 Health Risk Assessment collected and reviewed HIV screen ing declined 1080137792 66567 Z53.20 Injury of shoulder region 396098181 S49.91XA Dyspnea 633393687 R06.00 Persistent cough 6210238 02 R05.3 Screening for malignant neoplasm of colon 495471013 Z12.11 screening colonoscop y was done on 04-02-2011; to be repeated in ten years [id number] Lashonda Bruner RN [facility] [address] IM [address] [facility] [place] [address] 04/10/2024 15:41:03 04/12/2024 11:41:39 History of malignant neoplasm of tongue 421854364 Z85.810 pt has been under the care of an oncologist Dysphagia 69042522 R13.1 0 Cough 46861885 R05.9 [id number] MD [facility] 14 IM [address] [facility] [place] [address] 05/28/2024 10:53:16 06/04/2024 10:45:06 HIV screening declined 1184728081 08166 Z53.20 Benign ess ential hypertension 6487967 I10 on losartan-- pt was encouraged to take this daily History of pneumonia 161 901639 Z87.01 [id number] MD [place] [facility] 14 IM [address] [facility] [place] [address] 07/24/2024 11:44:50 07/27/2024 15:13:35 Primary malignant neoplasm of hypopharynx 22237164 C13.8 pt is followed by an oncologist team [id number] MD [place] [facility] 14 IM [address] [facility] [place] [address] 10/23/2024 10:31:23 10/25/2024 13:59:47 Hypothyroidism 15441653 E03.9 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 Tolliver at [facility] Concerns Section Related Observation LastModified by Organization Detai ls LastModified Time None Recorded Concern Status LastModified by Organization Details LastModified Time None Recorded Advance Directives Directive Y: Payers Encounter Date Sequence Insurance Name Policy Number Policy Forte Covered Member ID Forte Member ID Guarantor Name 10/13/2023 1 [facility] (MEDICARE REPLACEMENT HMO) Jeovanny Doran [id number] Jeovanny Doran 04/10/2024 1 [employer] [place] (MEDICARE [place]EMENT H[place]) Jeovanny Doran [id number] Jeovanny Doran 05/28/2024 1 [employer] [place] (MEDICARE REPLACEMENT HMO) Jeovanny Doran [id number] Jeovanny Doran 07/24/2024 1 [employer] [place] (MEDICARE REPLACEMENT HMO) Jeovanny Doran [id number] Jeovanny Doran 10/23/2024 1 [facility] [place] [facility] [facility] Jeovanny Doran [id number] Jeovanny Doran Notes Date Note Type Note Provider Name and Address Organization Details Recorded Time 10/13/2023 text/html Regular checkup. Bud olmstead MD Attn: Accounting,[address] [facility], [place], [address], [place] [facility] 10/18/2023 10:47:48 04/10/2024 text/html Per intake note, pt has chronic dysphagia, now for several weeks. 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 His last oncological appt was perhaps in 2017. Bud Serrano MD Attn: [address] [facility], [place], [address], [place] [facility] 04/11/2024 13:28:42 05/28/2024 text/html Pt was hospitali zed May 05-2023 for pneumonia, now better and stable. Bud Serrano MD Attn: [address]ing[address] [facility], [place], [address], [place] [facility] 05/29/2024 07:38:27 07/24/2024 text/html Jeovanny Doran is a 59 yr old male with a PMH of primary malignant neoplasm of hypopharynx, tongue carcinoma, and hypothyroidism who presents today for a hospital follow-up. He has a tracheostomy and healing surgical site on this left arm which he reports no pain. He denies fever, signs of infection. He has a follow-up appointment with his surgeon on 07/26/24. Bud Serrano MD Attn: Accounting,[address] [facility], [place], [address], [place] [facility] 07/27/2024 07:30:51 10/23/2024 text/html Regular followup . All nutrition is by feeding tube. Since recent oral surgery, pt states that any liquid or food will aspirate to the trachea. Bud Serrano MD Attn: [address] [place], [address], [place] [facility] 10/24/2024 10:03:38
--- OUTSIDE RECORDS SUMMARY | 2024-11-05 18:47 | XMS_ITS | Clinical Summary ---
Author Organization [facility] Address [address] [place] [address] Care Team Providers Care Photo Colorer Name Role Phone Bud Pete MD Primary Care Provider [phone] Edna Washington MD Unavailable [phone] Allergies No known active allergies Medications albuterol (PROVENTIL,SELENA MONICO) 5 mg/mL nebulizer solution 4 times daily. 10/27/2010 Active levothyroxine (SYNTHROID, LEVOTHROID) 100 mcg tablet TK 1 T PO QD 3 12/02/2017 Active baclofen (LIORESAL) 10 mg tablet 2 times daily. Active pregabalin (LYRICA) 150 mg capsule daily. Active celecoxib (CeleBREX) 200 mg capsule 09/04/2018 Active Active Problems Problem Noted Date Diagnosed Date Nutrition disorder 09/04/2018 Sensorineural hearing loss, asymmetrical 019 Tinnitus of both ears 08/10/2018 Hernia, incisional 05/13/2017 Multiple pulmonary nodules 05/13/2017 Chest wall pain 11/10/2016 Carcinoma of base of tongue 10/19/2016 Overview (10/21/2017): Description: Right BOT SCCA Pulmonary collapse 09/20/2016 Aspiration into airway 07/20/2016 Dysphagia 07/20/2016 Left-sided back pain 07/20/2016 Dysphonia 09/30/2015 Lesion of liver 08/27/2014 Abnormal weight loss 08/19/2014 Chest pain 04/18/2012 Shortness of breath 04/18/2012 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 Lung mass 06/30/2009 Surgical History Surgery Date Site/Laterality Comments ANKLE SURGERY Ankle Surgery - (Added by TW Conv) FACIAL SURGERY Facial Surgery - (Added by TW Conv) MD LARYNGOSCOPY W/WO TRACHEOSCOPY DX EXCEPT Direct Laryngoscopy (Diagnostic) - (Added by TW Conv) Medical History Medical History Date Comments History of malignant neoplas m of other and unspecified parts of oral cavity and pharynx 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 - (Added by TW Conv) Localized swelling, mass or lump of neck Neck mass - (Added by TW Conv) Personal history of other di seases of the circulatory system History of hypertension - (A dded by TW Conv) HL (hearing loss) Tinnitus Family History Medical History Relation Name Comments Lung cancer Father Family history of lung cancer - (Added by TW Conv) Relation Name Status Comments Father Social History Tobacco Use Types Packs/Day Years Used Date Smoking Tobacco: Never Smokeless Tobacco: Never Alcohol Use Standard Drinks/Week Comments No 0 (1 standard drink = 0.6 oz pur e alcohol) Sex and Gender Information Value Date Recorded Sex Assigned at Not on file Legal Sex Male 9:54 AM CDT Gender Identity Not on file Sexual Orientation Not on file Obstetrics History Last Filed Vital Signs Vital Sign Reading Time Taken Comments Blood Pressure 123/80 02/13/2019 9:38 AM CDT Pulse 55 02/13/2019 9:38 AM CDT Temperature 36.8 C (98.3 F) 02/13/2019 9:38 AM CDT Respiratory Rate 18 02/13/2019 9:38 AM CDT Oxygen Saturation 98% 02/13/2019 9:38 AM CDT Inhaled Oxygen Concentration - - Weight 83.7 kg (184 lb 9.6 oz) 02/13/2019 9:38 A M CDT Height 177.6 cm (5' 9.92) 10/25/2017 10:04 AM C DT Body Mass Index 26.55 10/25/2017 10:04 AM CDT Plan of Treatment Health Maintenance Due Date Last Done Comments Colon Cancer Screening-Colonoscopy 1967 Depression Screening 1967 Hepatitis C Screening 1967 Prostate Cancer Screening-PSA 1967 DTaP/Tdap/Td Vaccine (1 - Tdap) 1978 Hepatitis B Screening 1985 Regular Well Visit/Exam 18-64 1985 Pneumococcal vaccine <65 (1 of 2 - PCV) 1986 Zoster Vaccine (1 of 2) 2017 Influenza Vaccine (Season Ended) 2025 Insurance MEDICARE [facility] MEDICARE HMO MEDICARE [employer] MEDICARE HMO [id number] [place] [id number] Care Teams Photo Colorer Relationship Specialty Start Date End Date Bud Pete MD PCP - General 06/14/17 Edna Washington MD Consulting Physician Radiation Oncology 08/01/18
--- OUTSIDE RECORDS SUMMARY | 2024-11-05 18:47 | XMS_ITS | Referral Summary ---
Author Organization 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
[2024-11-05 19:06] LABS: Basophils Percent Auto 0.3 % (0.2-1.2); Eosinophils Absolute Auto 0.1 K/mm3 (0-0.3); Eosinophils Percent Auto 0.8 % (0-4.4); Hematocrit 42.3 % (42.0-52.0); Hemoglobin 13.8 g/dL (14.0-18.0); Immature Granulocyte Absolute 0.06 K/mm3 (0.00-0.031); Immature Granulocyte Percent A 0.4 % (0-0.5); Lymphocytes Absolute Auto 2.05 K/mm3 (0.9-3.2); Lymphocytes Percent Auto 14.4 % (18.3-44.2); Mean Corpuscular HGB Conc 32.6 g/dl (32-36); Mean Corpuscular Hemoglobin 30.7 pg (26-34); Mean Corpuscular Volume 94.2 fl (80-100); Mean Platelet Volume 8.7 fl (7.4-10.4); Monocytes Absolute Auto 0.7 K/mm3 (0.1-0.6); Monocytes Percent Auto 4.7 % (2.6-8.5); Neutrophils Absolute Auto 11.3 K/mm3 (1.3-6.7); Neutrophils Percent Auto 79.4 % (45.5-73.1); Platelet Count Result 368 k/mm3 (150-375); Red Blood Count 4.49 M/mm3 (4.6-6.20); Red Cell Distribution Width 12.4 % (11.5-14.5); White Blood Count 14.2 K/mm3 (4.5-10.0)
[2024-11-05 19:16] LABS: Alanine Aminotransferase 27 U/L (6-50); Alkaline Phosphatase 78 U/L (38-126); Anion Gap 7 mmol/L (4-12); Aspartate Amino Transferase 31 U/L (17-59); Bilirubin,Total 0.6 mg/dL (0.2-1.3); Blood Urea Nitrogen 19 mg/dL (9-20); Calcium 8.9 mg/dL (8.4-10.2); Carbon Dioxide 27 mmol/L (22-30); Chloride 103 mmol/L (98-107); Estimated CRCL calculation 66 ml/min; Estimated Glomerular Filt Rate > 60; Glucose 117 mg/dL (65-110); Potassium 4.5 mmol/L (3.4-5.0); Sodium 137 mmol/L (137-145)
[2024-11-05 19:59] VITALS: BP 71/55; PULSE 87; PULSE 88; RESP 17; O2SAT 95
--- NOTE | 2024-11-05 20:03 | ED_ITS ---
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 Patient presents to the emergency room with chief complaint of shortness of breath and chest pain for several days. Patient states that he has been short of breath and coughing frequently appearing feeling myalgias and cold sweats. Reports 10/10 body aches. States that he uses his G-tube exclusively as he aspirates but still feels like he is aspirating even his own saliva. No nausea, vomiting, abdominal pain, back pain. No history of DVT or PE. No DVT signs examination or calf cramping or asymmetry. No recent antibiotics. Related Data Home Medications ?Medication ?Instructions ?Recorded ?Confirmed ?Last Taken ?Type levothyroxine 100 mcg tablet 100 mcg feeding tube DAILY 03/15/22 11/05/24 11/04/24 09:36 History 100 mcg albuterol sulfate 90 mcg/actuation 2 inh inhalation QID PRN shortness 11/05/24 11/05/24 11/04/24 09:00 History aerosol inhaler of breath or wheezing 2 inh Allergies Allergy/AdvReac Type Severity Reaction Status Date / Time No Known Allergies Allergy Verified 11/05/24 18:47 Review of Systems 2 Review of Systems: As reviewed above in HPI [facility] Social History Social History Smoking status: Never smoker Alcohol intake: never Substance use: never Do You Feel Safe in your Home?: Yes Lack of Transportation: No Lack of Food: Never True Current Housing: I Have Housing Concerned About Future Housing: No Difficulty Paying Gas/Electric Bills: No Difficulty Paying for Meds: No Currently Unemployed: No Education: High School Diploma/GED Difficulty w/ Childcare or Family Care: No Spiritual care concerns: No Exam 2 Narrative: GENERAL: Thin and frail, not any acute distress HEAD: [Normocephalic, atraumatic.] EYES: [PERRLA and EOMI.] ENT: Nares clear, no rhinorrhea or epistaxis. Mucous membranes moist. NECK: Supple. CHEST: [Clear to auscultation. No respiratory distress.] HEART: [Regular rate and rhythm]. No murmur heard. [Normal peripheral pulses.] ABDOMEN: [Soft, nondistended], [nontender], [No rigidity or guarding] EXTREMITIES: Normal range of motion. [No edema.] SKIN: Warm, dry, no rash. NEURO: [No focal deficits]. Alert and oriented [x3.] PSYCH: [Normal mood and affect.] Course Vital Signs Vital signs: Vital Signs Temperature 36.9 C 11/05/24 18:43 Pulse Rate 103 H 11/05/24 18:43 Respiratory Rate 20 11/05/24 18:43 Blood Pressure 92/64 L 11/05/24 18:43 Pulse Oximetry 92 11/05/24 18:43 Oxygen Delivery Room Air 11/05/24 18:43 Temperature 36.9 C 11/06/24 03:32 Pulse Rate 68 11/06/24 06:00 Respiratory Rate 16 11/06/24 03:32 Blood Pressure 122/73 11/06/24 03:32 Pulse Oximetry 96 11/06/24 03:32 Oxygen Delivery Room Air 11/06/24 03:31 MDM - SOB/Dyspnea MDM Narrative Medical decision making narrative: 59-year-old male with a history of larynx cancer status post resection in June, history of hypertension. He presents to the emergency depart with shortness of breath and chest pain for several days. He is noted to be profoundly hypotensive with blood pressure 71/55, tachycardic with a pulse of 103. 92% saturation on room air. He is awake and answering questions but states he feels dizzy and short of breath. Clear breath sounds throughout, no signs of a DVT. He does appear dehydrated. Suspicion presently is for potential aspiration pneumonia, mucus plugging, aspiration pneumonitis, sepsis, coronary disease, thromboembolic event such as PE. Patient uses a G-tube exclusively but still feels like he is aspirating even his own saliva. He is tolerating secretions at bedside. 30 cc/kg bolus was initiated, antibiotic started, blood cultures obtained, basic laboratory studies, lactic acid, troponin, EKG and chest x-ray ordered. CT angio of his chest was obtained. Patient re-evaluated after fluids. Workup shows a leukocytosis of 14.2k. Hemoglobin of 13.8. Normal platelet count. Normal coags. Normal electrolytes, normal renal function, normal glucose, negative lactic acid. Negative troponin. C-reactive protein mildly elevated. Urinalysis negative. Viral panel negative. Chest x-ray shows early suspected infiltrates and mucus plugging. CT scan shows no evidence of a PE, pulmonary opacities likely atypical infection versus aspiration pneumonia. Mediastinal lymphadenopathy is also seen. Patient placed on Zosyn for coverage of aspirate. He was re-evaluated frequently and doing much better after fluid resuscitation. No longer hypotensive or tachycardic. Discussed the case with the hospitalist for admission. Spoke to Dr. Salinas who accepted the patient to the IMU at this time for continued antibiotics and treatment of his aspiration pneumonia with possibility of sepsis. Medical Records Attestation: I reviewed the patient's medical records. Lab Data Attestation: I reviewed the patient's lab results. 11/06/24 04:22 11/06/24 04:22 Labs: Lab Results 11/05/24 11/05/24 11/05/24 Range/Units 18:56 20:23 20:32 WBC 14.2 H (4.5-10.0) K/mm3 RBC 4.49 L (4.6-6.20) M/mm3 Hgb 13.8 L (14.0-18.0) g/dL Hct 42.3 (42.0-52.0) % MCV 94.2 (80-100) fl MCH 30.7 (26-34) pg MCHC 32.6 (32-36) g/dl RDW 12.4 (11.5-14.5) % Plt Count 368 (150-375) k/mm3 MPV 8.7 (7.4-10.4) fl Immature Gran % (Auto) 0.4 (0-0.5) % Neut % (Auto) 79.4 H (45.5-73.1) % Lymph % (Auto) 14.4 L (18.3-44.2) % [place] % (Auto) 4.7 (2.6-8.5) % Eos % (Auto) 0.8 (0-4.4) % Baso % (Auto) 0.3 (0.2-1.2) % Lymph # (Auto) 2.05 (0.9-3.2) K/mm3 [place] # (Auto) 0.7 H (0.1-0.6) K/mm3 Eos # (Auto) 0.1 (0-0.3) K/mm3 Baso # (Auto) 0.0 (0.0-0.1) K/mm3 Abs Immat Gran (auto) 0.06 H (0.00-0.031) K/mm3 Absolute Neuts (auto) 11.3 H (1.3-6.7) K/mm3 Absolute Nucleated RBC 0.000 (0.0-0.012) K/mm3 Nucleated RBC % 0.0 (0.0-0.2) % PT 14.2 (11.1-14.7) Seconds INR 1.1 APTT 33.1 (22.3-36.8) Seconds Sodium 137 (137-145) mmol/L Potassium 4.5 (3.4-5.0) mmol/L Chloride 103 (98-107) mmol/L Carbon Dioxide 27 (22-30) mmol/L Anion Gap 7 (4-12) mmol/L BUN 19 (9-20) mg/dL Creatinine 1.02 (0.7-1.3) mg/dL Estim Creat Clear Calc 66 ml/min Estimated GFR > 60 (59 - ) Glucose 117 H (65-110) mg/dL Lactic Acid 1.2 (0.7-2.0) mmol/L Calcium 8.9 (8.4-10.2) mg/dL Total Bilirubin 0.6 (0.2-1.3) mg/dL AST 31 (17-59) U/L ALT 27 (6-50) U/L Alkaline Phosphatase 78 (38-126) U/L Troponin I < 0.012 (0.000-0.034) ng/mL C-Reactive Protein 4.1 H (<1.0) mg/dL Total Protein 8.0 (6.3-8.2) g/dL Albumin 4.0 (3.5-5.1) g/dL Urine Color (Yellow) Urine Appearance (Clear) Urine pH (5.0-9.0) Ur Specific Walnut (1.001-1.035) Urine Protein (Negative) mg/dL Urine Glucose (UA) (Negative) mg/dL Urine Ketones (Negative) mg/dL Ur Blood (Man) (Negative) Urine Nitrate (Negative) Urine Bilirubin (Negative) Urine Urobilinogen (<2.0) mg/dL Leukocyte Esterase Rfl (Negative) ERIK/UL Influenza A (RT-PCR) Negative (Negative) Influenza B (RT-PCR) Negative (Negative) RSV (RT-PCR) Negative (Negative) SARS-CoV-2 RNA (RT-PCR) Negative (Negative) 11/05/24 Range/Units 21:12 WBC (4.5-10.0) K/mm3 RBC (4.6-6.20) M/mm3 Hgb (14.0-18.0) g/dL Hct (42.0-52.0) % MCV (80-100) fl MCH (26-34) pg MCHC (32-36) g/dl RDW (11.5-14.5) % Plt Count (150-375) k/mm3 MPV (7.4-10.4) fl Immature Gran % (Auto) (0-0.5) % Neut % (Auto) (45.5-73.1) % Lymph % (Auto) (18.3-44.2) % [place] % (Auto) (2.6-8.5) % Eos % (Auto) (0-4.4) % Baso % (Auto) (0.2-1.2) % Lymph # (Auto) (0.9-3.2) K/mm3 [place] # (Auto) (0.1-0.6) K/mm3 Eos # (Auto) (0-0.3) K/mm3 Baso # (Auto) (0.0-0.1) K/mm3 Abs Immat Gran (auto) (0.00-0.031) K/mm3 Absolute Neuts (auto) (1.3-6.7) K/mm3 Absolute Nucleated RBC (0.0-0.012) K/mm3 Nucleated RBC % (0.0-0.2) % PT (11.1-14.7) Seconds INR APTT (22.3-36.8) Seconds Sodium (137-145) mmol/L Potassium (3.4-5.0) mmol/L Chloride (98-107) mmol/L Carbon Dioxide (22-30) mmol/L Anion Gap (4-12) mmol/L BUN (9-20) mg/dL Creatinine (0.7-1.3) mg/dL Estim Creat Clear Calc ml/min Estimated GFR (59 - ) Glucose (65-110) mg/dL Lactic Acid (0.7-2.0) mmol/L Calcium (8.4-10.2) mg/dL Total Bilirubin (0.2-1.3) mg/dL AST (17-59) U/L ALT (6-50) U/L Alkaline Phosphatase (38-126) U/L Troponin I (0.000-0.034) ng/mL C-Reactive Protein (<1.0) mg/dL Total Protein (6.3-8.2) g/dL Albumin (3.5-5.1) g/dL Urine Color Yellow (Yellow) Urine Appearance Clear (Clear) Urine pH 8.0 (5.0-9.0) Ur Specific Walnut 1.029 (1.001-1.035) Urine Protein Negative (Negative) mg/dL Urine Glucose (UA) Negative (Negative) mg/dL Urine Ketones Negative (Negative) mg/dL Ur Blood (Man) Negative (Negative) Urine Nitrate Negative (Negative) Urine Bilirubin Negative (Negative) Urine Urobilinogen 0.2 (<2.0) mg/dL Leukocyte Esterase Rfl Negative (Negative) ERIK/UL Influenza A (RT-PCR) (Negative) Influenza B (RT-PCR) (Negative) RSV (RT-PCR) (Negative) SARS-CoV-2 RNA (RT-PCR) (Negative) Imaging Data Attestation: I personally reviewed and interpreted this imaging study as follows: My impression: Impressions Chest X-Ray 11/05/24 19:19 IMPRESSION: Mucus plugging within the left lung base, unchanged. Early infiltrate suspected within the right mid to lower lung field, as detailed above. Chest CTA 11/05/24 21:02 IMPRESSION: No CT evidence of acute pulmonary embolus. Pulmonary opacities most likely representing atypical infection. Recommend CT follow-up after the resolution of acute symptoms to ensure the scattered nodular opacities resolve. Left mainstem bronchus and lower lobe bronchial debris may represent mucous plugging or aspiration. Mediastinal and bilateral hilar lymphadenopathy. Critical Care Time Critical Care Time Critical Care Time: Yes Total Critical Care Time: 40 Discharge Plan Discharge Clinical Impression: Aspiration pneumonia, Sepsis, Acute dehydration Patient Disposition: Still a Patient Condition: Stable
[2024-11-05] MEDS: LACTATED RINGERS 1,000 ML 999 ML IV CONT ×2 (20:20→20:21)
--- OUTSIDE RECORDS SUMMARY | 2024-11-05 20:40 | XMS_ITS ---
Author Organization [facility] Address [address] [place] [address] Care Team Providers Care Testing And Regulating Technician Name Role Phone Bud Pete MD Primary Care Provider [phone] Active Problems Problem Noted Date Diagnosed Date [...]
--- OUTSIDE RECORDS SUMMARY | 2024-11-05 20:40 | XMS_ITS | Referral Summary ---
Author Organization [facility] Address [address] [place] [address] Care Team Providers Care Sales Representative Publications Name Role Phone Bud Pete MD Primary Care Provider [phone] Edna Washington MD Unavailable [phone] Allergies No known active allergies Medications albuterol [...] of Treatment Not on file Insurance MEDICARE [facility] Address: [facility] [address] [place] [address] [facility] MEDICARE O MEDICARE [facility] WELLCARE MEDICARE HMO Care Teams Sales Representative Publications Relationship Specialty Start Date End Date Bud Pete MD PCP - General 06/14/17 Edna Washington MD Consulting Physician Radiation Oncology 08/01/18
--- OUTSIDE RECORDS SUMMARY | 2024-11-05 20:40 | XMS_ITS | Clinical Summary ---
Author Organization [facility] Address [address] [place] [address] Care Team Providers Care Firearms Inspector Name Role Phone Bud Pete MD Primary Care Provider [phone] Source Comments [facility],non-owned Affiliates and Associated Physician Practices is amultiple site organization consisting of ambulatory clinics and hospital sitesin [place], [place], [place] and [place]. This disclosure is being madepursuant to the Care Everywhere program and may not contain all information available regarding this patient. 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 Issue (To start diflucan) 09/28/2024 2:15 PM CDT Office Visit [facility] - ENT [address] [place] [phone] Akin Herbert MD Hypopharyngeal cancer (Primary Dx) 09/28/2024 12:43 PM CDT - 09/28/2024 11:59 PM CDT Hospital Encounter [facility] [address] [place] [address] Akin Herbert MD Discharge Disposition: Home or Self Care 09/28/2024 12:43 PM CDT - 09/28/2024 11:59 PM CDT Hospital Encounter [facility] [address] [place] [address] Akin Herbert MD Discharge Disposition: Home or Self Care 09/28/2024 Travel 08/13/2024 2:30 PM DESIGNER ARCHITECT Office Visit [facility] - ENT [address] [place] [phone] Akin Herbert MD Weckbach, Michelle P, BACK LINE COOK History of oropharyngeal cancer (Primary Dx); Hypopharyngeal mass 08/13/2024 2:30 PM DESIGNER ARCHITECT - 08/13/2024 11:59 PM DESIGNER ARCHITECT Hospital Encounter [facility] DIAGNOSTIC RAD [address] [place] [address] Akin Herbert MD Discharge Disposition: Home or Self Care 08/13/2024 Travel 08/07/2024 Telephone [facility] [address] [place] [phone] Akin Herbert MD Question from Last 3 [...] medical care, and heating? Somewhat hard 06/26/2024 [facility] of Occupat ional Health - Occupational Stress [...] were you homeless or living in a intermediate (including now)? No 06/26/2024 Sex and Gender Information Value Date Recorded Sex Assigned at Not on file Legal Sex Male 6:06 AM DESIGNER ARCHITECT Gender Identity Not on file Sexual Orientation Not on file Last Filed Vital Signs Vital Sign Reading Time Taken Comments Blood Pressure 126/87 10/30/2024 1:06 PM CDT Pulse 83 10/30/2024 1:06 PM CDT Temperature 36.6 C (97.9 F) 07/10/2024 11:20 AM DESIGNER ARCHITECT Respiratory Rate 18 07/10/2024 10:19 AM DESIGNER ARCHITECT Oxygen Saturation 92% 07/10/2024 4:20 AM DESIGNER ARCHITECT Inhaled Oxygen Concentration 21% 07/09/2024 8 :55 PM DESIGNER ARCHITECT Weight 66.2 kg (146 lb) 10/30/2024 1:06 PM CDT Height 180.3 cm (5' 11) 10/30/2024 1:06 PM CDT Body Mass Index 20.36 10/30/2024 1:06 PM CDT Plan of Treatment Upcoming Encounters Date Type Department Care Team (Late st Contact Info) Description 12/10/2024 1:45 PM CDT Office Visit [facility] - ENT [address] [place] [phone] Vannessa Le, BACK LINE COOK [address] [place] [address] [place] [phone] 12/10/2024 2:00 PM CDT Appointment [facility] DIAGNOSTIC RAD [address] [place] [address] Deonte Haney MD [address] [place] [address] [place] [address] 12/18/2024 9:30 AM CDT Office Visit [facility] - ENT [address] [place] [phone] Deonte Haney MD [address] [place], [place] [address] [address] 01/04/2025 2:45 PM CDT Office Visit [facility] - ENT [address] [place] [phone] Akin Herbert MD [address] [place] [phone] Health Maintenance Due Date Last Done Comments [...] Procedure Name Priority Date/Time Associated Diagnosis Comments MT LARYNGOSCOPY,FLEX FIBER,DIAGNOSTIC Routine 10/30/2024 2:44 PM CDT 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 Pharyngeal dysphagia MT LARYNGOSCOPY,FLEX FIBER,DIAGNOSTIC Routine 09/29/2024 4:35 PM CDT Hypopharyngeal cancer CT NECK SOFT TISSUE W CONT Routine 09/28/2024 1:06 PM CDT Hypopharyngeal cancer CT CHEST W CONTRAST Routine 09/28/2024 1 :05 PM CDT Hypopharyngeal cancer CREATININE - POCT INTERFACED Routine 09/28/2024 12:48 PM CDT from Last 3 Months Results * MT LARYNGOSCOPY,FLEX FIBER,DIAGNOSTIC (10/30/2024 2:44 PM CDT) Kenji Leon MD - 10/30/2024 2:44 PM CDT Kenji Zapata MD 10/30/2024 3:11 PM Procedure Note Endoscopy Type: Laryngoscopy without stroboscopy 39178 Endoscope: Flexible 4mm Scope Anesthesia: Lidocaine 2% [...] PROCEDURE/MINOR SURGICAL ORD ERABLES Final Result * MT LARYNGOSCOPY,FLEX FIBER,DIAGNOSTIC (09/29/2024 4:35 PM CDT) Narrative Akin Herbert MD - 09/29/2024 4:35 PM CDT Akin Herbert MD 09/29/2024 4:36 PM Procedure Note Anesthesia: Lidocaine 2% and Josue-Synephrine 1/2% Endoscopy Type: Flexible Qyrfj-Xmtqjyqdwgjzdm-Iaccbpnkmwuf Procedure Details: Informed consent was obtained. 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.9: Hypopharyngeal cancer (HCC) ADDITIONAL CLINICAL [...] - 1.30 mg/dL 09/28/2024 12:53 PM CDT [facility] eGFR 88(L) >=90 mL/min/1.7 3 m2 09/28/2024 12:53 PM CDT [facility] Blood BLOOD SPECIMEN / Unknown 09/28/2024 12:48 PM CDT 09/28/2024 12:53 PM CDT us Akin Herbert MD LAB - POINT OF CARE ORDERABLES F inal Result [facility] [address] [place] [address], [facility] [phone] from Last 3 Months Insurance [facility] MEDICAID - [place] Advance Directives * Full Code (Latest Code Status on File) Date Activated Date Inactivated Comments 06/26/2024 5:01 PM 07/10/2024 5:41 PM * Full Code Date Activated Date Inactivated Comments 06/26/2024 5:00 PM 06/26/2024 5:01 PM Care Teams Firearms Inspector Relationship Specialty Start Date End Date Bud Pete MD [address] [place], [place] [phone] PCP - General Family Medicine 04/24/24
--- OUTSIDE RECORDS SUMMARY | 2024-11-05 20:40 | XMS_ITS | Clinical Summary ---
Author Organization [facility] Address [address] [place] [address] Phone Care Team Providers Care Records Management Clerk Name Role Phone Bud Pete MD Primary Care Provider [phone] Allergies No known active allergies Medications levothyroxine [...] drink = 0.6 oz pur e alcohol) [facility] Utilities Answer Date Recorded In [...] often do you attend chur ch or cheondoism services? Never 05/05/2024 Do you belong to any clubs o r organizations such as roman catholic groups, unions, fraternal or athletic groups, or [...] and heating? Not hard at all 05/05/2024 [facility] of Occupat ional Health - Occupational Stress [...] any time in the past 12 m [facility], were you homeless or living in a long-term (including now)? No 05/05/2024 Sex and Gender Information Value Date Recorded Sex Assigned at Male 05/04/2024 11:42 PM CDT Legal Sex Male 7:18 PM CDT Gender Identity Male 05/04/2024 11:42 PM CDT Sexual Orientation Not on file Last Filed Vital Signs Vital Sign Reading Time Taken Comments Blood Pressure 123/88 08/01/2024 1:48 PM PATTERNATOR Pulse 92 08/01/2024 1:48 PM PATTERNATOR Temperature 36.7 C (98.1 F) 08/01/2024 1:48 PM PATTERNATOR Respiratory Rate 16 08/01/2024 1:48 PM PATTERNATOR Oxygen Saturation 95% 08/01/2024 1:48 PM PATTERNATOR Inhaled Oxygen Concentration - - Weight 70.6 kg (155 lb 11.2 oz) 08/01/2024 1:48 PM PATTERNATOR Height 180.3 cm (5' 11) 08/01/2024 1:48 PM PATTERNATOR Body Mass Index 21.72 08/01/2024 1:48 PM PATTERNATOR Plan of Treatment Health Maintenance Due Date [...] measures to stabilize the patient. Care Teams Records Management Clerk Relationship Specialty Start Date End Date Bud Pete MD [address] [place] [address] [address] [place] [address] PCP - General Family Medicine 07/15/16
--- OUTSIDE RECORDS SUMMARY | 2024-11-05 20:40 | XMS_ITS | Clinical Summary ---
Author Organization [facility] Address [address] [place] [address] Care Team Providers Care Animal Daycare Provider Name Role Phone Bud Pete MD Primary Care Provider [phone] Edna Washington MD Unavailable [phone] Allergies No known active allergies Medications albuterol [...] Facial Surgery - (Added by TW Conv) [place] LARYNGOSCOPY W/WO TRACHEOSCOPY DX EXCEPT Direct Laryngoscopy [...] Influenza Vaccine (Season Ended) 2025 Insurance MEDICARE [facility] MEDICARE HMO [facility] OTHER Address: [address] [address] [place] [address] MEDICARE [employer] WELLCARE MEDICARE HMO [id number] [id number] Care Teams Animal Daycare Provider Relationship Specialty Start Date End Date Bud Pete MD PCP - General 06/14/17 Edna Washington MD Consulting Physician Radiation Oncology 08/01/18
--- OUTSIDE RECORDS SUMMARY | 2024-11-05 20:40 | XMS_ITS | Clinical Summary ---
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
--- NOTE | 2024-11-05 21:00 | PC.NURSE ---
patient asked for urine sample for 2nd time and stated he is unable to right now but should be able to soon.
[2024-11-05 21:08] LABS: Lactic Acid Reflex 1.2 mmol/L (0.7-2.0)
[2024-11-05 21:17] LABS: Troponin I < 0.012 ng/mL (0.000-0.034)
[2024-11-05 21:18] LABS: INR 1.1; Prothrombin Time 14.2 Seconds (11.1-14.7)
[2024-11-05 21:19] LABS: Partial Thromboplastin Time 33.1 Seconds (22.3-36.8)
[2024-11-05 21:19] LABS: Add Urine Microscopic? NO; Appearance Urine Clear (Clear); Bilirubin Urine Negative (Negative); Blood Urine Negative (Negative); Color Urine Yellow (Yellow); Glucose Urine UA Negative (Negative); Ketones Urine Negative (Negative); Leukocyte Esterase Ur Negative LEU/UL (Negative); Nitrate Urine Negative (Negative); Protein Urine Negative (Negative); Specific Grav Ur 1.029 (1.001-1.035); Urobilinogen Urine 0.2 mg/dL (<2.0)
[2024-11-05 21:42] LABS: Influenza A QL RT-PCR Negative (Negative); Influenza B QL RT-PCR Negative (Negative); RSV RNA, RT-PCR Negative (Negative); SARS-CoV-2 RNA PCR Negative (Negative)
[2024-11-05] MEDS: AZITHROMYCIN 500 MG/NS 250 ML 500 MG/250 ML BAG 250 MG IVPB (21:47)
[2024-11-05 21:50] VITALS: BP 128/85; PULSE 83; RESP 19; O2SAT 96
[2024-11-05 22:24] LABS: CRP 4.1 mg/dL (<1.0)
[2024-11-05 22:39] VITALS: BP 98/66; PULSE 78; RESP 14; O2SAT 91
[2024-11-05] MEDS: PIPERACILLIN/TAZ 4.5G/NS 100ML 4.5 GM/100 ML BAG IVPB (22:54)
[2024-11-05 23:03] VITALS: BP 98/66; PULSE 78; RESP 14; O2SAT 91
--- NOTE | 2024-11-05 23:07 | ADMGEN ---
This patient, Jeovanny Doran, was admitted to IMU Room 200-01. Patient/family oriented to hospital policies and general routines including ID bracelet, bed and alarms, visiting hours, pain management, procedures, bathroom and other care routines, personal items, smoking policy, room service/diet, and visiting hours. Information on how to activate the Rapid Response Team has been discussed. Patient/Family are encouraged to report perceived risks to care and to ask questions if they do not understand what they are told or what they should do.
[2024-11-05 23:15] VITALS: BP 98/49; PULSE 81; RESP 16; TEMP 36.7; O2SAT 97; BMI 20.6
[2024-11-06] VITALS (16 sets, daily range): BP systolic 107–138; BP diastolic 60–89; PULSE 63–76; RESP 16–24; TEMP 36.4–36.9; O2SAT 93–96; BMI 20.6
[2024-11-06] MEDS: LACTATED RINGERS 1,000 ML 125 ML IV CONT ×2 (00:30→09:47)
[2024-11-06 05:03] LABS: Basophils Percent Auto 0.4 % (0.2-1.2); Eosinophils Absolute Auto 0.4 K/mm3 (0-0.3); Eosinophils Percent Auto 3.3 % (0-4.4); Hematocrit 38.1 % (42.0-52.0); Hemoglobin 12.3 g/dL (14.0-18.0); Immature Granulocyte Absolute 0.03 K/mm3 (0.00-0.031); Immature Granulocyte Percent A 0.3 % (0-0.5); Lymphocytes Absolute Auto 2.24 K/mm3 (0.9-3.2); Lymphocytes Percent Auto 21.4 % (18.3-44.2); Mean Corpuscular HGB Conc 32.3 g/dl (32-36); Mean Corpuscular Hemoglobin 30.8 pg (26-34); Mean Corpuscular Volume 95.5 fl (80-100); Monocytes Absolute Auto 0.6 K/mm3 (0.1-0.6); Monocytes Percent Auto 6.1 % (2.6-8.5); Neutrophils Absolute Auto 7.2 K/mm3 (1.3-6.7); Neutrophils Percent Auto 68.5 % (45.5-73.1); Platelet Count Result 271 k/mm3 (150-375); Red Blood Count 3.99 M/mm3 (4.6-6.20); Red Cell Distribution Width 12.5 % (11.5-14.5); White Blood Count 10.5 K/mm3 (4.5-10.0)
[2024-11-06 05:18] LABS: Anion Gap 6 mmol/L (4-12); Blood Urea Nitrogen 14 mg/dL (9-20); Calcium 8.4 mg/dL (8.4-10.2); Carbon Dioxide 29 mmol/L (22-30); Chloride 103 mmol/L (98-107); Estimated CRCL calculation 66 ml/min; Estimated Glomerular Filt Rate > 60; Glucose 92 mg/dL (65-110); Potassium 3.7 mmol/L (3.4-5.0); Sodium 138 mmol/L (137-145)
[2024-11-06] MEDS: ENOXAPARIN 40 MG/0.4 ML SYRINGE SUB-Q (09:47)
[2024-11-06] MEDS: metroNIDAZOLE 500 MG/ISO 100ML 500 MG/100 ML BAG 100 MG IVPB ×2 (12:17→21:00)
--- NOTE | 2024-11-06 13:53 | P.CDI_ITS ---
CDI Query Clarification Request BMI: 20.6 Nutritional Diagnostic Statement: Please refer to the comprehensive nutrition assessment for further information. If you agree with diagnosis of Moderate protein calorie malnutrition related to increased nutrient needs in a the setting of chronic disease or condition (cancer of larynx) as evidenced by a significant weight loss of -9% x 4 months, and NFPE findings of moderate subcutaneous fat loss (cheeks, biceps) and muscle wasting (temples, clavicle). Please specify severity if known: * Mild * Moderate * Severe * Other/Unknown <Trista Sanchez RN - Last Filed: 11/06/24 13:53> Clarified Diagnosis Clarified Diagnosis: * Moderate <Matt Ortiz MD - Last Filed: 11/06/24 14:53>
--- NOTE | 2024-11-06 14:47 | PCSTNOTE ---
Please refer to the Modified Barium Swallow Evaluation (MBS) in the EMR. 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 He stated they gave him exercises, but he no longer does them because they don't work. He was seated for a lateral view and presented with 5 ml of thin liquid and approximately 3/4 tsp of pudding. Before any trials were given, pt was asked what strategies were attempted at the previous test. Pt described the Mitchell maneuver and the chin tuck. For this test, the supraglottic swallow technique and the chin tuck were used to potentially increase airway protection. The oral stages were WFL. During the pharyngeal stage, the following was exhibited: reduced laryngeal elevation as evidenced by laryngeal penetration during the swallow; reduced laryngeal closure as evidenced by aspiration during the swallow, reduced tongue base retraction as evidenced by vallecular residue with the pudding trial. Aspiration occurred during the swallow as well as after due to the continued spill of the pharyngeal residue into the airway. Pt did not produce a cough reflex in response to the aspiration; with a verbal cue to cough and dry swallow, only a small amount was cleared. Impression: severe dysphagia with silent aspiration of thin liquid and pudding trials. Recommendation: Continue NPO and use of already in place PEG tube. ST will discuss continuing with dysphagia therapy with the pt but he appeared apathetic re therapy. Pt also reported that he is looking forward to another surgery in December as maybe that will improve the swallowing.
--- NOTE | 2024-11-06 17:03 | P.HP_ITS ---
H&P: HPI History of Present Illness Date/Time: 11/06/24 17:03 Chief Complaint: SOB and chest pain Narrative: 59 yo M with PMH of throat cancer s/p resection, Asthma and hypothyroidism who presented to the ER on account of SOB which he noticed 2 days ago and noted it was worsening which prompted presentation to the ER. Denies chest pain, abd pain, vomiting, diarrhea, palpitations or lightheadedness. Patient noted had throat cancer s/p resection and since then he has been on G- tube feeding. Er eval notable for T 98.5, IL 103, RR 20, BP 92/64, saturating 95% on room air. labs WBC 14.2, Cr 1.02, CTA chest showed pulmonary opacities most likely representing atypical infection. Left mainstem bronchus and lower lobe bronchial debris may represent mucous plugging or aspiration. Patient was started on abx prior to admission. Review of Systems Review of Systems: All other systems were reviewed and negative except as noted in the HPI above. [facility] Social History Social History Smoking status: Never smoker Alcohol intake: never Substance use: never Do You Feel Safe in your Home?: Yes Lack of Transportation: No Lack of Food: Never True Current Housing: I Have Housing Concerned About Future Housing: No Difficulty Paying Gas/Electric Bills: No Difficulty Paying for Meds: No Currently Unemployed: No Education: High School Diploma/GED Difficulty w/ Childcare or Family Care: No Spiritual care concerns: No Meds Home Medications and Allergies Home Medications ?Medication ?Instructions ?Recorded ?Confirmed ?Type azithromycin 250 mg tablet See Rx Instructions PO .COMPLEX #6 03/15/22 11/05/24 Rx (Zithromax Z-Arsenio) tabs levothyroxine 100 mcg tablet 100 mcg feeding tube DAILY 03/15/22 11/05/24 History prednisone 20 mg tablet 60 mg (3 x 20 mg) PO DAILY 5 days 03/15/22 11/05/24 Rx #15 tabs albuterol sulfate 90 mcg/actuation 2 inh inhalation QID PRN shortness 11/05/24 11/05/24 History aerosol inhaler of breath or wheezing Allergies Allergy/AdvReac Type Severity Reaction Status Date / Time No Known Allergies Allergy Verified 11/05/24 18:47 Vital Signs Vital Signs - 24 hr 04/28/25 18:43 11/05/24 19:59 11/05/24 19:59 Temperature 98.5 F Pulse Rate 103 H 87 Respiratory Rate 20 Blood Pressure 92/64 L Pulse Oximetry 92 95 Oxygen Delivery Room Air Room Air 11/05/24 19:59 11/05/24 21:50 11/05/24 22:39 Temperature Pulse Rate 88 83 78 Respiratory Rate 17 19 14 Blood Pressure 71/55 L 128/85 98/66 L Pulse Oximetry 95 96 91 Oxygen Delivery 11/05/24 23:03 11/05/24 23:15 11/05/24 23:44 Temperature 98.0 F Pulse Rate 78 81 Respiratory Rate 14 16 Blood Pressure 98/66 L 98/49 L Pulse Oximetry 91 97 Oxygen Delivery Room Air 11/06/24 00:00 11/06/24 00:00 11/06/24 02:00 Temperature Pulse Rate 76 76 72 Respiratory Rate Blood Pressure Pulse Oximetry Oxygen Delivery 11/06/24 03:31 11/06/24 03:32 11/06/24 04:00 Temperature 98.4 F Pulse Rate 70 72 Respiratory Rate 16 Blood Pressure 122/73 Pulse Oximetry 96 Oxygen Delivery Room Air 11/06/24 06:00 11/06/24 08:00 11/06/24 08:00 Temperature 97.5 F L Pulse Rate 68 65 Respiratory Rate 16 Blood Pressure 115/69 Pulse Oximetry 94 Oxygen Delivery Room Air 11/06/24 08:00 11/06/24 10:00 11/06/24 11:57 Temperature 97.6 F Pulse Rate 63 63 69 Respiratory Rate 24 H Blood Pressure 138/89 Pulse Oximetry 96 Oxygen Delivery 11/06/24 12:00 11/06/24 12:00 11/06/24 14:00 Temperature Pulse Rate 71 68 Respiratory Rate Blood Pressure Pulse Oximetry Oxygen Delivery Room Air 11/06/24 16:00 Temperature 98.0 F Pulse Rate 64 Respiratory Rate 16 Blood Pressure 107/60 Pulse Oximetry 93 Oxygen Delivery Exam Narrative: General: alert and comfortable Eyes: EOMI, PERRLA ENNT External ears normal, Neck is supple, no masses, Respiratory systems: Clear to auscultation Cardiovascular S1, S2, normal rhythm, no murmur, rub, or gallop; no thrill or palpable murmurs on palpation. Gastrointestinal: soft, non-tender, and non-distended abdomen with no masses; BS present G tube in place Skin: no rash, lesions, ulcerations, subcutaneous nodules or induration Musculoskeletal: no abnormality and no tenderness, normal ROM Neurologic: Alert and oriented x3, non focal Mental Status Exam: normal affect H&P: Results Labs Labs: Short CBC 11/05/24 11/06/24 Range/Units 18:56 04:22 WBC 14.2 H 10.5 H (4.5-10.0) K/mm3 Hgb 13.8 L 12.3 L (14.0-18.0) g/dL Hct 42.3 38.1 L (42.0-52.0) % Plt Count 368 271 (150-375) k/mm3 BMP 11/05/24 11/06/24 18:56 04:22 Sodium 137 138 Potassium 4.5 3.7 Chloride 103 103 Carbon Dioxide 27 29 BUN 19 14 D Creatinine 1.02 1.03 Glucose 117 H 92 Calcium 8.9 8.4 Cardiac Enzymes 11/05/24 Range/Units 20:23 Troponin I < 0.012 (0.000-0.034) ng/mL Liver Function 11/05/24 Range/Units 18:56 Total Bilirubin 0.6 (0.2-1.3) mg/dL AST 31 (17-59) U/L ALT 27 (6-50) U/L Alkaline Phosphatase 78 (38-126) U/L Albumin 4.0 (3.5-5.1) g/dL Urine 11/05/24 Range/Units 21:12 Urine Color Yellow (Yellow) Urine Appearance Clear (Clear) Urine pH 8.0 (5.0-9.0) Ur Specific [place] 1.029 (1.001-1.035) Urine Protein Negative (Negative) mg/dL Urine Glucose (UA) Negative (Negative) mg/dL Assessment and Plan Assessment and plan (1) Pneumonia: Code(s): J18.9 - Pneumonia, unspecified organism Status: Acute Plan Pneumonia presented to [facility] [place] Chest showed atypical pneumonia Blood and sputum cultures Rocephin, Azithromycin and Flagyl monitor throat cancer s/p resection monitor G tube feeding restart Tube feeding Hypothyroidism continue home meds Asthma Duoneb PRN DVT prophylaxis on Lovenox Full code Surrogate decision maker Jj Doran
[2024-11-06] MEDS: IPRATROPIUM 0.5 MG/ALBUTEROL SULFATE 2.5 MG AMPUL.NEB 3 ML INHALATION (20:43)
[2024-11-06] MEDS: AZITHROMYCIN 500 MG/NS 250 ML 500 MG/250 ML BAG 250 MG IVPB (21:00)
[2024-11-07] VITALS (8 sets, daily range): BP systolic 112–119; BP diastolic 63–66; PULSE 66–80; RESP 16–20; TEMP 36.4–36.6; O2SAT 93–94
[2024-11-07] MEDS: IPRATROPIUM 0.5 MG/ALBUTEROL SULFATE 2.5 MG AMPUL.NEB 3 ML INHALATION ×3 (02:16→13:17)
[2024-11-07] MEDS: metroNIDAZOLE 500 MG/ISO 100ML 500 MG/100 ML BAG 100 MG IVPB ×2 (05:30→13:14)
[2024-11-07] MEDS: ENOXAPARIN 40 MG/0.4 ML SYRINGE SUB-Q (08:50)
--- NOTE | 2024-11-07 09:35 | PCNFU ---
Nutrition Follow-Up Complete: Moderate protein calorie malnutrition related to increased nutrient needs in a the setting of chronic disease or condition (cancer of larynx) as evidenced by a significant weight loss of -9% x 4 months, and NFPE findings of moderate subcutaneous fat loss (cheeks, biceps) and muscle wasting (temples, clavicle). Meet needs via tube feeding- Goal is being met with current tube feeding orders Goal: Pt current nutrition is TwoCal HN - Bolus 250 ml 6x per day while awake. Flush H2O 150 ml with each bolus. Nutrition recommendation: Continue with current orders. Agree with orders Last recorded weight is 67.8 kg. Bowel Motility: No bowel movement yet. Last BM 11/04 per chart Labs Reviewed: No labs today Meds Noted: Lovenox Skin: No skin issues Additional Notes: Pt was sleeping, spoke to nurse who said pt is tolerating tube feeding with seemingly no problems. No bowel movement yet. Residuals last check was 110 ml. No complaint of abdominal pain. Will continue with 2cal regimen. Continue to monitor Monitor tolerance to tube feeding, wt, labs. Follow up Tuesday/Tuesday.
--- NOTE | 2024-11-07 13:33 | P.DS_ITS ---
DS: Admitting Diagnosis Discharge Date 11/07/24 Admitting Diagnosis SOB and chest pain DS: Discharge Diagnosis Discharge Diagnosis (1) Pneumonia: Code(s): J18.9 - Pneumonia, unspecified organism Status: Acute (2) Sepsis: Code(s): A41.9 - Sepsis, unspecified organism Status: Acute DS: Summary Hospital Course Hospital Course: 59 yo M with PMH of throat cancer s/p resection, Asthma and hypothyroidism who presented to the ER on account of SOB which he noticed 2 days ago and noted it was worsening which prompted presentation to the ER. Denies chest pain, abd pain, vomiting, diarrhea, palpitations or lightheadedness. Patient noted had throat cancer s/p resection and since then he has been on G- tube feeding. Er eval notable for T 98.5, [place] 103, RR 20, BP 92/64, saturating 95% on room air. labs WBC 14.2, Cr 1.02, CTA chest showed pulmonary opacities most likely representing atypical infection. Left mainstem bronchus and lower lobe bronchial debris may represent mucous plugging or aspiration. Patient was started on abx prior to admission. Patient has been on Rocephin, Azithromycin and Flagyl, has continued to do well, sepsis has resolved and he is not on oxygen. restarted tube feeding. He is discharged on 5 more days of Augmentin and DOxycycline. Continue other home meds adn follow up with PCP in 3-5 days Time Spent with Patient Time attestation: Total time spent providing and/or coordinating discharge services: DS: Data Data Completed and Pending Labs on day of discharge: Preliminary micro results at discharge 11/05/24 20:23 Blood Culture - Preliminary Blood 11/05/24 20:32 Blood Culture - Preliminary Blood Discharge Plan Discharge Attending physician on discharge: Matt Ortiz Discharging Clinician: Matt Ortiz Anticipated Discharge Date/Time: 11/07/24 13:31 Patient Disposition: Home Activity: as tolerated Diet: as tolerated and regular Patient Instructions: Antibiotic Form, Enoxaparin (By injection) Patient Language: Greenlandic Stand Alone Forms: General Discharge Information Follow-up/Referrals: Juan R,Bud Sanchez MD [Primary Care Provider] - (F/u with PCP in 3-5 days ) Discharge Medications: New amoxicillin-pot clavulanate 875-125 mg tablet 1 tablet PO Q12H 5 Days Qty: 10 0RF doxycycline hyclate 100 mg capsule 100 mg PO BID 5 Days Qty: 10 0RF Continued levothyroxine 100 mcg tablet 100 mcg feeding tube DAILY prednisone 20 mg tablet 60 mg PO DAILY 5 Days Qty: 15 0RF albuterol sulfate 90 mcg/actuation HFA aerosol inhaler 2 inh inhalation QID PRN (Reason: shortness of breath or wheezing) Discontinued azithromycin [Zithromax Z-Arsenio] 250 mg tablet See Rx Instructions .ROUTE .COMPLEX Qty: 6 0RF Rx Instructions: For 250 mg dose pack: take 500 mg today (day 1), then 250 mg for 4 days (days 2-5) Date of admission: 11/05/24 22:10 Primary Care Provider: Juan R,Bud Sanchez Admitting Provider: Jenny Salinas Attending physician on admission: Matt Otriz Condition: Stable
== END 2024-11-07 15:05 | disposition home or self-care (01) | DRG 194 ==
LOC: ANHED 20:38 → ANHIMU 22:39
PROVIDERS: Emergency Medicine; Admitting Provider Internal Medicine; Emergency Provider Student in an Organized Health Care Education/Training Program; PCP Family Medicine; Visit Provider Internal Medicine
DX: J18.9 Pneumonia, unspecified organism (principal); E44.0 Moderate protein-calorie malnutrition; I10 Essential (primary) hypertension; J45.909 Unspecified asthma, uncomplicated; Z20.822 Contact with and (suspected) exposure to COVID-19; Z85.21 Personal history of malignant neoplasm of larynx; Z93.1 Gastrostomy status; Z68.20 Body mass index [BMI] 20.0-20.9, adult
CPT/HCPCS: 36415; 71046; 71275; 74230; 80048; 80053; 81003; 83605; 84484; 85025; 85610; 85730; 86140; 87040; 87637; 92611; 94640; 96365; 96367; 96375; 99285; J0456; J0696; J1650; J1836; J2543; J7120; Q9967

== ENCOUNTER 2025-01-11 12:07 | Inpatient (IN) | payer MEDICARE, MEDICAID, SELFPAY ==
[2025-01-11] VITALS (12 sets, daily range): BP systolic 97–139; BP diastolic 55–86; PULSE 72–100; RESP 16–25; TEMP 36.4–36.8; O2SAT 92–96; BMI 21.6
--- NOTE | ~2025-01-11 | XR_ITS ---
CHEST RADIOGRAPH, PA AND LATERAL CLINICAL HISTORY: SOB . COMPARISON: 11/05/2024 TECHNIQUE: PA and lateral views of the chest. FINDINGS The cardiomediastinal silhouette is unremarkable. Increased opacification of the left mid to lower lung field, for which recurrent consolidation is kaci pected, likely aspiration. IMPRESSION: Left lower lobe infiltrate, as detailed above. Reviewed, dictated and finalized at location A.
--- NOTE | 2025-01-11 12:09 | ECG_ITS ---
Test Date: 2025-01-11 12:26:41 Measurements Intervals [place] Rate: 93 P: 71 WV: 157 QRS: 59 QRSD: 93 T: 68 QT: 333 QTc: 416 Interpretive Statements SINUS RHYTHM No previous ECG available for comparison Electronically Signed On 01-11-2025 12:53:26 CDT by Roscoe Guajardo M.D.
--- OUTSIDE RECORDS SUMMARY | 2025-01-11 12:09 | XMS_ITS | Clinical Summary ---
Author Organization [facility] Address [address] [place] [address] Phone Care Team Providers Care Web Feeder Name Role Phone Bud Pete MD Primary Care Provider [phone] Allergies No known active allergies Medications levothyroxine [...] drink = 0.6 oz pur e alcohol) [facility] Utilities Answer Date Recorded In the past 12 months has th e electric, gas, oil, or water company threatened to shut off services in your home? No 05/05/2024 Social Connection and Isolation Panel Answer Date Recorded In a typical week, how many times do you talk on the phone with family, friends, or neighbors? More than three times a week 05/05/2024 How often do you get togethe r with friends or relatives? More than three times a week 05/05/2024 How often do you attend chur ch or latter-day services? Never 05/05/2024 Do you belong to any clubs o r organizations such as oriental orthodox groups, unions, fraternal or athletic groups, or [...] and heating? Not hard at all 05/05/2024 [facility] - Occupational Stress Questionnaire Answer Date [...] any time in the past 12 [facility], were you homeless or living in a fpc (including now)? No 05/05/2024 Sex and Gender Information Value Date Recorded Sex Assigned at Male 05/04/2024 11:42 PM CDT Legal Sex Male 7:18 PM CDT Gender Identity Male 05/04/2024 11:42 PM CDT Sexual Orientation Not on file Last Filed Vital Signs Vital Sign Reading Time Taken Comments Blood Pressure 123/88 08/01/2024 1:48 PM PLATEMAKER Pulse 92 08/01/2024 1:48 PM PLATEMAKER Temperature 36.7 C (98.1 F) 08/01/2024 1:48 PM PLATEMAKER Respiratory Rate 16 08/01/2024 1:48 PM PLATEMAKER Oxygen Saturation 95% 08/01/2024 1:48 PM PLATEMAKER Inhaled Oxygen Concentration - - Weight 70.6 kg (155 lb 11.2 oz) 08/01/2024 1:48 PM PLATEMAKER Height 180.3 cm (5' 11) 08/01/2024 1:48 PM PLATEMAKER Body Mass Index 21.72 08/01/2024 1:48 PM PLATEMAKER Plan of Treatment Health Maintenance Due Date Last Done Comments Hepatitis C Virus (HCV) Screening 1965 TdaP Immunization 1967 SARS-COV-2 Immunization (#1) 1972 Hepatitis B Immunization (1 of 3 - 19+ 3-dose series) 1986 Pneumococcal Immunization (5 0+ years) (1 of 2 - PCV) 1986 Zoster Immunization (1 of 2) 1986 Cologuard 2012 Immunochemical Fecal Occult Blood 2012 PSA Discussion 2022 Colonoscopy 08/08/2022 08/08/2017 Colorectal Cancer Screening 08/08/2022 Influenza Immunization ([place] on Ended) 2025 Respiratory Syncytial Virus (RSV) Immunization (Adult) (1 - 1-dose 75+ series) 2042 Human Papillomavirus (HPV) Immunization Aged Out No longer eligible b ased on patient's age to complete this topic Meningococcal Immunization (ACWY) Aged Out No longer eligible based on patient's age to complete this topic Rotavirus Immunization Aged Out No lo nger eligible based on patient's age to complete this topic Insurance MEDICAID [place] MEDICARE C [facility] Advance Directives * Full Code (Latest Code Status on File) Date Activated Date Inactivated Comments 05/05/2024 1:16 AM CPR-Full [place] t[place]: FULL ARREST: Attempt Resuscitation/CPR wit intubation and mechanical ventilation. PRE-ARREST: Use entire range of life support measures to stabilize the patient. Care Teams Web Feeder Relationship Specialty Start Date End Date Bud Pete MD [address] [place] [address] [facility] [address] [place] [address] PCP - General Family Medicine 07/15/16
--- OUTSIDE RECORDS SUMMARY | 2025-01-11 12:10 | XMS_ITS | Data Portability ---
Author Organization [facility] Address [address] [place] [address] Care Team Providers Care Onboarding Specialist Name Role Phone BUD SERRANO Primary Care Provider Assessment Encounter Date Assessment Date Assessment LastModified by Organization Details LastModified Time 10/13/2023 10/13/2023 Pt is stable. [email or web address] Not available 10/18/2023 10:47:30 04/10/2024 04/10/2024 Workup will proceed as delineated below. Pt states that his present symptoms are the same as when his CA was first diagnosed in 2009. [email or web address] Not available 04/11/2024 13:28:23 05/28/2024 05/28/2024 Pt is stable and improved since recent hospitalizatio n. He has an upcoming bx at [facility] on May 31. [email or web address] Not available 05/29/2024 07:37:49 07/24/2024 07/24/2024 Pt was instructed to stop losartan for the present given his wt loss and now hypotensive readings. [email or web address] Not available 07/27/2024 07:30:02 10/23/2024 10/23/2024 Pt is stable and has no acute issues. [email or web address] Not available 10/24/2024 10:03:11 Plan of Treatment Reminders Order Date Submit Date Provider Last Modified By Organization Details Last Modified Time Details Appointments ANY 15 2024 09:30A M Bud Serrano MD Not available Not available Not available Lab noninvas boaz colorect al cancer DNA + occult blood screenin g, QL, stool 2023 024 [facility] ([facility] Orders Only), [address], [address], [place], [address], 11/02/2023 19:47:[address] referral 2023 NAKIA Tolliver, [address] [place], [address], 04/24/2024 13:18:43 Procedures None recorded . Surgeries None recorded . Imaging CT, head + neck, w/wo contrast 2023 [email or web address] Scheduling, [address] [facility] [place], [address], 04/19/2024 18:13:07 Medication Orders levothyr oxine 100 mcg tablet [id number], [address], [place], [id number], 10/23/2024 11:55:04 benzonat ate 200 mg capsule 2023 [id number] [address], [place], [id number], 05/28/2024 11:53:26 codeine 10 mg-guaif enesin 100 mg/5 mL oral liquid 2023 024 [facility] #[id number], [address], [place], [id number], 05/28/2024 11:53:25 benzonat ate 100 mg capsule 2023 024 [id number], [address], [place], [id number], 04/10/2024 15:47:49 codeine 10 mg-guaif enesin 100 mg/5 mL oral liquid 2023 024 [facility] #[id number], [address], [place], [id number], 05/28/2024 11:52:32 Medrol (Arsenio) 4 mg tablets in a dose pack 2023 024 [facility] #23974, [address], [place], [id number], 05/28/2024 11:52:37 albutero l sulfate HFA 90 mcg/actu ation aerosol inhaler 2023 024 [email or web address] #39296, [address], [place], [id number], 10/23/2024 11:19:31 Patient TargetsNo targets recorded. Patient Instructions Encounter Date Encounter Id Patient Instructions Last Modified By Organization Details Last Modified Time 10/13/2023 [id number] shortness of breath: care instructions Not available 10/13/2023 14:22:37 advance care planning: care instructions [email or web address] Not available 10/13/2023 14:05:23 preventing falls : care instructions [email or web address] Not available 10/13/2023 14:05:23 Quitting Tobacco : Care Instructions [email or web address] Not available 10/13/2023 14:05:23 Medicare [facility] Preventive Checklist [email or web address] Not available 10/13/2023 14:05:23 eating healthy foods: care instructions [email or web address] Not available 10/13/2023 14:05:23 04/10/2024 [id number] learning about swallowing problems [email or web address] Not available 04/10/2024 16:26:03 cough: care instructions [email or web address] Not available 04/10/2024 16:27:22 05/28/2024 [id number] high blood pressure: care instructions [email or web address] Not available 05/28/2024 12:43:55 learning about high blood pressure [email or web address] Not available 05/28/2024 12:43:55 Reason for Referral [...] ectiv e cross -sect ional study of 10,00 0 indiv idual s at [place] risk for color ectal cance r [...] asymp tomat ic indiv idual s at [place] ge risk for color ectal cance r. [...] ommen datio ns.ht ml.; Grayson HAY, Danya rosa CR, Cristiano HIGGINS, Color ectal Cance r Scree michelle: Recom menda tions for Physi cians and Patie nts from the [place]. Multi -Soci ety Task Force on Color ectal Cance r Scree michelle , Whitley smythnte rolog y 2017; 112:1 [id number] 030. TEST DESCR IPTIO N: [place] site algor ithmi c amari sis of stool DNA-b karen ellis with hemog lobin immun oassa y. Quant itati ve value s of indiv idual bioma rkers are not repor table and are not assoc iated with indiv idual bioma rker resul t refer ence range s. Colog uard is inten ded for color ectal cance r scree michelle of adult s of eithe r sex, 45 years or older , who are at [facility] for color ectal cance r (CRC) . Colog uard has been appro rain for use by the [place]. FDA. The perfo rmanc e of Colog uard was estab lishe d in a cross secti onal study of [facility] adult s aged 50-84 . Colog uard perfo rmanc e in patie nts ages 45 to 49 years was estim ated by louie-g roup amari sis of near- age group s. Colon oscop ies perfo rmed for a posit boaz resul t may find as the most clini christi signi ficcelo t lesio n: color ectal cance r [...] of 10,00 0 [facility] cance [facility] [...] uard perfo rmanc e data in a 00 0 patie nt pivot al study using colon oscop y as the refer ence metho d can be acces sed at the [facility] locat ion: www.e xactl abs.c om/re sults . Addit ional descr iptio n of the Colog uard test proce ss, warni ngs and preca ution s can be found at www.c ologu ireen.c om. Not Available [facility] (Cologuard Orders Only) [address], [place], [address], 11/02/2023 19:47:46 05/05/2005/07/2024 Bacte dwaine ident ified [...] s Seen 05/05 10:32 PM CDT [facility] Not Available Not Available 10/08/2024 09:02:11 05/05/2005/05/2024 Micro scopi c obser vatio n [Iden tifie r] in Speci men by Gram stain microscopic observation [identifier] in specimen by gram stain Few Squamo us Epithe lial cells per low power field GRAM STAIN Few Squam ous Epith elial cells per low power field 05/05 10:32 PM CDT [facility] Not Available Not Available 10/08/2024 09:02:11 05/05/2005/05/2024 Micro scopi c obser vatio n [Iden tifie r] in Speci men by Gram stain microscopic observation [identifier] in specimen by gram stain Rare Yeast seen GRAM STAIN Rare Yeast seen 05/05 10:32 PM CDT [facility] Not Available Not Available 10/08/2024 09:02:11 05/05/2005/05/2024 Micro scopi c obser vatio n [Iden tifie r] in Speci men by Gram stain microscopic observation [identifier] in specimen by gram stain Rare Gram Positi ve Cocci in Chains GRAM STAIN Rare Gram Posit boaz Cocci in Chain s 05/05 10:32 PM CDT [facility] Not Available Not Available 10/08/2024 09:02:11 05/05/2005/05/2024 Micro scopi c obser vatio n [Iden tifie r] in Speci men by Gram stain microscopic observation [identifier] in specimen by gram stain Rare Gram Positi ve Bacill i GRAM STAIN Rare Gram Posit boaz Bacil li 05/05 10:32 PM CDT [facility] Not Available Not Available 10/08/2024 09:02:11 05/05/2005/05/2024 Micro scopi c obser vatio n [Iden tifie r] in Speci men by Gram stain microscopic observation [identifier] in specimen by gram stain Rare Gram Positi ve Cocci in Cluste rs GRAM STAIN Rare Gram Posit boaz Cocci in Clust ers 05/05 10:32 PM CDT [facility] Not Available Not Available 10/08/2024 09:02:11 05/05/20 24 05/05/2024 Legio rupa sp Ag [Pres ence] in Urine legionella sp Ag [presence] in urine Negati ve text: negati ve LEGIO RUPA URINE AG Negat boaz Negat boaz 05/05 9:17 PM CDT [facility] Not Available [...] - 5.000 mIU/L 05/05 6:04 AM CDT [facility] Not Available Not Available 10/08/2024 09:02:11 05/05/20 24 05/05/2024 Thyro tropi n [...] boaz, Inval id 05/05 4:03 AM CDT [facility] Not Available Not Available 10/08/2024 09:02:11 10/26/05/05/2024 Methi cilli n resis tant Staph yloco [...] mmol/ L 05/05 12:22 AM CDT [facility] Not Available Not Available 10/08/2024 09:02:11 05/05/2005/05/2024 Lacta te [Mole s/vol ume] in Serum or Plasm a interpretati on and review of laboratory results Normal Not Available Not Available 09/10 09:02:11 05/05/20 24 05/10/2024 Bacte dwaine ident ified in Blood by Cultu re bacteria identified in blood by culture NO GROWTH WITHIN 5 DAYS, FINAL RESULT CULTU RE RESUL TS NO GROWT H WITHI N 5 DAYS, FINAL RESUL T 05/10 1:00 AM CDT [facility] Not Available [...] boaz, Error 05/05 12:45 AM CDT [facility] Not [...] Negat boaz 05/05 12:45 AM CDT [facility] [employer] [facility] LAB Not Available Not Available 10/08/2024 [...] Negat boaz 05/05 12:45 AM CDT [facility] Not Available Not Available 10/08/2024 [...] Detec delaney) 05/05 12:45 AM CDT [facility] Not Available Not Available 10/08/2024 [...] FDA under an Emerge ncy Use Author izatio n (EUA) for use by labora tories certif ied under the CLIA that meet the requir ements to perfor m modera te, high or waived comple xity tests. Author ized Fact Sheets about this test for provid [...] s Not Available Not Available 10/08/2024 09:02:11 05/05/20 [...] 5.1 mmol/ L 05/05 12:27 AM CDT [facility] Not Available Not Available 10/08/2024 09:02:11 05/05/20 24 05/05/2024 Compr ehens boaz metab olic 1999 panel - Serum or Plasm a chloride [moles/volum e] in serum or plasma 104 mmol/ L low: 98mmol /Lhigh : 107mmo l/L CHLOR STALIN 104 98 - 107 mmol/ L 05/05 12:27 AM CDT [facility] [employer] R LAB Not Available Not Available 10/08/2024 09:02:11 05/05/2005/05/2024 Compr ehens boaz metab olic 1999 panel - Serum or Plasm a carbon dioxide, total [moles/volum e] in serum or plasma 23 mmol/ L low: 22mmol /Lhigh : 30mmol /L CO2, VENOU S 23 22 - 30 mmol/ L 05/05 12:27 AM CDT [facility] [employer] R LAB Not Available Not Available 10/08/2024 09:02:11 05/05/2005/05/2024 Compr ehens boaz metab olic 1999 panel - Serum or Plasm a anion gap in serum or plasma by calculation 12.6 mmol/ L high: 18mmol /L ANION GAP 12.6 <18.0 mmol/ L 05/05 12:27 AM CDT [facility] Not Available Not Available 10/08/2024 09:02:11 05/05/20 24 05/05/2024 Compr ehens boaz metab olic 2000 panel - Serum or Plasm a glucose [mass/volume ] in serum or plasma 142 mg/dL low: 70mg/d Lhigh: 99mg/d L high GLUCO SE 142 (H) 70 - 99 mg/dL 05/05 12:27 AM CDT [facility] Not Available Not Available 10/08/2024 09:02:11 05/05/20 24 05/05/2024 Compr Jingdongens boaz metab olic 2000 panel - Serum or Plasm a urea nitrogen [mass/volume ] in serum or plasma 19 mg/dL low: 8mg/dL high: 26mg/d L BUN 19 8 - 26 mg/dL 05/05 12:27 AM CDT [facility] Not Available Not Available 10/08/2024 09:02:11 05/05/2005/05/2024 Compr Jingdongens boaz metab olic 2000 panel - Serum or Plasm a creatinine [mass/volume ] in serum or plasma 1.69 mg/dL low: 0.7mg/ dLhigh : 1.3mg/ dL high CREAT ININE , BLOOD 1.69 (H) 0.70 - 1.30 mg/dL 05/05 12:27 AM CDT [facility] Not Available Not Available 10/08/2024 09:02:11 05/05/2005/05/2024 Compr Jingdongens boaz metab olic 2000 panel - Serum or Plasm a urea nitrogen/cre atinine [mass ratio] in serum or plasma 11 text: 12 - 20 ratio low BUN/C REATI NINE RATIO 11 (L) 12 - 20 ratio 05/05 12:27 AM CDT [facility] Not Available Not Available 10/08/2024 09:02:11 05/05/20 24 05/05/2024 Compr Jingdongens boaz metab olic 2000 panel - Serum or Plasm a protein [mass/volume ] in serum or plasma 7.1 g/dL low: 6.3g/d Lhigh: 8.2g/d L TOTAL PROTE IN 7.1 6.3 - 8.2 g/dL 05/05 12:27 AM CDT [facility] Not Available Not Available 10/08/2024 09:02:11 05/05/2005/05/2024 [facility] Magazino [facility] 1999 panel - Serum or Plasm a albumin [mass/volume ] in serum or plasma 3.7 g/dL low: 3.5g/d Lhigh: 5g/dL ALBUM IN 3.7 3.5 - 5.0 g/dL 05/05 12:27 AM CDT [facility] [employer] R LAB Not Available Not Available 10/08/2024 09:02:11 05/05/2005/05/2024 [facility] e[employer]agin boaz Opicos [facility] 1999 panel - Serum or Plasm a albumin/glob ulin [mass ratio] in serum or plasma 1.1 low: 1high: 2.2 A/G RATIO 1.1 1.0 - 2.2 05/05 12:27 AM CDT [facility] [facility] Not Available Not Available 10/08/2024 09:02:11 05/05/2005/05/2024 [facility] Magazino ic 1999 panel - Serum or Plasm a calcium [mass/volume ] in serum or plasma 9.4 mg/dL low: 8.7mg/ dLhigh : 10.5mg /dL CALCI UM 9.4 8.7 - 10.5 mg/dL 05/05 12:27 AM CDT [facility] [employer] R LAB Not Available Not Available 10/08/2024 09:02:11 05/05/2005/05/2024 [facility] eMagin boazMy Digital Shield [facility] 1999 panel - Serum or Plasm a bilirubin.to shad [mass/volume ] in serum or plasma 0.9 mg/dL low: 0.2mg/ dLhigh : 1.2mg/ dL T BILI 0.9 0.2 - 1.2 mg/dL 05/05 12:27 AM CDT [facility] [employer] R LAB Not Available Not Available 10/08/2024 09:02:11 05/05/20 24 05/05/2024 [facility] eMagin boaz Opicos olic 2000 panel - Serum or Plasm a aspartate aminotransfe rase [enzymatic activity/vol ume] in serum or plasma 17 U/L low: 5U/Lhi gh: 34U/L SGOT (AST) 17 5 - 34 U/L 05/05 12:27 AM CDT [facility] LAB Not Available Not Available 10/08/2024 09:02:11 05/05/20 24 05/05/2024 Compr eMagin boaz Opicos olic 2000 panel - Serum or Plasm a alanine aminotransfe rase [enzymatic activity/vol ume] in serum or plasma 13 U/L low: 0U/Lhi gh: 55U/L SGPT (ALT) 13 0 - 55 U/L 05/05 12:27 AM CDT [facility] LAB Not Available Not Available 10/08/2024 09:02:11 05/05/2005/05/2024 Compr Jingdongens boaz Opicos olic 2000 panel - Serum or Plasm a alkaline phosphatase [enzymatic activity/vol ume] in serum or plasma 70 U/L low: 40U/Lh igh: 150U/L ALKAL INE PHOSP HATAS E 70 40 - 150 U/L 05/05 12:27 AM CDT [facility] [employer] [facility] [employer] R LAB Not Available Not Available 10/08/2024 09:02:11 05/05/2005/05/2024 Compr eMagin boaz Opicos olic 2000 panel - Serum or Plasm a glomerular filtration rate [volume rate/area] in serum, plasma or blood by creatinine-b ased formula (MDRD)/1.73 sq M among non black population 47 low: 60 low GFR, ESTIM ATED 47 (L) >=60 05/05 12:27 AM CDT [facility] [employer] [facility] LAB Not Available Not Available 10/08/2024 09:02:11 05/05/20 24 05/05/2024 Compr Jingdongens boaz metab olic 2000 panel - Serum or Plasm a glomerular filtration rate [volume rate/area] in serum, plasma or blood by creatinine-b ased formula (MDRD)/1.73 sq M among black population 51 low: 60 low GFR, EST. AFRIC AN 51 (L) >=60 05/05 12:27 AM CDT [facility] Not Available Not Available 10/08/2024 09:02:11 05/05/2005/05/2024 Compr ehens boaz metab olic 2000 panel - Serum or Plasm a glomerular filtration rate [volume rate/area] in serum, plasma or blood by creatinine-b ased formula (MDRD)/1.73 sq M among non black population 42 low: 60 low GFR, EST. NONAF RICAN 42 (L) >=60 05/05 12:27 AM CDT [facility] LAB Not Available Not Available 10/08/2024 09:02:11 05/05/2005/05/2024 Compr ehens boaz metab olic 2000 panel - Serum or Plasm a interpretati on and review of laboratory results Abnorm al Not Available Not Available 09:02:11 05/07/2005/07/2024 CBC W Auto Diffe rennicky al panel - Blood leukocytes [#/volume] in blood by automated count 6.47 text: 4.00 - 12.00 10(3)/ mcL WBC 6.47 4.00 - 12.00 10(3) /mcL 05/07 5:21 AM CDT [facility] Not Available Not Available 10/08/2024 09:02:12 05/07/2005/07/2024 CBC W Auto Diffe renti al panel - Blood erythrocytes [#/volume] in blood by automated count 4.51 text: 4.40 - 5.80 10(6)/ mcL RBC 4.51 4.40 - 5.80 10(6) /mcL 05/07 5:21 AM CDT [facility] Not Available Not Available 10/08/2024 09:02:12 05/07/2005/07/2024 CBC W Auto Diffe renti al panel - Blood hemoglobin [mass/volume ] in blood 14 g/dL low: 13g/dL high: 16.5g/ dL HEMOG LOBIN (HGB) 14.0 13.0 - 16.5 g/dL 05/07 5:21 AM CDT [facility] Not Available Not Available 10/08/2024 09:02:12 05/07/2005/07/2024 CBC W Auto Diffe renti al panel - Blood hematocrit [volume fraction] of blood by automated count 40.9 % low: 38%hig h: 50% HEMAT OCRIT (HCT) 40.9 38.0 - 50.0 % 05/07 5:21 AM CDT [facility] Not Available Not Available 10/08/2024 09:02:12 05/07/20 24 05/07/2024 CBC W Auto Diffe renti al panel - Blood MCV [entitic mean volume] in red blood cells by automated count 90.7 fL low: 82fLhi gh: 96fL MCV 90.7 82.0 - 96.0 fL 05/07 5:21 AM CDT [facility] LAB Not Available Not Available 10/08/2024 09:02:12 05/07/20 24 05/07/2024 CBC W Auto Diffe renti al panel - Blood MCH [entitic mass] by automated count 31 pg low: 26pghi gh: 32pg MCH 31.0 26.0 - 32.0 pg 05/07 5:21 AM CDT [facility] Not Available Not Available 10/08/2024 09:02:12 05/07/20 24 05/07/2024 CBC W Auto Diffe renti al panel - Blood MCHC [entitic mass/volume] in red blood cells by automated count 34.2 g/dL low: 31g/dL high: 36g/dL MCHC 34.2 31.0 - 36.0 g/dL 05/07 5:21 AM CDT [facility] Not Available Not Available 10/08/2024 09:02:12 05/07/20 24 05/07/2024 CBC W Auto Diffe renti al panel - Blood platelets [#/volume] in blood 379 text: 140 - 440 10(3)/ mcL PLATE LET COUNT 379 140 - 440 10(3) /mcL 05/07 5:21 AM CDT [facility] Not Available Not Available 10/08/2024 09:02:12 05/07/20 24 05/07/2024 CBC W Auto Diffe renti al panel - Blood erythrocyte [distwidth] in red blood cells by automated count 12.2 % low: 11.8%h igh: 15.5% RDW 12.2 11.8 - 15.5 % 05/07 5:21 AM CDT [facility] Not Available Not Available 10/08/2024 09:02:12 05/07/20 24 05/07/2024 CBC W Auto Diffe renti al panel - Blood platelet [entitic mean volume] in blood by automated count 8.7 fL low: 8fLhig h: 12.6fL MPV 8.7 8.0 - 12.6 fL 05/07 5:21 AM CDT [facility] Not Available Not Available 10/08/2024 09:02:12 05/07/20 24 05/07/2024 CBC W Auto Diffe renti al panel - Blood neutrophils/ leukocytes in blood by automated count 50.9 % low: 40%hig h: 68% NEUTR OPHIL S 50.9 40.0 - 68.0 % 05/07 5:21 AM CDT [facility] Not Available Not Available 10/08/2024 09:02:12 05/07/20 24 05/07/2024 CBC W Auto Diffe renti al panel - Blood lymphocytes/ leukocytes in blood by automated count 34 % low: 19%hig h: 49% LYMPH OCYTE S 34.0 19.0 - 49.0 % 05/07 5:21 AM CDT [facility] Not Available Not Available 10/08/2024 09:02:12 05/07/20 24 05/07/2024 CBC W Auto Diffe renti al panel - Blood monocytes/le ukocytes in blood by automated count 7.1 % low: 3%high : 13% MONOC YTES 7.1 3.0 - 13.0 % 05/07 5:21 AM CDT [facility] LAB Not Available Not Available 10/08/2024 09:02:12 05/07/20 24 05/07/2024 CBC W Auto Diffe renti al panel - Blood eosinophils/ leukocytes in blood by automated count 7.1 % low: 0%high : 8% EOSIN OPHIL S 7.1 0.0 - 8.0 % 05/07 5:21 AM CDT [facility] Not Available Not Available 10/08/2024 09:02:12 05/07/20 24 05/07/2024 CBC W Auto Diffe renti al panel - Blood basophils/le ukocytes in blood by automated count 0.9 % low: 0%high : 1% BASOP HILS 0.9 0.0 - 1.0 % 05/07 5:21 AM CDT [facility] Not Available Not Available 10/08/2024 09:02:12 05/07/20 24 05/07/2024 CBC W Auto Diffe renti al panel - Blood neutrophils [#/volume] in blood by automated count 3.29 text: 1.40 - 5.30 10(3)/ mcL ABSOL MANZANITA NEUTR OPHIL S 3.29 1.40 - 5.30 10(3) /mcL 05/07 5:21 AM CDT [facility] Not Available Not Available 10/08/2024 09:02:12 05/07/20 24 05/07/2024 CBC W Auto Diffe renti al panel - Blood lymphocytes [#/volume] in blood by automated count 2.2 text: 0.90 - 3.30 10(3)/ mcL ABSOL MANZANITA LYMPH OCYTE S 2.20 0.90 - 3.30 10(3) /mcL 05/07 5:21 AM CDT [facility] Not Available Not Available 10/08/2024 09:02:12 05/07/20 24 05/07/2024 CBC W Auto Diffe renti al panel - Blood monocytes [#/volume] in blood by automated count 0.46 text: 0.10 - 0.90 10(3)/ mcL ABSOL MANZANITA MONOC YTES 0.46 0.10 - 0.90 10(3) /mcL 05/07 5:21 AM CDT [facility] Not Available Not Available 10/08/2024 09:02:12 05/07/20 24 05/07/2024 CBC W Auto Diffe renti al panel - Blood eosinophils [#/volume] in blood by automated count 0.46 text: 0.00 - 0.50 10(3)/ mcL ABSOL MANZANITA EOSIN OPHIL 0.46 0.00 - 0.50 10(3) /mcL 05/07 5:21 AM CDT [facility] Not Available Not Available 10/08/2024 09:02:12 05/07/20 24 05/07/2024 CBC W Auto Diffe renti al panel - Blood basophils [#/volume] in blood by automated count 0.06 text: 0.00 - 0.10 10(3)/ mcL ABSOL MANZANITA BASOP HILS 0.06 0.00 - 0.10 10(3) /mcL 05/07 5:21 AM CDT [facility] Not Available Not Available 10/08/2024 09:02:12 05/07/20 24 05/07/2024 CBC W Auto Diffe renti al panel - Blood nucleated erythrocytes /leukocytes [ratio] in blood 0 NRBC PER 100 WBC 0 05/07 5:21 AM CDT [facility] Not Available Not Available 10/08/2024 09:02:12 05/17/20 24 05/17/2024 Basic metab olic 2000 panel - Serum or Plasm a sodium [moles/volum e] in serum or plasma 140 mmol/ L low: 136mmo l/Lhig h: 145mmo l/L SODIU M 140 136 - 145 mmol/ L 05/17 2:45 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 [facility] Not Available Not Available 10/08/2024 09:02:12 05/17/20 24 05/17/2024 Basic metab olic 1999 panel - Serum or Plasm a potassium [moles/volum e] in serum or plasma 4 mmol/ L low: 3.5mmo l/Lhig h: 5.1mmo l/L POTAS SIUM 4.0 3.5 - 5.1 mmol/ L 05/17 2:45 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 Not Available Not Available 10/08/2024 09:02:12 05/17/20 24 05/17/2024 Basic metab olic 1999 panel - Serum or Plasm a chloride [moles/volum e] in serum or plasma 106 mmol/ L low: 98mmol /Lhigh : 107mmo l/L CHLOR STALIN 106 98 - 107 mmol/ L 05/17 2:45 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 Not Available Not Available 10/08/2024 09:02:12 05/17/20 24 05/17/2024 Basic metab olic 1999 panel - Serum or Plasm a carbon dioxide, total [moles/volum e] in serum or plasma 26 mmol/ L low: 22mmol /Lhigh : 30mmol /L CO2, VENOU S 26 22 - 30 mmol/ L 05/17 2:45 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 Not Available Not Available 10/08/2024 09:02:12 05/17/20 24 05/17/2024 Basic metab olic 1999 panel - Serum or Plasm a anion gap in serum or plasma by calculation 12 mmol/ L high: 18mmol /L ANION GAP 12.0 <18.0 mmol/ L 05/17 2:45 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 Not Available Not Available 10/08/2024 09:02:12 05/17/20 24 05/17/2024 Basic metab olic 2000 panel - Serum or Plasm a glucose [mass/volume ] in serum or plasma 104 mg/dL low: 70mg/d Lhigh: 99mg/d L high GLUCO SE 104 (H) 70 - 99 mg/dL 05/17 2:45 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 [facility] Not Available Not Available 10/08/2024 09:02:12 05/17/20 24 05/17/2024 Basic metab olic 1999 panel - Serum or Plasm a urea nitrogen [mass/volume ] in serum or plasma 8 mg/dL low: 8mg/dL high: 26mg/d L BUN 8 8 - 26 mg/dL 05/17 2:45 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 [facility] [employer] [facility] Not Available Not Available 10/08/2024 09:02:12 05/17/20 24 05/17/2024 Basic metab olic 1999 panel - Serum or Plasm a creatinine [mass/volume ] in serum or plasma 1.27 mg/dL low: 0.7mg/ dLhigh : 1.3mg/ dL CREAT ININE , BLOOD 1.27 0.70 - 1.30 mg/dL 05/17 2:45 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 [facility] [employer] [facility] Not Available Not Available 10/08/2024 09:02:12 05/17/20 24 05/17/2024 Basic metab olic 2000 panel - Serum or Plasm a urea nitrogen/cre atinine [mass ratio] in serum or plasma 6 text: 12 - 20 ratio low BUN/C REATI NINE RATIO 6 (L) 12 - 20 ratio 05/17 2:45 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 [facility] [employer] [facility] Not Available Not Available 10/08/2024 09:02:12 05/17/20 24 05/17/2024 Basic metab olic 2000 panel - Serum or Plasm a calcium [mass/volume ] in serum or plasma 9 mg/dL low: 8.7mg/ dLhigh : 10.5mg /dL CALCI UM 9.0 8.7 - 10.5 mg/dL 05/17 2:45 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 [facility] [employer] [facility] Not Available Not Available 10/08/2024 09:02:12 05/17/20 24 05/17/2024 Basic metab olic 2000 panel - Serum or Plasm a glomerular filtration rate [volume rate/area] in serum, plasma or blood by creatinine-b ased formula (MDRD)/1.73 sq M among non black population low: 60 GFR, ESTIM ATED >60 >=60 05/17 2:45 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 Not Available Not Available 10/08/2024 09:02:12 05/17/20 24 05/17/2024 Basic metab olic 2000 panel - Serum or Plasm a glomerular filtration rate [volume rate/area] in serum, plasma or blood by creatinine-b ased formula (MDRD)/1.73 sq M among black population low: 60 GFR, EST. 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 [employer] [facility] Not Available Not Available 10/08/2024 09:02:29 06/26/20 24 06/26/2024 CBC W Auto Diffe renti al panel - Blood erythrocytes [#/volume] in blood by automated count 3.79 text: 4.30 - 5.80 x10e12 /L low RBC Count 3.79 (L) 4.30 - 5.80 x10E1 2/L 06/26 10:39 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 [facility] [facility] Not Available Not Available 10/08/2024 09:02:29 06/26/20 24 06/26/2024 CBC W Auto Diffe renti al panel - Blood hemoglobin [mass/volume ] in blood 11.9 g/dL low: 13.3g/ dLhigh : 17.5g/ dL low Hemog lobin 11.9 (L) 13.3 - 17.5 g/dL 06/26 10:39 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 [employer] [facility] Not Available Not Available 10/08/2024 09:02:29 06/26/20 24 06/26/2024 CBC W Auto Diffe renti al panel - Blood hematocrit [volume fraction] of blood by automated count 33.9 % low: 38.7%h igh: 51.1% low Hemat ocrit 33.9 (L) 38.7 - 51.1 % 06/26 10:39 PM [facility] Not [facility] Not Available 10/08/2024 09:02:29 06/26/20 24 06/26/2024 CBC W Auto Diffe renti al panel - Blood MCV [entitic mean volume] in red blood cells by automated count 89.4 fL low: 80fLhi gh: 98fL MCV 89.4 80.0 - 98.0 fL 06/26 10:39 PM [facility] Not Available Not Available 10/08/2024 09:02:29 06/26/20 24 06/26/2024 CBC W Auto Diffe renti al panel - Blood MCH [entitic mass] by automated count 31.4 pg low: 26.7pg high: 33.6pg MCH 31.4 26.7 - 33.6 pg 06/26 10:39 PM [facility] Not Available Not Available 10/08/2024 09:02:29 06/26/20 24 06/26/2024 CBC W Auto Diffe renti al panel - Blood MCHC [entitic mass/volume] in red blood cells by automated count 35.1 g/dL low: 31.7g/ dLhigh : 36.3g/ dL MCHC 35.1 31.7 - 36.3 g/dL 06/26 10:39 PM [facility] Not Available Not Available 10/08/2024 09:02:29 06/26/20 24 06/26/2024 CBC W Auto Diffe renti al panel - Blood erythrocyte [distwidth] in red blood cells by automated count 12.5 % low: 11.3%h igh: 14.8% RDW-C V 12.5 11.3 - 14.8 % 06/26 10:39 PM [facility] Not Available Not Available 10/08/2024 09:02:29 06/26/20 24 06/26/2024 CBC W Auto Diffe renti al panel - Blood platelets [#/volume] in blood by automated count 270 text: 150 - 420 x10e9/ L Plate let Count 270 150 - 420 x10E9 /L 06/26 10:39 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 [facility] [employer] [facility] Not Available Not Available 10/08/2024 09:02:29 06/26/20 24 06/26/2024 CBC W Auto Diffe renti al panel - Blood platelet [entitic mean volume] in blood by automated count 8.5 fL low: 7.8fLh igh: 11.4fL MPV 8.5 7.8 - 11.4 fL 06/26 10:39 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 [facility] Not Available Not Available 10/08/2024 09:02:29 06/26/20 24 06/26/2024 CBC W Auto Diffe renti al panel - Blood neutrophils/ leukocytes in blood by automated count 86.8 % low: 41%hig h: 74% high Neutr ophil % 86.8 (H) 41.0 - 74.0 % 06/26 10:39 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 [facility] [employer] [facility] Not Available Not Available 10/08/2024 09:02:29 06/26/20 24 06/26/2024 CBC W Auto Diffe renti al panel - Blood lymphocytes/ leukocytes in blood by automated count 6.4 % low: 17%hig h: 47% low Lymph ocyte % 6.4 (L) 17.0 - 47.0 % 06/26 10:39 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 [facility] [employer] [facility] Not Available Not Available 10/08/2024 09:02:29 06/26/20 24 06/26/2024 CBC W Auto Diffe renti al panel - Blood monocytes/le ukocytes in blood by automated count 6 % low: 3%high : 11% Monoc yte % 6.0 3.0 - 11.0 % 06/26 10:39 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 [facility] [employer] [facility] Not Available Not Available 10/08/2024 09:02:29 06/26/20 24 06/26/2024 CBC W Auto Diffe renti al panel - Blood eosinophils/ leukocytes in blood by automated count 0 % low: 0%high : 7% Eosin ophil % 0.0 0.0 - 7.0 % 06/26 10:39 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 [facility] Not Available Not Available 10/08/2024 09:02:29 06/26/20 24 06/26/2024 CBC W Auto Diffe renti al panel - Blood basophils/le ukocytes in blood by automated count 0.2 % low: 0%high : 1.6% Basop hil % 0.2 0.0 - 1.6 % 06/26 10:39 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 [facility] Not Available Not Available 10/08/2024 09:02:29 06/26/20 24 06/26/2024 CBC W Auto Diffe renti al panel - Blood immature granulocytes /leukocytes in blood by automated count 0.6 % low: 0%high : 1% Immat ure Granu locyt es % 0.6 0.0 - 1.0 % 06/26 10:39 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 [facility] Not Available Not Available 10/08/2024 09:02:29 06/26/20 24 06/26/2024 CBC W Auto Diffe renti al panel - Blood neutrophils [#/volume] in blood by automated count 10.79 text: 1.60 - 7.50 x10e9/ L high Neutr ophil Absol newhalen 10.79 (H) 1.60 - 7.50 x10E9 /L 06/26 10:39 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 [facility] Not Available Not Available 10/08/2024 09:02:29 06/26/20 24 06/26/2024 CBC W Auto Diffe renti al panel - Blood lymphocytes [#/volume] in blood by automated count 0.8 text: 1.00 - 4.40 x10e9/ L low Lymph ocyte Absol newhalen 0.80 (L) 1.00 - 4.40 x10E9 /L 06/26 10:39 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 [facility] Not Available Not Available 10/08/2024 09:02:29 06/26/20 24 06/26/2024 CBC W Auto Diffe renti al panel - Blood monocytes [#/volume] in blood by automated count 0.74 text: 0.15 - 1.00 x10e9/ L Monoc yte Absol newhalen 0.74 0.15 - 1.00 x10E9 /L 06/26 10:39 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 [facility] Not Available Not Available 10/08/2024 09:02:29 06/26/20 24 06/26/2024 CBC W Auto Diffe renti al panel - Blood eosinophils [#/volume] in blood 0 text: 0.00 - 0.60 x10e9/ L Eosin ophil Absol newhalen 0.00 0.00 - 0.60 x10E9 /L 06/26 10:39 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 [facility] Not Available Not Available 10/08/2024 09:02:29 06/26/20 24 06/26/2024 CBC W Auto Diffe renti al panel - Blood basophils [#/volume] in blood by automated count 0.02 text: 0.00 - 0.13 x10e9/ L Basop hil Absol [place]halen 0.02 0.00 - 0.13 x10E9 /L 06/26 10:39 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 [facility] AT[facility] SAHD Not Available Not Available 10/08/2024 09:02:29 06/26/20 24 06/26/2024 CBC W Auto Diffe renti al panel - Blood interpretati on and review of laboratory results Abnorm al Not Available Not Available 09:02:29 06/26/20 24 06/27/2024 Basic metab olic 1999 panel - Serum or Plasm a urea nitrogen [mass/volume ] in serum or plasma 10 mg/dL low: 7mg/dL high: 26mg/d L BUN 10 7 - 26 mg/dL 06/26 11:00 PM [facility] Not Available Not Available 10/08/2024 09:02:28 06/26/20 24 06/27/2024 Basic metab olic 2000 panel - Serum or Plasm a creatinine [mass/volume ] in serum or plasma 1.02 mg/dL low: 0.71mg /dLhig h: 1.16mg /dL Creat inine 1.02 0.71 - 1.16 mg/dL 06/26 11:00 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 [facility] Not Available Not Available 10/08/2024 09:02:28 06/26/20 24 06/27/2024 Basic metab olic 2000 panel - Serum or Plasm a sodium [moles/volum e] in serum or plasma 134 mmol/ L low: 136mmo l/Lhig h: 145mmo l/L low Sodiu m 134 (L) 136 - 145 mmol/ L 06/26 11:00 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 [facility] Not Available Not Available 10/08/2024 09:02:28 06/26/20 24 06/27/2024 Basic metab olic 1999 panel - Serum or Plasm a potassium [moles/volum e] in serum or plasma 4.4 mmol/ L low: 3.5mmo l/Lhig h: 4.5mmo l/L Potas sium 4.4 3.5 - 4.5 mmol/ L 06/26 11:00 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 [facility] Not Available Not Available 10/08/2024 09:02:28 06/26/20 24 06/27/2024 Basic metab olic 2000 panel - Serum or Plasm a chloride [moles/volum e] in serum or plasma 104 mmol/ L low: 98mmol /Lhigh : 107mmo l/L Chlor stalin 104 98 - 107 mmol/ L 06/26 11:00 PM [facility] Not Available Not Available 10/08/2024 09:02:28 06/26/20 24 06/27/2024 Basic metab olic 1999 panel - Serum or Plasm a carbon dioxide, total [moles/volum e] in serum or plasma 22 mmol/ L low: 22mmol /Lhigh : 29mmol /L CO2 22 22 - 29 mmol/ L 06/26 11:00 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 [facility] Not Available Not Available 10/08/2024 09:02:28 06/26/20 24 06/27/2024 Basic metab olic 2000 panel - Serum or Plasm a glucose [mass/volume ] in serum or plasma 141 mg/dL low: 70mg/d Lhigh: 99mg/d L high Gluco se 141 (H) 70 - 99 mg/dL 06/26 11:00 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 [facility] Not Available Not Available 10/08/2024 09:02:28 06/26/20 24 06/27/2024 Basic metab olic 2000 panel - Serum or Plasm a calcium [moles/volum e] in serum or plasma 8.7 mg/dL low: 8.4mg/ dLhigh : 10.2mg /dL Calci um 8.7 8.4 - 10.2 mg/dL 06/26 11:00 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 [facility] Not Available Not Available 10/08/2024 09:02:28 06/26/20 24 06/27/2024 Basic metab olic 2000 panel - Serum or Plasm a anion gap 8 low: 6high: 16 Anion Gap 8 6 - 16 06/26 11:00 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 [facility] AT[facility] Not Available Not Available 10/08/2024 09:02:28 06/26/20 24 06/27/2024 Basic metab olic 2000 panel - Serum or Plasm a urea nitrogen/cre atinine [mass ratio] in serum or plasma 10 low: 7high: 23 BUN/C reati nine Ratio 10 7 - 23 06/26 11:00 PM [facility] [employer] [facility] Not Available Not Available 10/08/2024 09:02:28 06/26/20 24 06/27/2024 Basic metab olic 2000 panel - Serum or Plasm a osmolality calculated 279 text: 275 - 295 mOsm/k g Osmol danny Whiteu lated 279 275 - 295 mOsm/ kg 06/26 11:00 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 [facility] AT[facility] Not Available Not Available 10/08/2024 09:02:28 06/26/20 24 06/27/2024 Basic metab olic 2000 panel - Serum or Plasm a glomerular filtration rate [volume rate/area] in serum, plasma or blood by creatinine-b ased formula (CKD-epi 2020)/1.73 sq M 86 text: >=90 mL/min /1.73 m2 low eGFR by CKD-E PI 86 (L) >=90 mL/mi n/1.7 3 m2 06/26 11:00 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 [facility] AT[facility] Not Available Not Available [...] 70 - 99 mg/dL 06/26 5:53 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 [facility] Not Available Not Available 10/08/2024 09:02:28 06/26/20 24 06/26/2024 Gluco se [Mass /volu me] in Arter ial blood specimen source identified Cap Finger stick Speci men Type Cap Finge rstic k 06/26 5:53 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 [facility] Not Available Not Available [...] 7.35 - 7.45 pH 06/26 11:00 AM [facility] Not Available Not Available 08/22/2024 13:38:58 06/26/20 24 06/26/2024 Gas and Carbo n monox stalin panel - Arter ial blood oxygen [partial pressure] in arterial blood 159 text: 80 - 100 mmHg high pO2 Arter ial 159 (H) 80 - 100 mmHg 06/26 11:00 AM 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 [facility] Not Available Not Available 08/22/2024 13:38:58 06/26/20 24 06/26/2024 Gas and Carbo n monox stalin panel - Arter ial blood carbon dioxide [partial pressure] in arterial blood 42 text: 35 - 45 mmHg pCO2 Arter ial 42 35 - 45 mmHg 06/26 11:00 AM [facility] [employer] [facility] Not Available Not Available 08/22/2024 13:38:58 06/26/20 24 06/26/2024 Gas and Carbo n monox stalin panel - Arter ial blood bicarbonate [moles/volum e] in arterial blood 24.8 mmol/ L low: 20mmol /Lhigh : 30mmol /L HCO3 Arter ial 24.8 20.0 - 30.0 mmol/ L 06/26 11:00 AM [facility] [employer] [facility] Not Available Not Available 08/22/2024 13:38:58 06/26/20 24 06/26/2024 Gas and Carbo n monox stalin panel - Arter ial blood base excess standard in arterial blood by calculation -0.4 mmol/ L low: -2mmol /Lhigh : 2mmol/ L BE Arter ial -0.4 -2.0 - 2.0 mmol/ L 06/26 11:00 AM [facility] [employer] [facility] Not Available Not Available 08/22/2024 13:38:58 06/26/20 24 06/26/2024 Gas and Carbo n monox stalin panel - Arter ial blood fractional oxyhemoglobi n in arterial blood 96.6 % Oxyhe moglo bin Arter ial 96.6 % 06/26 11:00 AM [facility] [facility] Not Available Not Available 08/22/2024 13:38:58 06/26/20 24 06/26/2024 Gas and Carbo n monox stalin panel - Arter ial blood deoxyhemoglo bin [mass/volume ] in blood 1 % Dexoy hemog lobin (HHB) % 1.0 % 06/26 11:00 AM [facility] [facility] Not Available Not Available 08/22/2024 13:38:58 06/26/20 24 06/26/2024 Gas and Carbo n monox stalin panel - Arter ial blood methemoglobi n/hemoglobin .total in blood 1.2 % low: 0%high : 2% Methe moglo bin 1.2 0.0 - 2.0 % 06/26 11:00 AM [facility] [facility] Not Available Not Available 08/22/2024 13:38:58 06/26/20 24 06/26/2024 Gas and Carbo n monox stalin panel - Arter ial blood carboxyhemog lobin/hemogl obin.total in blood 1.1 % low: 0%high : 2% Carbo xyhem oglob in 1.1 0.0 - 2.0 % 06/26 11:00 AM [facility] [facility] Not Available Not Available 08/22/2024 13:38:58 06/26/20 24 06/26/2024 Gas and Carbo n monox stalin panel - Arter ial blood oxygen content in arterial blood 18.1 mL/dL text: interp ret within clinic al contex t O2 Aurelio nt Arter ial 18.1 Inter pret withi n clini curtis aurelio xt ml/dL 06/26 11:00 AM [facility] [facility] Not Available Not Available 08/22/2024 13:38:58 06/26/20 24 06/26/2024 Gas and Carbo n monox stalin panel - Arter ial blood hemoglobin [mass/volume ] in blood by oximetry 13.1 g/dL low: 12g/dL high: 17.6g/ dL Hemog lobin by COOX 13.1 12.0 - 17.6 g/dL 06/26 11:00 AM [facility] [facility] Not Available Not Available 08/22/2024 13:38:58 06/26/20 24 06/26/2024 Gas and Carbo n monox stlain panel - Arter ial blood oxygen saturation in arterial blood 99 % low: 90%hig h: 100% O2 Satur ation Arter ial 99 90 - 100 % 06/26 11:00 AM [facility] [employer] [facility] Not Available Not Available 08/22/2024 13:38:58 06/26/20 24 06/26/2024 Gas and Carbo n monox stalin panel - Arter ial blood sodium [moles/volum e] in serum or plasma 134 mmol/ L low: 135mmo l/Lhig h: 145mmo l/L low Sodiu m Whole Blood 134 (L) 135 - 145 mmol/ L 06/26 11:00 AM [facility] [facility] Not Available Not Available 08/22/2024 13:38:58 06/26/20 24 06/26/2024 Gas and Carbo n monox stalin panel - Arter ial blood potassium [moles/volum e] in serum or plasma 4.6 mmol/ L low: 3.5mmo l/Lhig h: 5.5mmo l/L Potas sium Whole Blood 4.6 3.5 - 5.5 mmol/ L 06/26 11:00 AM [facility] Not Available Not Available 08/22/2024 13:38:58 06/26/20 24 06/26/2024 Gas and Carbo n monox stalin panel - Arter ial blood chloride [moles/volum e] in serum or plasma 102 mmol/ L low: 78mmol /Lhigh : 107mmo l/L Chlor stalin WB 102 78 - 107 mmol/ L 06/26 11:00 AM [facility] Not Available Not Available 08/22/2024 13:38:58 06/26/20 24 06/26/2024 Gas and Carbo n monox stalin panel - Arter ial blood calcium.ioni zed [moles/volum e] in blood 1.12 mmol/ L Calci um Ioniz ed 1.12 mmol/ L 06/26 11:00 AM [facility] Not Available Not Available 08/22/2024 13:38:58 06/26/20 24 06/26/2024 Gas and Carbo n monox stalin panel - Arter ial blood calcium.ioni zed [moles/volum e] adjusted to pH 7.4 in blood 1.11 mmol/ L low: 1.19mm ol/Lhi gh: 1.34mm ol/L low Ioniz ed Calci um pH Adjus delaney 1.11 (L) 1.19 - 1.34 mmol/ L 06/26 11:00 AM [facility] Not Available Not Available 08/22/2024 13:38:58 06/26/20 24 06/26/2024 Gas and Carbo n monox stalin panel - Arter ial blood anion gap in blood 7 mmol/ L low: 6mmol/ Lhigh: 16mmol /L Anion Gap (AG) Arter ial 7 6 - 16 mmol/ L 06/26 11:00 AM [facility] Not Available Not Available 08/22/2024 13:38:58 06/26/20 24 06/26/2024 Gas and Carbo n monox stalin panel - Arter ial blood glucose [mass/volume ] in blood 166 mg/dL low: 70mg/d Lhigh: 99mg/d L high Gluco se WB 166 (H) 70 - 99 mg/dL 06/26 11:00 AM [facility] Not Available Not Available 08/22/2024 13:38:58 06/26/20 24 06/26/2024 Gas and Carbo n monox stalin panel - Arter ial blood lactate [moles/volum e] in blood 1.7 mmol/ L high: 2mmol/ L Lacti c Acid Whole Blood 1.7 <=2.0 mmol/ L 06/26 11:00 AM [facility] AT[facility] Not Available Not Available [...] Author izing Provid er: Akin Herbert MD [facility] delaney: 2023 09:26 AM Orderi ng Locati on: [facility] NEELIMA OP Receiv ed: 2023 11:09 AM [...] curtis Patho logy Repor t Case: [id number] Autho rona arita Provi jodie: Akin Herbert MD Colle cted: 06/26 09:26 AM Order ing [...] Left Neck Disse ction 06/29 9:08 AM 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 [facility] Not Available Not [...] ction (E): - No evide nce of polo crockett in twelv e lymph nodes (0 ) 06/29 9:08 AM 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 [facility] Elect flory ah d by Beltran Scott MD on 06/29 at [...] submi tted entir almas. 06/29 9:08 AM 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 [facility] Not Available Not [...] ous cell carci noma. 06/29 9:08 AM 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 [facility] Not Available Not [...] by Fay Macdonald MD 06/29 9:08 AM 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 [facility] Not Available Not [...] and adipo se IKD 06/29 9:08 AM 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 [facility] Not Available Not Available 08/22/2024 13:38:58 06/26/20 24 06/29/2024 Tissu e Patho logy biops y repor t pathologist [facility] at [facility] Norma Pagan 06/29 9:08 AM 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 [facility] Not Available Not Available 08/22/2024 13:38:58 06/26/20 24 06/29/2024 Tissu e Patho logy biops y repor t service comment The perfor robina charac terist ics of all immuno histoc hemica l and indire ct immuno fluore scence stains (if any) cited in this report were determ ined by the Histop atholo gy Kizzya daniel of [facility]. Some of these tests were develo ped [...] certif ied under the Clinic al Labora daniel Improv ement Amendm ents (CLIA) as qualif ied to perfor m high comple xity clinic al simi sanchez testin g. This case has been person ally review ed and interp reted by the attend ing (teach ing) pathol ogist. Discl aimer The perfo rmanc e meliza cteri stics of all immun ohist ochem ical and indir ect immun ofluo resce nce stain s (if any) cited in this repor t were deter mined by the Histo patho logy Labor [facility] . Some of these tests were [...] inter prete d by the ivania bennett ([facility] cheryl) patho logis t. 06/29 9:08 AM 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 [facility] Not Available Not [...] Latera lity: Left Tumor Size: Greate st Dimens ion (Centi meters ): 2.2 cm Histol [...] ous cell carci noma, conve ntion al (porsha tiniz ing) Histo logic Grade : G2, [...] nent infor matio n, inclu ding but potreggie ramesh y not limit ed to this [...] lasmi c stain ing) 06/29 9:08 AM 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 [facility] Not Available Not Available 08/22/2024 13:38:58 06/26/20 24 06/29/2024 Tissu e Patho logy biops y repor t embedded images Embed ded Image s 06/29 9:08 AM [facility] Not Available Not Available 08/22/2024 13:38:58 06/26/20 24 06/26/2024 Gas and Carbo n monox stalin panel - Arter ial blood pH of arterial blood 7.39 pH low: 7.35pH high: 7.45pH pH Arter ial 7.39 7.35 - 7.45 pH 06/26 8:09 AM [facility] Not Available Not Available 10/08/2024 09:02:28 06/26/20 24 06/26/2024 Gas and Carbo n monox stalin panel - Arter ial blood oxygen [partial pressure] in arterial blood 155 text: 80 - 100 mmHg high pO2 Arter ial 155 (H) 80 - 100 mmHg 06/26 8:09 AM [facility] Not Available Not Available 10/08/2024 09:02:28 06/26/20 24 06/26/2024 Gas and Carbo n monox stalin panel - Arter ial blood carbon dioxide [partial pressure] in arterial blood 47 text: 35 - 45 mmHg high pCO2 Arter ial 47 (H) 35 - 45 mmHg 06/26 8:09 AM [facility] Not Available Not Available 10/08/2024 09:02:28 06/26/20 24 06/26/2024 Gas and Carbo n monox stalin panel - Arter ial blood bicarbonate [moles/volum e] in arterial blood 28.5 mmol/ L low: 20mmol /Lhigh : 30mmol /L HCO3 Arter ial 28.5 20.0 - 30.0 mmol/ L 06/26 8:09 AM [facility] Not Available Not Available 10/08/2024 09:02:28 06/26/20 24 06/26/2024 Gas and Carbo n monox stalin panel - Arter ial blood base excess standard in arterial blood by calculation 2.8 mmol/ L low: -2mmol /Lhigh : 2mmol/ L high BE Arter ial 2.8 (H) -2.0 - 2.0 mmol/ L 06/26 8:09 AM [facility] Not Available Not Available 10/08/2024 09:02:28 06/26/20 24 06/26/2024 Gas and Carbo n monox stalin panel - Arter ial blood fractional oxyhemoglobi n in arterial blood 96.9 % Oxyhe moglo bin Arter ial 96.9 % 06/26 8:09 AM 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 [facility] Not Available Not Available 10/08/2024 09:02:28 06/26/20 24 06/26/2024 Gas and Carbo n monox stalin panel - Arter ial blood deoxyhemoglo bin [mass/volume ] in blood 1 % Dexoy hemog lobin (HHB) % 1.0 % 06/26 8:09 AM [facility] Not Available Not Available 10/08/2024 09:02:28 06/26/20 24 06/26/2024 Gas and Carbo n monox stalin panel - Arter ial blood methemoglobi n/hemoglobin .total in blood 1 % low: 0%high : 2% Methe moglo bin 1.0 0.0 - 2.0 % 06/26 8:09 AM [facility] Not Available Not Available 10/08/2024 09:02:28 06/26/20 24 06/26/2024 Gas and Carbo n monox stalin panel - Arter ial blood carboxyhemog lobin/hemogl obin.total in blood 1 % low: 0%high : 2% Carbo xyhem oglob in 1.0 0.0 - 2.0 % 06/26 8:09 AM [facility] Not Available Not Available 10/08/2024 09:02:28 06/26/20 24 06/26/2024 Gas and Carbo n monox stalin panel - Arter ial blood oxygen content in arterial blood 18.8 mL/dL text: interp ret within clinic al contex t O2 Aureloi nt Arter ial 18.8 Inter pret withi n clini curtis aurelio xt ml/dL 06/26 8:09 [facility] Not Available 10/08/2024 09:02:28 06/26/20 24 06/26/2024 Gas and Carbo n monox stalin panel - Arter ial blood hemoglobin [mass/volume ] in blood by oximetry 13.6 g/dL low: 12g/dL high: 17.6g/ dL Hemog lobin by COOX 13.6 12.0 - 17.6 g/dL 06/26 8:09 [facility] Not Available 10/08/2024 09:02:28 06/26/20 24 06/26/2024 Gas and Carbo n monox stalin panel - Arter ial blood oxygen saturation in arterial blood 99 % low: 90%hig h: 100% O2 Satur ation Arter ial 99 90 - 100 % 06/26 8:09 [facility] Not Available 10/08/2024 09:02:28 06/26/20 24 06/26/2024 Gas and Carbo n monox stalin panel - Arter ial blood sodium [moles/volum e] in serum or plasma 133 mmol/ L low: 135mmo l/Lhig h: 145mmo l/L low Sodiu m Whole Blood 133 (L) 135 - 145 mmol/ L 06/26 8:09 [facility] Not Available 10/08/2024 09:02:28 06/26/20 24 06/26/2024 Gas and Carbo n monox stalin panel - Arter ial blood potassium [moles/volum e] in serum or plasma 4.2 mmol/ L low: 3.5mmo l/Lhig h: 5.5mmo l/L Potas sium Whole Blood 4.2 3.5 - 5.5 mmol/ L 06/26 8:09 [facility] Not Available 10/08/2024 09:02:28 06/26/20 24 06/26/2024 Gas and Carbo n monox stalin panel - Arter ial blood chloride [moles/volum e] in serum or plasma 103 mmol/ L low: 78mmol /Lhigh : 107mmo l/L Chlor stalin WB 103 78 - 107 mmol/ L 06/26 8:09 AM [facility] Not Available Not Available 10/08/2024 09:02:28 06/26/20 24 06/26/2024 Gas and Carbo n monox stalin panel - Arter ial blood calcium.ioni zed [moles/volum e] in blood 1.22 mmol/ L Calci um Ioniz ed 1.22 mmol/ L 06/26 8:09 AM [facility] Not Available Not Available 10/08/2024 09:02:28 06/26/20 24 06/26/2024 Gas and Carbo n monox stalin panel - Arter ial blood calcium.ioni zed [moles/volum e] adjusted to pH 7.4 in blood 1.22 mmol/ L low: 1.19mm ol/Lhi gh: 1.34mm ol/L Ioniz ed Calci um pH Adjus delaney 1.22 1.19 - 1.34 mmol/ L 06/26 8:09 AM [facility] Not Available Not Available 10/08/2024 09:02:28 06/26/20 24 06/26/2024 Gas and Carbo n monox stalin panel - Arter ial blood anion gap in blood by calculation 2 mmol/ L low: 6mmol/ Lhigh: 16mmol /L low Anion Gap (AG) Arter ial 2 (L) 6 - 16 mmol/ L 06/26 8:09 AM [facility] Not Available Not Available 10/08/2024 09:02:28 06/26/20 24 06/26/2024 Gas and Carbo n monox stalin panel - Arter ial blood glucose [mass/volume ] in blood 123 mg/dL low: 70mg/d Lhigh: 99mg/d L high Gluco se WB 123 (H) 70 - 99 mg/dL 06/26 8:09 AM [facility] Not Available Not Available 10/08/2024 09:02:28 06/26/20 24 06/26/2024 Gas and Carbo n monox stalin panel - Arter ial blood lactate [moles/volum e] in blood 1.5 mmol/ L high: 2mmol/ L Lacti c Acid Whole Blood 1.5 <=2.0 mmol/ L 06/26 8:09 AM [facility] Not Available Not [...] ABO Rh A POS 06/26 7:59 AM [facility] BLOOD BANK LAB Not Available Not Available 08/22/2024 13:38:58 06/26/20 24 06/26/2024 Blood type and Indir ect antib domenic scree n panel - Blood blood group antibody screen [presence] in serum or plasma NEG Antib domenic Scree n NEG 06/26 7:19 AM [facility] BLOOD BANK LAB Not Available Not Available 10/08/2024 09:02:28 06/26/20 24 06/26/2024 Blood type and Indir ect antib domenic scree n panel - Blood ABO and Rh group [type] in blood A POS ABO Rh A POS 06/26 7:19 AM [facility] BLOOD BANK LAB Not Available Not Available 10/08/2024 09:02:28 06/27/20 24 06/28/2024 Phosp hate [Mass /volu me] in Serum or Plasm a phosphate [mass/volume ] in serum or plasma 2.5 mg/dL low: 2.8mg/ dLhigh : 5.1mg/ dL low Phosp horus 2.5 (L) 2.8 - 5.1 mg/dL 06/27 11:09 PM [facility] Not Available Not [...] 1.6 - 2.6 mg/dL 06/27 11:09 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 [facility] Not Available Not [...] - 10.7 x10E9 /L 06/27 10:47 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 [facility] Not Available Not Available 10/08/2024 09:02:29 06/27/20 24 06/27/2024 CBC W Auto Diffe renti al panel - Blood erythrocytes [#/volume] in blood by automated count 3.77 text: 4.30 - 5.80 x10e12 /L low RBC Count 3.77 (L) 4.30 - 5.80 x10E1 2/L 06/27 10:47 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 [facility] Not Available Not Available 10/08/2024 09:02:29 06/27/20 24 06/27/2024 CBC W Auto Diffe renti al panel - Blood hemoglobin [mass/volume ] in blood 11.7 g/dL low: 13.3g/ dLhigh : 17.5g/ dL low Hemog lobin 11.7 (L) 13.3 - 17.5 g/dL 06/27 10:47 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 [facility] Not Available Not Available 10/08/2024 09:02:29 06/27/20 24 06/27/2024 CBC W Auto Diffe renti al panel - Blood hematocrit [volume fraction] of blood by automated count 33.8 % low: 38.7%h igh: 51.1% low Hemat ocrit 33.8 (L) 38.7 - 51.1 % 06/27 10:47 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 [facility] Not Available Not Available 10/08/2024 09:02:29 06/27/20 24 06/27/2024 CBC W Auto Diffe renti al panel - Blood MCV [entitic mean volume] in red blood cells by automated count 89.7 fL low: 80fLhi gh: 98fL MCV 89.7 80.0 - 98.0 fL 06/27 10:47 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 [facility] Not Available Not Available 10/08/2024 09:02:29 06/27/20 24 06/27/2024 CBC W Auto Diffe rennicky al panel - Blood MCH [entitic mass] by automated count 31 pg low: 26.7pg high: 33.6pg MCH 31.0 26.7 - 33.6 pg 06/27 10:47 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 [facility] Not Available Not Available 10/08/2024 09:02:29 06/27/20 24 06/27/2024 CBC W Auto Diffe renti al panel - Blood MCHC [entitic mass/volume] in red blood cells by automated count 34.6 g/dL low: 31.7g/ dLhigh : 36.3g/ dL MCHC 34.6 31.7 - 36.3 g/dL 06/27 10:47 PM [facility] Not Available Not Available 10/08/2024 09:02:29 06/27/20 24 06/27/2024 CBC W Auto Diffe renti al panel - Blood erythrocyte [distwidth] in red blood cells by automated count 12.7 % low: 11.3%h igh: 14.8% RDW-C V 12.7 11.3 - 14.8 % 06/27 10:47 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 [facility] Not Available Not Available 10/08/2024 09:02:29 06/27/20 24 06/27/2024 CBC W Auto Diffe renti al panel - Blood platelets [#/volume] in blood by automated count 267 text: 150 - 420 x10e9/ L Plate let Count 267 150 - 420 x10E9 /L 06/27 10:47 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 [facility] Not Available Not Available 10/08/2024 09:02:29 06/27/20 24 06/27/2024 CBC W Auto Diffe renti al panel - Blood platelet [entitic mean volume] in blood by automated count 8.8 fL low: 7.8fLh igh: 11.4fL MPV 8.8 7.8 - 11.4 fL 06/27 10:47 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 [facility] Not Available Not Available 10/08/2024 09:02:29 06/27/20 24 06/27/2024 CBC W Auto Diffe renti al panel - Blood neutrophils/ leukocytes in blood by automated count 66.7 % low: 41%hig h: 74% Neutr ophil % 66.7 41.0 - 74.0 % 06/27 10:47 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 [facility] Not Available Not Available 10/08/2024 09:02:29 06/27/20 24 06/27/2024 CBC W Auto Diffe renti al panel - Blood lymphocytes/ leukocytes in blood by automated count 19.4 % low: 17%hig h: 47% Lymph ocyte % 19.4 17.0 - 47.0 % 06/27 10:47 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 [facility] Not Available Not Available 10/08/2024 09:02:29 06/27/20 24 06/27/2024 CBC W Auto Diffe renti al panel - Blood monocytes/le ukocytes in blood by automated count 8.5 % low: 3%high : 11% Monoc yte % 8.5 3.0 - 11.0 % 06/27 10:47 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 [facility] Not Available Not Available 10/08/2024 09:02:29 06/27/20 24 06/27/2024 CBC W Auto Diffe renti al panel - Blood eosinophils/ leukocytes in blood by automated count 4.6 % low: 0%high : 7% Eosin ophil % 4.6 0.0 - 7.0 % 06/27 10:47 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 [facility] Not Available Not Available 10/08/2024 09:02:29 06/27/20 24 06/27/2024 CBC W Auto Diffe renti al panel - Blood basophils/le ukocytes in blood by automated count 0.2 % low: 0%high : 1.6% Basop hil % 0.2 0.0 - 1.6 % 06/27 10:47 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 [facility] Not Available Not Available 10/08/2024 09:02:29 06/27/20 24 06/27/2024 CBC W Auto Diffe renti al panel - Blood immature granulocytes /leukocytes in blood by automated count 0.6 % low: 0%high : 1% Immat ure Granu locyt es % 0.6 0.0 - 1.0 % 06/27 10:47 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 [facility] Not Available Not Available 10/08/2024 09:02:29 06/27/20 24 06/27/2024 CBC W Auto Diffe renti al panel - Blood neutrophils [#/volume] in blood by automated count 5.81 text: 1.60 - 7.50 x10e9/ L Neutr ophil Absol newhalen 5.81 1.60 - 7.50 x10E9 /L 06/27 10:47 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 [facility] Not Available Not Available 10/08/2024 09:02:29 06/27/20 24 06/27/2024 CBC W Auto Diffe renti al panel - Blood lymphocytes [#/volume] in blood by automated count 1.69 text: 1.00 - 4.40 x10e9/ L Lymph ocyte Absol newhalen 1.69 1.00 - 4.40 x10E9 /L 06/27 10:47 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 [facility] Not Available Not Available 10/08/2024 09:02:29 06/27/20 24 06/27/2024 CBC W Auto Diffe renti al panel - Blood monocytes [#/volume] in blood by automated count 0.74 text: 0.15 - 1.00 x10e9/ L Monoc yte Absol newhalen 0.74 0.15 - 1.00 x10E9 /L 06/27 10:47 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 [facility] Not Available Not Available 10/08/2024 09:02:29 06/27/20 24 06/27/2024 CBC W Auto Diffe renti al panel - Blood eosinophils [#/volume] in blood 0.4 text: 0.00 - 0.60 x10e9/ L Eosin ophil Absol newhalen 0.40 0.00 - 0.60 x10E9 /L 06/27 10:47 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 [facility] Not Available Not Available 10/08/2024 09:02:29 06/27/20 24 06/27/2024 CBC W Auto Diffe renti al panel - Blood basophils [#/volume] in blood by automated count 0.02 text: 0.00 - 0.13 x10e9/ L Basop hil Absol newhalen 0.02 0.00 - 0.13 x10E9 /L 06/27 10:47 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 [facility] Not Available Not [...] 7 - 26 mg/dL 06/27 11:09 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 [facility] Not Available Not Available 10/08/2024 09:02:29 06/27/20 24 06/28/2024 Basic metab olic 2000 panel - Serum or Plasm a creatinine [mass/volume ] in serum or plasma 0.99 mg/dL low: 0.71mg /dLhig h: 1.16mg /dL Creat inine 0.99 0.71 - 1.16 mg/dL 06/27 11:09 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 [facility] Not Available Not Available 10/08/2024 09:02:29 06/27/20 24 06/28/2024 Basic metab olic 1999 panel - Serum or Plasm a sodium [moles/volum e] in serum or plasma 132 mmol/ L low: 136mmo l/Lhig h: 145mmo l/L low Sodiu m 132 (L) 136 - 145 mmol/ L 06/27 11:09 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 [facility] Not Available Not Available 10/08/2024 09:02:29 06/27/20 24 06/28/2024 Basic metab olic 1999 panel - Serum or Plasm a potassium [moles/volum e] in serum or plasma 3.8 mmol/ L low: 3.5mmo l/Lhig h: 4.5mmo l/L Potas sium 3.8 3.5 - 4.5 mmol/ L 06/27 11:09 PM [facility] Not Available Not Available 10/08/2024 09:02:29 06/27/20 24 06/28/2024 Basic metab olic 1999 panel - Serum or Plasm a chloride [moles/volum e] in serum or plasma 100 mmol/ L low: 98mmol /Lhigh : 107mmo l/L Chlor stalin 100 98 - 107 mmol/ L 06/27 11:09 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 [facility] Not Available Not Available 10/08/2024 09:02:29 06/27/20 24 06/28/2024 Basic metab olic 1999 panel - Serum or Plasm a carbon dioxide, total [moles/volum e] in serum or plasma 27 mmol/ L low: 22mmol /Lhigh : 29mmol /L CO2 27 22 - 29 mmol/ L 06/27 11:09 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 [facility] Not Available Not Available 10/08/2024 09:02:29 06/27/20 24 06/28/2024 Basic metab olic 2000 panel - Serum or Plasm a glucose [mass/volume ] in serum or plasma 94 mg/dL low: 70mg/d Lhigh: 99mg/d L Gluco se 94 70 - 99 mg/dL 06/27 11:09 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 [facility] Not Available Not Available 10/08/2024 09:02:29 06/27/20 24 06/28/2024 Basic metab olic 2000 panel - Serum or Plasm a calcium [moles/volum e] in serum or plasma 8.1 mg/dL low: 8.4mg/ dLhigh : 10.2mg /dL low Calci um 8.1 (L) 8.4 - 10.2 mg/dL 06/27 11:09 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 [facility] Not Available Not Available 10/08/2024 09:02:29 06/27/20 24 06/28/2024 Basic metab olic 2000 panel - Serum or Plasm a anion gap 5 low: 6high: 16 low Anion Gap 5 (L) 6 - 16 06/27 11:09 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 [facility] Not Available Not Available 10/08/2024 09:02:29 06/27/20 24 06/28/2024 Basic metab olic 2000 panel - Serum or Plasm a urea nitrogen/cre atinine [mass ratio] in serum or plasma 11 low: 7high: 23 BUN/C reati nine Ratio 11 7 - 23 06/27 11:09 PM [facility] Not Available Not Available 10/08/2024 09:02:29 06/27/20 24 06/28/2024 Basic metab olic 2000 panel - Serum or Plasm a osmolality calculated 273 text: 275 - 295 mOsm/k g low Osmol ality Calcu lated 273 (L) 275 - 295 mOsm/ kg 06/27 11:09 PM [facility] Not Available Not Available 10/08/2024 09:02:29 06/27/20 24 06/28/2024 Basic metab olic 2000 panel - Serum or Plasm a glomerular filtration rate [volume rate/area] in serum, plasma or blood by creatinine-b ased formula (CKD-epi 2020)/1.73 sq M 89 text: >=90 mL/min /1.73 m2 low eGFR by CKD-E PI 89 (L) >=90 mL/mi n/1.7 3 m2 06/27 11:09 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 [facility] Not Available Not [...] 70 - 99 mg/dL 06/28 12:21 AM 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 [facility] Not Available Not Available 10/08/2024 09:02:29 06/27/20 24 06/28/2024 Gluco se [Mass /volu me] in Arter ial blood specimen source identified Cap Finger stick Speci men Type Cap Finge rstic k 06/28 12:21 AM 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 [facility] Not Available Not [...] 70 - 99 mg/dL 06/27 4:59 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 [facility] Not Available Not Available 10/08/2024 09:02:29 06/27/20 24 06/27/2024 Gluco se [Mass /volu me] in Arter ial blood specimen source identified Cap Finger stick Speci men Type Cap Finge rstic k 06/27 4:59 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 [facility] Not Available Not Available 10/08/2024 09:02:29 1218/20 24 06/27/2024 Gluco se [Mass /volu me] [...] 70 - 99 mg/dL 06/27 5:21 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 [employer] [facility] Not Available Not Available 10/08/2024 09:02:29 06/27/20 24 06/27/2024 Gluco se [Mass /volu me] in Arter ial blood specimen source identified Cap Finger stick Speci men Type Cap Finge rstic k 06/27 5:21 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 [employer] [facility] Not Available Not Available 10/08/2024 09:02:29 06/27/20 24 06/27/2024 Gluco se [Mass /volu me] in Arter ial blood glucose [mass/volume ] in capillary blood by glucometer 109 mg/dL low: 70mg/d Lhigh: 99mg/d L high Gluco se WB/PO C 109 (H) 70 - 99 mg/dL 06/27 11:32 AM 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 [employer] AT[facility] Not Available Not Available 10/08/2024 09:02:29 06/27/20 24 06/27/2024 Gluco se [Mass /volu me] in Arter ial blood specimen source identified Arteri al Speci men Type Arter ial 06/27 11:32 AM 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 [employer] [facility] Not Available Not [...] 70 - 99 mg/dL 06/27 6:17 AM 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 [employer] [facility] Not Available Not Available 10/08/2024 09:02:29 06/27/20 24 06/27/2024 Gluco se [Mass /volu me] in Arter ial blood specimen source identified Arteri al Speci men Type Arter ial 06/27 6:17 AM 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 [employer] AT[facility] Not Available Not Available [...] 2.8 - 5.1 mg/dL 06/28 10:20 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 [employer] [facility] Not Available Not Available 10/08/2024 [...] 1.6 - 2.6 mg/dL 06/28 10:20 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 [employer] [facility] Not Available Not Available 10/08/2024 [...] - 10.7 x10E9 /L 06/28 9:51 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 [facility] Not Available Not Available 10/08/2024 09:02:30 06/28/20 24 06/28/2024 CBC W Auto Diffe renti al panel - Blood erythrocytes [#/volume] in blood by automated count 4.01 text: 4.30 - 5.80 x10e12 /L low RBC Count 4.01 (L) 4.30 - 5.80 x10E1 2/L 06/28 9:51 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 [facility] Not Available Not Available 10/08/2024 09:02:30 06/28/20 24 06/28/2024 CBC W Auto Diffe renti al panel - Blood hemoglobin [mass/volume ] in blood 12.6 g/dL low: 13.3g/ dLhigh : 17.5g/ dL low Hemog lobin 12.6 (L) 13.3 - 17.5 g/dL 06/28 9:51 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 [facility] Not Available Not Available 10/08/2024 09:02:30 06/28/20 24 06/28/2024 CBC W Auto Diffe renti al panel - Blood hematocrit [volume fraction] of blood by automated count 36.1 % low: 38.7%h igh: 51.1% low Hemat ocrit 36.1 (L) 38.7 - 51.1 % 06/28 9:51 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 [facility] Not Available Not Available 10/08/2024 09:02:30 06/28/20 24 06/28/2024 CBC W Auto Diffe renti al panel - Blood MCV [entitic mean volume] in red blood cells by automated count 90 fL low: 80fLhi gh: 98fL MCV 90.0 80.0 - 98.0 fL 06/28 9:51 [facility] Not Available 10/08/2024 09:02:30 06/28/20 24 06/28/2024 CBC W Auto Diffe renti al panel - Blood MCH [entitic mass] by automated count 31.4 pg low: 26.7pg high: 33.6pg MCH 31.4 26.7 - 33.6 pg 06/28 9:51 PM [facility] Not Available 10/08/2024 09:02:30 06/28/20 24 06/28/2024 CBC W Auto Diffe renti al panel - Blood MCHC [entitic mass/volume] in red blood cells by automated count 34.9 g/dL low: 31.7g/ dLhigh : 36.3g/ dL MCHC 34.9 31.7 - 36.3 g/dL 06/28 9:51 PM [facility] Not Available 10/08/2024 09:02:30 06/28/20 24 06/28/2024 CBC W Auto Diffe renti al panel - Blood erythrocyte [distwidth] in red blood cells by automated count 12.7 % low: 11.3%h igh: 14.8% RDW-C V 12.7 11.3 - 14.8 % 06/28 9:51 PM [facility] Not Available Not Available 10/08/2024 09:02:30 06/28/20 24 06/28/2024 CBC W Auto Diffe renti al panel - Blood platelets [#/volume] in blood by automated count 287 text: 150 - 420 x10e9/ L Plate let Count 287 150 - 420 x10E9 /L 06/28 9:51 PM [facility] Not Available Not Available 10/08/2024 09:02:30 06/28/20 24 06/28/2024 CBC W Auto Diffe renti al panel - Blood platelet [entitic mean volume] in blood by automated count 8.8 fL low: 7.8fLh igh: 11.4fL MPV 8.8 7.8 - 11.4 fL 06/28 9:51 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 Not Available Not Available 10/08/2024 09:02:30 06/28/20 24 06/28/2024 CBC W Auto Diffe renti al panel - Blood neutrophils/ leukocytes in blood by automated count 77.4 % low: 41%hig h: 74% high Neutr ophil % 77.4 (H) 41.0 - 74.0 % 06/28 9:51 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 Not Available Not Available 10/08/2024 09:02:30 06/28/20 24 06/28/2024 CBC W Auto Diffe renti al panel - Blood lymphocytes/ leukocytes in blood by automated count 10.8 % low: 17%hig h: 47% low Lymph ocyte % 10.8 (L) 17.0 - 47.0 % 06/28 9:51 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 Not Available Not Available 10/08/2024 09:02:30 06/28/20 24 06/28/2024 CBC W Auto Diffe renti al panel - Blood monocytes/le ukocytes in blood by automated count 6.3 % low: 3%high : 11% Monoc yte % 6.3 3.0 - 11.0 % 06/28 9:51 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 Not Available Not Available 10/08/2024 09:02:30 06/28/20 24 06/28/2024 CBC W Auto Diffe renti al panel - Blood eosinophils/ leukocytes in blood by automated count 4.8 % low: 0%high : 7% Eosin ophil % 4.8 0.0 - 7.0 % 06/28 9:51 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 Not Available Not Available 10/08/2024 09:02:30 06/28/20 24 06/28/2024 CBC W Auto Diffe renti al panel - Blood basophils/le ukocytes in blood by automated count 0.3 % low: 0%high : 1.6% Basop hil % 0.3 0.0 - 1.6 % 06/28 9:51 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 Not Available Not Available 10/08/2024 09:02:30 06/28/20 24 06/28/2024 CBC W Auto Diffe renti al panel - Blood immature granulocytes /leukocytes in blood by automated count 0.4 % low: 0%high : 1% Immat ure Granu locyt es % 0.4 0.0 - 1.0 % 06/28 9:51 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 [facility] [facility] Not Available Not Available 10/08/2024 09:02:30 06/28/20 24 06/28/2024 CBC W Auto Diffe renti al panel - Blood neutrophils [#/volume] in blood by automated count 8.31 text: 1.60 - 7.50 x10e9/ L high Neutr ophil Absol newhalen 8.31 (H) 1.60 - 7.50 x10E9 /L 06/28 9:51 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 [facility] Not Available Not Available 10/08/2024 09:02:30 06/28/20 24 06/28/2024 CBC W Auto Diffe renti al panel - Blood lymphocytes [#/volume] in blood by automated count 1.16 text: 1.00 - 4.40 x10e9/ L Lymph ocyte Absol newhalen 1.16 1.00 - 4.40 x10E9 /L 06/28 9:51 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 [facility] Not Available Not Available 10/08/2024 09:02:30 06/28/20 24 06/28/2024 CBC W Auto Diffe renti al panel - Blood monocytes [#/volume] in blood by automated count 0.67 text: 0.15 - 1.00 x10e9/ L Monoc yte Absol newhalen 0.67 0.15 - 1.00 x10E9 /L 06/28 9:51 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 [facility] Not Available Not Available 10/08/2024 09:02:30 06/28/20 24 06/28/2024 CBC W Auto Diffe renti al panel - Blood eosinophils [#/volume] in blood 0.51 text: 0.00 - 0.60 x10e9/ L Eosin ophil Absol newhalen 0.51 0.00 - 0.60 x10E9 /L 06/28 9:51 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 [facility] Not Available Not Available 10/08/2024 09:02:30 06/28/20 24 06/28/2024 CBC W Auto Diffe renti al panel - Blood basophils [#/volume] in blood by automated count 0.03 text: 0.00 - 0.13 x10e9/ L Basop hil Absol newhalen 0.03 0.00 - 0.13 x10E9 /L 06/28 9:51 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 [facility] Not Available Not [...] 7 - 26 mg/dL 06/28 10:20 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 [facility] Not Available Not Available 10/08/2024 09:02:30 06/28/20 24 06/28/2024 Basic metab olic 2000 panel - Serum or Plasm a creatinine [mass/volume ] in serum or plasma 1.08 mg/dL low: 0.71mg /dLhig h: 1.16mg /dL Creat inine 1.08 0.71 - 1.16 mg/dL 06/28 10:20 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 [facility] Not Available Not Available 10/08/2024 09:02:30 06/28/20 24 06/28/2024 Basic metab olic 2000 panel - Serum or Plasm a sodium [moles/volum e] in serum or plasma 137 mmol/ L low: 136mmo l/Lhig h: 145mmo l/L Sodiu m 137 136 - 145 mmol/ L 06/28 10:20 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 [facility] Not Available Not Available 10/08/2024 09:02:30 06/28/20 24 06/28/2024 Basic metab olic 1999 panel - Serum or Plasm a potassium [moles/volum e] in serum or plasma 4.1 mmol/ L low: 3.5mmo l/Lhig h: 4.5mmo l/L Potas sium 4.1 3.5 - 4.5 mmol/ L 06/28 10:20 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 [facility] Not Available Not Available 10/08/2024 09:02:30 06/28/20 24 06/28/2024 Basic metab olic 1999 panel - Serum or Plasm a chloride [moles/volum e] in serum or plasma 104 mmol/ L low: 98mmol /Lhigh : 107mmo l/L Chlor stalin 104 98 - 107 mmol/ L 06/28 10:20 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 [facility] Not Available Not Available 10/08/2024 09:02:30 06/28/20 24 06/28/2024 Basic metab olic 1999 panel - Serum or Plasm a carbon dioxide, total [moles/volum e] in serum or plasma 27 mmol/ L low: 22mmol /Lhigh : 29mmol /L CO2 27 22 - 29 mmol/ L 06/28 10:20 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 [facility] Not Available Not Available 10/08/2024 09:02:30 06/28/20 24 06/28/2024 Basic metab olic 1999 panel - Serum or Plasm a glucose [mass/volume ] in serum or plasma 103 mg/dL low: 70mg/d Lhigh: 99mg/d L high Gluco se 103 (H) 70 - 99 mg/dL 06/28 10:20 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 [facility] Not Available Not Available 10/08/2024 09:02:30 06/28/20 24 06/28/2024 Basic metab olic 2000 panel - Serum or Plasm a calcium [moles/volum e] in serum or plasma 8.5 mg/dL low: 8.4mg/ dLhigh : 10.2mg /dL Calci um 8.5 8.4 - 10.2 mg/dL 06/28 10:20 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 [facility] Not Available Not Available 10/08/2024 09:02:30 06/28/20 24 06/28/2024 Basic metab olic 2000 panel - Serum or Plasm a anion gap 6 low: 6high: 16 Anion Gap 6 6 - 16 06/28 10:20 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 [facility] Not Available Not Available 10/08/2024 09:02:30 06/28/20 24 06/28/2024 Basic metab olic 2000 panel - Serum or Plasm a urea nitrogen/cre atinine [mass ratio] in serum or plasma 15 low: 7high: 23 BUN/C reati nine Ratio 15 7 - 23 06/28 10:20 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 [facility] Not Available Not Available 10/08/2024 09:02:30 06/28/20 24 06/28/2024 Basic metab olic 2000 panel - Serum or Plasm a osmolality calculated 285 text: 275 - 295 mOsm/k g Osmol alikerri Calcu lated 285 275 - 295 mOsm/ kg 06/28 10:20 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 [facility] Not Available Not Available 10/08/2024 09:02:30 06/28/20 24 06/28/2024 Basic metab olic 2000 panel - Serum or Plasm a glomerular filtration rate [volume rate/area] in serum, plasma or blood by creatinine-b ased formula (CKD-epi 2020)/1.73 sq M 80 text: >=90 mL/min /1.73 m2 low eGFR by CKD-E PI 80 (L) >=90 mL/mi n/1.7 3 m2 06/28 10:20 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 [facility] Not Available Not [...] 70 - 99 mg/dL 06/28 4:52 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 [employer] [facility] Not Available Not Available 10/08/2024 09:02:30 06/28/20 24 06/28/2024 Gluco se [Mass /volu me] in Arter ial blood specimen source identified Cap Finger stick Speci men Type Cap Finge rstic k 06/28 4:52 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 [facility] Not Available Not Available 10/08/2024 09:02:30 06/28/20 24 06/28/2024 Gluco se [Mass /volu me] in Arter ial blood glucose [mass/volume ] in capillary blood by glucometer 102 mg/dL low: 70mg/d Lhigh: 99mg/d L high Gluco se WB/PO C 102 (H) 70 - 99 mg/dL 06/28 11:25 AM 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 [facility] Not Available Not Available 10/08/2024 09:02:30 06/28/20 24 06/28/2024 Gluco se [Mass /volu me] in Arter ial blood specimen source identified Cap Finger stick Speci men Type Cap Finge rstic k 06/28 11:25 AM 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 [facility] Not Available Not [...] 70 - 99 mg/dL 06/28 5:33 AM 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 [facility] Not Available Not Available 10/08/2024 09:02:30 06/28/20 24 06/28/2024 Gluco se [Mass /volu me] in Arter ial blood specimen source identified Cap Finger stick Speci men Type Cap Finge rstic k 06/28 5:33 AM 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 [employer] [facility] Not Available Not [...] 70 - 99 mg/dL 06/28 12:27 AM 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 [employer] [facility] Not Available Not Available 10/08/2024 09:02:30 06/28/20 24 06/28/2024 Gluco se [Mass /volu me] in Arter ial blood specimen source identified Cap Finger stick Speci men Type Cap Finge rstic k 06/28 12:27 AM 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 [employer] [facility] Not Available Not [...] 2.8 - 5.1 mg/dL 06/29 10:25 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 [employer] [facility] Not Available Not Available 10/08/2024 09:02:32 06/29/20 24 06/29/2024 Phosp hate [Mass /volu me] in Serum or Plasm a interpretati on and review of laboratory results Abnorm al Not Available Not Available 09:02:32 06/29/20 24 06/29/2024 Magne sium [Mass /volu me] in Serum or Plasm a magnesium [mass/volume ] in serum or plasma 2.3 mg/dL low: 1.6mg/ dLhigh : 2.6mg/ dL Magne sium 2.3 1.6 - 2.6 mg/dL 06/29 10:25 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 [facility] Not Available Not [...] 7 - 26 mg/dL 06/29 10:25 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 [facility] Not Available Not Available 10/08/2024 09:02:31 06/29/20 24 06/29/2024 Basic metab olic 2000 panel - Serum or Plasm a creatinine [mass/volume ] in serum or plasma 1.13 mg/dL low: 0.71mg /dLhig h: 1.16mg /dL Creat inine 1.13 0.71 - 1.16 mg/dL 06/29 10:25 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 [facility] Not Available Not Available 10/08/2024 09:02:31 06/29/20 24 06/29/2024 Basic metab olic 2000 panel - Serum or Plasm a sodium [moles/volum e] in serum or plasma 141 mmol/ L low: 136mmo l/Lhig h: 145mmo l/L Sodiu m 141 136 - 145 mmol/ L 06/29 10:25 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 [facility] Not Available Not Available 10/08/2024 09:02:31 06/29/20 24 06/29/2024 Basic metab olic 2000 panel - Serum or Plasm a potassium [moles/volum e] in serum or plasma 3.8 mmol/ L low: 3.5mmo l/Lhig h: 4.5mmo l/L Potas sium 3.8 3.5 - 4.5 mmol/ L 06/29 10:25 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 [facility] Not Available Not Available 10/08/2024 09:02:31 06/29/20 24 06/29/2024 Basic metab olic 2000 panel - Serum or Plasm a chloride [moles/volum e] in serum or plasma 108 mmol/ L low: 98mmol /Lhigh : 107mmo l/L high Chlor satlin 108 (H) 98 - 107 mmol/ L 06/29 10:25 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 [facility] Not Available Not Available 10/08/2024 09:02:31 06/29/20 24 06/29/2024 Basic metab olic 2000 panel - Serum or Plasm a carbon dioxide, total [moles/volum e] in serum or plasma 26 mmol/ L low: 22mmol /Lhigh : 29mmol /L CO2 26 22 - 29 mmol/ L 06/29 10:25 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 [facility] Not Available Not Available 10/08/2024 09:02:31 06/29/20 24 06/29/2024 Basic metab olic 2000 panel - Serum or Plasm a glucose [mass/volume ] in serum or plasma 103 mg/dL low: 70mg/d Lhigh: 99mg/d L high Gluco se 103 (H) 70 - 99 mg/dL 06/29 10:25 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 [facility] Not Available Not Available 10/08/2024 09:02:31 06/29/20 24 06/29/2024 Basic metab olic 2000 panel - Serum or Plasm a calcium [moles/volum e] in serum or plasma 8.3 mg/dL low: 8.4mg/ dLhigh : 10.2mg /dL low Calci um 8.3 (L) 8.4 - 10.2 mg/dL 06/29 10:25 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 [facility] Not Available Not Available 10/08/2024 09:02:31 06/29/20 24 06/29/2024 Basic metab olic 2000 panel - Serum or Plasm a anion gap 7 low: 6high: 16 Anion Gap 7 6 - 16 06/29 10:25 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 [employer] [facility] Not Available Not Available 10/08/2024 09:02:31 06/29/20 24 06/29/2024 Basic metab olic 2000 panel - Serum or Plasm a urea nitrogen/cre atinine [mass ratio] in serum or plasma 15 low: 7high: 23 BUN/C reati nine Ratio 15 7 - 23 06/29 10:25 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 [employer] [facility] Not Available Not Available 10/08/2024 09:02:31 06/29/20 24 06/29/2024 Basic metab olic 2000 panel - Serum or Plasm a osmolality calculated 294 text: 275 - 295 mOsm/k g Osmol danny Calcu lated 294 275 - 295 mOsm/ kg 06/29 10:25 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 [facility] [facility] Not Available Not Available 10/08/2024 09:02:31 06/29/20 24 06/29/2024 Basic metab olic 2000 panel - Serum or Plasm a glomerular filtration rate [volume rate/area] in serum, plasma or blood by creatinine-b ased formula (CKD-epi 2020)/1.73 sq M 76 text: >=90 mL/min /1.73 m2 low eGFR by CKD-E PI 76 (L) >=90 mL/mi n/1.7 3 m2 06/29 10:25 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 [facility] [facility] Not Available Not Available [...] - 10.7 x10E9 /L 06/29 10:01 PM [facility] Not Available 10/08/2024 09:02:31 06/29/20 24 06/29/2024 CBC W Auto Diffe renti al panel - Blood erythrocytes [#/volume] in blood by automated count 3.67 text: 4.30 - 5.80 x10e12 /L low RBC Count 3.67 (L) 4.30 - 5.80 x10E1 2/L 06/29 10:01 PM [facility] Not Available 10/08/2024 09:02:31 06/29/20 24 06/29/2024 CBC W Auto Diffe renti al panel - Blood hemoglobin [mass/volume ] in blood 11.4 g/dL low: 13.3g/ dLhigh : 17.5g/ dL low Hemog lobin 11.4 (L) 13.3 - 17.5 g/dL 06/29 10:01 PM [facility] Not Available 10/08/2024 09:02:31 06/29/20 24 06/29/2024 CBC W Auto Diffe renti al panel - Blood hematocrit [volume fraction] of blood by automated count 32.9 % low: 38.7%h igh: 51.1% low Hemat ocrit 32.9 (L) 38.7 - 51.1 % 06/29 10:01 PM [facility] Not Available 10/08/2024 09:02:31 06/29/20 24 06/29/2024 CBC W Auto Diffe renti al panel - Blood MCV [entitic mean volume] in red blood cells by automated count 89.6 fL low: 80fLhi gh: 98fL MCV 89.6 80.0 - 98.0 fL 06/29 10:01 PM [facility] Not [facility] Not Available 10/08/2024 09:02:31 06/29/20 24 06/29/2024 CBC W Auto Diffe renti al panel - Blood MCH [entitic mass] by automated count 31.1 pg low: 26.7pg high: 33.6pg MCH 31.1 26.7 - 33.6 pg 06/29 10:01 PM [facility] Not Available 10/08/2024 09:02:31 06/29/20 24 06/29/2024 CBC W Auto Diffe renti al panel - Blood MCHC [entitic mass/volume] in red blood cells by automated count 34.7 g/dL low: 31.7g/ dLhigh : 36.3g/ dL MCHC 34.7 31.7 - 36.3 g/dL 06/29 10:01 PM [facility] Not Available Not Available 10/08/2024 09:02:31 06/29/20 24 06/29/2024 CBC W Auto Diffe renti al panel - Blood erythrocyte [distwidth] in red blood cells by automated count 13.2 % low: 11.3%h igh: 14.8% RDW-C V 13.2 11.3 - 14.8 % 06/29 10:01 PM [facility] Not Available 10/08/2024 09:02:31 06/29/20 24 06/29/2024 CBC W Auto Diffe renti al panel - Blood platelets [#/volume] in blood by automated count 284 text: 150 - 420 x10e9/ L Plate let Count 284 150 - 420 x10E9 /L 06/29 10:01 PM [facility] Not Available 10/08/2024 09:02:31 06/29/20 24 06/29/2024 CBC W Auto Diffe renti al panel - Blood platelet [entitic mean volume] in blood by automated count 8.7 fL low: 7.8fLh igh: 11.4fL MPV 8.7 7.8 - 11.4 fL 06/29 10:01 PM [facility] Not Available Not Available 10/08/2024 09:02:31 06/29/20 24 06/29/2024 CBC W Auto Diffe renti al panel - Blood neutrophils/ leukocytes in blood by automated count 73.9 % low: 41%hig h: 74% Neutr ophil % 73.9 41.0 - 74.0 % 06/29 10:01 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 [facility] Not Available Not Available 10/08/2024 09:02:31 06/29/20 24 06/29/2024 CBC W Auto Diffe renti al panel - Blood lymphocytes/ leukocytes in blood by automated count 12.3 % low: 17%hig h: 47% low Lymph ocyte % 12.3 (L) 17.0 - 47.0 % 06/29 10:01 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 [facility] Not Available Not Available 10/08/2024 09:02:31 06/29/20 24 06/29/2024 CBC W Auto Diffe renti al panel - Blood monocytes/le ukocytes in blood by automated count 6.6 % low: 3%high : 11% Monoc yte % 6.6 3.0 - 11.0 % 06/29 10:01 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 [facility] Not Available Not Available 10/08/2024 09:02:31 06/29/20 24 06/29/2024 CBC W Auto Diffe renti al panel - Blood eosinophils/ leukocytes in blood by automated count 6.3 % low: 0%high : 7% Eosin ophil % 6.3 0.0 - 7.0 % 06/29 10:01 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 [facility] Not Available Not Available 10/08/2024 09:02:31 06/29/20 24 06/29/2024 CBC W Auto Diffe renti al panel - Blood basophils/le ukocytes in blood by automated count 0.5 % low: 0%high : 1.6% Basop hil % 0.5 0.0 - 1.6 % 06/29 10:01 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 [facility] Not Available Not Available 10/08/2024 09:02:31 06/29/20 24 06/29/2024 CBC W Auto Diffe renti al panel - Blood immature granulocytes /leukocytes in blood by automated count 0.4 % low: 0%high : 1% Immat ure Granu locyt es % 0.4 0.0 - 1.0 % 06/29 10:01 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 [facility] Not Available Not Available 10/08/2024 09:02:31 06/29/20 24 06/29/2024 CBC W Auto Diffe renti al panel - Blood neutrophils [#/volume] in blood by automated count 7.4 text: 1.60 - 7.50 x10e9/ L Neutr ophil Absol newhalen 7.40 1.60 - 7.50 x10E9 /L 06/29 10:01 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 [facility] Not Available Not Available 10/08/2024 09:02:31 06/29/20 24 06/29/2024 CBC W Auto Diffe renti al panel - Blood lymphocytes [#/volume] in blood by automated count 1.23 text: 1.00 - 4.40 x10e9/ L Lymph ocyte Absol newhalen 1.23 1.00 - 4.40 x10E9 /L 06/29 10:01 PM [facility] [employer] [facility] Not Available Not Available 10/08/2024 09:02:31 06/29/20 24 06/29/2024 CBC W Auto Diffe renti al panel - Blood monocytes [#/volume] in blood by automated count 0.66 text: 0.15 - 1.00 x10e9/ L Monoc yte Absol newhalen 0.66 0.15 - 1.00 x10E9 /L 06/29 10:01 PM [facility] [employer] [facility] Not Available Not Available 10/08/2024 09:02:31 06/29/20 24 06/29/2024 CBC W Auto Diffe renti al panel - Blood eosinophils [#/volume] in blood 0.63 text: 0.00 - 0.60 x10e9/ L high Eosin ophil Absol newhalen 0.63 (H) 0.00 - 0.60 x10E9 /L 06/29 10:01 PM [facility] [employer] [facility] Not Available Not Available 10/08/2024 09:02:31 06/29/20 24 06/29/2024 CBC W Auto Diffe renti al panel - Blood basophils [#/volume] in blood by automated count 0.05 text: 0.00 - 0.13 x10e9/ L Basop hil Absol newhalen 0.05 0.00 - 0.13 x10E9 /L 06/29 10:01 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 [facility] Not Available [...] 70 - 99 mg/dL 06/29 6:13 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 [facility] Not Available Not Available 10/08/2024 09:02:31 06/29/20 24 06/29/2024 Gluco se [Mass /volu me] in Arter ial blood specimen source identified Cap Finger stick Speci men Type Cap Finge rstic k 06/29 6:13 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 [facility] Not Available Not [...] 70 - 99 mg/dL 06/29 12:56 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 [facility] Not Available Not Available 10/08/2024 09:02:31 06/29/20 24 06/29/2024 Gluco se [Mass /volu me] in Arter ial blood specimen source identified Cap Finger stick Speci men Type Cap Finge rstic k 06/29 12:56 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 [facility] Not Available Not [...] 70 - 99 mg/dL 06/29 6:31 AM 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 [employer] [facility] Not Available Not Available 10/08/2024 09:02:31 06/29/20 24 06/29/2024 Gluco se [Mass /volu me] in Arter ial blood specimen source identified Cap Finger stick Speci men Type Cap Finge rstic k 06/29 6:31 AM 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 [employer] [facility] Not Available Not [...] 70 - 99 mg/dL 06/29 6:31 AM 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 [employer] [facility] Not Available Not Available 10/08/2024 09:02:31 06/29/20 24 06/29/2024 Gluco se [Mass /volu me] in Arter ial blood specimen source identified Cap Finger stick Speci men Type Cap Finge rstic k 06/29 6:31 AM 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 [employer] [facility] Not Available Not Available 10/08/2024 09:02:31 06/30/20 24 06/30/2024 Gluco se [Mass /volu me] in Arter ial blood glucose [mass/volume ] in capillary blood by glucometer 122 mg/dL low: 70mg/d Lhigh: 99mg/d L high Gluco se WB/PO C 122 (H) 70 - 99 mg/dL 06/30 6:51 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 [facility] Not Available Not Available 10/08/2024 09:02:32 06/30/20 24 06/30/2024 Gluco se [Mass /volu me] in Arter ial blood specimen source identified Cap Finger stick Speci men Type Cap Finge rstic k 06/30 6:51 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 [facility] Not Available Not [...] 70 - 99 mg/dL 06/30 6:51 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 [facility] Not Available Not Available 10/08/2024 09:02:32 06/30/20 24 06/30/2024 Gluco se [Mass /volu me] in Arter ial blood specimen source identified Cap Finger stick Speci men Type Cap Finge rstic k 06/30 6:51 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 [facility] Not Available Not [...] 70 - 99 mg/dL 06/30 8:48 AM 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 [employer] [id number] Not Available Not Available 10/08/2024 09:02:32 06/30/20 24 06/30/2024 Gluco se [Mass /volu me] in Arter ial blood specimen source identified Cap Finger stick Speci men Type Cap Finge rstic k 06/30 8:48 AM 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 [employer] [facility] Not Available Not Available [...] 70 - 99 mg/dL 06/30 12:59 AM 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 [facility] [employer] [facility] Not Available Not Available 10/08/2024 09:02:32 06/30/20 24 06/30/2024 Gluco se [Mass /volu me] in Arter ial blood specimen source identified Venous Speci men Type Venou s 06/30 12:59 AM 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 [employer] [id number] Not Available Not Available 10/08/2024 [...] 70 - 99 mg/dL 06/30 12:18 AM 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 [facility] Not Available Not Available 10/08/2024 09:02:32 06/30/20 24 06/30/2024 Gluco se [Mass /volu me] in Arter ial blood specimen source identified Cap Finger stick Speci men Type Cap Finge rstic k 06/30 12:18 AM 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 [facility] Not Available Not [...] 70 - 99 mg/dL 07/01 5:21 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 [facility] Not Available Not Available 10/08/2024 09:02:33 07/01/20 24 07/01/2024 Gluco se [Mass /volu me] in Arter ial blood specimen source identified Cap Finger stick Speci men Type Cap Finge rstic k 07/01 5:21 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 [facility] Not Available Not [...] 70 - 99 mg/dL 07/01 1:07 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 [facility] Not Available Not Available 10/08/2024 09:02:33 07/01/20 24 07/01/2024 Gluco se [Mass /volu me] in Arter ial blood specimen source identified Cap Finger stick Speci men Type Cap Gibrane rstic k 07/01 1:07 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 [facility] Not Available Not [...] 70 - 99 mg/dL 07/01 12:34 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 [facility] Not Available Not Available 10/08/2024 09:02:33 07/01/20 24 07/01/2024 Gluco se [Mass /volu me] in Arter ial blood specimen source identified Cap Finger stick Speci men Type Cap Gibrane rstic k 07/01 12:34 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 [employer] [facility] Not Available Not [...] 70 - 99 mg/dL 07/01 6:23 AM 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 [facility] Not Available Not Available 10/08/2024 09:02:33 07/01/20 24 07/01/2024 Gluco se [Mass /volu me] in Arter ial blood specimen source identified Cap Finger stick Speci men Type Cap Finge rstic k 07/01 6:23 AM 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 [facility] Not Available Not Available 10/08/2024 09:02:33 07/01/20 24 07/01/2024 Gluco se [Mass /volu me] in Arter ial blood glucose [mass/volume ] in capillary blood by glucometer 82 mg/dL low: 70mg/d Lhigh: 99mg/d L Gluco se WB/PO C 82 70 - 99 mg/dL 07/01 12:26 AM 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 [facility] Not Available Not Available 10/08/2024 09:02:33 07/01/20 24 07/01/2024 Gluco se [Mass /volu me] in Arter ial blood specimen source identified Cap Finger stick Speci men Type Cap Finge rstic k 07/01 12:26 [facility] Not [facility] Not Available 10/08/2024 09:02:33 07/01/20 24 07/01/2024 Phosp hate [Mass /volu me] in Serum or Plasm a phosphate [mass/volume ] in serum or plasma 2.7 mg/dL low: 2.8mg/ dLhigh : 5.1mg/ dL low Phosp horus 2.7 (L) 2.8 - 5.1 mg/dL 07/01 12:04 AM 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 [facility] Not Available Not Available [...] 1.6 - 2.6 mg/dL 07/01 12:04 AM 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 [facility] Not Available [...] - 10.7 x10E9 /L 06/30 11:44 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 [facility] Not Available Not Available 10/08/2024 09:02:32 07/01/20 24 07/01/2024 CBC W Auto Diffe renti al panel - Blood erythrocytes [#/volume] in blood by automated count 3.73 text: 4.30 - 5.80 x10e12 /L low RBC Count 3.73 (L) 4.30 - 5.80 x10E1 2/L 06/30 11:44 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 [facility] Not Available Not Available 10/08/2024 09:02:32 07/01/20 24 07/01/2024 CBC W Auto Diffe renti al panel - Blood hemoglobin [mass/volume ] in blood 11.6 g/dL low: 13.3g/ dLhigh : 17.5g/ dL low Hemog lobin 11.6 (L) 13.3 - 17.5 g/dL 06/30 11:44 PM [facility] Not Available Not Available 10/08/2024 09:02:32 07/01/20 24 07/01/2024 CBC W Auto Diffe renti al panel - Blood hematocrit [volume fraction] of blood by automated count 33.4 % low: 38.7%h igh: 51.1% low Hemat ocrit 33.4 (L) 38.7 - 51.1 % 06/30 11:44 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 [facility] Not Available Not Available 10/08/2024 09:02:32 07/01/20 24 07/01/2024 CBC W Auto Diffe renti al panel - Blood MCV [entitic mean volume] in red blood cells by automated count 89.5 fL low: 80fLhi gh: 98fL MCV 89.5 80.0 - 98.0 fL 06/30 11:44 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 [facility] Not Available Not Available 10/08/2024 09:02:32 07/01/20 24 07/01/2024 CBC W Auto Diffe renti al panel - Blood MCH [entitic mass] by automated count 31.1 pg low: 26.7pg high: 33.6pg MCH 31.1 26.7 - 33.6 pg 06/30 11:44 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 [facility] Not Available Not Available 10/08/2024 09:02:32 07/01/20 24 07/01/2024 CBC W Auto Diffe renti al panel - Blood MCHC [entitic mass/volume] in red blood cells by automated count 34.7 g/dL low: 31.7g/ dLhigh : 36.3g/ dL MCHC 34.7 31.7 - 36.3 g/dL 06/30 11:44 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 [facility] Not Available Not Available 10/08/2024 09:02:32 07/01/20 24 07/01/2024 CBC W Auto Diffe renti al panel - Blood erythrocyte [distwidth] in red blood cells by automated count 13.2 % low: 11.3%h igh: 14.8% RDW-C V 13.2 11.3 - 14.8 % 06/30 11:44 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 [facility] Not Available Not Available 10/08/2024 09:02:32 07/01/20 24 07/01/2024 CBC W Auto Diffe renti al panel - Blood platelets [#/volume] in blood by automated count 321 text: 150 - 420 x10e9/ L Plate let Count 321 150 - 420 x10E9 /L 06/30 11:44 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 [facility] Not Available Not Available 10/08/2024 09:02:32 07/01/20 24 07/01/2024 CBC W Auto Diffe renti al panel - Blood platelet [entitic mean volume] in blood by automated count 8.7 fL low: 7.8fLh igh: 11.4fL MPV 8.7 7.8 - 11.4 fL 06/30 11:44 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 [facility] Not Available Not Available 10/08/2024 09:02:32 07/01/20 24 07/01/2024 CBC W Auto Diffe renti al panel - Blood neutrophils/ leukocytes in blood by automated count 62 % low: 41%hig h: 74% Neutr ophil % 62.0 41.0 - 74.0 % 06/30 11:44 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 [facility] Not Available Not Available 10/08/2024 09:02:32 07/01/20 24 07/01/2024 CBC W Auto Diffe renti al panel - Blood lymphocytes/ leukocytes in blood by automated count 16.1 % low: 17%hig h: 47% low Lymph ocyte % 16.1 (L) 17.0 - 47.0 % 06/30 11:44 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 [facility] Not Available Not Available 10/08/2024 09:02:32 07/01/20 24 07/01/2024 CBC W Auto Diffe renti al panel - Blood monocytes/le ukocytes in blood by automated count 9.7 % low: 3%high : 11% Monoc yte % 9.7 3.0 - 11.0 % 06/30 11:44 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 [facility] Not Available Not Available 10/08/2024 09:02:32 07/01/20 24 07/01/2024 CBC W Auto Diffe renti al panel - Blood eosinophils/ leukocytes in blood by automated count 11.1 % low: 0%high : 7% high Eosin ophil % 11.1 (H) 0.0 - 7.0 % 06/30 11:44 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 [facility] Not Available Not Available 10/08/2024 09:02:32 07/01/20 24 07/01/2024 CBC W Auto Diffe renti al panel - Blood basophils/le ukocytes in blood by automated count 0.6 % low: 0%high : 1.6% Basop hil % 0.6 0.0 - 1.6 % 06/30 11:44 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 [facility] Not Available Not Available 10/08/2024 09:02:32 07/01/20 24 07/01/2024 CBC W Auto Diffe renti al panel - Blood immature granulocytes /leukocytes in blood by automated count 0.5 % low: 0%high : 1% Immat ure Granu locyt es % 0.5 0.0 - 1.0 % 06/30 11:44 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 [facility] Not Available Not Available 10/08/2024 09:02:32 07/01/20 24 07/01/2024 CBC W Auto Diffe renti al panel - Blood neutrophils [#/volume] in blood by automated count 4.79 text: 1.60 - 7.50 x10e9/ L Neutr ophil Absol newhalen 4.79 1.60 - 7.50 x10E9 /L 06/30 11:44 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 [facility] Not Available Not Available 10/08/2024 09:02:32 07/01/20 24 07/01/2024 CBC W Auto Diffe renti al panel - Blood lymphocytes [#/volume] in blood by automated count 1.25 text: 1.00 - 4.40 x10e9/ L Lymph ocyte Absol newhalen 1.25 1.00 - 4.40 x10E9 /L 06/30 11:44 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 [facility] Not Available Not Available 10/08/2024 09:02:32 07/01/20 24 07/01/2024 CBC W Auto Diffe renti al panel - Blood monocytes [#/volume] in blood by automated count 0.75 text: 0.15 - 1.00 x10e9/ L Monoc yte Absol newhalen 0.75 0.15 - 1.00 x10E9 /L 06/30 11:44 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 [facility] Not Available Not Available 10/08/2024 09:02:32 07/01/20 24 07/01/2024 CBC W Auto Diffe renti al panel - Blood eosinophils [#/volume] in blood 0.86 text: 0.00 - 0.60 x10e9/ L high Eosin ophil Absol newhalen 0.86 (H) 0.00 - 0.60 x10E9 /L 06/30 11:44 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 [facility] Not Available Not Available 10/08/2024 09:02:32 07/01/20 24 07/01/2024 CBC W Auto Diffe renti al panel - Blood basophils [#/volume] in blood by automated count 0.05 text: 0.00 - 0.13 x10e9/ L Basop hil Absol [place]en 0.05 0.00 - 0.13 x10E9 /L 06/30 11:44 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 [facility] Not Available Not Available [...] 7 - 26 mg/dL 07/01 12:04 AM [facility] Not Available Not Available 10/08/2024 09:02:32 07/01/20 24 07/01/2024 Basic metab olic 2000 panel - Serum or Plasm a creatinine [mass/volume ] in serum or plasma 1 mg/dL low: 0.71mg /dLhig h: 1.16mg /dL Creat inine 1.00 0.71 - 1.16 mg/dL 07/01 12:04 AM [facility] Not Available Not Available 10/08/2024 09:02:32 07/01/20 24 07/01/2024 Basic metab olic 2000 panel - Serum or Plasm a sodium [moles/volum e] in serum or plasma 140 mmol/ L low: 136mmo l/Lhig h: 145mmo l/L Sodiu m 140 136 - 145 mmol/ L 07/01 12:04 AM [facility] Not Available Not Available 10/08/2024 09:02:32 07/01/20 24 07/01/2024 Basic metab olic 2000 panel - Serum or Plasm a potassium [moles/volum e] in serum or plasma 4 mmol/ L low: 3.5mmo l/Lhig h: 4.5mmo l/L Potas sium 4.0 3.5 - 4.5 mmol/ L 07/01 12:04 AM [facility] Not Available Not Available 10/08/2024 09:02:32 07/01/20 24 07/01/2024 Basic metab olic 1999 panel - Serum or Plasm a chloride [moles/volum e] in serum or plasma 108 mmol/ L low: 98mmol /Lhigh : 107mmo l/L high Chlor stalin 108 (H) 98 - 107 mmol/ L 07/01 12:04 AM [facility] Not Available Not Available 10/08/2024 09:02:32 07/01/20 24 07/01/2024 Basic metab olic 1999 panel - Serum or Plasm a carbon dioxide, total [moles/volum e] in serum or plasma 28 mmol/ L low: 22mmol /Lhigh : 29mmol /L CO2 28 22 - 29 mmol/ L 07/01 12:04 AM [facility] Not Available Not Available 10/08/2024 09:02:32 07/01/20 24 07/01/2024 Basic metab olic 1999 panel - Serum or Plasm a glucose [mass/volume ] in serum or plasma 95 mg/dL low: 70mg/d Lhigh: 99mg/d L Gluco se 95 70 - 99 mg/dL 07/01 12:04 AM [facility] Not Available Not Available 10/08/2024 09:02:32 07/01/20 24 07/01/2024 Basic metab olic 2000 panel - Serum or Plasm a calcium [moles/volum e] in serum or plasma 8.5 mg/dL low: 8.4mg/ dLhigh : 10.2mg /dL Calci um 8.5 8.4 - 10.2 mg/dL 07/01 12:04 AM [facility] Not Available Not Available 10/08/2024 09:02:32 07/01/20 24 07/01/2024 Basic metab olic 2000 panel - Serum or Plasm a anion gap 4 low: 6high: 16 low Anion Gap 4 (L) 6 - 16 07/01 12:04 AM SCREW MACHINE SETTER [facility] Not Available Not Available 10/08/2024 09:02:32 07/01/20 24 07/01/2024 Basic metab olic 2000 panel - Serum or Plasm a urea nitrogen/cre atinine [mass ratio] in serum or plasma 19 low: 7high: 23 BUN/C reati nine Ratio 19 7 - 23 07/01 12:04 AM [facility] Not Available Not Available 10/08/2024 09:02:32 07/01/20 24 07/01/2024 Basic metab olic 2000 panel - Serum or Plasm a osmolality calculated 292 text: 275 - 295 mOsm/k g Osmol alikerri Calcu lated 292 275 - 295 mOsm/ kg 07/01 12:04 AM [facility] Not Available Not Available 10/08/2024 09:02:32 07/01/20 24 07/01/2024 Basic metab olic 2000 panel - Serum or Plasm a glomerular filtration rate [volume rate/area] in serum, plasma or blood by creatinine-b ased formula (CKD-epi 2020)/1.73 sq M 88 text: >=90 mL/min /1.73 m2 low eGFR by CKD-E PI 88 (L) >=90 mL/mi n/1.7 3 m2 07/01 12:04 AM [facility] Not Available Not Available [...] 2.8 - 5.1 mg/dL 07/02 10:56 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 [facility] Not Available Not Available [...] 1.6 - 2.6 mg/dL 07/02 10:56 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 [facility] Not Available Not Available [...] - 10.7 x10E9 /L 07/02 10:38 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 [facility] Not Available Not Available 10/08/2024 09:02:34 07/02/20 24 07/02/2024 CBC W Auto Diffe renti al panel - Blood erythrocytes [#/volume] in blood by automated count 3.8 text: 4.30 - 5.80 x10e12 /L low RBC Count 3.80 (L) 4.30 - 5.80 x10E1 2/L 07/02 10[facility]38 [facility] Not Available 10/08/2024 09:02:34 07/02/20 24 07/02/2024 CBC W Auto Diffe renti al panel - Blood hemoglobin [mass/volume ] in blood 11.7 g/dL low: 13.3g/ dLhigh : 17.5g/ dL low Hemog lobin 11.7 (L) 13.3 - 17.5 g/dL 07/02 10:38 [facility] Not Available 10/08/2024 09:02:34 07/02/20 24 07/02/2024 CBC W Auto Diffe renti al panel - Blood hematocrit [volume fraction] of blood by automated count 34.3 % low: 38.7%h igh: 51.1% low Hemat ocrit 34.3 (L) 38.7 - 51.1 % 07/02 10:38 [facility] Not Available 10/08/2024 09:02:34 07/02/20 24 07/02/2024 CBC W Auto Diffe renti al panel - Blood MCV [entitic mean volume] in red blood cells by automated count 90.3 fL low: 80fLhi gh: 98fL MCV 90.3 80.0 - 98.0 fL 07/02 10:38 [facility] Not Available 10/08/2024 09:02:34 07/02/20 24 07/02/2024 CBC W Auto Diffe renti al panel - Blood MCH [entitic mass] by automated count 30.8 pg low: 26.7pg high: 33.6pg MCH 30.8 26.7 - 33.6 pg 07/02 10:38 [facility] Not Available 10/08/2024 09:02:34 07/02/20 24 07/02/2024 CBC W Auto Diffe renti al panel - Blood MCHC [entitic mass/volume] in red blood cells by automated count 34.1 g/dL low: 31.7g/ dLhigh : 36.3g/ dL MCHC 34.1 31.7 - 36.3 g/dL 07/02 10:38 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 [facility] Not Available Not Available 10/08/2024 09:02:34 07/02/20 24 07/02/2024 CBC W Auto Diffe renti al panel - Blood erythrocyte [distwidth] in red blood cells by automated count 13.3 % low: 11.3%h igh: 14.8% RDW-C V 13.3 11.3 - 14.8 % 07/02 10:38 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 [facility] Not Available Not Available 10/08/2024 09:02:34 07/02/20 24 07/02/2024 CBC W Auto Diffe renti al panel - Blood platelets [#/volume] in blood by automated count 361 text: 150 - 420 x10e9/ L Plate let Count 361 150 - 420 x10E9 /L 07/02 10:38 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0 % 07/02 10:38 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 [facility] Not Available Not Available 10/08/2024 09:02:34 07/02/20 24 07/02/2024 CBC W Auto Diffe renti al panel - Blood lymphocytes/ leukocytes in blood by automated count 11.9 % low: 17%hig h: 47% low Lymph ocyte % 11.9 (L) 17.0 - 47.0 % 07/02 10:38 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 [facility] Not Available Not Available 10/08/2024 09:02:34 07/02/20 24 07/02/2024 CBC W Auto Diffe renti al panel - Blood monocytes/le ukocytes in blood by automated count 8.2 % low: 3%high : 11% Monoc yte % 8.2 3.0 - 11.0 % 07/02 10:38 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 [facility] Not Available Not Available 10/08/2024 09:02:34 07/02/20 24 07/02/2024 CBC W Auto Diffe renti al panel - Blood eosinophils/ leukocytes in blood by automated count 0 % low: 0%high : 7% Eosin ophil % 0.0 0.0 - 7.0 % 07/02 10:38 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 [facility] Not Available Not Available 10/08/2024 09:02:34 07/02/20 24 07/02/2024 CBC W Auto Diffe renti al panel - Blood basophils/le ukocytes in blood by automated count 0.3 % low: 0%high : 1.6% Basop hil % 0.3 0.0 - 1.6 % 07/02 10:38 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 [facility] Not Available Not Available 10/08/2024 09:02:34 07/02/20 24 07/02/2024 CBC W Auto Diffe renti al panel - Blood immature granulocytes /leukocytes in blood by automated count 0.9 % low: 0%high : 1% Immat ure Granu locyt es % 0.9 0.0 - 1.0 % 07/02 10:38 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 [facility] Not Available Not Available 10/08/2024 09:02:34 07/02/20 24 07/02/2024 CBC W Auto Diffe renti al panel - Blood neutrophils [#/volume] in blood by automated count 8.64 text: 1.60 - 7.50 x10e9/ L high Neutr ophil Absol newhalen 8.64 (H) 1.60 - 7.50 x10E9 /L 07/02 10:38 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 [facility] Not Available Not Available 10/08/2024 09:02:34 07/02/20 24 07/02/2024 CBC W Auto Diffe renti al panel - Blood lymphocytes [#/volume] in blood by automated count 1.31 text: 1.00 - 4.40 x10e9/ L Lymph ocyte Absol newhalen 1.31 1.00 - 4.40 x10E9 /L 07/02 10:38 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 [facility] Not Available Not Available 10/08/2024 09:02:34 07/02/20 24 07/02/2024 CBC W Auto Diffe renti al panel - Blood monocytes [#/volume] in blood by automated count 0.9 text: 0.15 - 1.00 x10e9/ L Monoc yte Absol newhalen 0.90 0.15 - 1.00 x10E9 /L 07/02 10:38 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 [facility] Not Available Not Available 10/08/2024 09:02:34 07/02/20 24 07/02/2024 CBC W Auto Diffe renti al panel - Blood eosinophils [#/volume] in blood 0 text: 0.00 - 0.60 x10e9/ L Eosin ophil Absol newhalen 0.00 0.00 - 0.60 x10E9 /L 07/02 10:38 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 [facility] Not Available Not Available 10/08/2024 09:02:34 07/02/20 24 07/02/2024 CBC W Auto Diffe renti al panel - Blood basophils [#/volume] in blood by automated count 0.03 text: 0.00 - 0.13 x10e9/ L Basop hil Absol newhalen 0.03 0.00 - 0.13 x10E9 /L 07/02 10:38 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 [facility] Not Available Not [...] 7 - 26 mg/dL 07/02 10:56 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 [facility] Not Available Not Available 10/08/2024 09:02:34 07/02/20 24 07/02/2024 Basic metab olic 1999 panel - Serum or Plasm a creatinine [mass/volume ] in serum or plasma 1.19 mg/dL low: 0.71mg /dLhig h: 1.16mg /dL high Creat inine 1.19 (H) 0.71 - 1.16 mg/dL 07/02 10:56 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 [facility] Not Available Not Available 10/08/2024 09:02:34 07/02/20 24 07/02/2024 Basic metab olic 1999 panel - Serum or Plasm a sodium [moles/volum e] in serum or plasma 135 mmol/ L low: 136mmo l/Lhig h: 145mmo l/L low Sodiu m 135 (L) 136 - 145 mmol/ L 07/02 10:56 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 [facility] Not Available Not Available 10/08/2024 09:02:34 07/02/20 24 07/02/2024 Basic metab olic 1999 panel - Serum or Plasm a potassium [moles/volum e] in serum or plasma 4.9 mmol/ L low: 3.5mmo l/Lhig h: 4.5mmo l/L high Potas sium 4.9 (H) 3.5 - 4.5 mmol/ L 07/02 10:56 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 [facility] Not Available Not Available 10/08/2024 09:02:34 07/02/20 24 07/02/2024 Basic metab olic 2000 panel - Serum or Plasm a chloride [moles/volum e] in serum or plasma 104 mmol/ L low: 98mmol /Lhigh : 107mmo l/L Chlor stalin 104 98 - 107 mmol/ L 07/02 10:56 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 [facility] Not Available Not Available 10/08/2024 09:02:34 07/02/20 24 07/02/2024 Basic metab olic 2000 panel - Serum or Plasm a carbon dioxide, total [moles/volum e] in serum or plasma 22 mmol/ L low: 22mmol /Lhigh : 29mmol /L CO2 22 22 - 29 mmol/ L 07/02 10:56 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 [facility] Not Available Not Available 10/08/2024 09:02:34 07/02/20 24 07/02/2024 Basic metab olic 1999 panel - Serum or Plasm a glucose [mass/volume ] in serum or plasma 105 mg/dL low: 70mg/d Lhigh: 99mg/d L high Gluco se 105 (H) 70 - 99 mg/dL 07/02 10:56 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 [facility] Not Available Not Available 10/08/2024 09:02:34 07/02/20 24 07/02/2024 Basic metab olic 1999 panel - Serum or Plasm a calcium [moles/volum e] in serum or plasma 9.3 mg/dL low: 8.4mg/ dLhigh : 10.2mg /dL Calci um 9.3 8.4 - 10.2 mg/dL 07/02 10:56 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 [facility] Not Available Not Available 10/08/2024 09:02:34 07/02/20 24 07/02/2024 Basic metab olic 2000 panel - Serum or Plasm a anion gap 9 low: 6high: 16 Anion Gap 9 6 - 16 07/02 10:56 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 [facility] Not Available Not Available 10/08/2024 09:02:34 07/02/20 24 07/02/2024 Basic metab olic 2000 panel - Serum or Plasm a urea nitrogen/cre atinine [mass ratio] in serum or plasma 21 low: 7high: 23 BUN/C reati nine Ratio 21 7 - 23 07/02 10:56 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 [facility] Not Available Not Available 10/08/2024 09:02:34 07/02/20 24 07/02/2024 Basic metab olic 2000 panel - Serum or Plasm a osmolality calculated 285 text: 275 - 295 mOsm/k g Osmol danny Tai lated 285 275 - 295 mOsm/ kg 07/02 10:56 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 [facility] Not Available Not Available 10/08/2024 09:02:34 07/02/20 24 07/02/2024 Basic metab olic 2000 panel - Serum or Plasm a glomerular filtration rate [volume rate/area] in serum, plasma or blood by creatinine-b ased formula (CKD-epi 2020)/1.73 sq M 71 text: >=90 mL/min /1.73 m2 low eGFR by CKD-E PI 71 (L) >=90 mL/mi n/1.7 3 m2 07/02 10:56 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 [facility] Not Available Not Available [...] 70 - 99 mg/dL 07/02 6:10 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 [facility] Not Available Not Available 10/08/2024 09:02:34 07/02/20 24 07/02/2024 Gluco se [Mass /volu me] in Arter ial blood specimen source identified Cap Finger stick Speci men Type Cap Finge rstic k 07/02 6:10 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 [facility] Not Available Not Available [...] 70 - 99 mg/dL 07/02 12:15 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 [facility] Not Available Not Available 10/08/2024 09:02:34 07/02/20 24 07/02/2024 Gluco se [Mass /volu me] in Arter ial blood specimen source identified Cap Finger stick Speci men Type Cap Finge rstic k 07/02 12:15 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 [facility] Not Available Not Available [...] 70 - 99 mg/dL 07/03 9:49 AM SCREW MACHINE SETTER [facility] Not Available Not Available 10/08/2024 09:02:34 07/02/20 24 07/03/2024 Gluco se [Mass /volu me] in Arter ial blood specimen source identified Cap Finger stick Speci men Type Cap Finge rstic k 07/03 9:49 AM [facility] Not Available Not Available [...] 70 - 99 mg/dL 07/02 1:33 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 [facility] Not Available Not Available 10/08/2024 09:02:34 07/02/20 24 07/02/2024 Gluco se [Mass /volu me] in Arter ial blood specimen source identified Cap Finger stick Speci men Type Cap Finge rstic k 07/02 1:33 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 [facility] Not Available Not [...] domenic Scree n NEG 07/02 6:49 AM [facility] Not Available Not Available 08/22/2024 13:38:58 07/02/20 24 07/02/2024 Blood type and Indir ect antib domenic scree n panel - Blood ABO and Rh group [type] in blood A POS ABO Rh A POS 07/02 6:49 AM [facility] Not Available Not Available 08/22/2024 13:38:58 07/02/20 24 07/02/2024 Gluco se [Mass /volu me] in Arter ial blood glucose [mass/volume ] in capillary blood by glucometer 82 mg/dL low: 70mg/d Lhigh: 99mg/d L Gluco se WB/PO C 82 70 - 99 mg/dL 07/02 1:33 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 [facility] [facility] Not Available Not Available 10/08/2024 09:02:33 07/02/20 24 07/02/2024 Gluco se [Mass /volu me] in Arter ial blood specimen source identified Cap Finger stick Speci men Type Cap Finge rstic k 07/02 1:33 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 [facility] Not Available Not Available 10/08/2024 09:02:33 07/02/20 24 07/02/2024 Phosp hate [Mass /volu me] in Serum or Plasm a phosphate [mass/volume ] in serum or plasma 3.3 mg/dL low: 2.8mg/ dLhigh : 5.1mg/ dL Phosp horus 3.3 2.8 - 5.1 mg/dL 07/02 12:19 AM [facility] Not Available Not Available 10/08/2024 [...] 1.6 - 2.6 mg/dL 07/02 12:19 AM [facility] Not Available Not Available 10/08/2024 [...] - 10.7 x10E9 /L 07/01 11:53 PM [facility] Not Available Not Available 10/08/2024 09:02:33 07/02/20 24 07/02/2024 CBC W Auto Diffe renti al panel - Blood erythrocytes [#/volume] in blood by automated count 4.03 text: 4.30 - 5.80 x10e12 /L low RBC Count 4.03 (L) 4.30 - 5.80 x10E1 2/L 07/01 11:53 PM [facility] Not Available 10/08/2024 09:02:33 07/02/20 24 07/02/2024 CBC W Auto Diffe renti al panel - Blood hemoglobin [mass/volume ] in blood 12.5 g/dL low: 13.3g/ dLhigh : 17.5g/ dL low Hemog lobin 12.5 (L) 13.3 - 17.5 g/dL 07/01 11:53 PM [facility] Not Available 10/08/2024 09:02:33 07/02/20 24 07/02/2024 CBC W Auto Diffe renti al panel - Blood hematocrit [volume fraction] of blood by automated count 36.3 % low: 38.7%h igh: 51.1% low Hemat ocrit 36.3 (L) 38.7 - 51.1 % 07/01 11:53 PM [facility] Not Available 10/08/2024 09:02:33 07/02/20 24 07/02/2024 CBC W Auto Diffe renti al panel - Blood MCV [entitic mean volume] in red blood cells by automated count 90.1 fL low: 80fLhi gh: 98fL MCV 90.1 80.0 - 98.0 fL 07/01 11:53 PM [facility] Not Available Not Available 10/08/2024 09:02:33 07/02/20 24 07/02/2024 CBC W Auto Diffe renti al panel - Blood MCH [entitic mass] by automated count 31 pg low: 26.7pg high: 33.6pg MCH 31.0 26.7 - 33.6 pg 07/01 11:53 PM [facility] Not Available Not Available 10/08/2024 09:02:33 07/02/20 24 07/02/2024 CBC W Auto Diffe renti al panel - Blood MCHC [entitic mass/volume] in red blood cells by automated count 34.4 g/dL low: 31.7g/ dLhigh : 36.3g/ dL MCHC 34.4 31.7 - 36.3 g/dL 07/01 11:53 PM [facility] Not Available Not Available 10/08/2024 09:02:33 07/02/20 24 07/02/2024 CBC W Auto Diffe renti al panel - Blood erythrocyte [distwidth] in red blood cells by automated count 13.1 % low: 11.3%h igh: 14.8% RDW-C V 13.1 11.3 - 14.8 % 07/01 11:53 PM SCREW MACHINE SETTER [facility] Not Available Not Available 10/08/2024 09:02:33 07/02/20 24 07/02/2024 CBC W Auto Diffe renti al panel - Blood platelets [#/volume] in blood by automated count 372 text: 150 - 420 x10e9/ L Plate let Count 372 150 - 420 x10E9 /L 07/01 11:53 PM [facility] Not Available Not Available 10/08/2024 09:02:33 07/02/20 24 07/02/2024 CBC W Auto Diffe renti al panel - Blood platelet [entitic mean volume] in blood by automated count 8.6 fL low: 7.8fLh igh: 11.4fL MPV 8.6 7.8 - 11.4 fL 07/01 11:53 PM [facility] Not Available Not Available 10/08/2024 09:02:33 07/02/20 24 07/02/2024 CBC W Auto Diffe renti al panel - Blood neutrophils/ leukocytes in blood by automated count 64.8 % low: 41%hig h: 74% Neutr ophil % 64.8 41.0 - 74.0 % 07/01 11:53 PM [facility] Not Available Not Available 10/08/2024 09:02:33 07/02/20 24 07/02/2024 CBC W Auto Diffe renti al panel - Blood lymphocytes/ leukocytes in blood by automated count 17.2 % low: 17%hig h: 47% Lymph ocyte % 17.2 17.0 - 47.0 % 07/01 11:53 PM SCREW MACHINE SETTER [facility] Not Available Not Available 10/08/2024 09:02:33 07/02/20 24 07/02/2024 CBC W Auto Diffe renti al panel - Blood monocytes/le ukocytes in blood by automated count 8.3 % low: 3%high : 11% Monoc yte % 8.3 3.0 - 11.0 % 07/01 11:53 PM SCREW MACHINE SETTER [facility] Not Available Not Available 10/08/2024 09:02:33 07/02/20 24 07/02/2024 CBC W Auto Diffe renti al panel - Blood eosinophils/ leukocytes in blood by automated count 8.4 % low: 0%high : 7% high Eosin ophil % 8.4 (H) 0.0 - 7.0 % 07/01 11:53 PM SCREW MACHINE SETTER [facility] Not Available Not Available 10/08/2024 09:02:33 07/02/20 24 07/02/2024 CBC W Auto Diffe renti al panel - Blood basophils/le ukocytes in blood by automated count 0.5 % low: 0%high : 1.6% Basop hil % 0.5 0.0 - 1.6 % 07/01 11:53 PM SCREW MACHINE SETTER [facility] Not Available Not Available 10/08/2024 09:02:33 07/02/20 24 07/02/2024 CBC W Auto Diffe renti al panel - Blood immature granulocytes /leukocytes in blood by automated count 0.8 % low: 0%high : 1% Immat ure Granu locyt es % 0.8 0.0 - 1.0 % 07/01 11:53 PM SCREW MACHINE SETTER [facility] Not Available Not Available 10/08/2024 09:02:33 07/02/20 24 07/02/2024 CBC W Auto Diffe renti al panel - Blood neutrophils [#/volume] in blood by automated count 5.55 text: 1.60 - 7.50 x10e9/ L Neutr ophil Absol [place] 5.55 1.60 - 7.50 x10E9 /L 07/01 11:53 PM SCREW MACHINE SETTER [facility] Not Available Not Available 10/08/2024 09:02:33 07/02/20 24 07/02/2024 CBC W Auto Diffe renti al panel - Blood lymphocytes [#/volume] in blood by automated count 1.47 text: 1.00 - 4.40 x10e9/ L Lymph ocyte Absol [place] 1.47 1.00 - 4.40 x10E9 /L 07/01 11:53 PM SCREW MACHINE SETTER [facility] Not Available Not Available 10/08/2024 09:02:33 07/02/20 24 07/02/2024 CBC W Auto Diffe renti al panel - Blood monocytes [#/volume] in blood by automated count 0.71 text: 0.15 - 1.00 x10e9/ L Monoc yte Absol newhalen 0.71 0.15 - 1.00 x10E9 /L 07/01 11:53 PM SCREW MACHINE SETTER [facility] Not Available Not Available 10/08/2024 09:02:33 07/02/20 24 07/02/2024 CBC W Auto Diffe renti al panel - Blood eosinophils [#/volume] in blood 0.72 text: 0.00 - 0.60 x10e9/ L high Eosin ophil Absol [place]en 0.72 (H) 0.00 - 0.60 x10E9 /L 07/01 11:53 PM SCREW MACHINE SETTER [facility] Not Available Not Available 10/08/2024 09:02:33 07/02/20 24 07/02/2024 CBC W Auto Diffe renti al panel - Blood basophils [#/volume] in blood by automated count 0.04 text: 0.00 - 0.13 x10e9/ L Basop hil Absol [place] 0.04 0.00 - 0.13 x10E9 /L 07/01 11:53 PM SCREW MACHINE SETTER [facility] Not Available Not [...] 7 - 26 mg/dL 07/02 12:19 AM SCREW MACHINE SETTER [facility] Not Available Not Available 10/08/2024 09:02:33 07/02/20 24 07/02/2024 Basic metab olic 1999 panel - Serum or Plasm a creatinine [mass/volume ] in serum or plasma 1 mg/dL low: 0.71mg /dLhig h: 1.16mg /dL Creat inine 1.00 0.71 - 1.16 mg/dL 07/02 12:19 AM SCREW MACHINE SETTER [facility] Not Available Not Available 10/08/2024 09:02:33 07/02/20 24 07/02/2024 Basic metab olic 1999 panel - Serum or Plasm a sodium [moles/volum e] in serum or plasma 141 mmol/ L low: 136mmo l/Lhig h: 145mmo l/L Sodiu m 141 136 - 145 mmol/ L 07/02 12:19 AM SCREW MACHINE SETTER [facility] Not Available Not Available 10/08/2024 09:02:33 07/02/20 24 07/02/2024 Basic metab olic 1999 panel - Serum or Plasm a potassium [moles/volum e] in serum or plasma 4.4 mmol/ L low: 3.5mmo l/Lhig h: 4.5mmo l/L Potas sium 4.4 3.5 - 4.5 mmol/ L 07/02 12:19 AM SCREW MACHINE SETTER [facility] Not Available Not Available 10/08/2024 09:02:33 07/02/20 24 07/02/2024 Basic metab olic 2000 panel - Serum or Plasm a chloride [moles/volum e] in serum or plasma 106 mmol/ L low: 98mmol /Lhigh : 107mmo l/L Chlor stalin 106 98 - 107 mmol/ L 07/02 12:19 AM [facility]CREW MACHINE SETTER [facility] Not Available Not Available 10/08/2024 09:02:33 07/02/20 24 07/02/2024 Basic metab olic 1999 panel - Serum or Plasm a carbon dioxide, total [moles/volum e] in serum or plasma 27 mmol/ L low: 22mmol /Lhigh : 29mmol /L CO2 27 22 - 29 mmol/ L 07/02 12:19 AM [facility] Not Available Not Available 10/08/2024 09:02:33 07/02/20 24 07/02/2024 Basic metab olic 1999 panel - Serum or Plasm a glucose [mass/volume ] in serum or plasma 105 mg/dL low: 70mg/d Lhigh: 99mg/d L high Gluco se 105 (H) 70 - 99 mg/dL 07/02 12:19 AM [facility] Not Available Not Available 10/08/2024 09:02:33 07/02/20 24 07/02/2024 Basic metab olic 1999 panel - Serum or Plasm a calcium [moles/volum e] in serum or plasma 8.9 mg/dL low: 8.4mg/ dLhigh : 10.2mg /dL Calci um 8.9 8.4 - 10.2 mg/dL 07/02 12:19 AM [facility] Not Available Not Available 10/08/2024 09:02:33 07/02/20 24 07/02/2024 Basic metab olic 1999 panel - Serum or Plasm a anion gap 8 low: 6high: 16 Anion Gap 8 6 - 16 07/02 12:19 AM [facility] Not Available Not Available 10/08/2024 09:02:33 07/02/20 24 07/02/2024 Basic metab olic 1999 panel - Serum or Plasm a urea nitrogen/cre atinine [mass ratio] in serum or plasma 21 low: 7high: 23 BUN/C reati nine Ratio 21 7 - 23 07/02 12:19 AM [facility] Not Available Not Available 10/08/2024 09:02:33 07/02/20 07/02/2024 Basic metab olic 2000 panel - Serum or Plasm a osmolality calculated 295 text: 275 - 295 mOsm/k g Osmol danny Tai lated 295 275 - 295 mOsm/ kg 07/02 12:19 AM SCREW MACHINE SETTER [facility] Not Available Not Available 10/08/2024 09:02:33 07/02/20 24 07/02/2024 Basic metab olic 2000 panel - Serum or Plasm a glomerular filtration rate [volume rate/area] in serum, plasma or blood by creatinine-b ased formula (CKD-epi 2020)/1.73 sq M 88 text: >=90 mL/min /1.73 m2 low eGFR by CKD-E PI 88 (L) >=90 mL/mi n/1.7 3 m2 07/02 12:19 AM SCREW MACHINE SETTER [facility] Not Available Not Available [...] 70 - 99 mg/dL 07/03 6:43 PM SCREW MACHINE SETTER [facility] Not Available Not Available 10/08/2024 09:02:35 07/03/20 24 07/03/2024 Gluco se [Mass /volu me] in Arter ial blood specimen source identified Cap Finger stick Speci men Type Cap Finge rstic k 07/03 6:43 PM SCREW MACHINE SETTER [facility] Not Available Not Available [...] 70 - 99 mg/dL 07/03 12:08 PM SCREW MACHINE SETTER [facility] Not Available Not Available 10/08/2024 09:02:35 07/03/20 24 07/03/2024 Gluco se [Mass /volu me] in Arter ial blood specimen source identified Cap Finger stick Speci men Type Cap Finge rstic k 07/03 12:08 PM SCREW MACHINE SETTER [facility] Not Available Not Available 10/08/2024 09:02:35 07/03/20 24 07/03/2024 Gluco se [Mass /volu me] in Arter ial blood glucose [mass/volume ] in capillary blood by glucometer 103 mg/dL low: 70mg/d Lhigh: 99mg/d L high Gluco se WB/PO C 103 (H) 70 - 99 mg/dL 07/03 11:23 AM [employer]CREW MACHINE SETTER [facility] Not Available Not Available 10/08/2024 09:02:34 07/03/20 24 07/03/2024 Gluco se [Mass /volu me] in Arter ial blood specimen source identified Arteri al Speci men Type Arter ial 07/03 11:23 AM SCREW MACHINE SETTER [facility] Not Available Not Available [...] 70 - 99 mg/dL 07/03 1:15 AM SCREW MACHINE SETTER [facility] Not Available Not Available 10/08/2024 09:02:34 07/03/20 24 07/03/2024 Gluco se [Mass /volu me] in Arter ial blood specimen source identified Arteri al Speci men Type Arter ial 07/03 1:15 AM SCREW MACHINE SETTER [facility] Not Available Not [...] 70 - 99 mg/dL 07/04 5:50 PM SCREW MACHINE SETTER [facility] Not Available Not Available 10/08/2024 09:02:36 07/04/20 24 07/04/2024 Gluco se [Mass /volu me] in Arter ial blood specimen source identified Cap Finger stick Speci men Type Cap Finge rstic k 07/04 5:50 PM SCREW MACHINE SETTER [facility] Not Available Not [...] 70 - 99 mg/dL 07/04 12:40 PM SCREW MACHINE SETTER [facility] Not Available Not Available 10/08/2024 09:02:36 07/04/20 24 07/04/2024 Gluco se [Mass /volu me] in Arter ial blood specimen source identified Cap Finger stick Speci men Type Cap Finge rstic k 07/04 12:40 PM SCREW MACHINE SETTER [facility] Not Available Not [...] 70 - 99 mg/dL 07/04 7:31 AM SCREW MACHINE SETTER [facility] Not Available Not Available 10/08/2024 09:02:35 07/04/20 24 07/04/2024 Gluco se [Mass /volu me] in Arter ial blood specimen source identified Cap Finger stick Speci men Type Cap Finge rstic k 07/04 7:31 AM SCREW MACHINE SETTER [facility] Not Available Not [...] 70 - 99 mg/dL 07/04 7:31 AM SCREW MACHINE SETTER [facility] Not Available Not Available 10/08/2024 09:02:35 07/04/20 24 07/04/2024 Gluco se [Mass /volu me] in Arter ial blood specimen source identified Cap Finger stick Speci men Type Cap Finge rstic k 07/04 7:31 AM SCREW MACHINE SETTER [facility] Not Available Not [...] 2.8 - 5.1 mg/dL 07/04 12:14 AM SCREW MACHINE SETTER [facility] Not Available Not [...] 1.6 - 2.6 mg/dL 07/04 12:14 AM [facility] Not Available Not [...] - 10.7 x10E9 /L 07/04 12:12 AM [facility] Not Available 10/08/2024 09:02:35 07/04/20 24 07/04/2024 CBC W Auto Diffe renti al panel - Blood erythrocytes [#/volume] in blood by automated count 3.54 text: 4.30 - 5.80 x10e12 /L low RBC Count 3.54 (L) 4.30 - 5.80 x10E1 2/L 07/04 12:12 AM [facility] Not Available Not Available 10/08/2024 09:02:35 07/04/20 24 07/04/2024 CBC W Auto Diffe renti al panel - Blood hemoglobin [mass/volume ] in blood 10.9 g/dL low: 13.3g/ dLhigh : 17.5g/ dL low Hemog lobin 10.9 (L) 13.3 - 17.5 g/dL 07/04 12:12 AM [facility] Not [facility] Not Available 10/08/2024 09:02:35 07/04/20 24 07/04/2024 CBC W Auto Diffe renti al panel - Blood hematocrit [volume fraction] of blood by automated count 33.1 % low: 38.7%h igh: 51.1% low Hemat ocrit 33.1 (L) 38.7 - 51.1 % 07/04 12:12 AM [facility] Not Available Not Available 10/08/2024 09:02:35 07/04/20 24 07/04/2024 CBC W Auto Diffe renti al panel - Blood MCV [entitic mean volume] in red blood cells by automated count 93.5 fL low: 80fLhi gh: 98fL MCV 93.5 80.0 - 98.0 fL 07/04 12:12 AM [facility] Not Available Not Available 10/08/2024 09:02:35 07/04/20 24 07/04/2024 CBC W Auto Diffe renti al panel - Blood MCH [entitic mass] by automated count 30.8 pg low: 26.7pg high: 33.6pg MCH 30.8 26.7 - 33.6 pg 07/04 12:12 AM SCREW MACHINE SETTER [facility] Not Available Not Available 10/08/2024 09:02:35 07/04/20 24 07/04/2024 CBC W Auto Diffe renti al panel - Blood MCHC [entitic mass/volume] in red blood cells by automated count 32.9 g/dL low: 31.7g/ dLhigh : 36.3g/ dL MCHC 32.9 31.7 - 36.3 g/dL 07/04 12:12 AM [facility] Not Available Not Available 10/08/2024 09:02:35 07/04/20 24 07/04/2024 CBC W Auto Diffe renti al panel - Blood erythrocyte [distwidth] in red blood cells by automated count 13.5 % low: 11.3%h igh: 14.8% RDW-C V 13.5 11.3 - 14.8 % 07/04 12:12 AM [facility] Not Available Not Available 10/08/2024 09:02:35 07/04/20 24 07/04/2024 CBC W Auto Diffe renti al panel - Blood platelets [#/volume] in blood by automated count 365 text: 150 - 420 x10e9/ L Plate let Count 365 150 - 420 x10E9 /L 07/04 12:12 AM [facility] Not Available Not Available 10/08/2024 09:02:35 07/04/20 24 07/04/2024 CBC W Auto Diffe renti al panel - Blood platelet [entitic mean volume] in blood by automated count 8.4 fL low: 7.8fLh igh: 11.4fL MPV 8.4 7.8 - 11.4 fL 07/04 12:12 AM [facility] Not Available Not Available 10/08/2024 09:02:35 07/04/20 24 07/04/2024 CBC W Auto Diffe renti al panel - Blood neutrophils/ leukocytes in blood by automated count 59 % low: 41%hig h: 74% Neutr ophil % 59.0 41.0 - 74.0 % 07/04 12:12 AM [facility]ACH[facility] Not Available Not Available 10/08/2024 09:02:35 07/04/20 24 07/04/2024 CBC W Auto Diffe renti al panel - Blood lymphocytes/ leukocytes in blood by automated count 21 % low: 17%hig h: 47% Lymph ocyte % 21.0 17.0 - 47.0 % 07/04 12:12 AM SCREW MACHINE SETTER [facility] Not Available Not Available 10/08/2024 09:02:35 07/04/20 24 07/04/2024 CBC W Auto Diffe renti al panel - Blood monocytes/le ukocytes in blood by automated count 10.2 % low: 3%high : 11% Monoc yte % 10.2 3.0 - 11.0 % 07/04 12:12 AM SCREW MACHINE SETTER [facility] Not Available Not Available 10/08/2024 09:02:35 07/04/20 24 07/04/2024 CBC W Auto Diffe renti al panel - Blood eosinophils/ leukocytes in blood by automated count 7.2 % low: 0%high : 7% high Eosin ophil % 7.2 (H) 0.0 - 7.0 % 07/04 12:12 AM SCREW MACHINE SETTER [facility] Not Available Not Available 10/08/2024 09:02:35 07/04/20 24 07/04/2024 CBC W Auto Diffe renti al panel - Blood basophils/le ukocytes in blood by automated count 0.7 % low: 0%high : 1.6% Basop hil % 0.7 0.0 - 1.6 % 07/04 12:12 AM SCREW MACHINE SETTER [facility] Not Available Not Available 10/08/2024 09:02:35 07/04/20 24 07/04/2024 CBC W Auto Diffe renti al panel - Blood immature granulocytes /leukocytes in blood by automated count 1.9 % low: 0%high : 1% high Immat ure Granu locyt es % 1.9 (H) 0.0 - 1.0 % 07/04 12:12 AM SCREW MACHINE SETTER [facility] Not Available Not Available 10/08/2024 09:02:35 07/04/20 24 07/04/2024 CBC W Auto Diffe renti al panel - Blood neutrophils [#/volume] in blood by automated count 5.52 text: 1.60 - 7.50 x10e9/ L Neutr ophil Absol [place]halen 5.52 1.60 - 7.50 x10E9 /L 07/04 12:12 AM SCREW MACHINE SETTER [facility] Not Available Not Available 10/08/2024 09:02:35 07/04/20 24 07/04/2024 CBC W Auto Diffe renti al panel - Blood lymphocytes [#/volume] in blood by automated count 1.97 text: 1.00 - 4.40 x10e9/ L Lymph ocyte Absol [place]en 1.97 1.00 - 4.40 x10E9 /L 07/04 12:12 AM SCREW MACHINE SETTER [facility] Not Available Not Available 10/08/2024 09:02:35 07/04/20 24 07/04/2024 CBC W Auto Diffe renti al panel - Blood monocytes [#/volume] in blood by automated count 0.96 text: 0.15 - 1.00 x10e9/ L Monoc yte Absol newhalen 0.96 0.15 - 1.00 x10E9 /L 07/04 12:12 AM [facility] Not Available Not Available 10/08/2024 09:02:35 07/04/20 24 07/04/2024 CBC W Auto Diffe renti al panel - Blood eosinophils [#/volume] in blood 0.67 text: 0.00 - 0.60 x10e9/ L high Eosin ophil Absol [place]halen 0.67 (H) 0.00 - 0.60 x10E9 /L 07/04 12:12 AM SCREW MACHINE SETTER [facility] Not Available Not Available 10/08/2024 09:02:35 07/04/20 24 07/04/2024 CBC W Auto Diffe renti al panel - Blood basophils [#/volume] in blood by automated count 0.07 text: 0.00 - 0.13 x10e9/ L Basop hil Absol [place]hal[place] 0.07 0.00 - 0.13 x10E9 /L 07/04 12:12 AM [facility] Not Available Not [...] 7 - 26 mg/dL 07/04 12:14 AM [facility] Not Available Not Available 10/08/2024 09:02:35 07/04/20 24 07/04/2024 Basic metab olic 1999 panel - Serum or Plasm a creatinine [mass/volume ] in serum or plasma 1.61 mg/dL low: 0.71mg /dLhig h: 1.16mg /dL high Creat inine 1.61 (H) 0.71 - 1.16 mg/dL 07/04 12:14 AM [facility] Not Available Not Available 10/08/2024 09:02:35 07/04/20 24 07/04/2024 Basic metab olic 1999 panel - Serum or Plasm a sodium [moles/volum e] in serum or plasma 138 mmol/ L low: 136mmo l/Lhig h: 145mmo l/L Sodiu m 138 136 - 145 mmol/ L 07/04 12:14 AM [facility] Not Available Not Available 10/08/2024 09:02:35 07/04/20 24 07/04/2024 Basic metab olic 2000 panel - Serum or Plasm a potassium [moles/volum e] in serum or plasma 4.6 mmol/ L low: 3.5mmo l/Lhig h: 4.5mmo l/L high Potas sium 4.6 (H) 3.5 - 4.5 mmol/ L 07/04 12:14 AM [facility] Not Available Not Available 10/08/2024 09:02:35 07/04/20 24 07/04/2024 Basic metab olic 2000 panel - Serum or Plasm a chloride [moles/volum e] in serum or plasma 105 mmol/ L low: 98mmol /Lhigh : 107mmo l/L Chlor stalin 105 98 - 107 mmol/ L 07/04 12:14 AM SCREW MACHINE SETTER [facility] Not Available Not Available 10/08/2024 09:02:35 07/04/20 24 07/04/2024 Basic metab olic 2000 panel - Serum or Plasm a carbon dioxide, total [moles/volum e] in serum or plasma 27 mmol/ L low: 22mmol /Lhigh : 29mmol /L CO2 27 22 - 29 mmol/ L 07/04 12:14 AM SCREW MACHINE SETTER [facility] Not Available Not Available 10/08/2024 09:02:35 07/04/20 24 07/04/2024 Basic metab olic 2000 panel - Serum or Plasm a glucose [mass/volume ] in serum or plasma 91 mg/dL low: 70mg/d Lhigh: 99mg/d L Gluco se 91 70 - 99 mg/dL 07/04 12:14 AM SCREW MACHINE SETTER [facility] Not Available Not Available 10/08/2024 09:02:35 07/04/20 24 07/04/2024 Basic metab olic 2000 panel - Serum or Plasm a calcium [moles/volum e] in serum or plasma 9 mg/dL low: 8.4mg/ dLhigh : 10.2mg /dL Calci um 9.0 8.4 - 10.2 mg/dL 07/04 12:14 AM SCREW MACHINE SETTER [facility] Not Available Not Available 10/08/2024 09:02:35 07/04/20 24 07/04/2024 Basic metab olic 2000 panel - Serum or Plasm a anion gap 6 low: 6high: 16 Anion Gap 6 6 - 16 07/04 12:14 AM SCREW MACHINE SETTER [facility] Not Available Not Available 10/08/2024 09:02:35 07/04/20 24 07/04/2024 Basic metab olic 2000 panel - Serum or Plasm a urea nitrogen/cre atinine [mass ratio] in serum or plasma 19 low: 7high: 23 BUN/C reati nine Ratio 19 7 - 23 07/04 12:14 AM SCREW MACHINE SETTER [facility] Not Available Not Available 10/08/2024 09:02:35 07/04/20 24 07/04/2024 Basic metab olic 2000 panel - Serum or Plasm a osmolality calculated 292 text: 275 - 295 mOsm/k g Osmol ality Calcu lated 292 275 - 295 mOsm/ kg 07/04 12:14 AM SCREW MACHINE SETTER [facility] Not Available Not Available 10/08/2024 09:02:35 07/04/20 24 07/04/2024 Basic metab olic 2000 panel - Serum or Plasm a glomerular filtration rate [volume rate/area] in serum, plasma or blood by creatinine-b ased formula (CKD-epi 2020)/1.73 sq M 50 text: >=90 mL/min /1.73 m2 low eGFR by CKD-E PI 50 (L) >=90 mL/mi n/1.7 3 m2 07/04 12:14 AM SCREW MACHINE SETTER [facility] Not Available Not Available [...] 70 - 99 mg/dL 07/06 8:33 AM SCREW MACHINE SETTER [employer] Not Available Not Available 10/08/2024 09:02:36 07/05/20 24 07/06/2024 Gluco se [Mass /volu me] in Arter ial blood specimen source identified Cap Finger stick Speci men Type Cap Finge rstic k 07/06 8:33 AM SCREW MACHINE SETTER [facility] Not Available Not [...] 70 - 99 mg/dL 07/05 12:14 PM SCREW MACHINE SETTER [facility] Not Available Not Available 10/08/2024 09:02:36 07/05/20 24 07/05/2024 Gluco se [Mass /volu me] in Arter ial blood specimen source identified Cap Finger stick Speci men Type Cap Finge rstic k 07/05 12:14 PM SCREW MACHINE SETTER [facility] Not Available Not Available [...] 70 - 99 mg/dL 07/05 8:07 AM SCREW MACHINE SETTER [facility] Not Available Not Available 10/08/2024 09:02:36 07/05/20 24 07/05/2024 Gluco se [Mass /volu me] in Arter ial blood specimen source identified Arteri al Speci men Type Arter ial 07/05 8:07 AM SCREW MACHINE SETTER [facility] Not Available Not [...] 70 - 99 mg/dL 07/05 12:20 AM SCREW MACHINE SETTER [facility] Not Available Not Available 10/08/2024 09:02:36 07/05/20 24 07/05/2024 Gluco se [Mass /volu me] in Arter ial blood specimen source identified Arteri al Speci men Type Arter ial 07/05 12:20 AM SCREW MACHINE SETTER [facility] Not Available Not Available [...] 2.8 - 5.1 mg/dL 07/04 11:52 PM SCREW MACHINE SETTER [facility] Not Available Not Available [...] 1.6 - 2.6 mg/dL 07/04 11:52 PM SCREW MACHINE SETTER [facility] Not Available Not [...] - 10.7 x10E9 /L 07/04 11:27 PM SCREW MACHINE SETTER [facility] Not Available Not Available 10/08/2024 09:02:36 07/05/20 24 07/05/2024 CBC W Auto Diffe renti al panel - Blood erythrocytes [#/volume] in blood by automated count 3.68 text: 4.30 - 5.80 x10e12 /L low RBC Count 3.68 (L) 4.30 - 5.80 x10E1 2/L 07/04 11:27 PM [facility] Not Available Not Available 10/08/2024 09:02:36 07/05/20 24 07/05/2024 CBC W Auto Diffe renti al panel - Blood hemoglobin [mass/volume ] in blood 11.3 g/dL low: 13.3g/ dLhigh : 17.5g/ dL low Hemog lobin 11.3 (L) 13.3 - 17.5 g/dL 07/04 11:27 PM SCREW MACHINE SETTER [facility] Not Available Not Available 10/08/2024 09:02:36 07/05/20 24 07/05/2024 CBC W Auto Diffe renti al panel - Blood hematocrit [volume fraction] of blood by automated count 34.6 % low: 38.7%h igh: 51.1% low Hemat ocrit 34.6 (L) 38.7 - 51.1 % 07/04 11:27 PM SCREW MACHINE SETTER [facility] Not Available Not Available 10/08/2024 09:02:36 07/05/20 24 07/05/2024 CBC W Auto Diffe renti al panel - Blood MCV [entitic mean volume] in red blood cells by automated count 94 fL low: 80fLhi gh: 98fL MCV 94.0 80.0 - 98.0 fL 07/04 11:27 PM [facility] Not Available Not Available 10/08/2024 09:02:36 07/05/20 24 07/05/2024 CBC W Auto Diffe renti al panel - Blood MCH [entitic mass] by automated count 30.7 pg low: 26.7pg high: 33.6pg MCH 30.7 26.7 - 33.6 pg 07/04 11:27 PM [facility] Not Available Not Available 10/08/2024 09:02:36 07/05/20 24 07/05/2024 CBC W Auto Diffe renti al panel - Blood MCHC [entitic mass/volume] in red blood cells by automated count 32.7 g/dL low: 31.7g/ dLhigh : 36.3g/ dL MCHC 32.7 31.7 - 36.3 g/dL 07/04 11:27 PM [facility] Not Available Not Available 10/08/2024 09:02:36 07/05/20 24 07/05/2024 CBC W Auto Diffe renti al panel - Blood erythrocyte [distwidth] in red blood cells by automated count 13.6 % low: 11.3%h igh: 14.8% RDW-C V 13.6 11.3 - 14.8 % 07/04 11:27 PM [facility] Not Available Not Available 10/08/2024 09:02:36 07/05/20 24 07/05/2024 CBC W Auto Diffe renti al panel - Blood platelets [#/volume] in blood by automated count 378 text: 150 - 420 x10e9/ L Plate let Count 378 150 - 420 x10E9 /L 07/04 11:27 PM [facility] Not Available Not Available 10/08/2024 09:02:36 07/05/20 24 07/05/2024 CBC W Auto Diffe renti al panel - Blood platelet [entitic mean volume] in blood by automated count 8.4 fL low: 7.8fLh igh: 11.4fL MPV 8.4 7.8 - 11.4 fL 07/04 11:27 PM SCREW MACHINE SETTER [facility] Not Available Not Available 10/08/2024 09:02:36 07/05/20 24 07/05/2024 CBC W Auto Diffe renti al panel - Blood neutrophils/ leukocytes in blood by automated count 64.5 % low: 41%hig h: 74% Neutr ophil % 64.5 41.0 - 74.0 % 07/04 11:27 PM SCREW MACHINE SETTER [facility] Not Available Not Available 10/08/2024 09:02:36 07/05/20 24 07/05/2024 CBC W Auto Diffe renti al panel - Blood lymphocytes/ leukocytes in blood by automated count 15.9 % low: 17%hig h: 47% low Lymph ocyte % 15.9 (L) 17.0 - 47.0 % 07/04 11:27 PM SCREW MACHINE SETTER [facility] Not Available Not Available 10/08/2024 09:02:36 07/05/20 24 07/05/2024 CBC W Auto Diffe renti al panel - Blood monocytes/le ukocytes in blood by automated count 10.3 % low: 3%high : 11% Monoc yte % 10.3 3.0 - 11.0 % 07/04 11:27 PM SCREW MACHINE SETTER [facility] Not Available Not Available 10/08/2024 09:02:36 07/05/20 24 07/05/2024 CBC W Auto Diffe renti al panel - Blood eosinophils/ leukocytes in blood by automated count 7.4 % low: 0%high : 7% high Eosin ophil % 7.4 (H) 0.0 - 7.0 % 07/04 11:27 PM SCREW MACHINE SETTER [facility] Not Available Not Available 10/08/2024 09:02:36 07/05/20 24 07/05/2024 CBC W Auto Diffe renti al panel - Blood basophils/le ukocytes in blood by automated count 0.6 % low: 0%high : 1.6% Basop hil % 0.6 0.0 - 1.6 % 07/04 11:27 PM SCREW MACHINE SETTER [facility] Not Available Not Available 10/08/2024 09:02:36 07/05/20 24 07/05/2024 CBC W Auto Diffe renti al panel - Blood immature granulocytes /leukocytes in blood by automated count 1.3 % low: 0%high : 1% high Immat ure Granu locyt es % 1.3 (H) 0.0 - 1.0 % 07/04 11:27 PM SCREW MACHINE SETTER [facility] Not Available Not Available 10/08/2024 09:02:36 07/05/20 24 07/05/2024 CBC W Auto Diffe renti al panel - Blood neutrophils [#/volume] in blood by automated count 5.85 text: 1.60 - 7.50 x10e9/ L Neutr ophil Absol newhalen 5.85 1.60 - 7.50 x10E9 /L 07/04 11:27 PM SCREW MACHINE SETTER [facility] Not Available Not Available 10/08/2024 09:02:36 07/05/20 24 07/05/2024 CBC W Auto Diffe renti al panel - Blood lymphocytes [#/volume] in blood by automated count 1.44 text: 1.00 - 4.40 x10e9/ L Lymph ocyte Absol newhalen 1.44 1.00 - 4.40 x10E9 /L 07/04 11:27 PM SCREW MACHINE SETTER [facility] Not Available Not Available 10/08/2024 09:02:36 07/05/20 24 07/05/2024 CBC W Auto Diffe renti al panel - Blood monocytes [#/volume] in blood by automated count 0.93 text: 0.15 - 1.00 x10e9/ L Monoc yte Absol newhalen 0.93 0.15 - 1.00 x10E9 /L 07/04 11:27 PM SCREW MACHINE SETTER [facility] Not Available Not Available 10/08/2024 09:02:36 07/05/20 24 07/05/2024 CBC W Auto Diffe renti al panel - Blood eosinophils [#/volume] in blood 0.67 text: 0.00 - 0.60 x10e9/ L high Eosin ophil Absol newhalen 0.67 (H) 0.00 - 0.60 x10E9 /L 07/04 11:27 PM SCREW MACHINE SETTER [facility] Not Available Not Available 10/08/2024 09:02:36 07/05/20 24 07/05/2024 CBC W Auto Diffe renti al panel - Blood basophils [#/volume] in blood by automated count 0.05 text: 0.00 - 0.13 x10e9/ L Basop hil Absol [place]en 0.05 0.00 - 0.13 x10E9 /L 07/04 11:27 PM SCREW MACHINE SETTER [facility] Not Available Not [...] 7 - 26 mg/dL 07/04 11:52 PM SCREW MACHINE SETTER [facility] Not Available Not Available 10/08/2024 09:02:36 07/05/20 24 07/05/2024 Basic metab olic 2000 panel - Serum or Plasm a creatinine [mass/volume ] in serum or plasma 1.41 mg/dL low: 0.71mg /dLhig h: 1.16mg /dL high Creat inine 1.41 (H) 0.71 - 1.16 mg/dL 07/04 11:52 PM SCREW MACHINE SETTER [facility] Not Available Not Available 10/08/2024 09:02:36 07/05/20 24 07/05/2024 Basic metab olic 1999 panel - Serum or Plasm a sodium [moles/volum e] in serum or plasma 138 mmol/ L low: 136mmo l/Lhig h: 145mmo l/L Sodiu m 138 136 - 145 mmol/ L 07/04 11:52 PM SCREW MACHINE SETTER [facility] Not Available Not Available 10/08/2024 09:02:36 07/05/20 24 07/05/2024 Basic metab olic 1999 panel - Serum or Plasm a potassium [moles/volum e] in serum or plasma 4.5 mmol/ L low: 3.5mmo l/Lhig h: 4.5mmo l/L Potas sium 4.5 3.5 - 4.5 mmol/ L 07/04 11:52 PM SCREW MACHINE SETTER [facility] Not Available Not Available 10/08/2024 09:02:36 07/05/20 24 07/05/2024 Basic metab olic 1999 panel - Serum or Plasm a chloride [moles/volum e] in serum or plasma 106 mmol/ L low: 98mmol /Lhigh : 107mmo l/L Chlor stalin 106 98 - 107 mmol/ L 07/04 11:52 PM SCREW MACHINE SETTER [facility] Not Available Not Available 10/08/2024 09:02:36 07/05/20 24 07/05/2024 Basic metab olic 1999 panel - Serum or Plasm a carbon dioxide, total [moles/volum e] in serum or plasma 27 mmol/ L low: 22mmol /Lhigh : 29mmol /L CO2 27 22 - 29 mmol/ L 07/04 11:52 PM SCREW MACHINE SETTER [facility] Not Available Not Available 10/08/2024 09:02:36 07/05/20 24 07/05/2024 Basic metab olic 1999 panel - Serum or Plasm a glucose [mass/volume ] in serum or plasma 90 mg/dL low: 70mg/d Lhigh: 99mg/d L Gluco se 90 70 - 99 mg/dL 07/04 11:52 PM SCREW MACHINE SETTER [facility] Not Available Not Available 10/08/2024 09:02:36 12/26/07/05/2024 Basic metab olic 2000 panel - Serum or Plasm a calcium [moles/volum e] in serum or plasma 9 mg/dL low: 8.4mg/ dLhigh : 10.2mg /dL Calci um 9.0 8.4 - 10.2 mg/dL 07/04 11:52 PM SCREW MACHINE SETTER [facility] Not Available Not Available 10/08/2024 09:02:36 07/05/20 24 07/05/2024 Basic metab olic 2000 panel - Serum or Plasm a anion gap 5 low: 6high: 16 low Anion Gap 5 (L) 6 - 16 07/04 11:52 PM SCREW MACHINE SETTER [facility] Not Available Not Available 10/08/2024 09:02:36 07/05/20 24 07/05/2024 Basic metab olic 2000 panel - Serum or Plasm a urea nitrogen/cre atinine [mass ratio] in serum or plasma 26 low: 7high: 23 high BUN/C reati nine Ratio 26 (H) 7 - 23 07/04 11:52 PM SCREW MACHINE SETTER [facility] Not Available Not Available 10/08/2024 09:02:36 07/05/20 24 07/05/2024 Basic metab olic 1999 panel - Serum or Plasm a osmolality calculated 294 text: 275 - 295 mOsm/k g Osmol danny Whiteu lated 294 275 - 295 mOsm/ kg 07/04 11:52 PM SCREW MACHINE SETTER [facility] Not Available Not Available 10/08/2024 09:02:36 07/05/20 24 07/05/2024 Basic metab olic 1999 panel - Serum or Plasm a glomerular filtration rate [volume rate/area] in serum, plasma or blood by creatinine-b ased formula (CKD-epi 2020)/1.73 sq M 58 text: >=90 mL/min /1.73 m2 low eGFR by CKD-E PI 58 (L) >=90 mL/mi n/1.7 3 m2 07/04 11:52 PM SCREW MACHINE SETTER [facility] Not Available [...] 2.8 - 5.1 mg/dL 07/06 10:31 PM SCREW MACHINE SETTER [facility] Not Available Not Available [...] 1.6 - 2.6 mg/dL 07/06 10:31 PM SCREW MACHINE SETTER [facility] Not Available Not Available [...] - 10.7 x10E9 /L 07/06 10:11 PM SCREW MACHINE SETTER [employer] Not Available Not Available 10/08/2024 09:02:38 07/06/20 24 07/06/2024 CBC W Auto Diffe renti al panel - Blood erythrocytes [#/volume] in blood by automated count 3.76 text: 4.30 - 5.80 x10e12 /L low RBC Count 3.76 (L) 4.30 - 5.80 x10E1 2/L 07/06 10:11 PM [facility] Not Available Not Available 10/08/2024 09:02:38 07/06/20 24 07/06/2024 CBC W Auto Diffe renti al panel - Blood hemoglobin [mass/volume ] in blood 11.8 g/dL low: 13.3g/ dLhigh : 17.5g/ dL low Hemog lobin 11.8 (L) 13.3 - 17.5 g/dL 07/06 10:11 PM [facility] Not Available Not Available 10/08/2024 09:02:38 07/06/20 24 07/06/2024 CBC W Auto Diffe renti al panel - Blood hematocrit [volume fraction] of blood by automated count 34.7 % low: 38.7%h igh: 51.1% low Hemat ocrit 34.7 (L) 38.7 - 51.1 % 07/06 10:11 PM [facility] Not Available Not Available 10/08/2024 09:02:38 07/06/20 24 07/06/2024 CBC W Auto Diffe renti al panel - Blood MCV [entitic mean volume] in red blood cells by automated count 92.3 fL low: 80fLhi gh: 98fL MCV 92.3 80.0 - 98.0 fL 07/06 10:11 PM [facility] Not Available 10/08/2024 09:02:38 07/06/20 24 07/06/2024 CBC W Auto Diffe renti al panel - Blood MCH [entitic mass] by automated count 31.4 pg low: 26.7pg high: 33.6pg MCH 31.4 26.7 - 33.6 pg 07/06 10:11 PM [facility] Not Available Not Available 10/08/2024 09:02:38 07/06/20 24 07/06/2024 CBC W Auto Diffe renti al panel - Blood MCHC [entitic mass/volume] in red blood cells by automated count 34 g/dL low: 31.7g/ dLhigh : 36.3g/ dL MCHC 34.0 31.7 - 36.3 g/dL 07/06 10:11 PM [facility] Not Available 10/08/2024 09:02:38 07/06/20 24 07/06/2024 CBC W Auto Diffe renti al panel - Blood erythrocyte [distwidth] in red blood cells by automated count 13.8 % low: 11.3%h igh: 14.8% RDW-C V 13.8 11.3 - 14.8 % 07/06 10:11 PM [facility] Not Available 10/08/2024 09:02:38 07/06/20 24 07/06/2024 CBC W Auto Diffe renti al panel - Blood platelets [#/volume] in blood by automated count 362 text: 150 - 420 x10e9/ L Plate let Count 362 150 - 420 x10E9 /L 07/06 10:11 PM [facility] Not Available 10/08/2024 09:02:38 07/06/20 24 07/06/2024 CBC W Auto Diffe renti al panel - Blood platelet [entitic mean volume] in blood by automated count 8.5 fL low: 7.8fLh igh: 11.4fL MPV 8.5 7.8 - 11.4 fL 07/06 10:11 PM [facility] Not Available 10/08/2024 09:02:38 07/06/20 24 07/06/2024 CBC W Auto Diffe renti al panel - Blood neutrophils/ leukocytes in blood by automated count 75.4 % low: 41%hig h: 74% high Neutr ophil % 75.4 (H) 41.0 - 74.0 % 07/06 10:11 PM [facility] Not Available 10/08/2024 09:02:38 07/06/20 24 07/06/2024 CBC W Auto Diffe renti al panel - Blood lymphocytes/ leukocytes in blood by automated count 9.2 % low: 17%hig h: 47% low Lymph ocyte % 9.2 (L) 17.0 - 47.0 % 07/06 10:11 PM SCREW MACHINE SETTER [employer] [facility] Not Available Not Available 10/08/2024 09:02:38 07/06/20 24 07/06/2024 CBC W Auto Diffe renti al panel - Blood monocytes/le ukocytes in blood by automated count 6.7 % low: 3%high : 11% Monoc yte % 6.7 3.0 - 11.0 % 07/06 10:11 PM SCREW MACHINE SETTER [facility] Not Available Not Available 10/08/2024 09:02:38 07/06/20 24 07/06/2024 CBC W Auto Diffe renti al panel - Blood eosinophils/ leukocytes in blood by automated count 7 % low: 0%high : 7% Eosin ophil % 7.0 0.0 - 7.0 % 07/06 10:11 PM SCREW MACHINE SETTER [employer] [facility] Not Available Not Available 10/08/2024 09:02:38 07/06/20 24 07/06/2024 CBC W Auto Diffe renti al panel - Blood basophils/le ukocytes in blood by automated count 0.6 % low: 0%high : 1.6% Basop hil % 0.6 0.0 - 1.6 % 07/06 10:11 PM SCREW MACHINE SETTER [employer] [facility] Not Available Not Available 10/08/2024 09:02:38 07/06/20 24 07/06/2024 CBC W Auto Diffe renti al panel - Blood immature granulocytes /leukocytes in blood by automated count 1.1 % low: 0%high : 1% high Immat ure Granu locyt es % 1.1 (H) 0.0 - 1.0 % 07/06 10:11 PM SCREW MACHINE SETTER [employer] Not Available Not Available 10/08/2024 09:02:38 07/06/20 24 07/06/2024 CBC W Auto Diffe renti al panel - Blood neutrophils [#/volume] in blood by automated count 8.53 text: 1.60 - 7.50 x10e9/ L high Neutr ophil Absol newhalen 8.53 (H) 1.60 - 7.50 x10E9 /L 07/06 10:11 PM SCREW MACHINE SETTER [facility] Not Available Not Available 10/08/2024 09:02:38 07/06/20 24 07/06/2024 CBC W Auto Diffe renti al panel - Blood lymphocytes [#/volume] in blood by automated count 1.04 text: 1.00 - 4.40 x10e9/ L Lymph ocyte Absol [place]en 1.04 1.00 - 4.40 x10E9 /L 07/06 10:11 PM SCREW MACHINE SETTER [facility] Not Available Not Available 10/08/2024 09:02:38 07/06/20 24 07/06/2024 CBC W Auto Diffe renti al panel - Blood monocytes [#/volume] in blood by automated count 0.76 text: 0.15 - 1.00 x10e9/ L Monoc yte Absol newhalen 0.76 0.15 - 1.00 x10E9 /L 07/06 10:11 PM SCREW MACHINE SETTER [facility] Not Available Not Available 10/08/2024 09:02:38 07/06/20 24 07/06/2024 CBC W Auto Diffe renti al panel - Blood eosinophils [#/volume] in blood 0.79 text: 0.00 - 0.60 x10e9/ L high Eosin ophil Absol newhalen 0.79 (H) 0.00 - 0.60 x10E9 /L 07/06 10:11 PM [facility] Not Available Not Available 10/08/2024 09:02:38 07/06/20 24 07/06/2024 CBC W Auto Diffe renti al panel - Blood basophils [#/volume] in blood by automated count 0.07 text: 0.00 - 0.13 x10e9/ L Basop hil Absol newhalen 0.07 0.00 - 0.13 x10E9 /L 07/06 10:11 PM SCREW MACHINE SETTER [facility] Not Available Not [...] 7 - 26 mg/dL 07/06 10:31 PM SCREW MACHINE SETTER [facility] Not Available Not Available 10/08/2024 09:02:37 07/06/20 24 07/06/2024 Basic metab olic 1999 panel - Serum or Plasm a creatinine [mass/volume ] in serum or plasma 1.06 mg/dL low: 0.71mg /dLhig h: 1.16mg /dL Creat inine 1.06 0.71 - 1.16 mg/dL 07/06 10:31 PM SCREW MACHINE SETTER [facility] Not Available Not Available 10/08/2024 09:02:37 07/06/20 24 07/06/2024 Basic metab olic 1999 panel - Serum or Plasm a sodium [moles/volum e] in serum or plasma 141 mmol/ L low: 136mmo l/Lhig h: 145mmo l/L Sodiu m 141 136 - 145 mmol/ L 07/06 10:31 PM SCREW MACHINE SETTER [facility] Not Available Not Available 10/08/2024 09:02:37 07/06/20 24 07/06/2024 Basic metab olic 1999 panel - Serum or Plasm a potassium [moles/volum e] in serum or plasma 4.2 mmol/ L low: 3.5mmo l/Lhig h: 4.5mmo l/L Potas sium 4.2 3.5 - 4.5 mmol/ L 07/06 10:31 PM SCREW MACHINE SETTER [facility] Not Available Not Available 10/08/2024 09:02:37 07/06/20 24 07/06/2024 Basic metab olic 1999 panel - Serum or Plasm a chloride [moles/volum e] in serum or plasma 105 mmol/ L low: 98mmol /Lhigh : 107mmo l/L Chlor stalin 105 98 - 107 mmol/ L 07/06 10:31 PM SCREW MACHINE SETTER [facility] Not Available Not Available 10/08/2024 09:02:37 07/06/20 24 07/06/2024 Basic metab olic 2000 panel - Serum or Plasm a carbon dioxide, total [moles/volum e] in serum or plasma 28 mmol/ L low: 22mmol /Lhigh : 29mmol /L CO2 28 22 - 29 mmol/ L 07/06 10:31 PM SCREW MACHINE SETTER [facility] Not Available Not Available 10/08/2024 09:02:37 07/06/20 24 07/06/2024 Basic metab olic 1999 panel - Serum or Plasm a glucose [mass/volume ] in serum or plasma 135 mg/dL low: 70mg/d Lhigh: 99mg/d L high Gluco se 135 (H) 70 - 99 mg/dL 07/06 10:31 PM [facility] Not Available Not Available 10/08/2024 09:02:37 07/06/20 24 07/06/2024 Basic metab olic 1999 panel - Serum or Plasm a calcium [moles/volum e] in serum or plasma 9.1 mg/dL low: 8.4mg/ dLhigh : 10.2mg /dL Calci um 9.1 8.4 - 10.2 mg/dL 07/06 10:31 PM [facility] Not Available Not Available 10/08/2024 09:02:37 07/06/20 24 07/06/2024 Basic metab olic 2000 panel - Serum or Plasm a anion gap 8 low: 6high: 16 Anion Gap 8 6 - 16 07/06 10:31 PM SCREW MACHINE SETTER [facility] Not Available Not Available 10/08/2024 09:02:37 07/06/20 24 07/06/2024 Basic metab olic 2000 panel - Serum or Plasm a urea nitrogen/cre atinine [mass ratio] in serum or plasma 30 low: 7high: 23 high BUN/C reati nine Ratio 30 (H) 7 - 23 07/06 10:31 PM [facility] Not Available Not Available 10/08/2024 09:02:37 07/06/20 24 07/06/2024 Basic metab olic 2000 panel - Serum or Plasm a osmolality calculated 301 text: 275 - 295 mOsm/k g high Osmol danny Calcu lated 301 (H) 275 - 295 mOsm/ kg 07/06 10:31 PM [facility] AT[facility] Not Available Not Available 10/08/2024 09:02:37 07/06/20 24 07/06/2024 Basic metab olic 2000 panel - Serum or Plasm a glomerular filtration rate [volume rate/area] in serum, plasma or blood by creatinine-b ased formula (CKD-epi 2020)/1.73 sq M 82 text: >=90 mL/min /1.73 m2 low eGFR by CKD-E PI 82 (L) >=90 mL/mi n/1.7 3 m2 07/06 10:31 PM [facility] AT[facility] Not Available Not Available [...] 70 - 99 mg/dL 07/06 7:47 PM [facility] Not Available Not Available 10/08/2024 09:02:37 07/06/20 24 07/06/2024 Gluco se [Mass /volu me] in Arter ial blood specimen source identified Cap Finger stick Speci men Type Cap Finge rstic k 07/06 7:47 PM [facility] AT[facility]AD Not Available Not Available [...] aryng eal jacquelyn AHSAN 07/08 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 [facility] Not Available Not Available 08/22/2024 13:38:58 07/06/20 24 07/08/2024 Bacte dwaine ident ified in Speci men by Respi rator y cultu re microscopic observation [identifier] in specimen by gram stain Heavy Polymo rphonu clear cells Gram Stain Heavy Polym orpho nucle ar cells 07/08 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 [facility] Not Available Not Available 08/22/2024 13:38:58 07/06/20 24 07/08/2024 Bacte dwaine ident ified in Speci men by Respi rator y cultu re microscopic observation [identifier] in specimen by gram stain Rare Yeast Gram Stain Rare Yeast 07/08 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 [facility] Not Available Not Available 08/22/2024 13:38:58 07/06/20 24 07/08/2024 Bacte dwaine ident ified in Speci men by Respi rator y cultu re microscopic observation [identifier] in specimen by gram stain Rare Gram-p ositiv e bacill i Gram Stain Rare Gram- posit boaz bacil li 07/08 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 [facility] Not Available Not Available 08/22/2024 13:38:58 07/06/20 24 07/08/2024 Bacte dwaine ident ified in Speci men by Respi rator y cultu re microscopic observation [identifier] in specimen by gram stain Light Gram-p ositiv e cocci Gram Stain Light Gram- posit boaz cocci 07/08 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 [facility] Not Available Not Available 08/22/2024 13:38:58 07/06/20 24 07/08/2024 Bacte dwaine ident ified in Speci men by Respi rator y cultu re microscopic observation [identifier] in specimen by gram stain Rare Gram-n egativ e diploc occi Gram Stain Rare Gram- negat boaz diplo cocci 07/08 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 [facility] Not Available Not Available 08/22/2024 13:38:58 07/06/20 24 07/08/2024 Bacte dwaine ident ified in Speci men by Respi rator y cultu re microscopic observation [identifier] in specimen by gram stain Rare Gram-n egativ e coccob acilli Gram Stain Rare Gram- negat boaz cocco bacil li 07/08 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 [facility] Not Available Not Available 08/22/2024 13:38:58 07/06/20 24 07/08/2024 Bacte dwaine ident ified in Speci men by Respi rator y cultu re microscopic observation [identifier] in specimen by gram stain Rare Gram-n egativ e bacill i Gram Stain Rare Gram- negat boaz bacil li 07/08 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 [facility] Not Available Not Available 08/22/2024 13:38:58 07/06/20 24 07/06/2024 Gluco se [Mass /volu me] in Arter ial blood glucose [mass/volume ] in capillary blood by glucometer 124 mg/dL low: 70mg/d Lhigh: 99mg/d L high Gluco se WB/PO C 124 (H) 70 - 99 mg/dL 07/06 1:57 PM SCREW MACHINE SETTER [facility] Not Available Not Available 10/08/2024 09:02:37 07/06/20 24 07/06/2024 Gluco se [Mass /volu me] in Arter ial blood specimen source identified Cap Finger stick Speci men Type Cap Finge rstic k 07/06 1:57 PM SCREW MACHINE SETTER [facility] Not Available [...] 70 - 99 mg/dL 07/06 8:33 AM SCREW MACHINE SETTER [facility] Not Available Not Available 10/08/2024 09:02:37 07/06/20 24 07/06/2024 Gluco se [Mass /volu me] in Arter ial blood specimen source identified Arteri al Speci men Type Arter ial 07/06 8:33 AM SCREW MACHINE SETTER [facility] Not Available Not [...] 70 - 99 mg/dL 07/05 11:48 PM SCREW MACHINE SETTER [facility] Not Available Not Available 10/08/2024 09:02:37 07/06/20 24 07/06/2024 Gluco se [Mass /volu me] in Arter ial blood specimen source identified Arteri al Speci men Type Arter ial 07/05 11:48 PM SCREW MACHINE SETTER [facility] Not Available Not Available 10/08/2024 09:02:37 07/06/20 24 07/06/2024 Phosp hate [Mass /volu me] in Serum or Plasm a phosphate [mass/volume ] in serum or plasma 3.1 mg/dL low: 2.8mg/ dLhigh : 5.1mg/ dL Phosp horus 3.1 2.8 - 5.1 mg/dL 07/05 11:39 PM SCREW MACHINE SETTER [facility] Not Available Not [...] 1.6 - 2.6 mg/dL 07/05 11:39 PM SCREW MACHINE SETTER [facility] Not Available Not [...] - 10.7 x10E9 /L 07/05 11:20 PM SCREW MACHINE SETTER [facility] Not Available Not Available 10/08/2024 09:02:37 07/06/20 24 07/06/2024 CBC W Auto Diffe renti al panel - Blood erythrocytes [#/volume] in blood by automated count 4.04 text: 4.30 - 5.80 x10e12 /L low RBC Count 4.04 (L) 4.30 - 5.80 x10E1 2/L 07/05 11:20 PM SCREW MACHINE SETTER [facility] Not Available Not Available 10/08/2024 09:02:37 12/27/20 24 07/06/2024 CBC W Auto Diffe renti al panel - Blood hemoglobin [mass/volume ] in blood 12.4 g/dL low: 13.3g/ dLhigh : 17.5g/ dL low Hemog lobin 12.4 (L) 13.3 - 17.5 g/dL 07/05 11:20 PM SCREW MACHINE SETTER [facility] Not Available Not Available 10/08/2024 09:02:37 07/06/20 24 07/06/2024 CBC W Auto Diffe renti al panel - Blood hematocrit [volume fraction] of blood by automated count 37.3 % low: 38.7%h igh: 51.1% low Hemat ocrit 37.3 (L) 38.7 - 51.1 % 07/05 11:20 PM [facility] Not Available Not Available 10/08/2024 09:02:37 07/06/20 24 07/06/2024 CBC W Auto Diffe rodneyti al panel - Blood MCV [entitic mean volume] in red blood cells by automated count 92.3 fL low: 80fLhi gh: 98fL MCV 92.3 80.0 - 98.0 fL 07/05 11:20 PM [facility] Not Available Not Available 10/08/2024 09:02:37 07/06/20 24 07/06/2024 CBC W Auto Diffe rodneyti al panel - Blood MCH [entitic mass] by automated count 30.7 pg low: 26.7pg high: 33.6pg MCH 30.7 26.7 - 33.6 pg 07/05 11:20 PM SCREW MACHINE SETTER [facility] Not Available Not Available 10/08/2024 09:02:37 07/06/20 24 07/06/2024 CBC W Auto Diffe renti al panel - Blood MCHC [entitic mass/volume] in red blood cells by automated count 33.2 g/dL low: 31.7g/ dLhigh : 36.3g/ dL MCHC 33.2 31.7 - 36.3 g/dL 07/05 11:20 PM SCREW MACHINE SETTER [facility] Not Available Not Available 10/08/2024 09:02:37 07/06/20 24 07/06/2024 CBC W Auto Diffe renti al panel - Blood erythrocyte [distwidth] in red blood cells by automated count 13.4 % low: 11.3%h igh: 14.8% RDW-C V 13.4 11.3 - 14.8 % 07/05 11:20 PM SCREW MACHINE SETTER [facility] Not Available Not Available 10/08/2024 09:02:37 07/06/20 24 07/06/2024 CBC W Auto Diffe renti al panel - Blood platelets [#/volume] in blood by automated count 386 text: 150 - 420 x10e9/ L Plate let Count 386 150 - 420 x10E9 /L 07/05 11:20 PM SCREW MACHINE SETTER [facility] Not Available Not Available 10/08/2024 09:02:37 07/06/20 24 07/06/2024 CBC W Auto Diffe renti al panel - Blood platelet [entitic mean volume] in blood by automated count 8.5 fL low: 7.8fLh igh: 11.4fL MPV 8.5 7.8 - 11.4 fL 07/05 11:20 PM SCREW MACHINE SETTER [facility] Not Available Not Available 10/08/2024 09:02:37 07/06/20 24 07/06/2024 CBC W Auto Diffe renti al panel - Blood neutrophils/ leukocytes in blood by automated count 75.3 % low: 41%hig h: 74% high Neutr ophil % 75.3 (H) 41.0 - 74.0 % 07/05 11:20 PM SCREW MACHINE SETTER [facility] Not Available Not Available 10/08/2024 09:02:37 07/06/20 24 07/06/2024 CBC W Auto Diffe renti al panel - Blood lymphocytes/ leukocytes in blood by automated count 11.4 % low: 17%hig h: 47% low Lymph ocyte % 11.4 (L) 17.0 - 47.0 % 07/05 11:20 PM SCREW MACHINE SETTER [facility] Not Available Not Available 10/08/2024 09:02:37 07/06/20 24 07/06/2024 CBC W Auto Diffe renti al panel - Blood monocytes/le ukocytes in blood by automated count 6.8 % low: 3%high : 11% Monoc yte % 6.8 3.0 - 11.0 % 07/05 11:20 PM SCREW MACHINE SETTER [facility] Not Available Not Available 10/08/2024 09:02:37 07/06/20 24 07/06/2024 CBC W Auto Diffe renti al panel - Blood eosinophils/ leukocytes in blood by automated count 5.3 % low: 0%high : 7% Eosin ophil % 5.3 0.0 - 7.0 % 07/05 11:20 PM SCREW MACHINE SETTER [facility] Not Available Not Available 10/08/2024 09:02:37 07/06/20 24 07/06/2024 CBC W Auto Diffe renti al panel - Blood basophils/le ukocytes in blood by automated count 0.3 % low: 0%high : 1.6% Basop hil % 0.3 0.0 - 1.6 % 07/05 11:20 PM SCREW MACHINE SETTER [facility] Not Available Not Available 10/08/2024 09:02:37 07/06/20 24 07/06/2024 CBC W Auto Diffe renti al panel - Blood immature granulocytes /leukocytes in blood by automated count 0.9 % low: 0%high : 1% Immat ure Granu locyt es % 0.9 0.0 - 1.0 % 07/05 11:20 PM SCREW MACHINE SETTER [facility] Not Available Not Available 10/08/2024 09:02:37 07/06/20 24 07/06/2024 CBC W Auto Diffe renti al panel - Blood neutrophils [#/volume] in blood by automated count 10.48 text: 1.60 - 7.50 x10e9/ L high Neutr ophil Absol [place] 10.48 (H) 1.60 - 7.50 x10E9 /L 07/05 11:20 PM SCREW MACHINE SETTER [facility] Not Available Not Available 10/08/2024 09:02:37 07/06/20 24 07/06/2024 CBC W Auto Diffe renti al panel - Blood lymphocytes [#/volume] in blood by automated count 1.58 text: 1.00 - 4.40 x10e9/ L Lymph ocyte Absol [place] 1.58 1.00 - 4.40 x10E9 /L 07/05 11:20 PM SCREW MACHINE SETTER [facility] Not Available Not Available 10/08/2024 09:02:37 07/06/20 24 07/06/2024 CBC W Auto Diffe renti al panel - Blood monocytes [#/volume] in blood by automated count 0.95 text: 0.15 - 1.00 x10e9/ L Monoc yte Absol [place] 0.95 0.15 - 1.00 x10E9 /L 07/05 11:20 PM SCREW MACHINE SETTER [facility] Not Available Not Available 10/08/2024 09:02:37 07/06/20 24 07/06/2024 CBC W Auto Diffe renti al panel - Blood eosinophils [#/volume] in blood 0.74 text: 0.00 - 0.60 x10e9/ L high Eosin ophil Absol [place] 0.74 (H) 0.00 - 0.60 x10E9 /L 07/05 11:20 PM SCREW MACHINE SETTER [facility] Not Available Not Available 10/08/2024 09:02:37 07/06/20 24 07/06/2024 CBC W Auto Diffe renti al panel - Blood basophils [#/volume] in blood by automated count 0.04 text: 0.00 - 0.13 x10e9/ L Basop hil Absol [place] 0.04 0.00 - 0.13 x10E9 /L 07/05 11:20 PM SCREW MACHINE SETTER [facility] Not Available Not [...] 7 - 26 mg/dL 07/05 11:39 PM [facility] Not Available Not Available 10/08/2024 09:02:37 07/06/20 24 07/06/2024 Basic metab olic 1999 panel - Serum or Plasm a creatinine [mass/volume ] in serum or plasma 1.06 mg/dL low: 0.71mg /dLhig h: 1.16mg /dL Creat inine 1.06 0.71 - 1.16 mg/dL 07/05 11:39 PM [facility] Not Available Not Available 10/08/2024 09:02:37 07/06/20 24 07/06/2024 Basic metab olic 1999 panel - Serum or Plasm a sodium [moles/volum e] in serum or plasma 142 mmol/ L low: 136mmo l/Lhig h: 145mmo l/L Sodiu m 142 136 - 145 mmol/ L 07/05 11:39 PM [facility] Not Available Not Available 10/08/2024 09:02:37 07/06/20 24 07/06/2024 Basic metab olic 1999 panel - Serum or Plasm a potassium [moles/volum e] in serum or plasma 4.4 mmol/ L low: 3.5mmo l/Lhig h: 4.5mmo l/L Potas sium 4.4 3.5 - 4.5 mmol/ L 07/05 11:39 PM [facility] Not Available Not Available 10/08/2024 09:02:37 07/06/20 24 07/06/2024 Basic metab olic 1999 panel - Serum or Plasm a chloride [moles/volum e] in serum or plasma 106 mmol/ L low: 98mmol /Lhigh : 107mmo l/L Chlor stalin 106 98 - 107 mmol/ L 07/05 11:39 PM [facility] Not Available Not Available 10/08/2024 09:02:37 07/06/20 24 07/06/2024 Basic metab olic 2000 panel - Serum or Plasm a carbon dioxide, total [moles/volum e] in serum or plasma 29 mmol/ L low: 22mmol /Lhigh : 29mmol /L CO2 29 22 - 29 mmol/ L 07/05 11:39 PM SCREW MACHINE SETTER [facility] Not Available Not Available 10/08/2024 09:02:37 07/06/20 24 07/06/2024 Basic metab olic 1999 panel - Serum or Plasm a glucose [mass/volume ] in serum or plasma 94 mg/dL low: 70mg/d Lhigh: 99mg/d L Gluco se 94 70 - 99 mg/dL 07/05 11:39 PM SCREW MACHINE SETTER [facility] Not Available Not Available 10/08/2024 09:02:37 07/06/20 24 07/06/2024 Basic metab olic 1999 panel - Serum or Plasm a calcium [moles/volum e] in serum or plasma 9 mg/dL low: 8.4mg/ dLhigh : 10.2mg /dL Calci um 9.0 8.4 - 10.2 mg/dL 07/05 11:39 PM SCREW MACHINE SETTER [facility] Not Available Not Available 10/08/2024 09:02:37 07/06/20 24 07/06/2024 Basic metab olic 1999 panel - Serum or Plasm a anion gap 7 low: 6high: 16 Anion Gap 7 6 - 16 07/05 11:39 PM SCREW MACHINE SETTER [facility] Not Available Not Available 10/08/2024 09:02:37 07/06/20 24 07/06/2024 Basic metab olic 1999 panel - Serum or Plasm a urea nitrogen/cre atinine [mass ratio] in serum or plasma 30 low: 7high: 23 high BUN/C reati nine Ratio 30 (H) 7 - 23 07/05 11:39 PM SCREW MACHINE SETTER [facility] Not Available Not Available 10/08/2024 09:02:37 07/06/20 24 07/06/2024 Basic metab olic 2000 panel - Serum or Plasm a osmolality calculated 301 text: 275 - 295 mOsm/k g high Osmol ality Calcu lated 301 (H) 275 - 295 mOsm/ kg 07/05 11:39 PM SCREW MACHINE SETTER [facility] Not Available Not Available 10/08/2024 09:02:37 07/06/20 24 07/06/2024 Basic metab olic 2000 panel - Serum or Plasm a glomerular filtration rate [volume rate/area] in serum, plasma or blood by creatinine-b ased formula (CKD-epi 2020)/1.73 sq M 82 text: >=90 mL/min /1.73 m2 low eGFR by CKD-E PI 82 (L) >=90 mL/mi n/1.7 3 m2 07/05 11:39 PM SCREW MACHINE SETTER [employer] Not Available Not Available [...] 70 - 99 mg/dL 07/07 5:17 PM SCREW MACHINE SETTER [facility] Not Available Not Available 10/08/2024 09:02:38 07/07/20 24 07/07/2024 Gluco se [Mass /volu me] in Arter ial blood specimen source identified Cap Finger stick Speci men Type Cap Finge rstic k 07/07 5:17 PM [facility] Not Available Not Available [...] 70 - 99 mg/dL 07/07 3:58 PM SCREW MACHINE SETTER [facility] Not Available Not Available 10/08/2024 09:02:38 07/07/20 24 07/07/2024 Gluco se [Mass /volu me] in Arter ial blood specimen source identified Cap Finger stick Speci men Type Cap Gibrane rstic k 07/07 3:58 PM SCREW MACHINE SETTER [facility] Not Available Not Available 10/08/2024 09:02:38 07/07/20 24 07/07/2024 Gluco se [Mass /volu me] in Arter ial blood glucose [mass/volume ] in capillary blood by glucometer 103 mg/dL low: 70mg/d Lhigh: 99mg/d L high Gluco se WB/PO C 103 (H) 70 - 99 mg/dL 07/07 4:35 AM SCREW MACHINE SETTER [facility] Not Available Not Available 10/08/2024 09:02:38 07/07/20 24 07/07/2024 Gluco se [Mass /volu me] in Arter ial blood specimen source identified Cap Finger stick Speci men Type Cap Gibrane rstic k 07/07 4:35 AM SCREW MACHINE SETTER [facility] Not Available Not Available [...] 70 - 99 mg/dL 07/07 12:36 AM SCREW MACHINE SETTER [facility] Not Available Not Available 10/08/2024 09:02:38 07/07/20 24 07/07/2024 Gluco se [Mass /volu me] in Arter ial blood specimen source identified Cap Finger stick Speci men Type Cap Finge rstic k 07/07 12:36 AM SCREW MACHINE SETTER [facility] Not Available [...] 70 - 99 mg/dL 07/08 5:57 PM SCREW MACHINE SETTER [facility] Not Available Not Available 10/08/2024 09:02:39 07/08/20 24 07/08/2024 Gluco se [Mass /volu me] in Arter ial blood specimen source identified Cap Finger stick Speci men Type Cap Finge rstic k 07/08 5:57 PM SCREW MACHINE SETTER [facility] Not Available Not [...] delaney Not detec delaney 07/08 9:58 PM SCREW MACHINE SETTER [facility] Not [...] 70 - 99 mg/dL 07/08 1:37 PM SCREW MACHINE SETTER [facility] Not Available Not Available 10/08/2024 09:02:39 07/08/20 24 07/08/2024 Gluco se [Mass /volu me] in Arter ial blood specimen source identified Cap Finger stick Speci men Type Cap Finge rstic k 07/08 1:37 PM SCREW MACHINE SETTER [facility] Not Available Not [...] 7 - 26 mg/dL 07/08 7:49 AM SCREW MACHINE SETTER [facility] Not Available Not Available 10/08/2024 09:02:38 07/08/20 24 07/08/2024 Basic metab olic 1999 panel - Serum or Plasm a creatinine [mass/volume ] in serum or plasma 1.16 mg/dL low: 0.71mg /dLhig h: 1.16mg /dL Creat inine 1.16 0.71 - 1.16 mg/dL 07/08 7:49 AM [facility] Not Available Not Available 10/08/2024 09:02:38 07/08/20 24 07/08/2024 Basic metab olic 1999 panel - Serum or Plasm a sodium [moles/volum e] in serum or plasma 140 mmol/ L low: 136mmo l/Lhig h: 145mmo l/L Sodiu m 140 136 - 145 mmol/ L 07/08 7:49 AM [facility] Not Available Not Available 10/08/2024 09:02:38 07/08/20 24 07/08/2024 Basic metab olic 1999 panel - Serum or Plasm a potassium [moles/volum e] in serum or plasma 4.6 mmol/ L low: 3.5mmo l/Lhig h: 4.5mmo l/L high Potas sium 4.6 (H) 3.5 - 4.5 mmol/ L 07/08 7:49 AM [facility] Not Available Not Available 10/08/2024 09:02:38 07/08/20 24 07/08/2024 Basic metab olic 1999 panel - Serum or Plasm a chloride [moles/volum e] in serum or plasma 106 mmol/ L low: 98mmol /Lhigh : 107mmo l/L Chlor stalin 106 98 - 107 mmol/ L 07/08 7:49 AM [facility] Not Available Not Available 10/08/2024 09:02:38 07/08/20 24 07/08/2024 Basic metab olic 2000 panel - Serum or Plasm a carbon dioxide, total [moles/volum e] in serum or plasma 26 mmol/ L low: 22mmol /Lhigh : 29mmol /L CO2 26 22 - 29 mmol/ L 07/08 7:49 AM SCREW MACHINE SETTER [facility] Not Available Not Available 10/08/2024 09:02:38 07/08/20 24 07/08/2024 Basic metab olic 1999 panel - Serum or Plasm a glucose [mass/volume ] in serum or plasma 89 mg/dL low: 70mg/d Lhigh: 99mg/d L Gluco se 89 70 - 99 mg/dL 07/08 7:49 AM SCREW MACHINE SETTER [facility] Not Available Not Available 10/08/2024 09:02:38 07/08/20 24 07/08/2024 Basic metab olic 1999 panel - Serum or Plasm a calcium [moles/volum e] in serum or plasma 9.4 mg/dL low: 8.4mg/ dLhigh : 10.2mg /dL Calci um 9.4 8.4 - 10.2 mg/dL 07/08 7:49 AM SCREW MACHINE SETTER [facility] Not Available Not Available 10/08/2024 09:02:38 07/08/20 24 07/08/2024 Basic metab olic 1999 panel - Serum or Plasm a anion gap 8 low: 6high: 16 Anion Gap 8 6 - 16 07/08 7:49 AM SCREW MACHINE SETTER [facility] Not Available Not Available 10/08/2024 09:02:38 07/08/20 24 07/08/2024 Basic metab olic 1999 panel - Serum or Plasm a urea nitrogen/cre atinine [mass ratio] in serum or plasma 22 low: 7high: 23 BUN/C reati nine Ratio 22 7 - 23 07/08 7:49 AM SCREW MACHINE SETTER [facility] Not Available Not Available 10/08/2024 09:02:38 07/08/20 24 07/08/2024 Basic metab olic 1999 panel - Serum or Plasm a osmolality calculated 294 text: 275 - 295 mOsm/k g Osmol ality Calcu lated 294 275 - 295 mOsm/ kg 07/08 7:49 AM SCREW MACHINE SETTER [facility] Not Available Not Available 10/08/2024 09:02:38 07/08/20 24 07/08/2024 Basic metab olic 2000 panel - Serum or Plasm a glomerular filtration rate [volume rate/area] in serum, plasma or blood by creatinine-b ased formula (CKD-epi 2020)/1.73 sq M 73 text: >=90 mL/min /1.73 m2 low eGFR by CKD-E PI 73 (L) >=90 mL/mi n/1.7 3 m2 07/08 7:49 AM SCREW MACHINE SETTER [facility] Not Available Not Available 10/08/2024 09:02:38 07/08/20 24 07/08/2024 Basic metab olic 1999 panel - Serum or Plasm a interpretati on and review of laboratory results Abnorm al Not Available Not Available 09:02:38 07/08/20 24 07/08/2024 CBC W Auto Diffe renti al panel - Blood leukocytes [#/volume] in blood by automated count 10.7 text: 4.0 - 10.7 x10e9/ L WBC 10.7 4.0 - 10.7 x10E9 /L 07/08 7:29 AM [facility] Not Available Not Available 08/22/2024 13:38:57 07/08/20 24 07/08/2024 CBC W Auto Diffe renti al panel - Blood erythrocytes [#/volume] in blood by automated count 3.84 text: 4.30 - 5.80 x10e12 /L low RBC Count 3.84 (L) 4.30 - 5.80 x10E1 2/L 07/08 7:29 AM [facility] Not Available Not Available 08/22/2024 13:38:57 07/08/20 24 07/08/2024 CBC W Auto Diffe renti al panel - Blood hemoglobin [mass/volume ] in blood 11.7 g/dL low: 13.3g/ dLhigh : 17.5g/ dL low Hemog lobin 11.7 (L) 13.3 - 17.5 g/dL 07/08 7:29 AM SCREW MACHINE SETTER [facility] Not Available Not Available 08/22/2024 13:38:57 07/08/20 24 07/08/2024 CBC W Auto Diffe renti al panel - Blood hematocrit [volume fraction] of blood by automated count 35.4 % low: 38.7%h igh: 51.1% low Hemat ocrit 35.4 (L) 38.7 - 51.1 % 07/08 7:29 AM [facility] Not Available Not Available 08/22/2024 13:38:57 07/08/20 24 07/08/2024 CBC W Auto Diffe rodneyti al panel - Blood MCV [entitic volume] by automated count 92.2 fL low: 80fLhi gh: 98fL MCV 92.2 80.0 - 98.0 fL 07/08 7:29 AM [facility] Not Available Not Available 08/22/2024 13:38:57 07/08/20 24 07/08/2024 CBC W Auto Diffe vignesh al panel - Blood MCH [entitic mass] by automated count 30.5 pg low: 26.7pg high: 33.6pg MCH 30.5 26.7 - 33.6 pg 07/08 7:29 AM [facility] Not Available Not Available 08/22/2024 13:38:57 07/08/20 24 07/08/2024 CBC W Auto Diffe vignesh al panel - Blood MCHC [mass/volume ] by automated count 33.1 g/dL low: 31.7g/ dLhigh : 36.3g/ dL MCHC 33.1 31.7 - 36.3 g/dL 07/08 7:29 AM [facility] Not Available Not Available 08/22/2024 13:38:57 07/08/20 24 07/08/2024 CBC W Auto Diffe vignesh al panel - Blood erythrocyte distribution width [ratio] by automated count 14.3 % low: 11.3%h igh: 14.8% RDW-C V 14.3 11.3 - 14.8 % 07/08 7:29 AM [facility] Not Available Not Available 08/22/2024 13:38:57 07/08/20 24 07/08/2024 CBC W Auto Diffe vignesh al panel - Blood platelets [#/volume] in blood by automated count 482 text: 150 - 420 x10e9/ L high Plate let Count 482 (H) 150 - 420 x10E9 /L 07/08 7:29 AM [facility] Not Available Not Available 08/22/2024 13:38:57 07/08/20 24 07/08/2024 CBC W Auto Diffe renti al panel - Blood platelet mean volume [entitic volume] in blood by automated count 8.6 fL low: 7.8fLh igh: 11.4fL MPV 8.6 7.8 - 11.4 fL 07/08 7:29 AM [facility] Not Available Not Available 08/22/2024 13:38:57 07/08/20 24 07/08/2024 CBC W Auto Diffe renti al panel - Blood neutrophils/ 100 leukocytes in blood by automated count 66.6 % low: 41%hig h: 74% Neutr ophil % 66.6 41.0 - 74.0 % 07/08 7:29 AM [facility] Not Available Not Available 08/22/2024 13:38:57 07/08/20 24 07/08/2024 CBC W Auto Diffe renti al panel - Blood lymphocytes/ 100 leukocytes in blood by automated count 16.9 % low: 17%hig h: 47% low Lymph ocyte % 16.9 (L) 17.0 - 47.0 % 07/08 7:29 AM [facility] Not Available Not Available 08/22/2024 13:38:57 07/08/20 24 07/08/2024 CBC W Auto Diffe renti al panel - Blood monocytes/10 0 leukocytes in blood by automated count 5.9 % low: 3%high : 11% Monoc yte % 5.9 3.0 - 11.0 % 07/08 7:29 AM [facility] Not Available Not Available 08/22/2024 13:38:57 07/08/20 24 07/08/2024 CBC W Auto Diffe renti al panel - Blood eosinophils/ 100 leukocytes in blood by automated count 8.4 % low: 0%high : 7% high Eosin ophil % 8.4 (H) 0.0 - 7.0 % 07/08 7:29 AM SCREW MACHINE SETTER [facility] Not Available Not Available 08/22/2024 13:38:57 07/08/20 24 07/08/2024 CBC W Auto Diffe renti al panel - Blood basophils/10 0 leukocytes in blood by automated count 0.7 % low: 0%high : 1.6% Basop hil % 0.7 0.0 - 1.6 % 07/08 7:29 AM SCREW MACHINE SETTER [facility] Not Available Not Available 08/22/2024 13:38:57 07/08/20 24 07/08/2024 CBC W Auto Diffe renti al panel - Blood immature granulocytes /100 leukocytes in blood by automated count 1.5 % low: 0%high : 1% high Immat ure Granu locyt es % 1.5 (H) 0.0 - 1.0 % 07/08 7:29 AM SCREW MACHINE SETTER [facility] Not Available Not Available 08/22/2024 13:38:57 07/08/20 24 07/08/2024 CBC W Auto Diffe renti al panel - Blood neutrophils [#/volume] in blood by automated count 7.1 text: 1.60 - 7.50 x10e9/ L Neutr ophil Absol newhalen 7.10 1.60 - 7.50 x10E9 /L 07/08 7:29 AM SCREW MACHINE SETTER [facility] Not Available Not Available 08/22/2024 13:38:57 07/08/20 24 07/08/2024 CBC W Auto Diffe renti al panel - Blood lymphocytes [#/volume] in blood by automated count 1.8 text: 1.00 - 4.40 x10e9/ L Lymph ocyte Absol [place]en 1.80 1.00 - 4.40 x10E9 /L 07/08 7:29 AM SCREW MACHINE SETTER [facility] Not Available Not Available 08/22/2024 13:38:57 07/08/20 24 07/08/2024 CBC W Auto Diffe renti al panel - Blood monocytes [#/volume] in blood by automated count 0.63 text: 0.15 - 1.00 x10e9/ L Monoc yte Absol newhalen 0.63 0.15 - 1.00 x10E9 /L 07/08 7:29 AM SCREW MACHINE SETTER [facility] Not Available Not Available 08/22/2024 13:38:57 07/08/20 24 07/08/2024 CBC W Auto Diffe renti al panel - Blood eosinophils [#/volume] in blood 0.9 text: 0.00 - 0.60 x10e9/ L high Eosin ophil Absol newhalen 0.90 (H) 0.00 - 0.60 x10E9 /L 07/08 7:29 AM SCREW MACHINE SETTER [facility] Not Available Not Available 08/22/2024 13:38:57 07/08/20 24 07/08/2024 CBC W Auto Diffe renti al panel - Blood basophils [#/volume] in blood by automated count 0.08 text: 0.00 - 0.13 x10e9/ L Basop hil Absol newhalen 0.08 0.00 - 0.13 x10E9 /L 07/08 7:29 AM SCREW MACHINE SETTER [facility] Not Available Not [...] 2.8 - 5.1 mg/dL 07/08 7:49 AM [facility] AT[facility] Not Available Not Available [...] 1.6 - 2.6 mg/dL 07/08 7:49 AM SCREW MACHINE SETTER [employer] [facility] Not Available Not [...] 70 - 99 mg/dL 07/08 5:38 AM SCREW MACHINE SETTER [facility] Not Available Not Available 10/08/2024 09:02:38 07/08/20 24 07/08/2024 Gluco se [Mass /volu me] in Arter ial blood specimen source identified Arteri al Speci men Type Arter ial 07/08 5:38 AM SCREW MACHINE SETTER [facility] AT[facility] Not Available Not Available [...] 70 - 99 mg/dL 07/08 9:15 PM SCREW MACHINE SETTER [employer] [facility] Not Available Not Available 10/08/2024 09:02:38 07/08/20 24 07/08/2024 Gluco se [Mass /volu me] in Arter ial blood specimen source identified Arteri al Speci men Type Arter ial 07/08 9:15 PM SCREW MACHINE SETTER [facility] [facility] Not Available Not Available 10/08/2024 09:02:38 07/09/20 24 07/09/2024 Gluco se [Mass /volu me] in Arter ial blood glucose [mass/volume ] in capillary blood by glucometer 98 mg/dL low: 70mg/d Lhigh: 99mg/d L Gluco se WB/PO C 98 70 - 99 mg/dL 07/09 5:56 AM SCREW MACHINE SETTER [facility] [facility] Not Available Not Available 08/22/2024 13:38:58 07/09/20 24 07/09/2024 Gluco se [Mass /volu me] in Arter ial blood specimen source identified Cap Finger stick Speci men Type Cap Finge rstic k 07/09 5:56 AM SCREW MACHINE SETTER [facility] [facility] Not Available Not Available 08/22/2024 13:38:58 07/09/20 24 07/09/2024 CBC panel - Blood by Autom ated count leukocytes [#/volume] in blood by automated count 9.6 text: 4.0 - 10.7 x10e9/ L WBC 9.6 4.0 - 10.7 x10E9 /L 07/09 4:41 AM SCREW MACHINE SETTER [facility] [facility] Not Available Not Available 10/08/2024 09:02:39 07/09/20 24 07/09/2024 CBC panel - Blood by Autom ated count erythrocytes [#/volume] in blood by automated count 3.73 text: 4.30 - 5.80 x10e12 /L low RBC Count 3.73 (L) 4.30 - 5.80 x10E1 2/L 07/09 4:41 AM [facility] Not Available Not Available 10/08/2024 09:02:39 07/09/20 24 07/09/2024 CBC panel - Blood by Autom ated count hemoglobin [mass/volume ] in blood 11.6 g/dL low: 13.3g/ dLhigh : 17.5g/ dL low Hemog lobin 11.6 (L) 13.3 - 17.5 g/dL 07/09 4:41 AM [facility] Not Available Not Available 10/08/2024 09:02:39 07/09/20 24 07/09/2024 CBC panel - Blood by Autom ated count hematocrit [volume fraction] of blood by automated count 34.7 % low: 38.7%h igh: 51.1% low Hemat ocrit 34.7 (L) 38.7 - 51.1 % 07/09 4:41 AM [facility] Not Available Not Available 10/08/2024 09:02:39 07/09/20 24 07/09/2024 CBC panel - Blood by Autom ated count MCV [entitic mean volume] in red blood cells by automated count 93 fL low: 80fLhi gh: 98fL MCV 93.0 80.0 - 98.0 fL 07/09 4:41 AM [facility] [employer] [facility] Not Available Not Available 10/08/2024 09:02:39 07/09/20 24 07/09/2024 CBC panel - Blood by Autom ated count MCH [entitic mass] by automated count 31.1 pg low: 26.7pg high: 33.6pg MCH 31.1 26.7 - 33.6 pg 07/09 4:41 AM [facility] [employer] [facility] Not Available Not Available 10/08/2024 09:02:39 07/09/20 24 07/09/2024 CBC panel - Blood by Autom ated count MCHC [entitic mass/volume] in red blood cells by automated count 33.4 g/dL low: 31.7g/ dLhigh : 36.3g/ dL MCHC 33.4 31.7 - 36.3 g/dL 07/09 4:41 AM [facility] [facility] Not Available Not Available 10/08/2024 09:02:39 07/09/20 24 07/09/2024 CBC panel - Blood by Autom ated count erythrocyte [distwidth] in red blood cells by automated count 14.2 % low: 11.3%h igh: 14.8% RDW-C V 14.2 11.3 - 14.8 % 07/09 4:41 AM [facility] [facility] Not Available Not Available 10/08/2024 09:02:39 07/09/20 24 07/09/2024 CBC panel - Blood by Autom ated count platelets [#/volume] in blood by automated count 429 text: 150 - 420 x10e9/ L high Plate let Count 429 (H) 150 - 420 x10E9 /L 07/09 4:41 AM [facility] AT[facility] Not Available Not Available 10/08/2024 09:02:39 07/09/20 24 07/09/2024 CBC panel - Blood by Autom ated count platelet [entitic mean volume] in blood by automated count 8.3 fL low: 7.8fLh igh: 11.4fL MPV 8.3 7.8 - 11.4 fL 07/09 4:41 AM [facility] AT[facility] Not Available Not Available [...] 70 - 99 mg/dL 07/08 11:28 PM [facility] AT[facility] Not Available Not Available 10/08/2024 09:02:39 07/09/20 24 07/09/2024 Gluco se [Mass /volu me] in Arter ial blood specimen source identified Cap Finger stick Speci men Type Cap Finge rstic k 07/08 11:28 PM [facility] AT[facility] Not Available Not Available 10/08/2024 09:02:39 07/09/20 24 07/09/2024 Gluco se [Mass /volu me] in Arter ial blood interpretati on and review of laboratory results Abnorm al Not Available Not Available 09:02:39 07/10/2007/10/2024 CBC panel - Blood by Autom ated count leukocytes [#/volume] in blood by automated count 10 text: 4.0 - 10.7 x10e9/ L WBC 10.0 4.0 - 10.7 x10E9 /L 07/10 5:25 AM SCREW MACHINE SETTER [facility] [facility] Not Available Not Available 08/22/2024 13:38:57 07/10/20 24 07/10/2024 CBC panel - Blood by Autom ated count erythrocytes [#/volume] in blood by automated count 4.03 text: 4.30 - 5.80 x10e12 /L low RBC Count 4.03 (L) 4.30 - 5.80 x10E1 2/L 07/10 5:25 AM [facility] Not Available Not Available 08/22/2024 13:38:57 07/10/20 24 07/10/2024 CBC panel - Blood by Autom ated count hemoglobin [mass/volume ] in blood 12.4 g/dL low: 13.3g/ dLhigh : 17.5g/ dL low Hemog lobin 12.4 (L) 13.3 - 17.5 g/dL 07/10 5:25 AM [facility] Not Available Not Available 08/22/2024 13:38:57 07/10/20 24 07/10/2024 CBC panel - Blood by Autom ated count hematocrit [volume fraction] of blood by automated count 37.4 % low: 38.7%h igh: 51.1% low Hemat ocrit 37.4 (L) 38.7 - 51.1 % 07/10 5:25 AM [facility] Not Available Not Available 08/22/2024 13:38:57 07/10/20 24 07/10/2024 CBC panel - Blood by Autom ated count MCV [entitic volume] by automated count 92.8 fL low: 80fLhi gh: 98fL MCV 92.8 80.0 - 98.0 fL 07/10 5:25 AM [facility] AT[facility] Not Available Not Available 08/22/2024 13:38:57 07/10/20 24 07/10/2024 CBC panel - Blood by Autom ated count MCH [entitic mass] by automated count 30.8 pg low: 26.7pg high: 33.6pg MCH 30.8 26.7 - 33.6 pg 07/10 5:25 AM [facility] Not Available Not Available 08/22/2024 13:38:57 07/10/20 24 07/10/2024 CBC panel - Blood by Autom ated count MCHC [mass/volume ] by automated count 33.2 g/dL low: 31.7g/ dLhigh : 36.3g/ dL MCHC 33.2 31.7 - 36.3 g/dL 07/10 5:25 AM [facility] AT[facility] Not Available Not Available 08/22/2024 13:38:57 07/10/20 24 07/10/2024 CBC panel - Blood by Autom ated count erythrocyte distribution width [ratio] by automated count 13.9 % low: 11.3%h igh: 14.8% RDW-C V 13.9 11.3 - 14.8 % 07/10 5:25 AM [facility] Not Available Not Available 08/22/2024 13:38:57 07/10/20 24 07/10/2024 CBC panel - Blood by Autom ated count platelets [#/volume] in blood by automated count 511 text: 150 - 420 x10e9/ L high Plate let Count 511 (H) 150 - 420 x10E9 /L 07/10 5:25 AM [facility] Not Available Not Available 08/22/2024 13:38:57 07/10/2007/10/2024 CBC panel - Blood by Autom ated count platelet mean volume [entitic volume] in blood by automated count 8.2 fL low: 7.8fLh igh: 11.4fL MPV 8.2 7.8 - 11.4 fL 07/10 5:25 AM [facility] Not Available Not Available [...] 7 - 26 mg/dL 07/10 5:44 AM [facility] Not Available Not Available 08/22/2024 13:38:57 07/10/20 24 07/10/2024 Basic metab olic 1999 panel - Serum or Plasm a creatinine [mass/volume ] in serum or plasma 1.32 mg/dL low: 0.71mg /dLhig h: 1.16mg /dL high Creat inine 1.32 (H) 0.71 - 1.16 mg/dL 07/10 5:44 AM [facility] AT[facility] Not Available Not Available 08/22/2024 13:38:57 07/10/20 24 07/10/2024 Basic metab olic 1999 panel - Serum or Plasm a sodium [moles/volum e] in serum or plasma 140 mmol/ L low: 136mmo l/Lhig h: 145mmo l/L Sodiu m 140 136 - 145 mmol/ L 07/10 5:44 AM [facility] AT[facility] Not Available Not Available 08/22/2024 13:38:57 07/10/20 24 07/10/2024 Basic metab olic 1999 panel - Serum or Plasm a potassium [moles/volum e] in serum or plasma 4.5 mmol/ L low: 3.5mmo l/Lhig h: 4.5mmo l/L Potas sium 4.5 3.5 - 4.5 mmol/ L 07/10 5:44 AM [facility] Not Available Not Available 08/22/2024 13:38:57 07/10/20 24 07/10/2024 Basic metab olic 1999 panel - Serum or Plasm a chloride [moles/volum e] in serum or plasma 104 mmol/ L low: 98mmol /Lhigh : 107mmo l/L Chlor stalin 104 98 - 107 mmol/ L 07/10 5:44 AM [facility] Not Available Not Available 08/22/2024 13:38:57 07/10/20 24 07/10/2024 Basic metab olic 1999 panel - Serum or Plasm a carbon dioxide, total [moles/volum e] in serum or plasma 26 mmol/ L low: 22mmol /Lhigh : 29mmol /L CO2 26 22 - 29 mmol/ L 07/10 5:44 AM SCREW MACHINE SETTER [facility] Not Available Not Available 08/22/2024 13:38:57 07/10/20 24 07/10/2024 Basic metab olic 1999 panel - Serum or Plasm a glucose [mass/volume ] in serum or plasma 74 mg/dL low: 70mg/d Lhigh: 99mg/d L Gluco se 74 70 - 99 mg/dL 07/10 5:44 AM [facility] Not Available Not Available 08/22/2024 13:38:57 07/10/20 24 07/10/2024 Basic metab olic 1999 panel - Serum or Plasm a calcium [moles/volum e] in serum or plasma 9.6 mg/dL low: 8.4mg/ dLhigh : 10.2mg /dL Calci um 9.6 8.4 - 10.2 mg/dL 07/10 5:44 AM [facility] Not Available Not Available 08/22/2024 13:38:57 07/10/20 24 07/10/2024 Basic metab olic 1999 panel - Serum or Plasm a anion gap 10 low: 6high: 16 Anion Gap 10 6 - 16 07/10 5:44 AM SCREW MACHINE SETTER [facility] Not Available Not Available 08/22/2024 13:38:57 07/10/20 24 07/10/2024 Basic metab olic 1999 panel - Serum or Plasm a urea nitrogen/cre atinine [mass ratio] in serum or plasma 22 low: 7high: 23 BUN/C reati nine Ratio 22 7 - 23 07/10 5:44 AM SCREW MACHINE SETTER [facility] Not Available Not Available 08/22/2024 13:38:57 07/10/20 24 07/10/2024 Basic metab olic 2000 panel - Serum or Plasm a osmolality calculated 294 text: 275 - 295 mOsm/k g Osmol danny Tai lated 294 275 - 295 mOsm/ kg 07/10 5:44 AM SCREW MACHINE SETTER [facility] Not Available Not Available 08/22/2024 13:38:57 07/10/20 24 07/10/2024 Basic metab olic 2000 panel - Serum or Plasm a glomerular filtration rate/1.73 sq M.predicted [volume rate/area] in serum, plasma or blood by creatinine-b ased formula (CKD-epi 2020) 63 text: >=90 mL/min /1.73 m2 low eGFR by CKD-E PI 63 (L) >=90 mL/mi n/1.7 3 m2 07/10 5:44 AM SCREW MACHINE SETTER [facility] AT[facility] SHAD Not Available Not Available [...] 0.6 - 1.3 mg/dL 07/19 10:05 AM SCREW MACHINE SETTER [facility] Not Available Not Available 08/22/2024 13:38:53 [...] - 1.30 mg/dL 09/28 12:53 PM CDT [facility] Not Available Not Available 10/08/2024 09:01:45 09/29/19 25 09/28/2024 Creat inine [Mass /volu me] in Blood glomerular filtration rate [volume rate/area] in serum, plasma or blood by creatinine-b ased formula (CKD-epi 2020)/1.73 sq M 88 text: >=90 mL/min /1.73 m2 low eGFR 88 (L) >=90 mL/mi n/1.7 3 m2 09/28 12:53 PM CDT [facility] Not Available Not Available 10/08/2024 09:01:45 09/29/1909/28/2024 Creat inine [Mass /volu me] in Blood interpretati on and review of laboratory results Abnorm al Not Available Not Available 09:01:45 11/07/19 25 11/05/2024 XR, chest , 2 view No observ ation record ed. [address] [place] [address], [address], 11/09/2024 07:48:12 11/07/19 25 11/06/2024 [place], modif ied tracie richardson ow study No observ ation record ed. [address], [place], [address], 11/09/2024 07:47:35 Result Notes None recorded. 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 2024 LAWRENCE Hirsch, [place] - [facility] 5 14:24:04 Hypothyroidism 47653104 Active Bud Serrano MD Attn: Abril arita,[address] [facility], [place], [address], [facility] 6 00:16:11 Spasm 99882345 Active Bud Serrano MD Attn: Abril arita,[address] [facility], [place], [address], [facility] 5 13:55:51 Neuropathy 439784969 Active Bud Serrano MD Attn: Abril arita,[address] [facility], [place], [address], [facility] 5 13:55:51 Acute bronchitis 55993266 Active Bud Serrano MD Attn: Abril arita,[address] [facility], [place], [address], [facility] 6 00:16:11 Problem Notes None recorded. Procedures Surgical History Date Name Laterality Status Provider Name and Address Organization Details Recorded Time Laryngoscopy with biopsy completed L[place] Harden MA [facility] 06/01/2024 15:51:40 Imaging Results None recorded. Procedure Notes None recorded. Medical Equipment None Reported. Allergies No known drug allergies Medications Name Sig Start Date Stop Date Status Note LastModified by Organization Details LastModified Time amoxicill in 500 mg capsule Take 1 capsule 3 times a day by oral route for 10 days. 09/17 completed Not Available Not Available Not Available doxycycli ne hyclate 100 mg capsule TAKE 1 CAPSULE BY MOUTH TWICE DAILY FOR 5 DAYS active Not Available Not Available No t Available Carafate 100 mg/mL oral suspensio n 09/05 completed Not Available Not Available Not Available clindamyc in HCl 300 mg capsule active Not Available Not Available Not Available azithromy sasha 250 mg tablet TAKE 2 TABLETS (500 MG) BY ORAL ROUTE ONCE DAILY FOR 1 DAY THEN 1 TABLET (250 MG) BY ORAL ROUTE ONCE DAILY FOR 4 DAYS 04/10 completed Not Available Not Available [...] TAKE 1 TABLET BY MOUTH EVERY DAY active Not Available Not Available No t Available baclofen 10 mg tablet Take 1 tablet [...] mg-potass ium clavulana te 125 mg tablet TAKE 1 TABLET BY MOUTH EVERY 12 HOURS FOR 5 DAYS active Not Available Not Available No t Available oxycodone 5 mg tablet 09/05 completed [...] Heart rate Respiratory rate Body temperature Systolic And Diastolic Provider Name and Address Organization Details Last Updated DateTime 5 180.34 cm 21.1 kg/m2 80931.9 g 99 % 99 % 96 /min 16 /min 96.5 [degF] 102/72 mm[Hg] Nabila Saenz [place] - [facility] 5 11:59:11 Date Recorded Body height Body mass index (BMI) Body weight Oxygen saturation Oxygen saturation in Arterial blood by Pulse oximetry Heart rate Respiratory rate Body temperature Provider Name and Address Organization Details Last Updated DateTime 4 180.34 cm 21.4 kg/m2 69546.3 8 g 98 % 98 % 85 /min 16 /min 97.3 [degF] Nabila Saenz MA [facility] 4 13:58:44 Date Recorded Body height Body mass index (BMI) Body weight Oxygen saturation Oxygen saturation in Arterial blood by Pulse oximetry Heart rate Respiratory rate Body temperature Systolic And Diastolic Provider Name and Address Organization Details Last Updated DateTime 5 180.34 cm 20.6 kg/m2 80325.2 3 g 97 % 97 % 73 /min 16 /min 97.1 [degF] 116/81 mm[Hg] Nabila Saenz MA [facility] 5 11:24:19 Date Recorded Systolic And Diastolic Provider Name and Address Organization Details Last Updated DateTime 04/10/2024 150/100 mm[Hg] Bud Serrano MD Attn: [address] [place], [address], [facility] 04/10/2024 16:31:57 Date Recorded Body height Body mass index (BMI) Body weight Respiratory rate Body temperature Oxygen saturation Oxygen saturation in Arterial blood by Pulse oximetry Heart rate Provider Name and Address Organization Details Last Updated DateTime 4 180.34 cm 22.2 kg/m2 15912.9 4 g 16 /min 98.5 [degF] 94 % 94 % 87 /min L[place] Harden MA [facility] 4 15:49:41 Date Recorded Body height Body mass index (BMI) Body weight Respiratory rate Body temperature Oxygen saturation Oxygen saturation in Arterial blood by Pulse oximetry Heart rate Systolic And Diastolic Provider Name and Address Organization Details Last Updated DateTime 4 180.34 cm 22.6 kg/m2 30382.7 1 g 16 /min 98.9 [degF] 94 % 94 % 78 /min 155/96 mm[Hg] Lydia Harden MA [facility] 4 11:55:16 Social History Question Answer Notes LastModified by Organizat ion Details LastModified Time Tobacco Smoking Status Never Smoker Not Available [facility] 05/13/2020 03:39:30 Do You Have An Advance Directive? Yes Information not available 09/17/2020 Are You Blind Or Do You Have Difficulty Seeing? Yes Information not available 09/17/2020 What Is Your Level Of Caffeine Consumption? Occasional Drinks Coffee Every Know And Then Information not available 10/13/2023 In The 14 Days Before Symptom Onset, Have You Had Close Contact With A Laboratory-confi rmed COVID-19 While That Case Was Ill? No [...] 7 Days, How Much Pain Have You [place]? A Lot Information not available 10/13/2023 In [...] Past 7 Days, How Often Have You [place] Sleepy In The Daytime? Always Information not [...] Yes Information not available 09/17/2020 Do You Use Sunscreen Routinely? No Information not available 09/17/2020 Has Tobacco Cessation Counseling Been Provided? No Information not available 08/18/2022 On What Date Was Tobacco Cessation Counseling Provided? 07/24/2024 Information not available 07/24/2024 Sex: Male Functional Status Question Answer Note LastModified by Organizat ion Details LastModified Time Do you use any illicit or recreational drugs? No Information not available 09/17/2020 Do you or have you ever used any other forms of tobacco or nicotine? No Information not available 08/18/2022 What is your level of alcohol consumption? None Information not available 09/17/2020 Are you currently employed? No Information not available 09/17/2020 Are you able to care for yourself? Yes Information n ot available 09/17/2020 What is your exercise level? Occasional Information not available 09/17/2020 Mental Status Question Answer Note LastModified by Organization D etails LastModified Time Do you feel stressed (tense, restless, nervous, or anxious, or unable to sleep at night)? [id number] Information not available 09/17/2020 Family History Relationship Description Onset Age of this Age Resolved Age Notes LastModified by Organization Details LastModified Time Father No current problems or disability [email or web address] Not available 03/12 16:06:58 Mother No current problems or disability [email or web address] Not available 03/12 16:06:58 Maternal Uncle 95 [email or web address] Not available 024 14:00:33 Notes:No new reported 08/18/22 , 04/26/23, 04/10/24, 05/28/24, 07/24/24, 10/23/24 Medical History Condition Response Thyroid Problems Y Cancer Y Asthma Y Liver Disease Y Past Encounters Encounter ID Performer Location Encounter Start Date Encounter Closed Date Diagnosis/Indication Diagnosis SNOMED-CT Code Diagnosis ICD10 Code Diagnosis Note [id number] MD Neto Pabon [place] [id number] [place] [phone] 05/27/2015 15:01:30 05/28/2015 11:54:02 Hypothyroidism 30816957 E03.9 Spasm 64870742 R25.2 Neuropathy 524881776 G62 .9 [id number] Bud Serrano MD [facility] [address] [place] [phone] 1 03/17/2016 15:04:13 03/18/2016 12:41:18 Acute bronchitis 43427508 J20.9 Hypothyroidism 23657025 E03.9 History of malignant neoplasm of tongue 707413925 Z85.801 [id number] Bud Serrano MD [facility] [address] [place] [id number] 1 07/07/2016 10:02:42 07/09/2016 09:43:52 History of malignant neoplasm of tongue 949711585 Z85.810 Hypothyroidism 97053864 E03.9 Chest wall pain 19919628 6 R07.89 [id number] Bud Serrano MD [facility] [address] [place] [address] 1 07/16/2016 14:12:46 07/16/2016 17:42:03 Neuropathy 244786934 G62.9 History of malignant neoplasm of tongue 485766654 Z85.810 Pt has an appointmen t with oncologist Dr. Mccracken on 07-19-16 Injury of chest wall 659 24835 S29.9XXD [id number] Bud Serrano MD [facility] [address] [place] [address] 1 09/15/2016 15:20:05 09/17/2016 09:56:20 Chronic pain 69092697 G89.29 Low back pain 513124411 M54.5 Pt c/o kidney pain--rece nt CT scan in 07-27 showed normal renal imaging [id number] Bud Serrano MD [place] [address] [place] [address] 1 11/22/2016 15:58:23 11/24/2016 12:03:21 Vascular disorder [id number] I99.9 Pt describes episodes of vomiting blood, then blood per rectum, and blood in urine--all within close time period. EGD in the past was negative; colonoscop y 3 years ago showed polyps, CT abdomen/pe lvis was negative for kidney stones on 11-11-16. [id number] MD Neto Pabon [place] [id number] [place] [address] 1 09/05/2017 15:03:41 09/06/2017 09:40:01 Atypical chest pain 775455579 R07.89 Impacted cerumen 9139513 6 H61.22 [id number] MD Shin Pabon 14 IM [address] [facility] [place] [address] 08/21/2018 09:55:01 08/21/2018 16:39:33 Hypothyroidism 71811066 E03.9 History of malignant neoplasm of tongue 405007760 Z85.810 pt has been under Dr. Mccracken's care Neuropathy [id number] G62 .9 pt is followed at a pain management clinic Cough 72810552 R05 Divorce problems 2891799 03 Z63.5 [id number] MD Shin Pabon 14 IM [address] [facility] [place] [address] 09/17/2020 08:46:52 09/22/2020 12:20:41 Hypothyroidism 61832111 E03.9 Under care of microbiology analyst 951932199 Z76.89 [id number] MD Shin Pabon 14 IM [address] [facility] [place] [address] 04/08/2022 15:50:39 04/12/2022 11:50:27 Hypothyroidism 86262086 E03.9 Screening for malignant neoplasm of prostate 865787175 Z12.5 Dyslipidemia 389671280 E 78.5 Screening for malignant neoplasm of colon 868394521 Z12.11 screening colonoscop y was done on 04-02-2011; to be repeated in ten years--a cologuard would be acceptable . [id number] MD Shin Pabon 14 IM [address] [facility] [place] [address] 07/13/2022 10:36:15 07/14/2022 14:13:50 Adult health examination 613691433 Z00.00 Hypothyroidism 45231301 E03.9 Screening for malignant neoplasm of prostate 536656300 Z12.5 Elevated blood-pressure reading without diagnosis of hypertension 027787698 R03.0 pt states that he had just drunk a [employer] [id number] MD Shin Pabon 14 IM [address] [facility] [place] [address] 08/18/2022 14:32:01 08/23/2022 10:37:02 Chronic cough 15184651 R05.3 Feeling of lump in throat 439762543 F45.8 History of malignant neoplasm of tongue 589709755 Z85.810 pt has been under the care of an oncologist [id number] MD Shin Pabon 14 IM [address] [facility] [place] [address] 04/26/2023 10:51:54 05/04/2023 13:21:38 Underweight 116347562 R63.6 Urinary symptoms 2011936 08 R39.9 Low back pain 032388286 M54.50 Hypothyroidism 63463369 E03.9 Fatigue 55372916 R53.83 Nausea and vomiting 1693 2000 R11.2 History of malignant neoplasm of tongue 624114311 Z85.810 pt has been under the care of an oncologist [id number] MD Shin Pabon 14 IM [address] [facility] [place] [address] 10/13/2023 13:45:17 10/20/2023 13:45:37 Adult health examination 554642011 Z00.00 Health Risk Assessment collected and reviewed HIV screen ing declined [id number] 82115 Z53.20 Injury of shoulder region 391431556 S49.91XA Dyspnea 418241720 R06.00 Persistent cough 5634409 02 R05.3 Screening for malignant neoplasm of colon 671509357 Z12.11 screening colonoscop y was done on 04-02-2011; to be repeated in ten years [id number] MD Shin Pabon 14 IM [address] [facility] [address] 04/10/2024 15:41:03 04/12/2024 11:41:39 History of malignant neoplasm of tongue 889376423 Z85.810 pt has been under the care of an oncologist Dysphagia 79836901 R13.1 0 Cough 81447846 R05.9 [id number] MD Shin Pabon 14 [address] [facility] [place] [address] 05/28/2024 10:53:16 06/04/2024 10:45:06 HIV screening declined 7254825878 78665 Z53.20 Benign ess ential hypertension 0999441 I10 on losartan-- pt was encouraged to take this daily History of pneumonia 161 471286 Z87.01 [id number] MD Shin Pabon 14 [address] [facility] [address] 07/24/2024 11:44:50 07/27/2024 15:13:35 Primary malignant neoplasm of hypopharynx 38947973 C13.8 pt is followed by an oncologist team [id number] MD Shin Pabon 14 IM [address] [facility] [place] [address] 10/23/2024 10:31:23 10/25/2024 13:59:47 Hypothyroidism 33194701 E03.9 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 Jeovanny Doran [id number] Jeovanny Doran Notes Date Note Type Note Provider Name and Address Organization Details Recorded Time 10/13/2023 text/html Regular checkup. Bud olmstead MD Attn: [address] [place], [address], [facility] 10/18/2023 10:47:48 04/10/2024 text/html Per intake note, pt has chronic dysphagia, now for several weeks. 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 His last oncological appt was perhaps in 2017. Bud Serrano MD Attn: [address] [place], [address], [facility] 04/11/2024 13:28:42 05/28/2024 text/html Pt was hospitali zed May 05-2023 for pneumonia, now better and stable. Bud Serrano MD Attn: [address] [facility], [place], [address], [facility] 05/29/2024 07:38:27 07/24/2024 text/html Jeovanny Doran is [...] 07/26/24. Bud Serrano MD Attn: [address] [facility], [place], [address], [facility] 07/27/2024 07:30:51 10/23/2024 text/html Regular followup . All nutrition is by feeding tube. Since recent oral surgery, pt states that any liquid or food will aspirate to the trachea. Bud Serrano MD Attn: [address] [facility], [place], [address], [place] [facility] 10/24/2024 10:03:38
--- OUTSIDE RECORDS SUMMARY | 2025-01-11 12:32 | XMS_ITS | Clinical Summary ---
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
--- OUTSIDE RECORDS SUMMARY | 2025-01-11 12:32 | XMS_ITS | Clinical Summary ---
Author Organization [facility] Address [address] [place] [address] Phone Care Team Providers Care Floor Press Operator Name Role Phone Bud Pete MD Primary Care Provider [phone] Allergies No known active allergies Medications levothyroxine [...] drink = 0.6 oz pur e alcohol) [facility] Utilities Answer Date Recorded In the past [...] often do you attend chur ch or yarsanism services? Never 05/05/2024 Do you belong to any clubs o r organizations such as catholic groups, unions, fraternal or athletic groups, [...] and heating? Not hard at all 05/05/2024 [facility] - Occupational Stress Questionnaire Answer Date [...] any time in the past 12 m [facility], were you homeless or living in a usp (including now)? 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 Advance Directives * Full Code (Latest Code Status on File) Date Activated Date Inactivated Comments 05/05/2024 1:16 AM CPR-Full Ju[place] tment: FULL ARREST: Attempt Resuscitation/CPR wit intubation and mechanical ventilation. PRE-ARREST: Use entire range of life support measures to stabilize the patient. Care Teams Floor Press Operator Relationship Specialty Start Date End Date Bud Pete MD [address] [place] [address] [facility] [address] [place] [address] PCP - General Family Medicine 07/15/16
[2025-01-11] MEDS: IPRATROPIUM 0.5 MG/ALBUTEROL SULFATE 2.5 MG AMPUL.NEB 3 ML INHALATION ×3 (12:36→20:03)
[2025-01-11] MEDS: KETOROLAC 15 MG/ML VIAL (*BKC) IV PUSH (12:43)
[2025-01-11] MEDS: SODIUM CHLORIDE 0.9% IV 1,000 ML 999 ML IV CONT (12:43)
[2025-01-11 12:47] LABS: Hematocrit 42.9 % (42.0-52.0); Hemoglobin 14.2 g/dL (14.0-18.0); Immature Granulocyte Percent A 0.4 % (0-0.5); Lymphocytes Absolute Auto 1.54 K/mm3 (0.9-3.2); Mean Corpuscular HGB Conc 33.1 g/dl (32-36); Mean Corpuscular Hemoglobin 31.0 pg (26-34); Mean Corpuscular Volume 93.7 fl (80-100); Nucleated Red Blood Cells Absolute Auto 0.000 K/mm3 (0.0-0.012); Nucleated Red Blood Cells Perc 0.0 % (0.0-0.2); Platelet Count Result 302 k/mm3 (150-375); Red Blood Count 4.58 M/mm3 (4.6-6.20); White Blood Count 11.3 K/mm3 (4.5-10.0)
[2025-01-11 13:02] LABS: Alanine Aminotransferase 28 U/L (6-50); Albumin Level 4.1 g/dL (3.5-5.1); Alkaline Phosphatase 77 U/L (38-126); Anion Gap 8 mmol/L (4-12); Aspartate Amino Transferase 29 U/L (17-59); Bilirubin,Total 0.9 mg/dL (0.2-1.3); Blood Urea Nitrogen 20 mg/dL (9-20); Calcium 9.1 mg/dL (8.4-10.2); Carbon Dioxide 28 mmol/L (22-30); Chloride 102 mmol/L (98-107); Estimated CRCL calculation 59 ml/min; Estimated Glomerular Filt Rate > 60; Glucose 102 mg/dL (65-110); Magnesium 2.0 mg/dL (1.6-2.3); Potassium 4.1 mmol/L (3.4-5.0); Sodium 138 mmol/L (137-145); Total Protein 7.8 g/dL (6.3-8.2)
[2025-01-11 13:14] LABS: NT Pro B Type Natriuretic Pept 84 pg/mL (19.9-100); Troponin I < 0.012 ng/mL (0.000-0.034)
[2025-01-11 13:20] LABS: Procalcitonin 0.1 ng/mL
--- NOTE | 2025-01-11 13:29 | P.HP_ITS ---
H&P: HPI History of Present Illness Date/Time: 01/11/25 13:29 Chief Complaint: Shortness of breath Narrative: 59-year-old male with past medical history of squamous cell cancer of the neck/throat, G-tube, aspiration pneumonia presents the hospital with shortness of breath. Patient is afraid that he aspirated. Patient denies dysuria fever chills nausea or vomiting. Patient states that home that he will put pureed Food in his G-tube for comfort, okay to do while in hospital. Patient is were correct consistency for feeds In the ED patient has leukocytosis 11.3, CMP is within normal limits, influenza A/B, RSV, COVID negative. EKG shows sinus rhythm. Review of Systems Review of Systems: 12 systems were reviewed and are negativ e except for as per HPI. [facility] Past Medical History Medical History (Updated 01/11/25 @ 22:35 by Peggy Lima, NATHEN) Hypothyroidism Gastrostomy tube in place Social History Social History Smoking status: Never smoker Alcohol intake: never Substance use: never Substance use type: does not use Do You Feel Safe in your Home?: Yes Lack of Transportation: No Lack of Food: Never True Current Housing: I Have Housing Concerned About Future Housing: No Difficulty Paying Gas/Electric Bills: No Difficulty Paying for Meds: No Currently Unemployed: No Education: High School Diploma/GED Difficulty w/ Childcare or Family Care: No Spiritual care concerns: No Meds Home Medications and Allergies Home Medications ?Medication ?Instructions ?Recorded ?Confirmed ?Type levothyroxine 100 mcg tablet 100 mcg feeding tube DAILY 03/15/22 01/11/25 History albuterol sulfate 90 mcg/actuation 2 inh inhalation QID PRN shortness 11/05/24 01/11/25 History aerosol inhaler of breath or wheezing Allergies Allergy/AdvReac Type Severity Reaction Status Date / Time No Known Allergies Allergy Verified 01/11/25 13:36 Vital Signs Vital Signs - 24 hr 01/11/25 12:11 01/11/25 12:32 01/11/25 12:36 Temperature 98.3 F Pulse Rate 100 98 Respiratory Rate 25 H 21 H Blood Pressure 139/86 Pulse Oximetry 95 94 Oxygen Delivery Room Air Room Air 01/11/25 12:45 Temperature Pulse Rate 90 Respiratory Rate 19 Blood Pressure Pulse Oximetry Oxygen Delivery Exam Narrative: General: well appearing, appears stated age. HEENT: normocephalic, atraumatic. Mucous membranes moist. EOMI, PERRLA, bilateral sclera anicteric, no conjunctival injection. Neck supple without JVD, lymphadenopathy, or bruit. Respiratory: clear to ascultation bilaterally. No rales/rhonic/wheezes. Cardiovascular: Regular rate and rhythm, normal S1-S2 upon ascultation. No murmurs, rubs, or clicks. PMI is nondisplaced, capillary refill less than 3 second. Abdomen: Soft, round, no pulsatile masses, nondistended and nontender. No rebound, no guarding. No CVA tenderness, no hepatosplenomegaly. Bowel sounds present to all four quadrants. No high pitch or tinkling sounds, resonant to percussion. Extremities: No cyanosis, clubbing, or edema present. Pulses are palpable 2/2. Active ROM to all four extremities. Peg tube Neuro: Alert and orientated x 4. PERRLA. Cranial nerves 2-12 intact without focal deficit. Skin: Warm, dry, and intact, without rash, erythema, or lesion. Psych: pleasant, cooperative, normal speech, normal affect, no hallucinations, no dysarthia H&P: Results Labs Labs: Short CBC 01/11/25 Range/Units 12:24 WBC 11.3 H (4.5-10.0) K/mm3 Hgb 14.2 (14.0-18.0) g/dL Hct 42.9 (42.0-52.0) % Plt Count 302 (150-375) k/mm3 [facility] 01/11/25 12:24 Sodium 138 Potassium 4.1 Chloride 102 Carbon Dioxide 28 BUN 20 Creatinine 1.23 Glucose 102 Calcium 9.1 Cardiac Enzymes 01/11/25 Range/Units 12:24 Troponin I < 0.012 (0.000-0.034) ng/mL Liver Function 01/11/25 Range/Units 12:24 Total Bilirubin 0.9 (0.2-1.3) mg/dL AST 29 (17-59) U/L ALT 28 (6-50) U/L Alkaline Phosphatase 77 (38-126) U/L Albumin 4.1 (3.5-5.1) g/dL Assessment and Plan Assessment and plan (1) Aspiration pneumonia: Code(s): J69.0 - Pneumonitis due to inhalation of food and vomit Status: Acute Assessment and Plan: Dysphasia after throat surgery with PEG tube Started on azithromycin, Rocephin and Flagyl Fluid bolus Patient is NPO by mouth however he can have full liquids and tube feeds (2) UTI (urinary tract infection): Code(s): N39.0 - Urinary tract infection, site not specified Status: Acute Assessment and Plan: Rocephin (3) Leukocytosis: Code(s): D72.829 - Elevated white blood cell count, unspecified Status: Acute Assessment and Plan: Likely due to pneumonia UA pending Blood cultures pending (4) Hypothyroidism: Code(s): E03.9 - Hypothyroidism, unspecified Status: Acute Assessment and Plan: Continue home levothyroxine Quality VTE Prophylaxis VTE prophylaxis: mechanical ordered Hospitalist MIPS Advance Care Plan I have confirmed that the patient's Advanced Care Plan is present, code status is documented, or surrogate decision maker is listed in patient medical record.: Yes Medication Reconciliation I have utilized all available resources to obtain, update and review the patients current medications (includes all prescriptions, OTC, herbals, cannabis, and nutritional supplements).: Yes
--- NOTE | 2025-01-11 13:35 | ED.GENADULT ---
HPI - General Adult General Chief complaint: Shortness of Breath/Dyspnea Stated complaint: TROUBLE BREATHING, FEVER Time Seen by Provider: 01/11/25 12:15 History of Present Illness HPI narrative: Patient 59-year-old gentleman presents emergency department chief complaint of possible pneumonia. The patient reports that he has history of aspiration pneumonia before in the past reports that he had G-tube he does feed through but also aspirates his saliva the patient states his mucus has changed to a greenish color and reports he has had a cough and shortness of breath patient reports this feels similar to whenever he has had pneumonia in the past Related Data Home Medications ?Medication ?Instructions ?Recorded ?Confirmed ?Last Taken ?Type levothyroxine 100 mcg tablet 100 mcg feeding tube DAILY 03/15/22 11/05/24 11/04/24 09:36 History 100 mcg albuterol sulfate 90 mcg/actuation 2 inh inhalation QID PRN shortness 11/05/24 11/05/24 11/04/24 09:00 History aerosol inhaler of breath or wheezing 2 inh Allergies Allergy/AdvReac Type Severity Reaction Status Date / Time No Known Allergies Allergy Verified 01/11/25 13:36 Review of Systems Review of Systems: A 10 system review of systems was completed on the patient and is negative except for what is stated in the HPI. Nursing and ancillary documentation was reviewed. PENDING SALE TO [facility] Social History Social History Smoking status: Never smoker Alcohol intake: never Substance use: never Do You Feel Safe in your Home?: Yes Lack of Transportation: No Lack of Food: Never True Current Housing: I Have Housing Concerned About Future Housing: No Difficulty Paying Gas/Electric Bills: No Difficulty Paying for Meds: No Currently Unemployed: No Education: High School Diploma/GED Difficulty w/ Childcare or Family Care: No Spiritual care concerns: No Exam Narrative: GENERAL: Well-appearing, well-nourished, and in no acute distress. HEAD: Normocephalic, atraumatic. EYES: PERRLA and EOMI. ENT: Nares clear, no rhinorrhea or epistaxis. Mucous membranes moist. NECK: Supple. CHEST: Rhonchi to auscultation. No respiratory distress. HEART: Regular rate and rhythm. No murmur heard. Normal peripheral pulses. ABDOMEN: Soft, nontender, nondistended, normal active bowel sounds. EXTREMITIES: Normal range of motion. No edema. SKIN: Warm, dry, no rash. NEURO: No focal deficits. Alert and oriented x3. PSYCH: Normal mood and affect. Course Vital Signs Vital signs: Vital Signs Temperature 36.8 C 01/11/25 12:11 Pulse Rate 100 01/11/25 12:11 Respiratory Rate 25 H 01/11/25 12:11 Blood Pressure 139/86 01/11/25 12:11 Pulse Oximetry 95 01/11/25 12:11 Oxygen Delivery Room Air 01/11/25 12:11 Temperature 36.8 C 01/11/25 12:11 Pulse Rate 90 01/11/25 12:45 Respiratory Rate 19 01/11/25 12:45 Blood Pressure 139/86 01/11/25 12:11 Pulse Oximetry 94 01/11/25 12:32 Oxygen Delivery Room Air 01/11/25 12:32 Medical Decision Making MDM Narrative Medical decision making narrative: Differential diagnosis includes pneumonia, aspiration, sepsis, Laboratory studies were obtained on the patient with white count of 11.3 electrolytes within normal limits lactate was normal procalcitonin was 0.1 chest x-ray showed evidence of a left lower lobe infiltrate Blood cultures were obtained on the patient the patient was started on Rocephin Zithromax and Flagyl The case was discussed with the hospitalist patient will receive further care in the inpatient setting Vital Signs Vital Signs: Vital Signs Temperature 36.8 C 01/11/25 12:11 Pulse Rate 100 01/11/25 12:11 Respiratory Rate 25 H 01/11/25 12:11 Blood Pressure 139/86 01/11/25 12:11 Pulse Oximetry 95 01/11/25 12:11 Oxygen Delivery Room Air 01/11/25 12:11 Temperature 36.8 C 01/11/25 12:11 Pulse Rate 90 01/11/25 12:45 Respiratory Rate 19 01/11/25 12:45 Blood Pressure 139/86 01/11/25 12:11 Pulse Oximetry 94 01/11/25 12:32 Oxygen Delivery Room Air 01/11/25 12:32 Lab Data 01/11/25 12:24 01/11/25 12:24 Labs: Lab Results 01/11/25 Range/Units 12:24 WBC 11.3 H (4.5-10.0) K/mm3 RBC 4.58 L (4.6-6.20) M/mm3 Hgb 14.2 (14.0-18.0) g/dL Hct 42.9 (42.0-52.0) % MCV 93.7 (80-100) fl MCH 31.0 (26-34) pg MCHC 33.1 (32-36) g/dl RDW 12.8 (11.5-14.5) % Plt Count 302 (150-375) k/mm3 MPV 8.7 (7.4-10.4) fl Immature Gran % (Auto) 0.4 (0-0.5) % Neut % (Auto) 76.7 H (45.5-73.1) % Lymph % (Auto) 13.6 L (18.3-44.2) % [place] % (Auto) 5.6 (2.6-8.5) % Eos % (Auto) 3.2 (0-4.4) % Baso % (Auto) 0.5 (0.2-1.2) % Lymph # (Auto) 1.54 (0.9-3.2) K/mm3 [place] # (Auto) 0.6 (0.1-0.6) K/mm3 Eos # (Auto) 0.4 H (0-0.3) K/mm3 Baso # (Auto) 0.1 (0.0-0.1) K/mm3 Abs Immat Gran (auto) 0.04 H (0.00-0.031) K/mm3 Absolute Neuts (auto) 8.7 H (1.3-6.7) K/mm3 Absolute Nucleated RBC 0.000 (0.0-0.012) K/mm3 Nucleated RBC % 0.0 (0.0-0.2) % Sodium 138 (137-145) mmol/L Potassium 4.1 (3.4-5.0) mmol/L Chloride 102 (98-107) mmol/L Carbon Dioxide 28 (22-30) mmol/L Anion Gap 8 (4-12) mmol/L BUN 20 (9-20) mg/dL Creatinine 1.23 (0.7-1.3) mg/dL Estim Creat Clear Calc 59 ml/min Estimated GFR > 60 (59 - ) Glucose 102 (65-110) mg/dL Lactic Acid 0.9 (0.7-2.0) mmol/L Calcium 9.1 (8.4-10.2) mg/dL Magnesium 2.0 (1.6-2.3) mg/dL Total Bilirubin 0.9 (0.2-1.3) mg/dL AST 29 (17-59) U/L ALT 28 (6-50) U/L Alkaline Phosphatase 77 (38-126) U/L Troponin I < 0.012 (0.000-0.034) ng/mL NT-Pro-B Natriuret Pep 84 (19.9-100) pg/mL Total Protein 7.8 (6.3-8.2) g/dL Albumin 4.1 (3.5-5.1) g/dL Procalcitonin 0.1 ng/mL Influenza A (RT-PCR) Pending Influenza B (RT-PCR) Pending RSV (RT-PCR) Pending SARS-CoV-2 RNA (RT-PCR) Pending Discharge Plan Discharge Clinical Impression: Pneumonia Patient Disposition: Still a Patient Condition: Stable Patient Language: [place] Prescriptions: No Action levothyroxine 100 mcg tablet 100 mcg feeding tube DAILY prednisone 20 mg tablet 60 mg PO DAILY 5 Days Qty: 15 0RF albuterol sulfate 90 mcg/actuation HFA aerosol inhaler 2 inh inhalation QID PRN (Reason: shortness of breath or wheezing) amoxicillin-pot clavulanate 875-125 mg tablet 1 tablet PO Q12H 5 Days Qty: 10 0RF doxycycline hyclate 100 mg capsule 100 mg PO BID 5 Days Qty: 10 0RF Follow-up/Referrals: Darin,Bud Sanchez MD [Primary Care Provider] - Time of Disposition: 13:37
[2025-01-11 14:00] LABS: Influenza A QL RT-PCR Negative (Negative); Influenza B QL RT-PCR Negative (Negative); RSV RNA, RT-PCR Negative (Negative); SARS-CoV-2 RNA PCR Negative (Negative)
--- NOTE | 2025-01-11 14:25 | PC.NURSE ---
This patient, Jeovanny Doran, was admitted to Medical Room 342-01. Patient/family oriented to hospital policies and general routines including ID bracelet, bed and alarms, visiting hours, pain management, procedures, bathroom and other care routines, personal items, smoking policy, room service/diet, and visiting hours. Information on how to activate the Rapid Response Team has been discussed. Patient/Family are encouraged to report perceived risks to care and to ask questions if they do not understand what they are told or what they should do.
[2025-01-11] MEDS: AZITHROMYCIN 500 MG/NS 250 ML 500 MG/250 ML BAG 250 MG IVPB (14:37)
[2025-01-11] MEDS: metroNIDAZOLE 500 MG/ISO 100ML 500 MG/100 ML BAG 100 MG IVPB ×2 (14:38→21:06)
[2025-01-11 19:56] LABS: Add Urine Microscopic? YES; Appearance Urine Clear (Clear); Glucose Urine UA Negative (Negative); Leukocyte Esterase Ur Trace LEU/UL (Negative); Nitrate Urine Negative (Negative); Non Pathogenic Casts 0-2; Specific Grav Ur 1.028 (1.001-1.035)
[2025-01-12] VITALS (10 sets, daily range): BP systolic 109–139; BP diastolic 70–74; PULSE 74–79; RESP 16–18; TEMP 36.8; O2SAT 94–100
[2025-01-12] MEDS: IPRATROPIUM 0.5 MG/ALBUTEROL SULFATE 2.5 MG AMPUL.NEB 3 ML INHALATION ×4 (02:30→20:05)
[2025-01-12] MEDS: metroNIDAZOLE 500 MG/ISO 100ML 500 MG/100 ML BAG 100 MG IVPB (05:31)
[2025-01-12] MEDS: LEVOTHYROXINE SODIUM 100 MCG TABLET FEED TUBE (05:31)
[2025-01-12 05:47] LABS: Hematocrit 37.7 % (42.0-52.0); Hemoglobin 12.5 g/dL (14.0-18.0); Immature Granulocyte Percent A 0.5 % (0-0.5); Lymphocytes Absolute Auto 1.41 K/mm3 (0.9-3.2); Mean Corpuscular HGB Conc 33.2 g/dl (32-36); Mean Corpuscular Hemoglobin 30.9 pg (26-34); Mean Corpuscular Volume 93.3 fl (80-100); Nucleated Red Blood Cells Absolute Auto 0.000 K/mm3 (0.0-0.012); Nucleated Red Blood Cells Perc 0.0 % (0.0-0.2); Platelet Count Result 247 k/mm3 (150-375); Red Blood Count 4.04 M/mm3 (4.6-6.20); White Blood Count 8.3 K/mm3 (4.5-10.0)
[2025-01-12 06:01] LABS: Anion Gap 8 mmol/L (4-12); Blood Urea Nitrogen 17 mg/dL (9-20); Calcium 8.5 mg/dL (8.4-10.2); Carbon Dioxide 24 mmol/L (22-30); Chloride 105 mmol/L (98-107); Estimated CRCL calculation 76 ml/min; Estimated Glomerular Filt Rate > 60; Glucose 102 mg/dL (65-110); Potassium 3.9 mmol/L (3.4-5.0); Sodium 137 mmol/L (137-145)
--- NOTE | 2025-01-12 08:46 | P.PNIM_ITS ---
Progress Note: A&P Assessment and Plan (1) Aspiration pneumonia: Code(s): J69.0 - Pneumonitis due to inhalation of food and vomit Status: Acute Assessment and Plan: * Dysphasia after throat surgery with PEG tube * Chest XR: Increased opacification of the left mid to lower lung field, for which recurrent consolidation is suspected, likely aspiration. * Started on azithromycin, Rocephin and Flagyl (will d/c flagyl) * Fluid bolus * Patient is NPO by mouth however he can have full liquids and tube feeds * Monitor vital signs, I&Os, neuro status and patient is a fall risk * Follow WBC, serum electrolytes, temperature curves and cultures * Gentle IV fluid resuscitation * Prelim blood cultures (-) for growth (2) UTI (urinary tract infection): Code(s): N39.0 - Urinary tract infection, site not specified Status: Acute Assessment and Plan: - UA: 2+ Ketones, Trace leukocyte esterase - started on Rocephin (3) Leukocytosis: Code(s): D72.829 - Elevated white blood cell count, unspecified Status: Acute Assessment and Plan: * Likely due to pneumonia * UA pending * Blood cultures pending (4) Hypothyroidism: Code(s): E03.9 - Hypothyroidism, unspecified Status: Acute Assessment and Plan: * Continue home levothyroxine Subjective Date/time seen: 01/12/25 08:46 Interval history: 59-year-old male with past medical history of squamous cell cancer of the neck/throat, G-tube, aspiration pneumonia presents the hospital with shortness of breath. 01/12/2025 Patient sitting comfortably at time of exam. Denies any CP, n/v. Currently being treated for aspiration pneumonia - continue IV Antibiotics. Still endorses some SOB but endorses improvement compared to yesterday. Remains afebrile. Leukocytosis improved, 11.3 -> 8.3. Viral panel negative. Will look to switch to oral antibiotics within next 24-48 hours. Review of Systems Review of Systems: 12 systems were reviewed and are negativ e except for as per HPI. Exam Narrative: General: well appearing, appears stated age. HEENT: normocephalic, atraumatic. Mucous membranes moist. EOMI, PERRLA, bilateral sclera anicteric, no conjunctival injection. Neck supple without JVD, lymphadenopathy, or bruit. Respiratory: clear to ascultation bilaterally. No rales/rhonic/wheezes. Cardiovascular: Regular rate and rhythm, normal S1-S2 upon ascultation. No murmurs, rubs, or clicks. PMI is nondisplaced, capillary refill less than 3 second. Abdomen: Soft, round, no pulsatile masses, nondistended and nontender. No rebound, no guarding. No CVA tenderness, no hepatosplenomegaly. Bowel sounds present to all four quadrants. No high pitch or tinkling sounds, resonant to percussion. Extremities: No cyanosis, clubbing, or edema present. Pulses are palpable 2/2. Active ROM to all four extremities. Peg tube Neuro: Alert and orientated x 4. PERRLA. Cranial nerves 2-12 intact without focal deficit. Skin: Warm, dry, and intact, without rash, erythema, or lesion. Psych: pleasant, cooperative, normal speech, normal affect, no hallucinations, no dysarthia Objective Data Vital Signs Vital Signs: Vital Signs - 24 hr 01/11/25 12:11 01/11/25 12:32 01/11/25 12:36 Temperature 98.3 F Pulse Rate 100 98 Respiratory Rate 25 H 21 H Blood Pressure 139/86 Pulse Oximetry 95 94 Oxygen Delivery Room Air Room Air Fraction of Inspired Oxygen 01/11/25 12:45 01/11/25 15:18 01/11/25 15:30 Temperature 97.5 F L Pulse Rate 90 82 Respiratory Rate 19 18 Blood Pressure 97/55 L Pulse Oximetry 92 93 Oxygen Delivery Room Air Fraction of Inspired Oxygen 01/11/25 15:30 01/11/25 15:37 01/11/25 20:00 Temperature Pulse Rate 76 75 Respiratory Rate 16 16 Blood Pressure Pulse Oximetry 96 Oxygen Delivery Room Air Fraction of Inspired Oxygen 01/11/25 20:03 01/11/25 20:06 01/11/25 20:10 Temperature Pulse Rate 72 72 74 Respiratory Rate 18 18 Blood Pressure Pulse Oximetry 96 Oxygen Delivery Room Air Fraction of Inspired Oxygen 21 01/11/25 20:25 01/12/25 02:30 01/12/25 02:39 Temperature 97.9 F Pulse Rate 80 77 75 Respiratory Rate 16 16 16 Blood Pressure 117/67 Pulse Oximetry 96 Oxygen Delivery Fraction of Inspired Oxygen 01/12/25 05:33 01/12/25 07:57 01/12/25 07:57 Temperature 98.3 F Pulse Rate 79 74 Respiratory Rate 16 16 Blood Pressure 115/71 Pulse Oximetry 100 95 Oxygen Delivery Room Air Fraction of Inspired Oxygen 01/12/25 08:07 Temperature Pulse Rate 76 Respiratory Rate 16 Blood Pressure Pulse Oximetry Oxygen Delivery Fraction of Inspired Oxygen Intake/Output Intake/Output: Intake & Output 01/09/25 01/10/25 01/11/25 01/12/25 23:59 23:59 23:59 23:59 Intake Total 1855 455 Balance 1855 455 Meds/Results Medications: Active Medications Generic Name Dose Route Start Last Admin Trade Name Freq PRN Reason Stop Dose Admin Acetaminophen 650 mg 01/11/25 13:30 Acetaminophen 325 Mg Tablet PO Q4H PRN Mild Pain (1-3) or Fever Albuterol/Ipratropium 3 ml 01/11/25 20:00 01/12/25 07:57 Ipratropium 0.5 Mg/Albuterol Sulfate 2.5 Mg Ampul.Neb 3 Ml INHALATION 3 ml Q6HRT ZACK Administration Ceftriaxone Sodium 1 gm in 50 mls @ 100 mls/hr 01/12/25 09:00 Rocephin 1 Gm/Ns 50 Ml IVPB Q24H ZACK Azithromycin 500 mg in 250 mls @ 250 mls/hr 01/12/25 09:00 Zithromax IVPB Q24H ZACK Metronidazole 500 mg in 100 mls @ 100 mls/hr 01/11/25 22:00 01/12/25 06:31 Flagyl 500 Mg/Iso Soln 100 Ml IVPB Infused Q8H [facility] Infusion Levothyroxine Sodium 100 mcg 01/12/25 06:30 01/12/25 05:31 Levothyroxine Sodium 100 Mcg Tablet FEED TUBE 100 mcg DAILY@0630 [facility] Administration Radiology Results: ITS Impressions Chest X-Ray 01/11/25 13:04 IMPRESSION: Left lower lobe infiltrate, as detailed above. Labs Labs: Laboratory Results - last 24 hr 01/11/25 01/11/25 01/12/25 12:24 19:43 05:35 WBC 11.3 H 8.3 RBC 4.58 L 4.04 L Hgb 14.2 12.5 L Hct 42.9 37.7 L MCV 93.7 93.3 MCH 31.0 30.9 MCHC 33.1 33.2 RDW 12.8 12.8 Plt Count 302 247 MPV 8.7 8.7 Immature Gran % (Auto) 0.4 0.5 Neut % (Auto) 76.7 H 70.4 Lymph % (Auto) 13.6 L 17.0 L [place] % (Auto) 5.6 6.5 Eos % (Auto) 3.2 5.1 H Baso % (Auto) 0.5 0.5 Lymph # (Auto) 1.54 1.41 [place] # (Auto) 0.6 0.5 Eos # (Auto) 0.4 H 0.4 H Baso # (Auto) 0.1 0.0 Abs Immat Gran (auto) 0.04 H 0.04 H Absolute Neuts (auto) 8.7 H 5.9 Absolute Nucleated RBC 0.000 0.000 Nucleated RBC % 0.0 0.0 Sodium 138 137 Potassium 4.1 3.9 Chloride 102 105 Carbon Dioxide 28 24 Anion Gap 8 8 BUN 20 17 Creatinine 1.23 0.94 Estim Creat Clear Calc 59 76 Estimated GFR > 60 > 60 Glucose 102 102 Lactic Acid 0.9 Calcium 9.1 8.5 Magnesium 2.0 Total Bilirubin 0.9 AST 29 ALT 28 Alkaline Phosphatase 77 Troponin I < 0.012 NT-Pro-B Natriuret Pep 84 Total Protein 7.8 Albumin 4.1 Procalcitonin 0.1 Urine Color Dark yellow Urine Appearance Clear Urine pH 5.5 Ur Specific [place] 1.028 Urine Protein Trace Urine Glucose (UA) Negative Urine Ketones 2+ H Ur Blood (Man) Negative Urine Nitrate Negative Urine Bilirubin 1+ H Urine Urobilinogen 1.0 Leukocyte Esterase Rfl Trace H Urine RBC 0-2 Urine WBC 0-5 Ur Squamous Epith Cells None seen Urine Bacteria None seen Urine Casts 0-2 Influenza A (RT-PCR) Negative Influenza B (RT-PCR) Negative RSV (RT-PCR) Negative SARS-CoV-2 RNA (RT-PCR) Negative Quality VTE Prophylaxis VTE prophylaxis: mechanical ordered
[2025-01-12] MEDS: AZITHROMYCIN 500 MG/NS 250 ML 500 MG/250 ML BAG 250 MG IVPB (09:34)
[2025-01-13] VITALS (12 sets, daily range): BP systolic 98–142; BP diastolic 47–88; PULSE 68–77; RESP 14–18; TEMP 36.1–36.5; O2SAT 94–97
[2025-01-13] MEDS: IPRATROPIUM 0.5 MG/ALBUTEROL SULFATE 2.5 MG AMPUL.NEB 3 ML INHALATION ×4 (02:04→20:20)
[2025-01-13] MEDS: LEVOTHYROXINE SODIUM 100 MCG TABLET FEED TUBE (05:38)
[2025-01-13 07:26] LABS: Hematocrit 37.0 % (42.0-52.0); Hemoglobin 12.3 g/dL (14.0-18.0); Immature Granulocyte Percent A 0.6 % (0-0.5); Lymphocytes Absolute Auto 1.23 K/mm3 (0.9-3.2); Mean Corpuscular HGB Conc 33.2 g/dl (32-36); Mean Corpuscular Hemoglobin 31.1 pg (26-34); Mean Corpuscular Volume 93.4 fl (80-100); Nucleated Red Blood Cells Absolute Auto 0.000 K/mm3 (0.0-0.012); Nucleated Red Blood Cells Perc 0.0 % (0.0-0.2); Platelet Count Result 279 k/mm3 (150-375); Red Blood Count 3.96 M/mm3 (4.6-6.20); White Blood Count 6.4 K/mm3 (4.5-10.0)
[2025-01-13 07:45] LABS: Alanine Aminotransferase 28 U/L (6-50); Albumin Level 3.3 g/dL (3.5-5.1); Alkaline Phosphatase 65 U/L (38-126); Anion Gap 7 mmol/L (4-12); Aspartate Amino Transferase 34 U/L (17-59); Bilirubin,Total 0.3 mg/dL (0.2-1.3); Blood Urea Nitrogen 12 mg/dL (9-20); Calcium 8.6 mg/dL (8.4-10.2); Carbon Dioxide 26 mmol/L (22-30); Chloride 106 mmol/L (98-107); Estimated CRCL calculation 77 ml/min; Estimated Glomerular Filt Rate > 60; Glucose 99 mg/dL (65-110); Potassium 4.0 mmol/L (3.4-5.0); Sodium 139 mmol/L (137-145); Total Protein 6.7 g/dL (6.3-8.2)
--- NOTE | 2025-01-13 07:54 | P.PNIM_ITS ---
Progress Note: A&P Assessment and Plan (1) Aspiration pneumonia: Code(s): J69.0 - Pneumonitis due to inhalation of food and vomit Status: Acute Assessment and Plan: * Dysphasia after throat surgery with PEG tube * Chest XR: Increased opacification of the left mid to lower lung field, for which recurrent consolidation is suspected, likely aspiration. * Started on azithromycin, Rocephin and Flagyl (will d/c flagyl) * Fluid bolus * Patient is NPO by mouth however he can have full liquids and tube feeds * Monitor vital signs, I&Os, neuro status and patient is a fall risk * Follow WBC, serum electrolytes, temperature curves and cultures * Gentle IV fluid resuscitation * Prelim blood cultures (-) for growth * Transition to oral antibiotics within next 24 hours (2) UTI (urinary tract infection): Code(s): N39.0 - Urinary tract infection, site not specified Status: Acute Assessment and Plan: - UA: 2+ Ketones, Trace leukocyte esterase - started on Rocephin - No UC reflex - UTI unlikely (3) Leukocytosis: Code(s): D72.829 - Elevated white blood cell count, unspecified Status: Acute Assessment and Plan: * Likely due to pneumonia * UA shows 1+ leukocyte esterase, unlikely UTI * Blood cultures negative for preliminary growth (4) Hypothyroidism: Code(s): E03.9 - Hypothyroidism, unspecified Status: Acute Assessment and Plan: * Continue home levothyroxine Subjective Date/time seen: 01/13/25 07:54 Interval history: 59-year-old male with past medical history of squamous cell cancer of the neck/throat, G-tube, aspiration pneumonia presents the hospital with shortness of breath. 01/13/2025 Patient sitting comfortably at time of exam. Denies any CP, n/v. Currently being treated for aspiration pneumonia - continue IV Antibiotics. Remains afebrile without leukocytosis. Viral panel negative. Will look to switch to oral antibiotics within next 24 hours. Review of Systems Review of Systems: 12 systems were reviewed and are negativ e except for as per HPI. Exam Narrative: General: well appearing, appears stated age. HEENT: normocephalic, atraumatic. Mucous membranes moist. EOMI, PERRLA, bilateral sclera anicteric, no conjunctival injection. Neck supple without JVD, lymphadenopathy, or bruit. Respiratory: clear to ascultation bilaterally. No rales/rhonic/wheezes. Cardiovascular: Regular rate and rhythm, normal S1-S2 upon ascultation. No murmurs, rubs, or clicks. PMI is nondisplaced, capillary refill less than 3 second. Abdomen: Soft, round, no pulsatile masses, nondistended and nontender. No rebound, no guarding. No CVA tenderness, no hepatosplenomegaly. Bowel sounds p resent to all four quadrants. No high pitch or tinkling sounds, resonant to percussion. Extremities: No cyanosis, clubbing, or edema present. Pulses are palpable 2/2. Active ROM to all four extremities. Peg tube Neuro: Alert and orientated x 4. PERRLA. Cranial nerves 2-12 intact without focal deficit. Skin: Warm, dry, and intact, without rash, erythema, or lesion. Psych: pleasant, cooperative, normal speech, normal affect, no hallucinations, no dysarthia Objective Data Vital Signs Vital Signs: Vital Signs - 24 hr 01/12/25 07:57 01/12/25 07:57 01/12/25 08:07 Temperature Pulse Rate 74 76 Respiratory Rate 16 16 Blood Pressure Pulse Oximetry 95 Oxygen Delivery Room Air 01/12/25 09:43 01/12/25 14:00 01/12/25 14:50 Temperature 98.2 F Pulse Rate 75 76 Respiratory Rate 18 18 Blood Pressure 109/70 Pulse Oximetry 96 Oxygen Delivery Room Air 01/12/25 19:39 01/12/25 20:00 01/12/25 20:05 Temperature 98.3 F Pulse Rate 78 75 Respiratory Rate 18 18 Blood Pressure 139/74 Pulse Oximetry 98 Oxygen Delivery Room Air 01/12/25 20:05 01/12/25 20:14 01/13/25 02:05 Temperature Pulse Rate 74 76 Respiratory Rate 18 18 Blood Pressure Pulse Oximetry 94 Oxygen Delivery Room Air 01/13/25 02:19 01/13/25 06:00 01/13/25 07:28 Temperature 96.9 F L Pulse Rate 75 73 Respiratory Rate 18 16 Blood Pressure 109/69 Pulse Oximetry 96 95 Oxygen Delivery Room Air 01/13/25 07:28 01/13/25 07:42 Temperature Pulse Rate 70 72 Respiratory Rate 18 18 Blood Pressure Pulse Oximetry Oxygen Delivery Intake/Output Intake/Output: Intake & Output 01/10/25 01/11/25 01/12/25 01/13/25 23:59 23:59 23:59 23:59 Intake Total 1855 2170 50 Output Total 2 Balance 1855 2170 48 Meds/Results Medications: Active Medications Generic Name Dose Route Start Last Admin Trade Name Freq PRN Reason Stop Dose Admin Acetaminophen 650 mg 01/11/25 13:30 Acetaminophen 325 Mg Tablet PO Q4H PRN Mild Pain (1-3) or Fever Albuterol/Ipratropium 3 ml 01/11/25 20:00 01/13/25 07:28 Ipratropium 0.5 Mg/Albuterol Sulfate 2.5 Mg Ampul.Neb 3 Ml INHALATION 3 ml Q6HRT ZACK Administration Ceftriaxone Sodium 1 gm in 50 mls @ 100 mls/hr 01/12/25 09:00 01/12/25 10:04 Rocephin 1 Gm/Ns 50 Ml IVPB Infused Q24H [facility] Infusion Azithromycin 500 mg in 250 mls @ 250 mls/hr 01/12/25 09:00 01/12/25 10:34 Zithromax IVPB Infused Q24H [facility] Infusion Levothyroxine Sodium 100 mcg 01/12/25 06:30 01/13/25 05:38 Levothyroxine Sodium 100 Mcg Tablet FEED TUBE 100 mcg DAILY@0630 [facility] Administration Radiology Results: ITS Impressions Chest X-Ray 01/11/25 13:04 IMPRESSION: Left lower lobe infiltrate, as detailed above. Labs Labs: Laboratory Results - last 24 hr 01/13/25 07:17 WBC 6.4 RBC 3.96 L Hgb 12.3 L Hct 37.0 L MCV 93.4 MCH 31.1 MCHC 33.2 RDW 13.0 Plt Count 279 MPV 8.6 Immature Gran % (Auto) 0.6 H Neut % (Auto) 59.0 Lymph % (Auto) 19.4 [place] % (Auto) 9.6 H Eos % (Auto) 10.6 H Baso % (Auto) 0.8 Lymph # (Auto) 1.23 [place] # (Auto) 0.6 Eos # (Auto) 0.7 H Baso # (Auto) 0.1 Abs Immat Gran (auto) 0.04 H Absolute Neuts (auto) 3.8 Absolute Nucleated RBC 0.000 Nucleated RBC % 0.0 Sodium 139 Potassium 4.0 Chloride 106 Carbon Dioxide 26 Anion Gap 7 BUN 12 D Creatinine 0.93 Estim Creat Clear Calc 77 Estimated GFR > 60 Glucose 99 Calcium 8.6 Total Bilirubin 0.3 AST 34 ALT 28 Alkaline Phosphatase 65 Total Protein 6.7 Albumin 3.3 L Quality VTE Prophylaxis VTE prophylaxis: mechanical ordered
[2025-01-13] MEDS: AZITHROMYCIN 500 MG/NS 250 ML 500 MG/250 ML BAG 250 MG IVPB (09:04)
[2025-01-14] MEDS: IPRATROPIUM 0.5 MG/ALBUTEROL SULFATE 2.5 MG AMPUL.NEB 3 ML INHALATION ×2 (02:34→07:17)
[2025-01-14 02:35] VITALS: PULSE 72; RESP 18
[2025-01-14 02:43] VITALS: PULSE 74; RESP 18
[2025-01-14 04:45] VITALS: BP 96/62; PULSE 74; RESP 18; TEMP 36.6; O2SAT 95
[2025-01-14 05:44] LABS: Hematocrit 38.3 % (42.0-52.0); Hemoglobin 12.6 g/dL (14.0-18.0); Immature Granulocyte Percent A 0.5 % (0-0.5); Lymphocytes Absolute Auto 1.69 K/mm3 (0.9-3.2); Mean Corpuscular HGB Conc 32.9 g/dl (32-36); Mean Corpuscular Hemoglobin 30.8 pg (26-34); Mean Corpuscular Volume 93.6 fl (80-100); Nucleated Red Blood Cells Absolute Auto 0.000 K/mm3 (0.0-0.012); Nucleated Red Blood Cells Perc 0.0 % (0.0-0.2); Platelet Count Result 312 k/mm3 (150-375); Red Blood Count 4.09 M/mm3 (4.6-6.20); White Blood Count 5.7 K/mm3 (4.5-10.0)
[2025-01-14] MEDS: LEVOTHYROXINE SODIUM 100 MCG TABLET FEED TUBE (05:54)
[2025-01-14 06:00] LABS: Alanine Aminotransferase 36 U/L (6-50); Albumin Level 3.4 g/dL (3.5-5.1); Alkaline Phosphatase 70 U/L (38-126); Anion Gap 6 mmol/L (4-12); Aspartate Amino Transferase 37 U/L (17-59); Bilirubin,Total 0.2 mg/dL (0.2-1.3); Blood Urea Nitrogen 12 mg/dL (9-20); Calcium 8.9 mg/dL (8.4-10.2); Carbon Dioxide 27 mmol/L (22-30); Chloride 105 mmol/L (98-107); Estimated CRCL calculation 73 ml/min; Estimated Glomerular Filt Rate > 60; Glucose 95 mg/dL (65-110); Potassium 4.2 mmol/L (3.4-5.0); Sodium 138 mmol/L (137-145); Total Protein 6.8 g/dL (6.3-8.2)
[2025-01-14 07:17] VITALS: PULSE 70; RESP 18; O2SAT 95
[2025-01-14 07:32] VITALS: PULSE 75; RESP 18
--- NOTE | 2025-01-14 10:01 | P.DS_ITS ---
DS: Admitting Diagnosis Discharge Date 01/14/2025 Admitting Diagnosis Aspiration pneumonia DS: Discharge Diagnosis Discharge Diagnosis (1) Aspiration pneumonia: Code(s): J69.0 - Pneumonitis due to inhalation of food and vomit Status: Acute (2) UTI (urinary tract infection): Code(s): N39.0 - Urinary tract infection, site not specified Status: Acute (3) Leukocytosis: Code(s): D72.829 - Elevated white blood cell count, unspecified Status: Acute (4) Hypothyroidism: Code(s): E03.9 - Hypothyroidism, unspecified Status: Acute DS: Summary Hospital Course Reason for hospitalization: Shortness of breath Hospital Course: 59-year-old male with past medical history of squamous cell cancer of the neck/throat, G-tube, aspiration pneumonia presents the hospital with shortness of breath. Patient is afraid that he aspirated. Patient denies dysuria fever chills nausea or vomiting. Patient states that home that he will put pureed Food in his G-tube for comfort, okay to do while in hospital. Patient is were correct consistency for feeds In the ED patient has leukocytosis 11.3, CMP is within normal limits, influenza A/B, RSV, COVID negative. EKG shows sinus rhythm. Patient was admitted to the hospitalist service for aspiration pneumonia. Patient has experienced dysphagia after throughout surgery with subsequent PEG tube placement. Chest x-ray in the ER showed increased opacification in the left mid to lower lung field. He was initially started on azithromycin, Rocephin, and Flagyl. Flagyl was discontinued but azithromycin and Rocephin were continued throughout the weekend. Discussed with ID pharmacist regarding transition to oral medications and pharmacist agreed with switching patient to Augmentin q.8 hours for 5 total doses and azithromycin p.o. 1 additional dose. Throughout hospitalization, patient's vital signs and blood work remained reassuring or unremarkable. Patient remained afebrile with no leukocytosis. Rhonchi were appreciated on exam but resolved throughout hospitalization. On 01/14, patient has continued to remain afebrile with no leukocytosis and is otherwise hemodynamically stable for discharge at this time. He was initially recommended home health but denied wanting any further rehabilitation assistance. Patient is amenable to discharge home, will transition patient to oral antibiotics. Augmentin comes in liquid form and azithromycin can be crushed. Status at Discharge Functional status at discharge: independent ambulation Overall status at discharge: patient is back to baseline Time Spent with Patient Time attestation: Total time spent providing and/or coordinating discharge services: 35 Exam Narrative: General: well appearing, appears stated age. HEENT: normocephalic, atraumatic. Mucous membranes moist. EOMI, PERRLA, bilateral sclera anicteric, no conjunctival injection. Neck supple without JVD, lymphadenopathy, or bruit. Respiratory: clear to ascultation bilaterally. No rales/rhonic/wheezes. Cardiovascular: Regular rate and rhythm, normal S1-S2 upon ascultation. No murmurs, rubs, or clicks. PMI is nondisplaced, capillary refill less than 3 second. Abdomen: Soft, round, no pulsatile masses, nondistended and nontender. No rebound, no guarding. No CVA tenderness, no hepatosplenomegaly. Bowel sounds present to all four quadrants. No high pitch or tinkling sounds, resonant to percussion. Extremities: No cyanosis, clubbing, or edema present. Pulses are palpable 2/2. Active ROM to all four extremities. Peg tube Neuro: Alert and orientated x 4. PERRLA. Cranial nerves 2-12 intact without focal deficit. Skin: Warm, dry, and intact, without rash, erythema, or lesion. Psych: pleasant, cooperative, normal speech, normal affect, no hallucinations, no dysarthia DS: Data Data Completed and Pending Labs on day of discharge: Labs from last 24 hours 01/14/25 05:27 WBC 5.7 RBC 4.09 L Hgb 12.6 L Hct 38.3 L MCV 93.6 MCH 30.8 MCHC 32.9 RDW 13.0 Plt Count 312 MPV 8.6 Immature Gran % (Auto) 0.5 Neut % (Auto) 48.4 Lymph % (Auto) 29.8 [place] % (Auto) 8.6 H Eos % (Auto) 11.8 H Baso % (Auto) 0.9 Lymph # (Auto) 1.69 [place] # (Auto) 0.5 Eos # (Auto) 0.7 H Baso # (Auto) 0.1 Abs Immat Gran (auto) 0.03 Absolute Neuts (auto) 2.7 Absolute Nucleated RBC 0.000 Nucleated RBC % 0.0 Sodium 138 Potassium 4.2 Chloride 105 Carbon Dioxide 27 Anion Gap 6 BUN 12 Creatinine 0.98 Estim Creat Clear Calc 73 Estimated GFR > 60 Glucose 95 Calcium 8.9 Total Bilirubin 0.2 AST 37 ALT 36 Alkaline Phosphatase 70 Total Protein 6.8 Albumin 3.4 L Preliminary micro results at discharge 01/11/25 13:38 Blood Culture - Preliminary Blood 01/11/25 13:38 Blood Culture - Preliminary Blood Discharge Plan Discharge Attending physician on discharge: Marcin Keys Consulting providers: Sonu Chaudhari Discharging Clinician: Sonu Chaudhari Anticipated Discharge Date/Time: 01/14/25 09:58 Patient Disposition: Home Activity: as tolerated Diet: as tolerated Discharge Instructions: Discharge disposition: Stable Take medications as prescribed. You will be prescribed Augmentin to be taken every 8 hours for a total of 5 doses. You will also be prescribed azithromycin be taken for 1 more additional dose. Monitor blood pressures Take caution while standing, rising, or moving Change positions slowly taking a break between each position change If you standing feel dizzy sit back down and take a break Encouraged to continue with yearly vaccinations Return to the emergency department if he developed sudden shortness of breath, chest pain, nausea, vomiting, upset stomach or intractable diarrhea Return to the emergency department if you develop fever greater than 101.5 Follow-up with the primary care physician within 1-2 weeks Thank you for [facility] for your healthcare needs Patient Instructions: Antibiotic Form Patient Language: Vietnamese Stand Alone Forms: General Discharge Information Follow-up/Referrals: Darin,Bud Sanchez MD [Primary Care Provider] - Discharge Medications: New amoxicillin-pot clavulanate 400-57 mg/5 mL Suspension For Reconstitution 500 ml PO Q8HR Qty: 5 0RF azithromycin 500 mg Tablet 500 mg feeding tube DAILY Qty: 1 0RF Continued levothyroxine 100 mcg tablet 100 mcg feeding tube DAILY albuterol sulfate 90 mcg/actuation HFA aerosol inhaler 2 inh inhalation QID PRN (Reason: shortness of breath or wheezing) Date of admission: 01/13/25 13:22 Primary Care Provider: DarinBud Admitting Provider: Robson Barton Attending physician on admission: Robson Barton Condition: Stable Quality VTE Prophylaxis VTE prophylaxis: mechanical ordered
[2025-01-14] MEDS: AZITHROMYCIN 500 MG TABLET FEED TUBE (10:02)
== END 2025-01-14 11:00 | disposition home or self-care (01) | DRG 179 ==
LOC: ANHED 13:37 → ANH3MED 14:05
PROVIDERS: Emergency Medicine; Nurse Practitioner Gerontology; Admitting Provider Internal Medicine; Emergency Provider Emergency Medicine; PCP Family Medicine; Visit Provider Physician Assistant
DX: J69.0 Pneumonitis due to inhalation of food and vomit (principal); R13.10 Dysphagia, unspecified; D72.829 Elevated white blood cell count, unspecified; E03.9 Hypothyroidism, unspecified; Z20.822 Contact with and (suspected) exposure to COVID-19; Z93.1 Gastrostomy status; Z85.89 Personal history of malignant neoplasm of other organs and systems
CPT/HCPCS: 36415; 71046; 80048; 80053; 81001; 83605; 83735; 83880; 84145; 84484; 85025; 87040; 87637; 93005; 94640; 96361; 96365; 96367; 96375; 99285; A9270; J0456; J0696; J1836; J1885; J7030

== ENCOUNTER 2025-02-21 09:18 | Emergency (ER) | payer MEDICARE, MEDICAID, SELFPAY ==
--- NOTE | ~2025-02-21 | XR_ITS ---
EXAMINATION: XR abdomen gastric tube recheck DATE: 02/21/2025 10:41 INDICATION: Concern for dislodgment. TECHNIQUE: A supine view of the abdomen and lower chest was obtained for evaluation of feeding tube placement. COMPARISON: None. FINDINGS: There is a PEG tube projecting over the left abdomen. 10 mL of Omnipaque 350 was administered through the PEG tube. Contrast is noted within the stomach. No extravasation of contrast identified. Moderate amount of stool. Moderate amount of air in nondilated large bowel. IMPRESSION: 1. There is a PEG tube projecting over the left abdomen. 10 mL of Omnipaque 350 was administered thro ugh the PEG tube. 2. Contrast is noted within the stomach. No extravasation of contrast identified. Reviewed, dictated and finalized at location A. IMPRESSION: 1. There is a PEG tube projecting over the left abdomen. 10 mL of Omnipaque 350 was administered through the PEG tube. 2. Contrast is noted within the stomach. No extravasation of contrast hoie shana
--- OUTSIDE RECORDS SUMMARY | 2025-02-21 09:32 | XMS_ITS | Clinical Summary ---
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
--- OUTSIDE RECORDS SUMMARY | 2025-02-21 09:32 | XMS_ITS | Clinical Summary ---
Author Organization [facility] Address [address] [place] [address] Phone Care Team Providers Care Correspondence School Teacher Name Role Phone Bud Pete MD Primary Care Provider [phone] Allergies No known active allergies Medications levothyroxine [...] drink = 0.6 oz pur e alcohol) [facility] Utilities Answer Date Recorded In the [...] often do you attend chur ch or buddhism services? Never 05/05/2024 Do you belong to any clubs o r organizations such as congregational groups, unions, fraternal or athletic groups, or [...] and heating? Not hard at all 05/05/2024 [facility] Stress Questionnaire Answer Date [...] any time in the past 12 m [facility], were you homeless or living in a [facility] (including now)? No 05/05/2024 Sex and Gender Information Value Date Recorded Sex Assigned at Male 05/04/2024 11:42 PM CDT Legal Sex Male 7:18 PM CDT Gender Identity Male 05/04/2024 11:42 PM CDT Sexual Orientation Not on file Last Filed Vital Signs Vital Sign Reading Time Taken Comments Blood Pressure 123/88 08/01/2024 1:48 PM [employer] Pulse 92 08/01/2024 1:48 PM [employer] Temperature 36.7 C (98.1 F) 08/01/2024 1:48 PM [employer] Respiratory Rate 16 08/01/2024 1:48 PM [employer] Oxygen Saturation 95% 08/01/2024 1:48 PM [employer] Inhaled Oxygen Concentration - - Weight 70.6 kg (155 lb 11.2 oz) 08/01/2024 1:48 PM [employer] Height 180.3 cm (5' 11) 08/01/2024 1:48 PM [employer] Body Mass Index 21.72 08/01/2024 1:48 PM [employer] Plan of Treatment Health Maintenance Due Date [...] Colorectal Cancer Screening 08/08/2022 Influenza Immunization (#1) 2025 Respiratory Syncytial Virus (RSV) Immunization (Adult) [...] measures to stabilize the patient. Care Teams Correspondence School Teacher Relationship Specialty Start Date End Date Bud Pete MD [address] [place] [address] [facility] [address] [place] [address] PCP - General Family Medicine 07/15/16
[2025-02-21 09:40] VITALS: BP 142/93; PULSE 72; RESP 16; TEMP 36.4; O2SAT 97
--- NOTE | 2025-02-21 10:11 | ED.GENADULT ---
HPI - General Adult General Chief complaint: Unspecified Stated complaint: bleeding from feeding tube Time Seen by Provider: 02/21/25 09:52 History of Present Illness HPI narrative: Patient is a 59-year-old male who presents to the ER after concerns for G-tube dislodgement. He reports his dog jumped up on his abdomen and he felt as though his dog pulled the tube out ?pass the stitching. Patient endorses slight pain at the site. He reports he has had a G-tube in for approximately 8 months. Patient endorses a history of throat cancer and reports he has a gtube due to his aspiration history. He denies any recent fevers, cough, chest pain or shortness of breath. Related Data Home Medications ?Medication ?Instructions ?Recorded ?Confirmed ?Last Taken ?Type levothyroxine 100 mcg tablet 100 mcg feeding tube DAILY 03/15/22 01/11/25 01/11/25 History albuterol sulfate 90 mcg/actuation 2 inh inhalation QID PRN shortness 11/05/24 01/11/25 11/04/24 09:00 History aerosol inhaler of breath or wheezing 2 inh Allergies Allergy/AdvReac Type Severity Reaction Status Date / Time No Known Allergies Allergy Verified 02/21/25 09:45 Review of Systems Review of Systems: All systems reviewed & are unremarkable except as noted in HPI and below PMFSH Past Medical History Medical History Hypothyroidism Gastrostomy tube in place Social History Social History Smoking status: Never smoker Alcohol intake: never Substance use: never Substance use type: does not use Do You Feel Safe in your Home?: Yes Lack of Transportation: No Lack of Food: Never True Current Housing: I Have Housing Concerned About Future Housing: No Difficulty Paying Gas/Electric Bills: No Difficulty Paying for Meds: No Currently Unemployed: No Education: High School Diploma/GED Difficulty w/ Childcare or Family Care: No Spiritual care concerns: No Exam Narrative: GENERAL: Well appearing, well-nourished, non-toxic, in no acute distress. HEAD: Normocephalic, atraumatic. NECK: Supple. No adenopathy, no masses. RESPIRATORY: Airway patent, respirations nonlabored. Clear to auscultation bilaterally, no rales, rhonchi, wheezing. CARDIOVASCULAR: Regular rate and rhythm without murmurs, rubs, or gallops. Peripheral pulses 2+ and equal bilaterally. ABDOMINAL: Soft, nontender, nondistended, no hepatosplenomegaly. Normoactive BS. MUSCULOSKELETAL: Moves all extremities. Strength/ROM intact without gross deformities. SKIN: Warm, dry, normal color. No rashes. NEURO: A&O X3. Speech clear. Cranial nerves II-XII intact. No ataxic movements. PSYCHIATRIC: Appropriate mood and affect. Normal interaction. Course Vital Signs Vital signs: Vital Signs Temperature 36.4 C 02/21/25 09:40 Pulse Rate 72 02/21/25 09:40 Respiratory Rate 16 02/21/25 09:40 Blood Pressure 142/93 H 02/21/25 09:40 Pulse Oximetry 97 02/21/25 09:40 Oxygen Delivery Room Air 02/21/25 09:40 Temperature 36.4 C 02/21/25 09:40 Pulse Rate 72 02/21/25 09:40 Respiratory Rate 16 02/21/25 09:40 Blood Pressure 142/93 H 02/21/25 09:40 Pulse Oximetry 97 02/21/25 09:40 Oxygen Delivery Room Air 02/21/25 09:40 Medical Decision Making MDM Narrative Medical decision making narrative: Patient is a 59-year-old male who presents to the ER after concerns for G-tube dislodgement. He reports his dog jumped up on his abdomen and he felt as though his dog pulled the tube out ?pass the stitching. Patient endorses slight pain at the site. He reports he has had a G-tube in for approximately 8 months. Patient endorses a history of throat cancer and reports he has a gtube due to his aspiration history. He denies any recent fevers, cough, chest pain or shortness of breath. Labs Ordered: None necessary Imaging Ordered: G-tube insertion Medications Ordered: None necessary Results: Pt's g tube x-ray indicates 1. There is a PEG tube projecting over the left abdomen. 10 mL of Omnipaque 350 was administered through the PEG tube. 2. Contrast is noted within the stomach. No extravasation of contrast identified. Diagnosis: concern for g-tube dislodgement, correct gtube placement Patient Education/Shared MDM: Results of imaging shared with patient. He was advised to continue care for his G-tube at home, as previously advised. Patient strongly advised to follow-up with this PCP as needed. He will not be discharged home with any new prescriptions. Strict return precautions provided. Patient verbalized understanding and is in agreement with plan. Vital signs stable at time of discharge. All questions answered. Differential Diagnosis Differential Diagnosis: G-tube dislodgement, abdominal pain, G2 reinsertion Vital Signs Vital Signs: Vital Signs Temperature 36.4 C 02/21/25 09:40 Pulse Rate 72 02/21/25 09:40 Respiratory Rate 16 02/21/25 09:40 Blood Pressure 142/93 H 02/21/25 09:40 Pulse Oximetry 97 02/21/25 09:40 Oxygen Delivery Room Air 02/21/25 09:40 Temperature 36.4 C 02/21/25 09:40 Pulse Rate 72 02/21/25 09:40 Respiratory Rate 16 02/21/25 09:40 Blood Pressure 142/93 H 02/21/25 09:40 Pulse Oximetry 97 02/21/25 09:40 Oxygen Delivery Room Air 02/21/25 09:40 Imaging Data Attestation: I personally reviewed and interpreted this imaging study as follows: Radiologist's impression: Impressions Abdomen X-Ray 02/21/25 10:46 IMPRESSION: 1. There is a PEG tube projecting over the left abdomen. 10 mL of Omnipaque 350 was administered through the PEG tube. 2. Contrast is noted within the stomach. No extravasation of contrast identified. Discharge Plan Discharge Clinical Impression: Attention to G-tube, Gastrointestinal tube present Patient Disposition: Home Condition: Stable Instructions: Antibiotic Form, How to Use and Care for Your PEG Tube (DC) Additional Instructions: Please return to the ER with any worsening symptoms. Follow-up with primary care provider as needed. Take all medications as prescribed, including regularly scheduled medications. Patient Language: [place] Islander Prescriptions: No Action levothyroxine 100 mcg tablet 100 mcg feeding tube DAILY albuterol sulfate 90 mcg/actuation HFA aerosol inhaler 2 inh inhalation QID PRN (Reason: shortness of breath or wheezing) amoxicillin-pot clavulanate 400-57 mg/5 mL Suspension For Reconstitution 500 ml PO Q8HR Qty: 5 0RF azithromycin 500 mg Tablet 500 mg feeding tube DAILY Qty: 1 0RF Follow-up/Referrals: Juan R,Bud Sanchez MD [Primary Care Provider] - Time of Disposition: 10:57
--- OUTSIDE RECORDS SUMMARY | 2025-02-21 10:27 | XMS_ITS | Clinical Summary ---
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
--- OUTSIDE RECORDS SUMMARY | 2025-02-21 10:27 | XMS_ITS | Clinical Summary ---
Author Organization [facility] Address [address] [place] [address] Care Team Providers Care Kettle Operator Name Role Phone Bud Pete MD Primary Care Provider [phone] Edna Washington MD Unavailable [phone] Allergies No known active allergies Medications albuterol [...] Facial Surgery - (Added by TW Conv) [place] LARYNGOSCOPY W/WO TRACHEOSCOPY DX EXCEPT Direct Laryngoscopy [...] Vaccine (1 of 2) 2017 Influenza Vaccine (#1) 2025 Insurance MEDICARE WELLCARE MEDICARE HMO [facility] OTHER Address: [address] [address] [place] [address] MEDICARE IDPA WELLCARE MEDICARE HMO [id number] [id number] Care Teams Kettle Operator Relationship Specialty Start Date End Date Bud Pete MD PCP - General 06/14/17 Edna Washington MD Consulting Physician Radiation Oncology 08/01/18
--- OUTSIDE RECORDS SUMMARY | 2025-02-21 10:27 | XMS_ITS | Clinical Summary ---
Author Organization [facility] Address [address] [place] [address] Phone Care Team Providers Care Study Assistant Name Role Phone Bud Pete MD Primary Care Provider Allergies No known active allergies Medications levothyroxine [...] drink = 0.6 oz pur e alcohol) [facility] Utilities Answer Date Recorded In the past [...] often do you attend chur ch or mosque services? Never 05/05/2024 Do you belong to any clubs o r organizations such as jehovah's witness groups, unions, fraternal or athletic groups, or [...] and heating? Not hard at all 05/05/2024 [facility] - Occupational Stress Questionnaire Answer [...] any time in the past 12 m [facility], were you homeless or living in a group home (including now)? No 05/05/2024 Sex and Gender Information Value Date Recorded Sex Assigned at Male 05/04/2024 11:42 PM CDT Legal Sex Male 7:18 PM CDT Gender Identity Male 05/04/2024 11:42 PM CDT Sexual Orientation Not on file Last Filed Vital Signs Vital Sign Reading Time Taken Comments Blood Pressure 123/88 08/01/2024 1:48 PM COMMERCIAL FINANCE ANALYST Pulse 92 08/01/2024 1:48 PM COMMERCIAL FINANCE ANALYST Temperature 36.7 C (98.1 F) 08/01/2024 1:48 PM COMMERCIAL FINANCE ANALYST Respiratory Rate 16 08/01/2024 1:48 PM COMMERCIAL FINANCE ANALYST Oxygen Saturation 95% 08/01/2024 1:48 PM COMMERCIAL FINANCE ANALYST Inhaled Oxygen Concentration - - Weight 70.6 kg (155 lb 11.2 oz) 08/01/2024 1:48 PM COMMERCIAL FINANCE ANALYST Height 180.3 cm (5' 11) 08/01/2024 1:48 PM COMMERCIAL FINANCE ANALYST Body Mass Index 21.72 08/01/2024 1:48 PM COMMERCIAL FINANCE ANALYST Plan of Treatment Health Maintenance Due Date [...] measures to stabilize the patient. Care Teams Study Assistant Relationship Specialty Start Date End Date Bud Pete MD [address] [place] [address] [facility] [address] [place] [address] PCP - General Family Medicine 07/15/16
[2025-02-21 10:54] VITALS: BP 138/94; PULSE 65; RESP 16; O2SAT 97
[2025-02-21 11:08] VITALS: BP 138/94; PULSE 72; RESP 15; TEMP 36.5; O2SAT 98
== END 2025-02-21 11:10 | disposition home or self-care (01) ==
PROVIDERS: Emergency Provider Registered Nurse; PCP Family Medicine
DX: Z43.1 Encounter for attention to gastrostomy (principal); C14.0 Malignant neoplasm of pharynx, unspecified; E03.9 Hypothyroidism, unspecified
CPT/HCPCS: 43762; 99283

== ENCOUNTER 2025-02-23 03:58 | Emergency (ER) | payer MEDICARE, MEDICAID, SELFPAY ==
--- NOTE | ~2025-02-23 | XR_ITS ---
EXAMINATION: XR abdomen gastric tube insert DATE: 02/23/2025 06:56 INDICATION: Percutaneous gastrostomy tube insertion TECHNIQUE: A supine view of the abdomen abdomen pelvis was obtained for evaluation of feeding tube p lacement. COMPARISON: None. FINDINGS: Nasogastric tube bulb. I injected contrast within the body of the stomach. Moderate amount of gas and stool scattered throughout the colon. No dilated loops of gas-filled bowel to suggest obstruction. M ultiple phleboliths in the pelvis. IMPRESSION: 1. Percutaneous gastrostomy tube and injected contrast in the stomach. Reviewed, dictated and finalized at location A.
--- OUTSIDE RECORDS SUMMARY | 2025-02-23 04:00 | XMS_ITS | Clinical Summary ---
Author Organization [facility] Address [address] [place] [address] Phone Care Team Providers Care Cadd Technician Name Role Phone Bud Pete MD Primary Care Provider [phone] Allergies No known active allergies Medications levothyroxine [...] drink = 0.6 oz pur e alcohol) [facility] Utilities Answer Date Recorded In the [...] often do you attend chur ch or anabaptism services? Never 05/05/2024 Do you belong to any clubs o r organizations such as bahai groups, unions, fraternal or athletic groups, or [...] and heating? Not hard at all 05/05/2024 [facility] - Occupational Stress Questionnaire Answer [...] any time in the past [address] [facility], were you homeless or living in a fdc (including now)? No 05/05/2024 Sex and Gender Information Value Date Recorded Sex Assigned at Male 05/04/2024 11:42 PM CDT Legal Sex Male 7:18 PM CDT Gender Identity Male 05/04/2024 11:42 PM CDT Sexual Orientation Not on file Last Filed Vital Signs Vital Sign Reading Time Taken Comments Blood Pressure 123/88 08/01/2024 1:48 PM LOG GETTER Pulse 92 08/01/2024 1:48 PM LOG GETTER Temperature 36.7 C (98.1 F) 08/01/2024 1:48 PM LOG GETTER Respiratory Rate 16 08/01/2024 1:48 PM LOG GETTER Oxygen Saturation 95% 08/01/2024 1:48 PM LOG GETTER Inhaled Oxygen Concentration - - Weight 70.6 kg (155 lb 11.2 oz) 08/01/2024 1:48 PM LOG GETTER Height 180.3 cm (5' 11) 08/01/2024 1:48 PM LOG GETTER Body Mass Index 21.72 08/01/2024 1:48 PM LOG GETTER Plan of Treatment Health Maintenance Due Date [...] measures to stabilize the patient. Care Teams Cadd Technician Relationship Specialty Start Date End Date Bud Pete MD [address] [place] [address] [facility] [address] [place] [address] PCP - General Family Medicine 07/15/16
--- OUTSIDE RECORDS SUMMARY | 2025-02-23 04:00 | XMS_ITS | Clinical Summary ---
Author Organization [facility] Address [address] [place] [address] Care Team Providers Care Medical Librarian Name Role Phone Bud Pete MD Primary Care Provider [phone] Edna Washington MD Unavailable [phone] Allergies No known active allergies Medications albuterol [...] (#1) 2025 Insurance MEDICARE WELLCARE MEDICARE HMO [facility] OTHER Address: [address] [address] [place] [address] MEDICARE IDPA WELLCARE MEDICARE HMO [id number] [id number] Care Teams Medical Librarian Relationship Specialty Start Date End Date Bud Pete MD PCP - General 06/14/17 Edna Washington MD Consulting Physician Radiation Oncology 08/01/18
--- OUTSIDE RECORDS SUMMARY | 2025-02-23 04:00 | XMS_ITS | Clinical Summary ---
Author Organization [facility] Address [address] [place] [address] Phone Care Team Providers Care Security Management Specialist Name Role Phone Unavailable Primary Care Provider [...] on file Legal Sex Male 6:04 AM SCHOOL GUIDANCE COUNSELOR Gender Identity Not on file Sexual Orientation [...] Advance Directives For more information, please contact: [phone] * Full Code (Latest Code Status on File) Date Activated Date Inactivated Comments 03/16/2011 5:05 PM 03/18/2011 1:40 PM * Full Code Date Activated Date Inactivated Comments 03/16/2011 1:39 PM 03/16/2011 5:05 PM
[2025-02-23 04:01] VITALS: BP 127/89; PULSE 64; RESP 18; TEMP 36.4; O2SAT 98
[2025-02-23 06:01] VITALS: BP 146/97; PULSE 64; RESP 17; O2SAT 97
--- OUTSIDE RECORDS SUMMARY | 2025-02-23 06:13 | XMS_ITS | Clinical Summary ---
Author Organization [facility] Address [address] [place] [address] Phone Care Team Providers Care Rough And Truing Machine Operator Name Role Phone Bud Pete MD Primary Care Provider [phone] Allergies No known active allergies Medications levothyroxine [...] often do you attend chur ch or denominational services? Never 05/05/2024 Do you belong to any clubs o r organizations such as caodaism groups, unions, fraternal or athletic groups, or [...] 05/05/2024 [facility] - Occupational Stress Questionnaire Answer Date [...] any time in the past 12 m [facility], were you homeless or living in a chcf (including now)? No 05/05/2024 Sex and Gender Information Value Date Recorded Sex Assigned at Male 05/04/2024 11:42 PM CDT Legal Sex Male 7:18 PM CDT Gender Identity Male 05/04/2024 11:42 PM CDT Sexual Orientation Not on file Last Filed Vital Signs Vital Sign Reading Time Taken Comments Blood Pressure 123/88 08/01/2024 1:48 PM ELECTRICIAN ELEVATOR MAINTENANCE Pulse 92 08/01/2024 1:48 PM ELECTRICIAN ELEVATOR MAINTENANCE Temperature 36.7 C (98.1 F) 08/01/2024 1:48 PM ELECTRICIAN ELEVATOR MAINTENANCE Respiratory Rate 16 08/01/2024 1:48 PM ELECTRICIAN ELEVATOR MAINTENANCE Oxygen Saturation 95% 08/01/2024 1:48 PM ELECTRICIAN ELEVATOR MAINTENANCE Inhaled Oxygen Concentration - - Weight 70.6 kg (155 lb 11.2 oz) 08/01/2024 1:48 PM ELECTRICIAN ELEVATOR MAINTENANCE Height 180.3 cm (5' 11) 08/01/2024 1:48 PM ELECTRICIAN ELEVATOR MAINTENANCE Body Mass Index 21.72 08/01/2024 1:48 PM ELECTRICIAN ELEVATOR MAINTENANCE Plan of Treatment Health Maintenance Due Date [...] measures to stabilize the patient. Care Teams Rough And Truing Machine Operator Relationship Specialty Start Date End Date Bud Pete MD [address] [place] [address] [facility] [address] [place] [address] PCP - General Family Medicine 07/15/16
--- OUTSIDE RECORDS SUMMARY | 2025-02-23 06:13 | XMS_ITS | Clinical Summary ---
Author Organization [facility] Address [address] [place] [address] Phone Care Team Providers Care Vulcanized Fiber Unit Operator Name Role Phone Unavailable Primary Care [...] on file Legal Sex Male 6:04 AM CONCRETE STONE FABRICATOR Gender Identity Not on file Sexual Orientation [...] Advance Directives For more information, please contact: [phone] * Full Code (Latest Code Status on File) Date Activated Date Inactivated Comments 03/16/2011 5:05 PM 03/18/2011 1:40 PM * Full Code Date Activated Date Inactivated Comments 03/16/2011 1:39 PM 03/16/2011 5:05 PM
--- OUTSIDE RECORDS SUMMARY | 2025-02-23 06:13 | XMS_ITS | Clinical Summary ---
Author Organization [facility] Address [address] [place] [address] Care Team Providers Care Foam Rubber Curer Name Role Phone Bud Pete MD Primary Care Provider [phone] Edna Washington MD Unavailable Allergies No known active allergies Medications albuterol [...] Facial Surgery - (Added by TW Conv) [place] LARYNGOSCOPY W/WO TRACHEOSCOPY DX EXCEPT Direct Laryngoscopy [...] (#1) 2025 Insurance MEDICARE WELLCARE MEDICARE HMO MEDICARE IDPA WELLCARE MEDICARE HMO [id number] [id number] Care Teams Foam Rubber Curer Relationship Specialty Start Date End Date Bud Pete MD PCP - General 06/14/17 Edna Washington MD Consulting Physician Radiation Oncology 08/01/18
--- NOTE | 2025-02-23 06:45 | ED.GENADULT ---
HPI - General Adult General Chief complaint: Unspecified Stated complaint: feeding tube fell out Time Seen by Provider: 02/23/25 05:56 History of Present Illness HPI narrative: 59-year-old male with a chronic G-tube presenting to the emergency department after accidentally dislodging his G-tube. He thinks the balloon was not fully inflated from a few days ago when he had a new 1 placed in. Denies any symptoms and otherwise in his normal state of health. No other traumatic injuries. Related Data Home Medications ?Medication ?Instructions ?Recorded ?Confirmed ?Last Taken ?Type levothyroxine 100 mcg tablet 100 mcg feeding tube DAILY 03/15/22 01/11/25 01/11/25 History albuterol sulfate 90 mcg/actuation 2 inh inhalation QID PRN shortness 11/05/24 01/11/25 11/04/24 09:00 History aerosol inhaler of breath or wheezing 2 inh Allergies Allergy/AdvReac Type Severity Reaction Status Date / Time No Known Allergies Allergy Verified 02/21/25 09:45 Review of Systems Review of Systems: As reviewed above in HPI [facility] Past Medical History Medical History Hypothyroidism Gastrostomy tube in place Social History Social History Smoking status: Never smoker Alcohol intake: never Substance use: never Substance use type: does not use Do You Feel Safe in your Home?: Yes Lack of Transportation: No Lack of Food: Never True Current Housing: I Have Housing Concerned About Future Housing: No Difficulty Paying Gas/Electric Bills: No Difficulty Paying for Meds: No Currently Unemployed: No Education: High School Diploma/GED Difficulty w/ Childcare or Family Care: No Spiritual care concerns: No Exam Narrative: GENERAL: [Well-appearing, well-nourished, and in no acute distress.] HEAD: [Normocephalic, atraumatic.] EYES: [PERRLA and EOMI.] ENT: Nares clear, no rhinorrhea or epistaxis. Mucous membranes moist. NECK: Supple. CHEST: No respiratory distress HEART: [Regular rate and rhythm]. No murmur heard. [Normal peripheral pulses.] ABDOMEN: [Soft, nondistended], [nontender], [No rigidity or guarding] previous gastrostomy site without any overlying skin changes, erythema, bleeding, purulent drainage. No G-tube in place. EXTREMITIES: Normal range of motion. [No edema.] SKIN: Warm, dry, no rash. NEURO: [No focal deficits]. Alert and oriented [x3.] PSYCH: [Normal mood and affect.] Course Vital Signs Vital signs: Vital Signs Temperature 36.4 C 02/23/25 04:01 Pulse Rate 64 02/23/25 04:01 Respiratory Rate 18 02/23/25 04:01 Blood Pressure 127/89 02/23/25 04:01 Pulse Oximetry 98 02/23/25 04:01 Oxygen Delivery Room Air 02/23/25 04:01 Temperature 36.4 C 02/23/25 04:01 Pulse Rate 64 02/23/25 06:01 Respiratory Rate 17 02/23/25 06:01 Blood Pressure 146/97 H 02/23/25 06:01 Pulse Oximetry 97 02/23/25 06:01 Oxygen Delivery Room Air 02/23/25 04:01 Procedures Feeding Tube Replacement Feeding Tube #1: Feeding Tube Placement Date: 02/23/25 Feeding Tube Placement Time: 06:47 Type of Tube: gastrostomy Insertion Site Prior to Procedure: clean Tube Used for Reinsertion: other Indonesian Tube Size (F): 16 Balloon size (mL): 5 Verification of Placement: gastrografin injection Tube Secured by: tape/dressing Patient Tolerated Procedure: well and no complications Medical Decision Making MDM Narrative Medical decision making narrative: 59-year-old male with a chronic G-tube presenting to the emergency department after accidentally dislodging his G-tube. He thinks the balloon was not fully inflated from a few days ago when he had a new 1 placed in. Denies any symptoms and otherwise in his normal state of health. No other traumatic injuries. G-tube dislodged for several hours, replace excessive without any issue. Balloon inflated and confirmatory x-ray ordered. Safe for discharge back to his home. Vital Signs Vital Signs: Vital Signs Temperature 36.4 C 02/23/25 04:01 Pulse Rate 64 02/23/25 04:01 Respiratory Rate 18 02/23/25 04:01 Blood Pressure 127/89 02/23/25 04:01 Pulse Oximetry 98 02/23/25 04:01 Oxygen Delivery Room Air 02/23/25 04:01 Temperature 36.4 C 02/23/25 04:01 Pulse Rate 64 02/23/25 06:01 Respiratory Rate 17 02/23/25 06:01 Blood Pressure 146/97 H 02/23/25 06:01 Pulse Oximetry 97 02/23/25 06:01 Oxygen Delivery Room Air 02/23/25 04:01 Discharge Plan Discharge Clinical Impression: Dislodged gastrostomy tube Patient Disposition: Home Condition: Stable Instructions: Antibiotic Form Additional Instructions: Return with any emergent concerns or issues. Follow-up with regular doctor. Patient Language: Greenlandic Prescriptions: No Action levothyroxine 100 mcg tablet 100 mcg feeding tube DAILY albuterol sulfate 90 mcg/actuation HFA aerosol inhaler 2 inh inhalation QID PRN (Reason: shortness of breath or wheezing) amoxicillin-pot clavulanate 400-57 mg/5 mL Suspension For Reconstitution 500 ml PO Q8HR Qty: 5 0RF azithromycin 500 mg Tablet 500 mg feeding tube DAILY Qty: 1 0RF Follow-up/Referrals: Darin,Bud Sanchez MD [Primary Care Provider] - Time of Disposition: 06:49
[2025-02-23 07:19] VITALS: BP 145/99; PULSE 89; RESP 16; O2SAT 98
== END 2025-02-23 07:21 | disposition home or self-care (01) ==
PROVIDERS: Emergency Provider Student in an Organized Health Care Education/Training Program; PCP Family Medicine
DX: Z43.1 Encounter for attention to gastrostomy (principal); E03.9 Hypothyroidism, unspecified; Z79.899 Other long term (current) drug therapy
CPT/HCPCS: 43762; 99283

== ENCOUNTER 2025-03-01 12:24 | Emergency (ER) | payer MEDICARE, MEDICAID, SELFPAY ==
--- NOTE | ~2025-03-01 | XR_ITS ---
Exam: Abdomen 1V HISTORY: placement confirmation COMPARISON: 02/23/2025, 02/21/2025 TECHNIQUE: Supine images of the lower chest and upper abdomen FINDINGS: Gastrostomy tube extends into the left upper quadrant. Oral contrast opacifies the stomach and proximal small bowel IMPRESSION: Gastrostomy tube in good position and ready for immediate use. Given that this is the third dislodgement in the last 10 days, gastrostomy tube revision to a percutaneous gastrojejunostomy is suggested, if the patient is clinically able Reviewed, dictated and finalized at location A. IMPRESSION: Gastrostomy tube in good position and ready for immediate use. Given that this is the third dislodgement in the last 10 days, gastrostomy tube revision to a percutaneous gastrojejunostomy is suggested, if the patient is c linically able
--- OUTSIDE RECORDS SUMMARY | 2025-03-01 12:26 | XMS_ITS | Clinical Summary ---
Author Organization [facility] Address [address] [place] [address] Phone Care Team Providers Care Firmware Test Engineer Name Role Phone Bud Pete MD Primary Care Provider [phone] Allergies No known active allergies Medications levothyroxine [...] = 0.6 oz pur e alcohol) [facility] Utilities Answer Date Recorded In the [...] often do you attend chur ch or jehovah's witness services? Never 05/05/2024 Do you belong to any clubs o r organizations such as confucianist groups, unions, fraternal or athletic groups, or [...] and heating? Not hard at all 05/05/2024 [facility]ational Stress Questionnaire Answer [...] any time in the past 12 m [facility], were you homeless or living in a long term (including now)? No 05/05/2024 Sex and Gender Information Value Date Recorded Sex Assigned at Male 05/04/2024 11:42 PM CDT Legal Sex Male 7:18 PM CDT Gender Identity Male 05/04/2024 11:42 PM CDT Sexual Orientation Not on file Last Filed Vital Signs Vital Sign Reading Time Taken Comments Blood Pressure 123/88 08/01/2024 1:48 PM TESTING ANALYST Pulse 92 08/01/2024 1:48 PM TESTING ANALYST Temperature 36.7 C (98.1 F) 08/01/2024 1:48 PM TESTING ANALYST Respiratory Rate 16 08/01/2024 1:48 PM TESTING ANALYST Oxygen Saturation 95% 08/01/2024 1:48 PM TESTING ANALYST Inhaled Oxygen Concentration - - Weight 70.6 kg (155 lb 11.2 oz) 08/01/2024 1:48 PM TESTING ANALYST Height 180.3 cm (5' 11) 08/01/2024 1:48 PM TESTING ANALYST Body Mass Index 21.72 08/01/2024 1:48 PM TESTING ANALYST Plan of Treatment Health Maintenance Due [...] measures to stabilize the patient. Care Teams Firmware Test Engineer Relationship Specialty Start Date End Date Bud Pete MD [address] [place] [address] [facility] [address] [place] [address] PCP - General Family Medicine 07/15/16
--- OUTSIDE RECORDS SUMMARY | 2025-03-01 12:26 | XMS_ITS | Clinical Summary ---
Author Organization [facility] Address [address] [place] [address] Care Team Providers Care Photoengraving Proofer Apprentice Name Role Phone Bud Pete MD Primary Care Provider [phone] Edna Washington MD Unavailable [phone] Allergies No known active allergies Medications albuterol [...] Facial Surgery - (Added by TW Conv) DC LARYNGOSCOPY W/WO TRACHEOSCOPY DX EXCEPT Direct Laryngoscopy [...] OF [place] OTHER Address: [address] [address] [place] [address] MEDICARE IDPA WELLCARE MEDICARE HMO [id number] [id number] Care Teams Photoengraving Proofer Apprentice Relationship Specialty Start Date End Date Bud Pete MD PCP - General 06/14/17 Edna Washington MD Consulting Physician Radiation Oncology 08/01/18
--- OUTSIDE RECORDS SUMMARY | 2025-03-01 12:26 | XMS_ITS | Clinical Summary ---
Author Organization [facility] Address [address] [place] [address] Phone Care Team Providers Care Data Center Architect Name Role Phone Unavailable Primary Care Provider [...] on file Legal Sex Male 6:04 AM ACCOUNTS PAYABLE SPECIALIST Gender Identity Not on file Sexual [...] Advance Directives For more information, please contact: [phone] * Full Code (Latest Code Status on File) Date Activated Date Inactivated Comments 03/16/2011 5:05 PM 03/18/2011 1:40 PM * Full Code Date Activated Date Inactivated Comments 03/16/2011 1:39 PM 03/16/2011 5:05 PM
[2025-03-01 12:33] VITALS: BP 147/93; PULSE 84; RESP 14; TEMP 36.7; O2SAT 100
--- OUTSIDE RECORDS SUMMARY | 2025-03-01 13:12 | XMS_ITS | Clinical Summary ---
Author Organization [facility] Address [address] [place] [address] Phone Care Team Providers Care Infection Control Practitioner Name Role Phone Bud Pete MD Primary Care Provider [phone] Allergies No known active allergies Medications levothyroxine [...] drink = 0.6 oz pur e alcohol) [facility] Utilities Answer Date Recorded In the [...] often do you attend chur ch or taoism services? Never 05/05/2024 Do you belong to any clubs o r organizations such as nondenominational groups, unions, fraternal or athletic groups, or [...] and heating? Not hard at all 05/05/2024 [facility]ational Stress Questionnaire Answer Date [...] any time in the past 12 m [facility], were you homeless or living in a senior care (including now)? No 05/05/2024 Sex and Gender Information Value Date Recorded Sex Assigned at Male 05/04/2024 11:42 PM CDT Legal Sex Male 7:18 PM CDT Gender Identity Male 05/04/2024 11:42 PM CDT Sexual Orientation Not on file Last Filed Vital Signs Vital Sign Reading Time Taken Comments Blood Pressure 123/88 08/01/2024 1:48 PM SOFTLINES SUPERVISOR Pulse 92 08/01/2024 1:48 PM SOFTLINES SUPERVISOR Temperature 36.7 C (98.1 F) 08/01/2024 1:48 PM SOFTLINES SUPERVISOR Respiratory Rate 16 08/01/2024 1:48 PM SOFTLINES SUPERVISOR Oxygen Saturation 95% 08/01/2024 1:48 PM SOFTLINES SUPERVISOR Inhaled Oxygen Concentration - - Weight 70.6 kg (155 lb 11.2 oz) 08/01/2024 1:48 PM SOFTLINES SUPERVISOR Height 180.3 cm (5' 11) 08/01/2024 1:48 PM SOFTLINES SUPERVISOR Body Mass Index 21.72 08/01/2024 1:48 PM SOFTLINES SUPERVISOR Plan of Treatment Health Maintenance Due Date [...] measures to stabilize the patient. Care Teams Infection Control Practitioner Relationship Specialty Start Date End Date uBd Pete MD [address] [place] [address] [facility] [address] [place] [address] PCP - General Family Medicine 07/15/16
--- OUTSIDE RECORDS SUMMARY | 2025-03-01 13:12 | XMS_ITS | Clinical Summary ---
Author Organization [facility] Address [address] [place] [address] Care Team Providers Care Home Health Lpn Name Role Phone Bud Pete MD Primary Care Provider [phone] Edna Washington MD Unavailable [phone] Allergies No known active allergies Medications albuterol [...] Facial Surgery - (Added by TW Conv) DE LARYNGOSCOPY W/WO TRACHEOSCOPY DX EXCEPT Direct Laryngoscopy [...] MEDICARE HMO MEDICARE IDPA WELLCARE MEDICARE HMO [id number] [id number] Care Teams Home Health Lpn Relationship Specialty Start Date End Date Bud Pete MD PCP - General 06/14/17 Edna Washington MD Consulting Physician Radiation Oncology 08/01/18
--- OUTSIDE RECORDS SUMMARY | 2025-03-01 13:12 | XMS_ITS | Clinical Summary ---
Author Organization [facility] Address [address] [place] [address] Phone Care Team Providers Care As400 Analyst Name Role Phone Unavailable Primary Care Provider [...] on file Legal Sex Male 6:04 AM GARNETT FEEDER Gender Identity Not on file Sexual Orientation [...] Advance Directives For more information, please contact: [phone] * Full Code (Latest Code Status on File) Date Activated Date Inactivated Comments 03/16/2011 5:05 PM 03/18/2011 1:40 PM * Full Code Date Activated Date Inactivated Comments 03/16/2011 1:39 PM 03/16/2011 5:05 PM
--- NOTE | 2025-03-01 13:27 | ED_ITS ---
HPI - General Adult General Chief complaint: Unspecified Stated complaint: feeding tube fell out Time Seen by Provider: 03/01/25 12:28 History of Present Illness HPI narrative: Patient is a 59-year-old male with history of esophageal cancer who requires tube feedings that presents ER after his feeding tube dislodged this morning. The balloon popped and it just came out of his abdominal wall. He then put the tube back in to keep the fistula patent. No additional complaints or issues at this time. Related Data Home Medications ?Medication ?Instructions ?Recorded ?Confirmed ?Last Taken ?Type levothyroxine 100 mcg tablet 100 mcg feeding tube ADDIS Y 03/15/22 01/11/25 01/11/25 History albuterol sulfate 90 mcg/actuation 2 inh inhalation QI D PRN shortness 11/05/24 01/11/25 11/04/24 09:00 History aerosol inhaler of breath or wheezing 2 in h Allergies Allergy/AdvReac Type Severity Reaction Status Date / Time No Known Allergies Allergy Verified 03/01/25 12:39 Review of Systems Constitutional: Constitutional: Reports no additional constitutional complaints Gastrointestinal: Gastrointestinal: Reports no additional gastrointestinal complaints PMFSH Past Medical History Medical History Hypothyroidism Gastrostomy tube in place Social History Social History Smoking status: Never smoker Alcohol intake: never Substance use: never Substance use type: does not use Do You Feel Safe in your Home?: Yes Lack of Transportation: No Lack of Food: Never True Current Housing: I Have Housing Concerned About Future Housing: No Difficulty Paying Gas/Electric Bills: No Difficulty Paying for Meds: No Currently Unemployed: No Education: High School Diploma/GED Difficulty w/ Childcare or Family Care: No Spiritual care concerns: No Exam Narrative: GENERAL: Well-appearing, well-nourished, and in no acute distress. HEAD: Normocephalic, atraumatic. CHEST: Clear to auscultation. No respiratory distress. HEART: Regular rate and rhythm. Normal peripheral pulses. ABDOMEN: Soft, nontender, nondistended. G-tube left upper quadrant. EXTREMITIES: Normal range of motion. No edema. SKIN: Warm, dry, no rash. NEURO: Alert and oriented x3. PSYCH: Normal mood and affect. Course Course Emergency Course: New tube placed. Confirmed with x-ray. Discharge. Vital Signs Vital signs: Vital Signs Temperature 98.1 F 03/01/25 12:33 Pulse Rate 84 03/01/25 12:33 Respiratory Rate 14 03/01/25 12:33 Blood Pressure 147/93 H 03/01/25 12:33 Pulse Oximetry 100 03/01/25 12:33 Oxygen Delivery Room Air 03/01/25 12:33 Temperature 98.1 F 03/01/25 12:33 Pulse Rate 71 03/01/25 13:39 Respiratory Rate 14 03/01/25 13:39 Blood Pressure 137/90 03/01/25 13:39 Pulse Oximetry 98 03/01/25 13:39 Oxygen Delivery Room Air 03/01/25 12:33 Medical Decision Making Vital Signs Vital Signs: Vital Signs Temperature 98.1 F 03/01/25 12:33 Pulse Rate 84 03/01/25 12:33 Respiratory Rate 14 03/01/25 12:33 Blood Pressure 147/93 H 03/01/25 12:33 Pulse Oximetry 100 03/01/25 12:33 Oxygen Delivery Room Air 03/01/25 12:33 Temperature 98.1 F 03/01/25 12:33 Pulse Rate 71 03/01/25 13:39 Respiratory Rate 14 03/01/25 13:39 Blood Pressure 137/90 03/01/25 13:39 Pulse Oximetry 98 03/01/25 13:39 Oxygen Delivery Room Air 03/01/25 12:33 Imaging Data Radiologist's impression: ITS Impressions Abdomen X-Ray 03/01/25 13:19 IMPRESSION: Gastrostomy tube in good position and ready for immediate use. Given that this is the third dislodgement in the last 10 days, gastrostomy tube revision to a percutaneous gastrojejunostomy is suggested, if the patient is clinically able Discharge Plan Discharge Clinical Impression: Gastrostomy tube dysfunction Patient Disposition: Home Condition: Stable Additional Instructions: Follow-up with your physician to discuss whether a different have a feeding tube would be more suitable given the recurrent dislodgement that has been happening. Patient Language: Faroese Prescriptions: No Action levothyroxine 100 mcg tablet 100 mcg feeding tube DAILY albuterol sulfate 90 mcg/actuation HFA aerosol inhaler 2 inh inhalation QID PRN (Reason: shortness of breath or wheezing) amoxicillin-pot clavulanate 400-57 mg/5 mL Suspension For Reconstitution 500 ml PO Q8HR Qty: 5 0RF azithromycin 500 mg Tablet 500 mg feeding tube DAILY Qty: 1 0RF Follow-up/Referrals: Juan R,Bud Sanchez MD [Primary Care Provider] - 1 Week
[2025-03-01 13:39] VITALS: BP 137/90; PULSE 71; RESP 14; O2SAT 98
== END 2025-03-01 13:40 | disposition home or self-care (01) ==
PROVIDERS: Emergency Provider Emergency Medicine; PCP Family Medicine
DX: K94.23 Gastrostomy malfunction (principal); E03.9 Hypothyroidism, unspecified; Z85.01 Personal history of malignant neoplasm of esophagus; Z79.899 Other long term (current) drug therapy
CPT/HCPCS: 43762; 99283

== ENCOUNTER 2025-06-04 19:21 | Emergency (ER) | payer MEDICARE, MEDICAID, SELFPAY ==
--- NOTE | ~2025-06-04 | XR_ITS ---
XR abdomen gastric tube insert 06/04/2025 22:23 Indication: Gastric tube replacement Procedure: KUB Comparison: 03/01/2025 Findings: Nonobstructive bowel gas pattern. Gastric tube present with the balloon in the stomach. Contrast administration demonstrates normal intraluminal opacification without extravasation. No abnormal calcifications. No acute osseous abnormality. Impression: 1: Gastric tube in expected position within the stomach. Reviewed, dictated and finalized at location O. ENT SERVICE REP Impression: 1: Gastric tube in expected position within the stomach.
[2025-06-04 19:44] VITALS: BP 123/76; PULSE 78; RESP 14; TEMP 36.9; O2SAT 97
[2025-06-04 21:01] VITALS: BP 137/90; PULSE 75; RESP 16; TEMP 36.8; O2SAT 95
--- NOTE | 2025-06-04 22:18 | ED.RECABL ---
HPI - Recheck/Abnormal Lab/Rx General Chief Complaint: Recheck/Abnormal Lab/Rx Stated Complaint: feeding tube has a hole and its leaking Time Seen by Provider: 06/04/25 21:57 History of Present Illness HPI narrative: 60-year-old male with history of throat cancer currently being evaluated outpatient for treatment options. He has a chronic indwelling feeding tube that was leaking today. Has had frequent replacements of this. Currently has a 16 Salvadorean feeding tube that is leaking at one of the distal port. No injuries. No symptoms. Related Data Home Medications ?Medication ?Instructions ?Recorded ?Confirmed ?Last Taken ?Type levothyroxine 100 mcg tablet 100 mcg feeding tube DAILY 03/15/22 01/11/25 01/11/25 History albuterol sulfate 90 mcg/actuation 2 inh inhalation QID PRN shortness 11/05/24 01/11/25 11/04/24 09:00 History aerosol inhaler of breath or wheezing 2 inh Allergies Allergy/AdvReac Type Severity Reaction Status Date / Time No Known Allergies Allergy Verified 06/04/25 19:43 Review of Systems Review of Systems: As [facility] Past Medical History Medical History Hypothyroidism Gastrostomy tube in place Social History Social History Smoking status: Never smoker Alcohol intake: never Substance use: never Substance use type: does not use Do You Feel Safe in your Home?: Yes Lack of Transportation: No Lack of Food: Never True Current Housing: I Have Housing Concerned About Future Housing: No Difficulty Paying Gas/Electric Bills: No Difficulty Paying for Meds: No Currently Unemployed: No Education: High School Diploma/GED Difficulty w/ Childcare or Family Care: No Spiritual care concerns: No Exam Narrative: GENERAL: [Well-appearing, well-nourished, and in no acute distress.] HEAD: [Normocephalic, atraumatic.] EYES: [PERRLA and EOMI.] ENT: Nares clear, no rhinorrhea or epistaxis. Mucous membranes moist. NECK: Supple. CHEST: [Clear to auscultation. No respiratory distress.] HEART: [Regular rate and rhythm]. No murmur heard. [Normal peripheral pulses.] ABDOMEN: Soft, nontender, nondistended, previous G-tube in place with leakage around the middle port without any signs of infection on the skin. EXTREMITIES: Normal range of motion. [No edema.] SKIN: Warm, dry, no rash. NEURO: [No focal deficits]. Alert and oriented [x3.] PSYCH: [Normal mood and affect.] Course Vital Signs Vital signs: Vital Signs Temperature 36.9 C 06/04/25 19:44 Pulse Rate 78 06/04/25 19:44 Respiratory Rate 14 06/04/25 19:44 Blood Pressure 123/76 06/04/25 19:44 Pulse Oximetry 97 06/04/25 19:44 Oxygen Delivery Room Air 06/04/25 19:44 Temperature 36.8 C 06/04/25 23:37 Pulse Rate 76 06/04/25 23:37 Respiratory Rate 14 06/04/25 23:37 Blood Pressure 121/77 06/04/25 23:37 Pulse Oximetry 100 06/04/25 23:37 Oxygen Delivery Room Air 06/04/25 21:01 Procedures Feeding Tube Replacement Feeding Tube #1: Feeding Tube Placement Date: 06/04/25 Feeding Tube Placement Time: 22:19 Type of Tube: gastrostomy Insertion Site Prior to Procedure: clean Tube Used for Reinsertion: other Salvadorean Tube Size (F): 16 Balloon size (mL): 5 Verification of Placement: gastrografin injection Tube Secured by: tape/dressing Patient Tolerated Procedure: well and no complications MDM - Recheck/Abnormal Lab/Rx MDM Narrative Medical decision making narrative: 60-year-old male with history of throat cancer currently being evaluated outpatient for treatment options. He has a chronic indwelling feeding tube that was leaking today. Has had frequent replacements of this. Currently has a 16 Salv[place]orean feeding tube that is leaking at one of the distal port. No injuries. No symptoms. Soft, nontender, nondistended, previous G-tube in place with leakage around the middle port without any signs of infection on the skin. G-tube replaced without any difficulty. Patient is hemodynamically stable. Confirmed on x-ray. Safe for discharge. Medical Records Attestation: I reviewed the patient's medical records. Imaging Data Attestation: I personally reviewed and interpreted this imaging study as follows: My impression: G-tube in place Discharge Plan Discharge Clinical Impression: Gastrostomy tube dysfunction Patient Disposition: Home Condition: Stable Instructions: Antibiotic Form Additional Instructions: Tube in position, follow-up with your doctor. Return with any emergencies. Patient Language: Grenadian Prescriptions: No Action levothyroxine 100 mcg tablet 100 mcg feeding tube DAILY albuterol sulfate 90 mcg/actuation HFA aerosol inhaler 2 inh inhalation QID PRN (Reason: shortness of breath or wheezing) amoxicillin-pot clavulanate 400-57 mg/5 mL Suspension For Reconstitution 500 ml PO Q8HR Qty: 5 0RF azithromycin 500 mg Tablet 500 mg feeding tube DAILY Qty: 1 0RF Follow-up/Referrals: Juan R,Bud Sanchez MD [Primary Care Provider] Time of Disposition: 23:23
--- NOTE | 2025-06-04 22:30 | PC.NURSE ---
Current g-tube removed by Dr. Martinez. New 16 Cymraes g-tube placed by Dr. Martinez.
[2025-06-04 23:32] VITALS: BP 121/77; PULSE 76; RESP 14; TEMP 36.8; O2SAT 100
[2025-06-04 23:37] VITALS: BP 121/77; PULSE 76; RESP 14; TEMP 36.8; O2SAT 100
== END 2025-06-04 23:41 | disposition home or self-care (01) ==
LOC: ANHED 22:31
PROVIDERS: Emergency Provider Student in an Organized Health Care Education/Training Program; PCP Family Medicine
DX: K94.23 Gastrostomy malfunction (principal); E03.9 Hypothyroidism, unspecified; C14.0 Malignant neoplasm of pharynx, unspecified
CPT/HCPCS: 43762; 99283